=== PATIENT | female | born 1940 ===

== ENCOUNTER 2021-11-15 15:32 | Outpatient (REF) | payer MEDICARE, MEDICAID, SELFPAY ==
--- NOTE | ~2021-11-15 | XR_ITS ---
EXAMINATION: XR LUMBAR SPINE XR KNEE, BILATERAL CLINICAL INFORMATION: Repeated fall, pain. COMPARISON: None. TECHNIQUE: Lumbar spine 3 views. 4 views each knee. FINDINGS: LUMBAR SPINE: There is normal lumbar lordosis. The vertebral heights and alignment are normal. There is loss of L3-L4 and L4-L5 disc heights with mild ventral spondylosis. The rest of the disc heights are maintained normal. No visible acute fracture, lytic or sclerotic process seen. LEFT KNEE: There is minimal reduction in tricompartment joint space without joint effusion or bony erosive changes. There is mild lateral and superior patellar spurring. The soft tissues are normal. RIGHT KNEE: There is moderate loss of lateral and patellofemoral compartment joint space without joint effusion or bony erosive changes. There are no loose bodies. Mild anterior inferior and superior patellar enthesophytes are seen. XR/XR knee RT 4V IMPRESSION: Mild degenerative disc changes with spondylosis L3-L4 and L4-L5 disc levels. No acute fracture seen. Bilateral degenerative arthritic changes of knees. The findings are most severe in the lateral compartment right knee. There is periarticular spurring as described above. No abnormal joint effusion seen in either knee.
--- NOTE | ~2021-11-15 | XR_ITS ---
EXAMINATION: XR LUMBAR SPINE XR KNEE, BILATERAL CLINICAL INFORMATION: Repeated fall, pain. COMPARISON: None. TECHNIQUE: Lumbar spine 3 views. 4 views each knee. FINDINGS: LUMBAR SPINE: There is normal lumbar lordosis. The vertebral heights and alignment are normal. There is loss of L3-L4 and L4-L5 disc heights with mild ventral spondylosis. The rest of the disc heights are maintained normal. No visible acute fracture, lytic or sclerotic process seen. LEFT KNEE: There is minimal reduction in tricompartment joint space without joint effusion or bony erosive changes. There is mild lateral and superior patellar spurring. The soft tissues are normal. RIGHT KNEE: There is moderate loss of lateral and patellofemoral compartment joint space without joint effusion or bony erosive changes. There are no loose bodies. Mild anterior inferior and superior patellar enthesophytes are seen. XR/XR lumbar spine 2-3V IMPRESSION: Mild degenerative disc changes with spondylosis L3-L4 and L4-L5 disc levels. No acute fracture seen. Bilateral degenerative arthritic changes of knees. The findings are most severe in the lateral compartment right knee. There is periarticular spurring as described above. No abnormal joint effusion seen in either knee.
--- NOTE | ~2021-11-15 | XR_ITS ---
EXAMINATION: XR LUMBAR SPINE XR KNEE, BILATERAL CLINICAL INFORMATION: Repeated fall, pain. COMPARISON: None. TECHNIQUE: Lumbar spine 3 views. 4 views each knee. FINDINGS: LUMBAR SPINE: There is normal lumbar lordosis. The vertebral heights and alignment are normal. There is loss of L3-L4 and L4-L5 disc heights with mild ventral spondylosis. The rest of the disc heights are maintained normal. No visible acute fracture, lytic or sclerotic process seen. LEFT KNEE: There is minimal reduction in tricompartment joint space without joint effusion or bony erosive changes. There is mild lateral and superior patellar spurring. The soft tissues are normal. RIGHT KNEE: There is moderate loss of lateral and patellofemoral compartment joint space without joint effusion or bony erosive changes. There are no loose bodies. Mild anterior inferior and superior patellar enthesophytes are seen. XR/XR knee LT 4V IMPRESSION: Mild degenerative disc changes with spondylosis L3-L4 and L4-L5 disc levels. No acute fracture seen. Bilateral degenerative arthritic changes of knees. The findings are most severe in the lateral compartment right knee. There is periarticular spurring as described above. No abnormal joint effusion seen in either knee.
== END 2021-11-15 15:33 | disposition home or self-care (01) ==
LOC: HO.XRAY 15:32
PROVIDERS: PCP Emergency Medicine; Visit Provider Internal Medicine
DX: M25.561 Pain in right knee (principal); M25.562 Pain in left knee; R29.6 Repeated falls; M54.50 Low back pain, unspecified
CPT/HCPCS: 72100; 73564

== ENCOUNTER 2021-12-15 09:21 | Outpatient (REF) | payer MEDICARE, SELFPAY ==
[2021-12-15 10:32] LABS: Hematocrit 34.2 % (37.0-47.0); Hemoglobin 10.7 g/dl (12.0-16.0); Mean Corpuscular HGB Conc 31.3 g/dl (31.0-35.0); Mean Corpuscular Volume 92.7 fL (80.0-98.0); Mean Platelet Volume 10.5 fL (9.4-12.3); Platelet Count 223 X10*3/uL (160-400); Red Blood Count 3.69 X10*6/uL (4.20-5.50); White Blood Count 6.1 X10*3/uL (4.8-10.8)
[2021-12-15 11:05] LABS: Alanine Aminotransferase 12 U/L (0-31); Albumin Level 3.8 g/dL (3.5-5.0); Alkaline Phosphatase 99 U/L (39-117); Anion Gap 12 (12-20); Aspartate Amino Transferase 17 U/L (5-31); Bilirubin Total 0.6 mg/dL (0.0-1.0); Blood Urea Nitrogen 20 mg/dL (9-16); Calcium 9.4 mg/dL (8.4-10.2); Carbon Dioxide 30 mmol/L (22-29); Chloride 107 mmol/L (96-108); Cholesterol 162 mg/dL; Estimated Glomerular Filt Rate > 60; Glucose Random 86 mg/dL (60-115); HDL Cholesterol 62 mg/dL; LDL Cholesterol Calculated 88 mg/dl; Potassium 3.8 mmol/L (3.3-5.1); Sodium 145 mmol/L (135-145); Total Protein 6.7 g/dL (6.5-8.0); Triglycerides 63 mg/dL
[2021-12-15 11:12] LABS: Estimated Average Glucose 97 mg/dL
[2021-12-15 11:20] LABS: HBsAGNum1 0.23 S/CO (0.00-0.99); HIV AB/AG Nonreactive (Nonreactive); HIV Num 1 0.07 S/CO (0.00-0.99); Hepatitis B Core Antibody Nonreactive (Nonreactive); Hepatitis B Surface Antigen Negative (Negative); ~HepC Num1 0.11 S/CO (0.00-0.79); ~Hepatitis B Surface Antibody NONREACTIVE (Nonreactive); ~Hepatitis C Antibody Nonreactive (Nonreactive)
[2021-12-15 11:28] LABS: TSH reflex Free T4 1.77 uIU/mL (0.32-4.0)
[2021-12-15 12:38] LABS: CT PCR NOT DETECTED (Not Detect.); NG PCR NOT DETECTED (Not Detect.)
[2021-12-16 07:37] LABS: Syphilis Screen Reactive (Nonreactive)
[2021-12-23 11:24] LABS: RPR Quantitative Non-Reactive (Nonreactive); T.Pallidum Particle Agg Test Non-Reactive (Nonreactive)
== END 2021-12-15 09:22 | disposition home or self-care (01) ==
LOC: HO.LAB 09:21
PROVIDERS: Visit Provider Registered Nurse
DX: I10 Essential (primary) hypertension (principal); Z76.89 Persons encountering health services in other specified circumstances
CPT/HCPCS: 80053; 80061; 83036; 84443; 85027; 86592; 86704; 86706; 86780; 86803; 87340; 87389; 87491; 87591

== ENCOUNTER 2022-01-16 10:56 | Outpatient (REF) | payer MEDICARE, SELFPAY ==
--- NOTE | ~2022-01-16 | XR_ITS ---
EXAMINATION: XR CHEST 2 VIEWS CLINICAL INFORMATION: 3 day history of worsening cough; question pneumonia. COMPARISON: None. TECHNIQUE: Frontal and lateral views of the chest were obtained. FINDINGS: The heart, great vessels, pulmonary vasculature and mediastinum are unremarkable. The heart size is least top normal. The lungs show no focal infiltrate, effusion or pneumothorax. There is no acute osseous abnormality. XR/XR chest 2V IMPRESSION: No active cardiopulmonary disease.
== END 2022-01-16 10:57 | disposition home or self-care (01) ==
LOC: HO.XRAY 10:56
PROVIDERS: PCP Registered Nurse; Visit Provider Emergency Medicine
DX: J20.8 Acute bronchitis due to other specified organisms (principal)
CPT/HCPCS: 71046

== ENCOUNTER 2022-02-04 08:01 | Inpatient (IN) | payer MEDICARE, MEDICAID, SELFPAY ==
[2022-02-04] VITALS (13 sets, daily range): BP systolic 123–167; BP diastolic 62–118; PULSE 67–150; RESP 13–20; TEMP 36.3–37.6; O2SAT 68–100; BMI 29.4; BMI 29.5
--- NOTE | ~2022-02-04 | XR_ITS ---
EXAMINATION: XR CHEST CLINICAL INFORMATION: Unresponsive COMPARISON: January 16, 2022 TECHNIQUE: AP portable view of the chest was obtained. FINDINGS: Endotracheal tube tip is seen to lie approximately 2 cm above the belinda. Enteric catheter is seen with tip in the location of the gastroesophageal junction. Cardiopericardial silhouette is mildly enlarged. No evidence of pulmonary edema. No pneumothorax or pleural effusion. XR/XR chest 1V IMPRESSION: Endotracheal tube tip approximately 2 cm above the belinda. Nasogastric tube with tip in the region of the gastroesophageal junction and sidehole within the distal esophagus. This critical result was discussed with Dr. Santana at 9:27 AM on February 04, 2022 and it was ascertained that the content and urgency of the report was understood at the time of direct communication.
--- NOTE | ~2022-02-04 | MR_ITS ---
MRI OF THE BRAIN WITHOUT IV CONTRAST INDICATION: Seizure versus CVA. COMPARISON: Head and neck CT February 04, 2022. TECHNIQUE: Multiplanar multisequence MR imaging of the brain was obtained without IV contrast. FINDINGS: This is a very limited motion degraded MRI of the brain. There are no acute infarcts. There is global cerebral volume loss, there is chronic microangiopathy, and there are chronic infarcts within the cerebral hemispheres bilaterally. There is a chronic lacunar infarct within the left nikolai. There is no hydrocephalus, extra-axial surface collection, or herniation. The major flow voids at the skull base are preserved. There is no intracranial hemorrhage on the gradient recalled echo acquisition. The midline structures are normal. The cerebellar tonsils are normally positioned. Advanced hypertrophic degenerative changes involving the left atlantoaxial articulation. Osseous marrow signal intensity is homogenous. The visualized soft tissues are unremarkable. Mild mucosal thickening within the maxillary sinuses and ethmoid air cells bilaterally. Moderate bilateral mastoid effusions. MR/MR head/brain wo con IMPRESSION: This is a very limited motion degraded MRI of the brain. There are no acute infarcts. There is global cerebral volume loss, there is chronic microangiopathy, and there are chronic infarcts within the cerebral hemispheres bilaterally. There is a chronic lacunar infarct within the left nikolai. Repeat study with sedation could be obtained as clinically indicated.
--- NOTE | ~2022-02-04 | CT_ITS ---
EXAMINATION: CT HEAD WITHOUT CONTRAST (STROKE PROTOCOL) CLINICAL INFORMATION: Stroke protocol. Unresponsive COMPARISON: None TECHNIQUE: Contiguous axial imaging was performed from the skull base to vertex without intravenous administration of contrast. This CT examination was performed using dose optimization techniques as appropriate, variously including the following: *Automated exposure control *Adjustment of mA and/or kV according to patient size (this includes techniques or standardized protocols for targeted exams where dose is matched to indication/reason for exam; i.e. extremities or head) *Use of iterative reconstruction technique DLP: 667 mGy-cm FINDINGS: There is motion artifact present. No intracranial hemorrhage identified. No abnormal extra-axial fluid collection. No significant mass effect or midline structure shift. There is a large amount of periventricular white matter low density present. There is diminished density seen within the right frontal white matter consistent with age indeterminate infarct. There does not appear to be acute edema associated with this. No evidence of hemorrhagic conversion. Right vertebral artery calcification is present. Left carotid artery calcification is seen. There is question of hyperdense sign involving the left middle cerebral artery but without loss of dinero-white matter interface in its distribution. CT/CT head for stroke IMPRESSION: No acute intracranial pathology. Large amount of periventricular white matter low density consistent with small vessel disease. 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 Question left middle cerebral artery hyperdensity sign which can be seen with acute thrombosis. This critical result was discussed with Dr. Santana at 8:36 AM hours on February 04, 2022. It was ascertained that the content and urgency of the report was understood at the time of direct communication.
--- NOTE | ~2022-02-04 | CT_ITS ---
CT ANGIOGRAM NECK WITH CONTRAST CT ANGIOGRAM BRAIN WITH CONTRAST CLINICAL INFORMATION: Possible stroke. Unresponsive. COMPARISON: Head CT 02/04/2022. TECHNIQUE: Test bolus sequences followed by intravenous administration 70 mL of Omnipaque 350. Helical imaging was performed in the axial plane from the thoracic inlet to the skull vertex. Delayed postcontrast imaging of the head was also performed. The data was processed at the ultrasound technologist sonographer workstation for generation of MIP sequences. Angled MIPs and volume rendered reformatted images were also generated at an offline 3D workstation under concurrent supervision. Stenoses are assessed in accordance with NASCET criteria unless otherwise indicated. This CT examination was performed using dose optimization techniques as appropriate, variously including the following: *Automated exposure control *Adjustment of mA and/or kV according to patient size (this includes techniques or standardized protocols for targeted exams where dose is matched to indication/reason for exam; i.e. extremities or head) *Use of iterative reconstruction technique FINDINGS: BRAIN: There is an indeterminate age infarct within the left nikolai that can be more definitively assessed with MRI if not contraindicated. There is global cerebral volume loss, chronic microangiopathy, a chronic-appearing infarct within the right frontal lobe, and likely chronic lacunar infarcts within the deep herzog nuclei bilaterally that would also be better assessed with MRI. [There is no intracranial hemorrhage, hydrocephalus, extra-axial surface collection, midline shift, or other herniation pattern. Herzog to white matter differentiation is diffusely maintained without evidence of an evolved acute territorial infarct. The basilar cisterns are preserved. No significant soft tissue abnormality. No acute osseous abnormality. The paranasal sinuses and the mastoid air cells are well aerated.] CERVICAL SOFT TISSUES AND LUNG APICES: Partially imaged endotracheal and orogastric tubes. There is a multinodular thyroid. The largest nodule within the right thyroid lobe measures up to 1.7 cm in size which should be further assessed with thyroid ultrasound. Imaged upper lungs are clear. There is multilevel cervical spondylosis. There are markedly advanced hypertrophic degenerative changes involving the left lateral atlantoaxial articulation. NECK CTA: Left common carotid artery arises from the brachiocephalic artery, an anatomic variant. The right vertebral artery is dominant. The left vertebral artery is hypoplastic and hypertrophic degenerative changes associated with the left lateral atlantoaxial articulation result in partial occlusion of the distal V2 segment of the left vertebral artery. The V3 segment of the left vertebral artery is also partially occluded and the intradural left vertebral artery reconstitutes. Both common carotid arteries are normal in course and caliber.] There is atherosclerotic calcification involving the carotid bifurcations bilaterally resulting in less than 50% stenoses of the proximal internal carotid arteries on both sides. BRAIN CTA: Atherosclerotic disease results in a moderate to severe stenosis of the intradural right vertebral artery just proximal to the vertebrobasilar confluence. No focal flow-limiting stenosis nor discrete proximal large artery occlusion. No aneurysm. Timing of the contrast bolus allows assessment of the major dural venous sinuses, which all opacify normally] CT/CT angio head neck stroke IMPRESSION: - Limited motion degraded CTA. There is an indeterminate age infarct within the left nikolai that can be more definitively assessed with MRI if not contraindicated. There is global cerebral volume loss, chronic microangiopathy, a chronic-appearing infarct within the right frontal lobe, and likely chronic lacunar infarcts within the deep herzog nuclei bilaterally that would also be better assessed with MRI. - No acute arterial occlusions intracranially. - The left vertebral artery is hypoplastic and hypertrophic degenerative changes associated with the left lateral atlantoaxial articulation result in partial occlusion of the distal V2 segment of the left vertebral artery. The V3 segment of the left vertebral artery is also partially occluded and the intradural left vertebral artery reconstitutes. 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 - There is atherosclerotic calcification involving the carotid bifurcations bilaterally resulting in less than 50% stenoses of the proximal internal carotid arteries on both sides. - There is a multinodular thyroid. The largest nodule within the right thyroid lobe measures up to 1.7 cm in size which should be further assessed with thyroid ultrasound. - There is multilevel cervical spondylosis. There are markedly advanced hypertrophic degenerative changes involving the left lateral atlantoaxial articulation. Adjacent hypertrophic soft tissue pannus indents the left aspect of the thecal sac at C1-C2. Findings discussed with Dr. Santana at 10:08 AM on 02/04/2022.
--- NOTE | ~2022-02-04 | US_ITS ---
EXAMINATION: US THYROID CLINICAL INFORMATION: Thyroid nodule. COMPARISON: CT angiography of head and neck stroke 02/04/2022. TECHNIQUE: Linear transducer grayscale and color Doppler examination with attention to the region of the thyroid. FINDINGS: SIZE: Measurements of the thyroid lobes and nodules are given in sagittal, anteroposterior and transverse dimensions respectively. Right Thyroid Lobe: 4.6 x 1.9 x 1.4 cm, volume 6.6 mL. Parenchyma: The gland echotexture is homogeneous. Thyroid vascularity is normal. Left Thyroid Lobe: 4.2 x 1.5 x 1.8 cm, volume 6.0 mL. Parenchyma: The gland echotexture is homogeneous. Thyroid vascularity is normal. Isthmus: 0.4 cm in maximum AP dimension. Estimated total number of nodules greater than or equal to 1 cm: 0. 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 Location: Right superior. Size: 0.7 x 0.6 x 0.7 cm, volume 0.15 mL. Nodule characteristics: Composition: Solid (2). Echogenicity: Hyperechoic (1). Shape: Not taller than wide (0). Margins: Smooth (0). Echogenic Foci: None (0). ACR TI-RADS total points: 3 ACR TI-RADS category: 3 2. Location: Right superior/mid. Size: 0.5 x 0.3 x 0.4 cm, volume 0.03 mL. Nodule characteristics: Composition: Spongiform (0). Echogenicity: Anechoic (0). Shape: Not taller than wide (0). Margins: Smooth (0). Echogenic Foci: None (0). ACR TI-RADS total points: 0 ACR TI-RADS category: 1 3. Location: Left mid/lateral. Size: 0.6 x 0.4 x 0.4 cm, volume 0.05 mL. Nodule characteristics: Composition: Spongiform (0). Echogenicity: Anechoic (0). Shape: Not taller than wide (0). Margins: Smooth (0). Echogenic Foci: None (0). ACR TI-RADS total points: 0 ACR TI-RADS category: 1 4. Location: Left mid/medial. Size: 0.4 x 0.3 x 0.3 cm, volume 0.02 mL. Nodule characteristics: Composition: Spongiform (0). Echogenicity: Anechoic (0). Shape: Not taller than wide (0). Margins: Smooth (0). Echogenic Foci: None (0). ACR TI-RADS total points: 0 ACR TI-RADS category: 1 NODES: Included images of scattered cervical lymph nodes not significantly enlarged. US/US thyroid IMPRESSION: Bilateral subcentimeter thyroid nodules as described above. Largest 7 mm, ACR TI-RADS category 3 nodule upper pole right lobe. As per the new ACR TI-RADS recommendation referenced below no follow-up is required. ACR TI-RADS RECOMMENDATION REFERENCE: Ultrasound-guided fine-needle aspiration, followup ultrasound, no further follow up. * TR1 (0 point) and TR 2 (2 points): No FNA or follow up * TR3 (3 points): FNA if more than or equal to 2.5 cm in maximum dimension, followup ultrasound in 1, 3 and 5 years if 1.5 to 2.4 cm in maximum dimension. * TR4 (4-6 points): FNA if more than or equal to 1.5 cm in maximum dimension, followup ultrasound in 1, 2, 3 and 5 years if 1 to 1.4 cm in maximum dimension. * TR5 (more than or equal to 7 points): FNA if more than or equal to 1 cm in maximum dimension, followup ultrasound every year for 5 years if 0.5 to 0.9 cm in maximum dimension. * TR3, TR4 or TR5 nodules that are below the size threshold for follow up receive no follow up.
[2022-02-04] MEDS: Succinylcholine Chloride 200 MG/10 ML VIAL 100 MG IVPUSH (08:07)
[2022-02-04] MEDS: Etomidate 20 MG/10 ML VIAL IVPUSH (08:07)
[2022-02-04 08:10] LABS: Prothrombin Time Whole Bld POC 12.2 sec (11.1-13.5)
[2022-02-04 08:11] LABS: Glucose, Whole Blood 187 mg/dL (60-115)
--- NOTE | 2022-02-04 08:19 | ECG_ITS ---
Test Reason : UNRESPONSIVE Blood Pressure : / mmHG Vent. Rate : 135 BPM Atrial Rate : 000 BPM P-R Int : 000 ms QRS Dur : 126 ms QT Int : 404 ms P-R-T Axes : 000 -76 076 degrees QTc Int : 606 ms Wide QRS tachycardia with occasional Premature ventricular complexes Right bundle branch block Left anterior fascicular block Bifascicular block Abnormal ECG No previous ECGs available Referred By: Sia Santana Electronically Signed By:CHERRY BURNS
[2022-02-04] MEDS: propofoL 1,000 MG/100 ML VIAL 13.14 MG IVCONT (08:25)
--- NOTE | 2022-02-04 08:26 | ED.AMS ---
HPI - Altered Mental Status General Chief Complaint: Altered Mental Status Stated Complaint: SYNCOPE IN BR,UNRSPON SINCE PER FAM, STROKE ALERT Time Seen by Provider: 02/04/22 08:11 Source: patient, family (Daughter), EMS and freelance interpreter/translator Mode of arrival: EMS Limitations: no limitations History of Present Illness HPI narrative: 81-year-old female came in for evaluation after becoming unresponsive patient came in as possible stroke. Pre-hospital history was not available due to language barrier Patient normally live with her daughter mostly independent went to the bathroom this morning felt generalized weakness, patient was asking for water when the daughter come back to the bathroom found the patient leaning against the wall while sitting on the toilet seat with drooling saliva. Patient at this point was speaking to her daughter not moving and unable to hold the water cup. Patient had similar presentation at [place] 8 month ago and patient was diagnosed with new onset seizures taking 500 mg Keppra once daily. On 911 arrival patient became unresponsive, was hypoxic in the 60s, due to language barrier pre-hospital history was not obtained patient was transported to the hospital on non-rebreather. On arrival patient was unresponsive with right gaze preference, patient was intubated for airway protection and hypoxia documented by EMS. All the above symptoms started at 715 in the morning. Related Data Home Medications Medication Instructions Recorded Confirmed atorvastatin 40 mg tablet 1 tab PO BEDTIME 02/04/22 02/04/22 clopidogrel 75 mg tablet 1 tab PO DAILY 02/04/22 02/04/22 enalapril maleate 20 mg tablet 2 tab PO DAILY 02/04/22 02/04/22 furosemide 40 mg tablet 1 tab PO DAILY 02/04/22 02/04/22 isosorbide mononitrate 30 mg 1 tab PO QAM 02/04/22 02/04/22 tablet,extended release 24 hr levetiracetam 500 mg tablet 1 tab PO DAILY 02/04/22 02/04/22 metoprolol succinate 100 mg 1 tab PO DAILY 02/04/22 02/04/22 tablet,extended release 24 hr Allergies Allergy/AdvReac Type Severity Reaction Status Date / Time No Known Allergies Allergy Verified 02/04/22 08:19 Review of Systems Review of Systems: Yes Unobtainable due to mental condition PMFSH Social History Social History Advance Directives: Yes Advance Directives Information Provided: Yes Advance Directives on File: No Physical Exam ED Vital Signs: Vital Signs - 24 hr 02/04/22 08:03 02/04/22 08:40 02/04/22 08:34 Temperature Pulse Rate 150 H 140 H 133 H Respiratory Rate Blood Pressure 143/95 H 123/80 Pulse Oximetry 98 Oxygen Delivery Method Mechanical Ventilation Oxygen Flow Rate Fraction of Inspired Oxygen 40 02/04/22 08:59 02/04/22 09:39 02/04/22 10:00 Temperature 97.3 F Pulse Rate 96 98 104 H Respiratory Rate 20 20 20 Blood Pressure 132/83 159/88 H 167/118 H Pulse Oximetry 98 97 100 Oxygen Delivery Method Mechanical Ventilation Mechanical Ventilation Non-Rebreather Mask Oxygen Flow Rate Fraction of Inspired Oxygen 02/04/22 11:53 Temperature 99 F Pulse Rate 116 H Respiratory Rate 16 Blood Pressure 124/95 H Pulse Oximetry 100 Oxygen Delivery Method Nasal Cannula Oxygen Flow Rate 3 Fraction of Inspired Oxygen BMI result Body Mass Index 29.4 Vital signs have been reviewed as appeared to be correct. Blood pressure normal. Heart rate normal. Respiration rate normal. Temperature normal. Oxygen saturation normal. General: Unresponsive, disoriented, right gaze preference. HEENT: No signs of trauma, unremarkable exam. Neck: No JVD, no sign of trauma. Chest and lungs: Unremarkable, CTA. Heart: S1, S2 Abdomen neck: No trauma, nontender, no distension. Extremities: Full range of motion x4 extremities, no deformity. Neuro exam: Very limited due to intubation, unremarkable right gaze preference, otherwise patient was intubated for airway protection and was sedated and unable to assess for motor or sensory deficit. NIH Stroke Scale Internal: Initial- Upon Arrival (Unable to perform accurate NIH score due to patient mental status.) Course Course Course Narrative: Patient was brought in for acute mental status change and unresponsiveness, reportedly was hypoxic at the scene, with concern and question of protecting her airway patient initially was intubated with RSI technique, patient also had a history of seizure in the past using Keppra 500 mg once daily which is making this patient evaluation more difficult. Patient was weaned of sedation to assess for her mental status and neuro exam patient was extubated in the emergency department did well after extubation pulmonary medeiros, patient is more awake now patient still incoherent but according to the family patient is gradually and slowly coming back to her baseline, patient is holding her left upper extremities in the adduction position not trying to move it patient was observed moving her left upper extremities intermittently trying to hold to the bed rails, patient has been evaluated by Dr. Mayer at bedside at this point due to equivocal exam for stroke versus postictal with given improvement of patient neurological status patient is not a good candidate for tPA therapy. Dr. Mayer recommended aspirin and increase his Keppra from 500 once a day to 750 b.i.d.. MDM - Altered Mental Status Lab Data Attestation: I reviewed the patient's lab results. Result diagrams: 02/04/22 08:30 02/04/22 08:30 Labs: Lab Results 02/04/22 02/04/22 02/04/22 Range/Units 08:07 08:07 08:30 WBC 8.6 (4.8-10.8) X10*3/uL RBC 4.21 (4.20-5.50) X10*6/uL Hgb 12.4 (12.0-16.0) g/dl Hct 40.4 (37.0-47.0) % MCV 96.0 (80.0-98.0) fL MCH 29.5 (27.0-33.0) pg MCHC 30.7 L (31.0-35.0) g/dl RDW 12.9 (11.0-16.0) % Plt Count 296 D (160-400) X10*3/uL MPV 10.5 (9.4-12.3) fL Immature Gran % (Auto) 0.2 (0.0-0.4) % Neut % (Auto) 70.1 (45-73) % Lymph % (Auto) 24.1 (20-40) % [place] % (Auto) 4.2 (2-11) % Eos % (Auto) 1.2 (0-4) % Baso % (Auto) 0.2 (0-2) % Lymph # (Auto) 2.1 (1.2-4.9) X10*3/uL [place] # (Auto) 0.4 (0.1-1.2) X10*3/uL Eos # (Auto) 0.1 (0.0-0.4) X10*3/uL Baso # (Auto) 0.0 (0.0-0.2) X10*3/uL Abs Immat Gran (auto) 0.02 (0.00-0.03) X10*3/uL Absolute Neuts (auto) 6.0 (2.0-8.3) x10*3/uL Absolute Nucleated RBC 0.000 (0.0-0.012) X10*3/uL Nucleated RBC % (auto) 0.0 (0.0-0.2) /100WBC PT (10.0-13.1) SEC Whole Blood PT 12.2 (11.1-13.5) sec INR (0.9-1.1) Whole Blood INR 1.0 (0.9-1.1) APTT (26.0-36.4) SEC Sodium (135-145) mmol/L Potassium (3.3-5.1) mmol/L Chloride (96-108) mmol/L Carbon Dioxide (22-29) mmol/L Anion Gap (12-20) BUN (9-16) mg/dL Creatinine (0.5-1.4) mg/dL Estim Creat Clear Calc Estimated GFR POC Glucose 187 H (60-115) mg/dL Random Glucose (60-115) mg/dL Calcium (8.4-10.2) mg/dL Total Bilirubin (0.0-1.0) mg/dL Direct Bilirubin (0.0-0.5) mg/dL AST (5-31) U/L ALT (0-31) U/L Alkaline Phosphatase (39-117) U/L Troponin I High Sens (<3.5-17.0) ng/L B-Natriuretic Peptide (<100) pg/mL Total Protein (6.5-8.0) g/dL Albumin (3.5-5.0) g/dL Lipase (8-78) U/L Urine Color Urine Appearance Urine pH (5.0-8.0) Ur Specific [place] (1.005-1.025) Urine Protein (Neg-Trace) mg/dL Urine Glucose (UA) (Negative) mg/dL Urine Ketones (Negative) mg/dL Urine Blood (Negative) Urine Nitrite (Negative) Ur Leukocyte Esterase (Negative) COVID-19 (XI) (Negative) COVID-19 Clin Com 02/04/22 02/04/22 02/04/22 Range/Units 08:30 08:30 08:30 WBC (4.8-10.8) X10*3/uL RBC (4.20-5.50) X10*6/uL Hgb (12.0-16.0) g/dl Hct (37.0-47.0) % MCV (80.0-98.0) fL MCH (27.0-33.0) pg MCHC (31.0-35.0) g/dl RDW (11.0-16.0) % Plt Count (160-400) X10*3/uL MPV (9.4-12.3) fL Immature Gran % (Auto) (0.0-0.4) % Neut % (Auto) (45-73) % Lymph % (Auto) (20-40) % [place] % (Auto) (2-11) % Eos % (Auto) (0-4) % Baso % (Auto) (0-2) % Lymph # (Auto) (1.2-4.9) X10*3/uL [place] # (Auto) (0.1-1.2) X10*3/uL Eos # (Auto) (0.0-0.4) X10*3/uL Baso # (Auto) (0.0-0.2) X10*3/uL Abs Immat Gran (auto) (0.00-0.03) X10*3/uL Absolute Neuts (auto) (2.0-8.3) x10*3/uL Absolute Nucleated RBC (0.0-0.012) X10*3/uL Nucleated RBC % (auto) (0.0-0.2) /100WBC PT (10.0-13.1) SEC Whole Blood PT (11.1-13.5) sec INR (0.9-1.1) Whole Blood INR (0.9-1.1) APTT (26.0-36.4) SEC Sodium 145 (135-145) mmol/L Potassium 4.2 (3.3-5.1) mmol/L Chloride 107 (96-108) mmol/L Carbon Dioxide 22 (22-29) mmol/L Anion Gap 20 (12-20) BUN 22 H (9-16) mg/dL Creatinine 1.09 (0.5-1.4) mg/dL Estim Creat Clear Calc 38.5 Estimated GFR 48 POC Glucose (60-115) mg/dL Random Glucose 232 H (60-115) mg/dL Calcium 9.7 (8.4-10.2) mg/dL Total Bilirubin 0.6 (0.0-1.0) mg/dL Direct Bilirubin 0.2 (0.0-0.5) mg/dL AST 26 D (5-31) U/L ALT 21 (0-31) U/L Alkaline Phosphatase 119 H D (39-117) U/L Troponin I High Sens 17.5 H (<3.5-17.0) ng/L B-Natriuretic Peptide (<100) pg/mL Total Protein 7.4 (6.5-8.0) g/dL Albumin 4.1 (3.5-5.0) g/dL Lipase 32 (8-78) U/L Urine Color Urine Appearance Urine pH (5.0-8.0) Ur Specific [place] (1.005-1.025) Urine Protein (Neg-Trace) mg/dL Urine Glucose (UA) (Negative) mg/dL Urine Ketones (Negative) mg/dL Urine Blood (Negative) Urine Nitrite (Negative) Ur Leukocyte Esterase (Negative) COVID-19 (XI) Negative (Negative) COVID-19 Clin Com See Note 02/04/22 02/04/22 02/04/22 Range/Units 08:30 08:30 09:38 WBC (4.8-10.8) X10*3/uL RBC (4.20-5.50) X10*6/uL Hgb (12.0-16.0) g/dl Hct (37.0-47.0) % MCV (80.0-98.0) fL MCH (27.0-33.0) pg MCHC (31.0-35.0) g/dl RDW (11.0-16.0) % Plt Count (160-400) X10*3/uL MPV (9.4-12.3) fL Immature Gran % (Auto) (0.0-0.4) % Neut % (Auto) (45-73) % Lymph % (Auto) (20-40) % [place] % (Auto) (2-11) % Eos % (Auto) (0-4) % Baso % (Auto) (0-2) % Lymph # (Auto) (1.2-4.9) X10*3/uL [place] # (Auto) (0.1-1.2) X10*3/uL Eos # (Auto) (0.0-0.4) X10*3/uL Baso # (Auto) (0.0-0.2) X10*3/uL Abs Immat Gran (auto) (0.00-0.03) X10*3/uL Absolute Neuts (auto) (2.0-8.3) x10*3/uL Absolute Nucleated RBC (0.0-0.012) X10*3/uL Nucleated RBC % (auto) (0.0-0.2) /100WBC PT 11.3 (10.0-13.1) SEC Whole Blood PT (11.1-13.5) sec INR 1.0 (0.9-1.1) Whole Blood INR (0.9-1.1) APTT 25.7 L (26.0-36.4) SEC Sodium (135-145) mmol/L Potassium (3.3-5.1) mmol/L Chloride (96-108) mmol/L Carbon Dioxide (22-29) mmol/L Anion Gap (12-20) BUN (9-16) mg/dL Creatinine (0.5-1.4) mg/dL Estim Creat Clear Calc Estimated GFR POC Glucose (60-115) mg/dL Random Glucose (60-115) mg/dL Calcium (8.4-10.2) mg/dL Total Bilirubin (0.0-1.0) mg/dL Direct Bilirubin (0.0-0.5) mg/dL AST (5-31) U/L ALT (0-31) U/L Alkaline Phosphatase (39-117) U/L Troponin I High Sens (<3.5-17.0) ng/L B-Natriuretic Peptide 879 H (<100) pg/mL Total Protein (6.5-8.0) g/dL Albumin (3.5-5.0) g/dL Lipase (8-78) U/L Urine Color Yellow Urine Appearance Clear Urine pH 7.5 (5.0-8.0) Ur Specific [place] >= 1.030 H (1.005-1.025) Urine Protein Negative (Neg-Trace) mg/dL Urine Glucose (UA) 100 H (Negative) mg/dL Urine Ketones Negative (Negative) mg/dL Urine Blood Negative (Negative) Urine Nitrite Negative (Negative) Ur Leukocyte Esterase Negative (Negative) COVID-19 (XI) (Negative) COVID-19 Clin Com Imaging Data Chest x-ray: Attestation: I personally reviewed and interpreted this imaging study as follows: Radiologist's impression: [address] [address] XRay Report Signed Patient: Angelica Carrizales MR#: [id number] : 1940 Acct:[id number] Age/Sex: 81 / F ADM Date: 02/04/22 Loc: .ED Attending Dr: Endotracheal tube tip is seen to lie approximately 2 cm above the belinda. Enteric catheter is seen with tip in the location of the gastroesophageal junction. Cardiopericardial silhouette is mildly enlarged. No evidence of pulmonary edema. No pneumothorax or pleural effusion. XR/XR chest 1V IMPRESSION: Endotracheal tube tip approximately 2 cm above the belinda. ? Nasogastric tube with tip in the region of the gastroesophageal junction and sidehole within the distal esophagus. CT head: Attestation: I personally reviewed and interpreted this imaging study as follows: My impression: No acute intracranial pathology. ? Large amount of periventricular white matter low density consistent with small vessel disease. ? 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 ? Question left middle cerebral artery hyperdensity sign which can be seen with acute thrombosis. ? CTA head and neck: Attestation: I personally reviewed and interpreted this imaging study as follows: My impression: ?Limited motion degraded CTA. There is an indeterminate age infarct within the left nikolai that can be more definitively assessed with MRI if not contraindicated. There is global cerebral volume loss, chronic microangiopathy, a chronic-appearing infarct within the right frontal lobe, and likely chronic lacunar infarcts within the deep dinero nuclei bilaterally that would also be better assessed with MRI. ? - No acute arterial occlusions intracranially. ? - The left vertebral artery is hypoplastic and hypertrophic degenerative changes associated with the left lateral atlantoaxial articulation result in partial occlusion of the distal V2 segment of the left vertebral artery. The V3 segment of the left vertebral artery is also partially occluded and the intradural left vertebral artery reconstitutes. ? 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 ? - There is atherosclerotic calcification involving the carotid bifurcations bilaterally resulting in less than 50% stenoses of the proximal internal carotid arteries on both sides. ? - There is a multinodular thyroid. The largest nodule within the right thyroid lobe measures up to 1.7 cm in size which should be further assessed with thyroid ultrasound. ? - There is multilevel cervical spondylosis. There are markedly advanced hypertrophic degenerative changes involving the left lateral atlantoaxial articulation. Adjacent hypertrophic soft tissue pannus indents the left aspect of the thecal sac at C1-C2. Discharge Plan Discharge Clinical Impression: Altered mental status Patient Disposition: Admitted As Inpatient
[2022-02-04 08:35] LABS: MANUAL DIFF FLAG NO
--- NOTE | 2022-02-04 08:35 | PC.NURSE ---
st on monitor, propofol infusing, adequate sedation, occasional movement, family at bedside
[2022-02-04 08:40] LABS: Basophils Percent Auto 0.2 % (0-2); Eosinophils Absolute Auto 0.1 X10*3/uL (0.0-0.4); Eosinophils Percent Auto 1.2 % (0-4); Hematocrit 40.4 % (37.0-47.0); Hemoglobin 12.4 g/dl (12.0-16.0); Imm Gran Abs Auto 0.02 X10*3/uL (0.00-0.03); Imm Gran Pct Auto 0.2 % (0.0-0.4); Lymphocytes Absolute Auto 2.1 X10*3/uL (1.2-4.9); Lymphocytes Percent Auto 24.1 % (20-40); Mean Corpuscular HGB Conc 30.7 g/dl (31.0-35.0); Mean Corpuscular Hemoglobin 29.5 pg (27.0-33.0); Mean Platelet Volume 10.5 fL (9.4-12.3); Monocytes Absolute Auto 0.4 X10*3/uL (0.1-1.2); Monocytes Percent Auto 4.2 % (2-11); Neutrophils Percent Auto 70.1 % (45-73); Platelet Count 296 X10*3/uL (160-400); Red Blood Count 4.21 X10*6/uL (4.20-5.50); Red Cell Distribution Width 12.9 % (11.0-16.0); White Blood Count 8.6 X10*3/uL (4.8-10.8)
[2022-02-04 08:47] LABS: Prothrombin Time 11.3 SEC (10.0-13.1)
[2022-02-04 08:50] LABS: Partial Thromboplastin Time 25.7 SEC (26.0-36.4)
[2022-02-04 08:52] LABS: COVID-19 Test Negative (Negative); IDNOW Serial# 16C4AD1C
[2022-02-04 08:56] LABS: Alanine Aminotransferase 21 U/L (0-31); Albumin Level 4.1 g/dL (3.5-5.0); Alkaline Phosphatase 119 U/L (39-117); Anion Gap 20 (12-20); Aspartate Amino Transferase 26 U/L (5-31); Bilirubin Direct 0.2 mg/dL (0.0-0.5); Bilirubin Total 0.6 mg/dL (0.0-1.0); Blood Urea Nitrogen 22 mg/dL (9-16); Calcium 9.7 mg/dL (8.4-10.2); Carbon Dioxide 22 mmol/L (22-29); Chloride 107 mmol/L (96-108); Creatinine Clr Calc Pharmacy 38.5; Estimated Glomerular Filt Rate 48; Glucose Random 232 mg/dL (60-115); Lipase 32 U/L (8-78); Potassium 4.2 mmol/L (3.3-5.1); Sodium 145 mmol/L (135-145); Total Protein 7.4 g/dL (6.5-8.0)
[2022-02-04 09:03] LABS: B Type Natriuretic Peptide 879 pg/mL (<100)
[2022-02-04 09:04] LABS: Troponin-I High Sensitivity 17.5 ng/L (<3.5-17.0)
[2022-02-04] MEDS: iohexoL 350 MG/ML 100 ML INFUS..BTL IV (09:44)
--- NOTE | 2022-02-04 09:58 | PC.NURSE ---
patient extubated by Dr hennessy. drowsy at this time. moving extremities. on non rebreather. family at bedside.
[2022-02-04 10:07] LABS: Appearance Urine Clear; Color Urine Yellow; Glucose Urine UA 100 mg/dL (Negative); Leukocyte Esterase Urine Negative (Negative); Nitrite Urine Negative (Negative); PH 7.5 (5.0-8.0); Specific Gravity - Urine >= 1.030 (1.005-1.025); Urine Blood Negative (Negative); Urine Ketones Negative (Negative); Urine Protein Negative (Neg-Trace)
--- NOTE | 2022-02-04 10:36 | PHA.MEDREC ---
Pharmacy Consult ? Medication Reconciliation Pharmacy has completed the medication reconciliation. Used an nutrition manager, spoke with family and reviewed the rx bottles brought in by family.
--- NOTE | 2022-02-04 11:32 | PM.NEUROCN ---
History of Present Illness Data of Consult Service Date: 02/04/22 Primary Care Provider: Unknown Physician HPI Reason for consult: Encephalopathy 81 years old woman originally from [place] who came to hospital with sudden onset of difficulty speaking. In emergency room she was initially evaluated for stroke. I talked to the family with the help of an factory maintenance technician. Apparently she has been admitted 1 time in a hospital in [place] and was diagnosed with seizure disorder. According to family at that time she had left-sided weakness and then at 1 point she started shaking. She had another such episode while she was in the hospital. She has been taking levetiracetam but only 500 mg once a day. When she arrived in hospital her blood pressure was high and she had right gaze deviation. At 1 point she was intubated but then after discussion with the ER physician about exact diagnosis further investigations were recommended. She was extubated and had a CTA done. Now she was doing somewhat better but still had confusion and left-sided weakness. Review of Systems Review of Systems: No recent trauma or cold or flu-like illness PMFSH Social History Social History Advance Directives: Yes Advance Directives Information Provided: Yes Advance Directives on File: No Meds Allergies Allergy/AdvReac Type Severity Reaction Status Date / Time No Known Allergies Allergy Verified 02/04/22 08:19 Active Medications: Current Medications Propofol (Diprivan) 1,000 mg in 100 mls @ 0 mls/hr IVCONT .Q0M AJAY; Protocol Last Titration: 02/04/22 09:31 Dose: 45 mcg/kg/min, 19.71 mls/hr Pharmacy Consult (Consult Rx Perform Med Rec) 1 each MISCELLANE ONCE PRN PRN Reason: Consult order Home Medications Medication Instructions Recorded Confirmed Last Taken Type atorvastatin 40 mg tablet 1 tab PO BEDTIME 02/04/22 02/04/22 Unknown History clopidogrel 75 mg tablet 1 tab PO DAILY 02/04/22 02/04/22 Unknown History enalapril maleate 20 mg tablet 2 tab PO DAILY 02/04/22 02/04/22 Unknown History furosemide 40 mg tablet 1 tab PO DAILY 02/04/22 02/04/22 Unknown History isosorbide mononitrate 30 mg 1 tab PO QAM 02/04/22 02/04/22 Unknown History tablet,extended release 24 hr levetiracetam 500 mg tablet 1 tab PO DAILY 02/04/22 02/04/22 Unknown History metoprolol succinate 100 mg 1 tab PO DAILY 02/04/22 02/04/22 Unknown History tablet,extended release 24 hr Physical Exam Vital Signs: Vital Signs: Last Vital Signs Temp 97.3 F 02/04/22 08:59 Pulse 104 H 02/04/22 10:00 Resp 20 02/04/22 10:00 BP 167/118 H 02/04/22 10:00 Pulse Ox 100 02/04/22 10:00 O2 Del Method 02/04/22 10:00 FiO2 40 02/04/22 08:34 BMI result Body Mass Index 29.4 Neuro: Other: Alert and somewhat agitated trying to come out of bed. With help of an factory maintenance technician she was able to answer simple questions and recognize family member. She was able to follow simple commands. There was [id number] left arm and probably also mild left leg weakness. She was able to use her left hand to bring it to the other side of the bed. There was no obvious right-sided weakness. She was able to count fingers but visual fung were difficult to determine. Reflexes were trace to absent with equivocal plantars. Results Labs CBC & Chem 7: 02/04/22 08:30 02/04/22 08:30 Labs: Short CBC 02/04/22 Range/Units 08:30 WBC 8.6 (4.8-10.8) X10*3/uL Hgb 12.4 (12.0-16.0) g/dl Hct 40.4 (37.0-47.0) % Plt Count 296 D (160-400) X10*3/uL BMP 02/04/22 08:30 Sodium 145 Potassium 4.2 Chloride 107 Carbon Dioxide 22 BUN 22 H Creatinine 1.09 Calcium 9.7 Liver Function 02/04/22 Range/Units 08:30 Total Bilirubin 0.6 (0.0-1.0) mg/dL Direct Bilirubin 0.2 (0.0-0.5) mg/dL AST 26 D (5-31) U/L ALT 21 (0-31) U/L Alkaline Phosphatase 119 H D (39-117) U/L Albumin 4.1 (3.5-5.0) g/dL Urine 02/04/22 Range/Units 09:38 Urine Color Yellow Urine Appearance Clear Urine pH 7.5 (5.0-8.0) Ur Specific [place] >= 1.030 H (1.005-1.025) Urine Protein Negative (Neg-Trace) mg/dL Urine Glucose (UA) 100 H (Negative) mg/dL Noncontrast head CT revealed extensive chronic microvascular ischemic changes. Some of these lesions were somewhat cortical. CTA reveal atherosclerotic disease. 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 Initially she was intubated but then extubated and now was agitated and confused with mild left hemiparesis. According to family, she has similar admission in [place] when she was diagnosed with seizure disorder. She was only taking 500 mg of levetiracetam. Though stroke was a possibility, because of multiple atypical factors I did not recommend treatment like intravenous tPA. I would recommend increasing dose of levetiracetam to 750 mg twice a day continuing anti-platelet agent statin and blood pressure control. Procedures Date of Service Date of Service: 02/04/22
[2022-02-04] MEDS: levETIRAcetam 500 MG TABLET PO (11:54)
[2022-02-04] MEDS: Aspirin 81 MG TAB.CHEW PO (11:54)
[2022-02-04 12:20] LABS: Troponin-I High Sensitivity 38.1 ng/L (<3.5-17.0)
[2022-02-04] MEDS: Isosorbide Mononitrate 30 MG TAB.ER.24H PO (13:34)
--- NOTE | 2022-02-04 13:47 | P.HPHOSP_ITS ---
History of Present Illness Date of Service: 02/04/22 Chief Complaint: L arm weakness This history was taken in [place] from the patient. 81 yo F who recently moved here from [place] and has a history of HTN, HLD, and seizure for which she was started on levetiracetam 500 mg daily about 8 months ago. At that point, she presented with shaking and L-sided weakness. She currently lives with her daughter and ambulates with a cane. This morning, she went to the bathroom and felt unsteady. She called out to her daughter and asked for a cup of water. Her daughter found the patient leaning against the wall and she was unable to hold the water cup in her left hand. She was also noted to be drooling saliva. She did not lose consciousness but was confused. Her daughter called EMS. Upon arrival to the ED, the patient became hypoxic and unresponsive with right gaze deviation. She was intubated for airway protection. She was quickly weaned off sedation and successfully extubated. She is alert and somewhat agitated. Her left arm is still weak. No actual tonic-clonic movements have been observed. CT of the head showed small vessel disease and a chronic right frontal infarct. CTA of the head and neck showed an age-indeterminate left pontine infarct, generalized volume loss, chronic microangiopathy, and a chronic R frontal and lacunar infarcts. There is also diffuse atheroscerlosis and a 1.7 cm thyroid nodule. At this point the patient is complaining of a headache. No chest pain or dyspn ea. She is thirsty and wants to eat and drink. Review of Systems Review of Systems: Yes all other systems are reviewed and are negative [facility] Medical History Dyslipidemia Essential hypertension Seizure disorder Social History Alcohol intake: never Patient Tobacco Use Status: Never used Tobacco Advance Directives: Yes Advance Directives Information Provided: Yes Advance Directives on File: No Meds Allergies Allergy/AdvReac Type Severity Reaction Status Date / Time No Known Allergies Allergy Verified 02/04/22 08:19 Active Medications: Current Medications Acetaminophen (Acetaminophen 325 Mg Tablet) 650 mg PO Q6H PRN PRN Reason: fever or mild pain Atorvastatin Calcium (Atorvastatin Calcium 40 Mg Tablet) 40 mg PO BEDTIME [facility] Clopidogrel Bisulfate (Clopidogrel Bisulfate 75 Mg Tablet) 75 mg PO DAILY [facility] Enalapril Maleate (Enalapril Maleate 10 Mg Tablet) 40 mg PO DAILY AJAY; Protocol Enoxaparin Sodium (Enoxaparin Sodium 40 Mg/0.4 Ml Syringe) 40 mg SUBCUT Q24H AJAY Furosemide (Furosemide 40 Mg Tablet) 40 mg PO DAILY AJAY; Protocol Propofol (Diprivan) 1,000 mg in 100 mls @ 0 mls/hr IVCONT .Q0M AJAY; Protocol Last Titration: 02/04/22 09:35 Dose: Infused Isosorbide Mononitrate (Isosorbide Mononitrate 30 Mg Tab.Er.24h) 30 mg PO DAILY [facility]; Protocol Last Admin: 02/04/22 13:34 Dose: 30 mg Levetiracetam (Levetiracetam 250 Mg Tablet) 750 mg PO BID [facility] Metoprolol Succinate (Metoprolol Succinate Er 100 Mg Tab.Er.24h) 100 mg PO DAILY [facility]; Protocol Morphine Sulfate (Morphine Sulfate 2 Mg/Ml Cartridge) 2 mg IVPUSH Q4H PRN; Protocol PRN Reason: severe pain Ondansetron HCl (Ondansetron Hcl 4 Mg/2 Ml Vial) 4 mg IVPUSH Q4H PRN PRN Reason: nausea/vomiting Oxycodone HCl (Oxycodone Hcl Immed Release 5 Mg Tablet) 5 mg PO Q6H PRN PRN Reason: moderate pain Pharmacy Consult (Consult Rx Perform Med Rec) 1 each MISCELLANE ONCE PRN PRN Reason: Consult order Sodium Chloride (0.9 % Sodium Chloride Flush 3 Ml Syringe) 3 ml IVFLUSH QSHIFT [facility] Home Medications Medication Instructions Recorded Confirmed Last Taken Type atorvastatin 40 mg tablet 1 tab PO BEDTIME 02/04/22 02/04/22 Unknown History clopidogrel 75 mg tablet 1 tab PO DAILY 02/04/22 02/04/22 Unknown History enalapril maleate 20 mg tablet 2 tab PO DAILY 02/04/22 02/04/22 Unknown History furosemide 40 mg tablet 1 tab PO DAILY 02/04/22 02/04/22 Unknown History isosorbide mononitrate 30 mg 1 tab PO QAM 02/04/22 02/04/22 Unknown History tablet,extended release 24 hr levetiracetam 500 mg tablet 1 tab PO DAILY 02/04/22 02/04/22 Unknown History metoprolol succinate 100 mg 1 tab PO DAILY 02/04/22 02/04/22 Unknown History tablet,extended release 24 hr Physical Exam Vital Signs and Narrative: Vital Signs: Last Vital Signs Temp 99 F 02/04/22 11:53 Pulse 107 H 02/04/22 13:34 Resp 18 02/04/22 13:34 BP 150/76 H 02/04/22 13:34 Pulse Ox 100 02/04/22 11:53 O2 Del Method 02/04/22 11:53 O2 Flow Rate 3 02/04/22 11:53 FiO2 40 02/04/22 08:34 BMI result Body Mass Index 29.4 Gen: somewhat agitated HEENT: sclera anicteric, moist mucus membranes Neck: supple Lungs: clear to auscultation bilaterally Heart: regular rate and rhythm, no murmurs Abd: soft, non-tender, non-distended Ext: no edema Skin: warm/well-perfused Neuro: alert, oriented to self and place, LUE weakness, no facial droop Psych: impaired insight Results Labs CBC and Chem 7: 02/04/22 08:30 02/04/22 08:30 Labs: Laboratory Results - last 24 hr 02/04/22 02/04/22 02/04/22 08:07 08:07 08:30 MCV 96.0 MCH 29.5 MCHC 30.7 L RDW 12.9 Plt Count 296 D MPV 10.5 Immature Gran % (Auto) 0.2 Neut % (Auto) 70.1 Lymph % (Auto) 24.1 [place] % (Auto) 4.2 Eos % (Auto) 1.2 Baso % (Auto) 0.2 Lymph # (Auto) 2.1 [place] # (Auto) 0.4 Eos # (Auto) 0.1 Baso # (Auto) 0.0 Abs Immat Gran (auto) 0.02 Absolute Neuts (auto) 6.0 Absolute Nucleated RBC 0.000 Nucleated RBC % (auto) 0.0 PT Whole Blood PT 12.2 INR Whole Blood INR 1.0 APTT Anion Gap Estim Creat Clear Calc Estimated GFR POC Glucose 187 H Random Glucose Calcium Total Bilirubin Direct Bilirubin AST ALT Alkaline Phosphatase B-Natriuretic Peptide Total Protein Albumin Lipase Urine Color Urine Appearance Urine pH Ur Specific Means Urine Protein Urine Glucose (UA) Urine Ketones Urine Blood Urine Nitrite Ur Leukocyte Esterase COVID-19 (XI) COVID-19 Clin Com 02/04/22 02/04/22 02/04/22 08:30 08:30 08:30 MCV MCH MCHC RDW Plt Count MPV Immature Gran % (Auto) Neut % (Auto) Lymph % (Auto) [place] % (Auto) Eos % (Auto) Baso % (Auto) Lymph # (Auto) [place] # (Auto) Eos # (Auto) Baso # (Auto) Abs Immat Gran (auto) Absolute Neuts (auto) Absolute Nucleated RBC Nucleated RBC % (auto) PT 11.3 Whole Blood PT INR 1.0 Whole Blood INR APTT 25.7 L Anion Gap 20 Estim Creat Clear Calc 38.5 Estimated GFR 48 POC Glucose Random Glucose 232 H Calcium 9.7 Total Bilirubin 0.6 Direct Bilirubin 0.2 AST 26 D ALT 21 Alkaline Phosphatase 119 H D B-Natriuretic Peptide Total Protein 7.4 Albumin 4.1 Lipase 32 Urine Color Urine Appearance Urine pH Ur Specific Means Urine Protein Urine Glucose (UA) Urine Ketones Urine Blood Urine Nitrite Ur Leukocyte Esterase COVID-19 (XI) Negative COVID-19 Clin Com See Note 02/04/22 02/04/22 08:30 09:38 MCV MCH MCHC RDW Plt Count MPV Immature Gran % (Auto) Neut % (Auto) Lymph % (Auto) [place] % (Auto) Eos % (Auto) Baso % (Auto) Lymph # (Auto) [place] # (Auto) Eos # (Auto) Baso # (Auto) Abs Immat Gran (auto) Absolute Neuts (auto) Absolute Nucleated RBC Nucleated RBC % (auto) PT Whole Blood PT INR Whole Blood INR APTT Anion Gap Estim Creat Clear Calc Estimated GFR POC Glucose Random Glucose Calcium Total Bilirubin Direct Bilirubin AST ALT Alkaline Phosphatase B-Natriuretic Peptide 879 H Total Protein Albumin Lipase Urine Color Yellow Urine Appearance Clear Urine pH 7.5 Ur Specific Means >= 1.030 H Urine Protein Negative Urine Glucose (UA) 100 H Urine Ketones Negative Urine Blood Negative Urine Nitrite Negative Ur Leukocyte Esterase Negative COVID-19 (XI) COVID-19 Clin Com Imaging Radiologist's Impressions: Impressions Head CT 02/04/22 08:20 IMPRESSION: No acute intracranial pathology. Large amount of periventricular white matter low density consistent with small vessel disease. 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 Question left middle cerebral artery hyperdensity sign which can be seen with acute thrombosis. This critical result was discussed with Dr. Santana at 8:36 AM hours on February 04, 2022. It was ascertained that the content and urgency of the report was understood at the time of direct communication. Chest X-Ray 02/04/22 09:00 IMPRESSION: Endotracheal tube tip approximately 2 cm above the belinda. Nasogastric tube with tip in the region of the gastroesophageal junction and sidehole within the distal esophagus. This critical result was discussed with Dr. Santana at 9:27 AM on February 04, 2022 and it was ascertained that the content and urgency of the report was understood at the time of direct communication. Head/Neck CTA 02/04/22 09:10 IMPRESSION: - Limited motion degraded CTA. There is an indeterminate age infarct within the left nikolai that can be more definitively assessed with MRI if not contraindicated. There is global cerebral volume loss, chronic microangiopathy, a chronic-appearing infarct within the right frontal lobe, and likely chronic lacunar infarcts within the deep dinero nuclei bilaterally that would also be better assessed with MRI. - No acute arterial occlusions intracranially. - The left vertebral artery is hypoplastic and hypertrophic degenerative changes associated with the left lateral atlantoaxial articulation result in partial occlusion of the distal V2 segment of the left vertebral artery. The V3 segment of the left vertebral artery is also partially occluded and the intradural left vertebral artery reconstitutes. 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 - There is atherosclerotic calcification involving the carotid bifurcations bilaterally resulting in less than 50% stenoses of the proximal internal carotid arteries on both sides. - There is a multinodular thyroid. The largest nodule within the right thyroid lobe measures up to 1.7 cm in size which should be further assessed with thyroid ultrasound. - There is multilevel cervical spondylosis. There are markedly advanced hypertrophic degenerative changes involving the left lateral atlantoaxial articulation. Adjacent hypertrophic soft tissue pannus indents the left aspect of the thecal sac at C1-C2. Findings discussed with Dr. Santana at 10:08 AM on 02/04/2022. Assessment and Plan (1) Altered mental status: Status: Acute Plan 81yo F with HTN, HLD, history of seizure for which she was started on levetiracteam 8 month ago though at a very low dose, and radiographic evidence of chronic cerebrovascular accidents. She presented obtunded and hypoxic after being found altered with left-sided weakness at home. She was briefly intubated for airway protection but extubated in the ED. 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 Per Neurology, increase dose fo 750 mg bid. possibility of CVA discussed with Neurology, no tPA recommended due to atypical factors. continue clopidogrel, ASA, statin, and VILMA inhibitor for secondary prevention. MRI of brain. EEG - PT, OT, and SALES ANALYTICS MANAGER consultations # acute hypoxic respiratory failure due to abovce - extubated, wean O2 as tolerated # Tn-I elevation - no ischemic EKG changes. recheck Tn-I. suspect demand from seizure. # HTN - resume enalapril + metoprolol # HLD - resume atorvastatin # VTE prophylaxis: LMWH # code status: full I anticipate that the patient will stay at least 2 midnights in hospital due to the above reasons [seizure vs stroke workup, hypoxia requiring brief intubation] It is neither reasonable nor safe to care for them in a less acute setting. Quality Stroke Does the patient have a stroke diagnosis?: No VTE Prior VTE?: No VTE Risk Level:: Medical - moderate - high VTE Device Contraindication: N/A - Device Ordered VTE Drug Contraindication: N/A - Med Ordered
[2022-02-04] MEDS: Enoxaparin Sodium 40 MG/0.4 ML SYRINGE SUBCUT (14:17)
--- NOTE | 2022-02-04 15:16 | PC.NURSE ---
assumed care of pt, pt drowsy/disoriented, vss, pulled out left AC IV, right AC IV wrapped and flushed, phlebotomy at bedside.
[2022-02-04] MEDS: 0.9 % Sodium Chloride Flush 3 ML SYRINGE IVFLUSH ×2 (15:18→21:48)
[2022-02-04] MEDS: Morphine Sulfate 2 MG/ML CARTRIDGE IVPUSH ×2 (15:32→21:48)
[2022-02-04] MEDS: ondansetron HCL 4 MG/2 ML VIAL IVPUSH (15:32)
[2022-02-04] MEDS: Acetaminophen 325 MG TABLET 650 MG PO (15:33)
--- NOTE | 2022-02-04 15:41 | PC.NURSE ---
pt medicated for 10/10 headache/right arm pain. repositioned in bed.
[2022-02-04 16:09] LABS: Troponin-I High Sensitivity 74.7 ng/L (<3.5-17.0)
--- NOTE | 2022-02-04 17:31 | PC.NURSE ---
pt sleeping, vss, daughter at bedside. no new orders at this time.
--- NOTE | 2022-02-04 19:04 | PC.NURSE ---
RN-RN report called into [facility].
[2022-02-04] MEDS: levETIRAcetam 250 MG TABLET 750 MG PO (21:48)
[2022-02-04] MEDS: Atorvastatin Calcium 40 MG TABLET PO (21:48)
[2022-02-05 04:00] VITALS: BP 111/59; PULSE 71; RESP 18; TEMP 36.2; O2SAT 99
[2022-02-05 07:14] LABS: Hematocrit 33.6 % (37.0-47.0); Hemoglobin 10.7 g/dl (12.0-16.0); Mean Corpuscular HGB Conc 31.8 g/dl (31.0-35.0); Mean Corpuscular Hemoglobin 29.6 pg (27.0-33.0); Mean Corpuscular Volume 93.1 fL (80.0-98.0); Mean Platelet Volume 10.5 fL (9.4-12.3); Platelet Count 231 X10*3/uL (160-400); Red Blood Count 3.61 X10*6/uL (4.20-5.50); Red Cell Distribution Width 12.9 % (11.0-16.0); White Blood Count 4.8 X10*3/uL (4.8-10.8)
[2022-02-05 07:30] LABS: Estimated Average Glucose 94 mg/dL; Hemoglobin A1c % 4.9 %
[2022-02-05 07:41] LABS: Anion Gap 15 (12-20); Blood Urea Nitrogen 21 mg/dL (9-16); Calcium 9.1 mg/dL (8.4-10.2); Carbon Dioxide 25 mmol/L (22-29); Chloride 104 mmol/L (96-108); Creatinine Clr Calc Pharmacy 44.7; Estimated Glomerular Filt Rate 57; Glucose Random 84 mg/dL (60-115); Potassium 4.5 mmol/L (3.3-5.1); Sodium 139 mmol/L (135-145)
[2022-02-05 07:45] LABS: Troponin-I High Sensitivity 64.1 ng/L (<3.5-17.0)
[2022-02-05 08:00] VITALS: BP 134/58; PULSE 67; RESP 20; TEMP 36.6; O2SAT 95
--- NOTE | 2022-02-05 08:56 | MHC.CM.PN ---
Interview conducted w/family. Patient lives w/daughter and primary contact is grand daughter (Cyn). No prior services, owns a walker, does not drive. Cyn takes her where she needs to go usually; at this time patient is unable to get into Cyn's jeep (too high off of the ground for the patient). RE ADLs/ambulating around the house, etc; patient requires the use of her walker and assist of 1 person (family member). Patient will need a PT eval. If home w/services, patient will require transportation to home. Per grand daughter, the family's goal is SNF VS home w/services; they would like some time to discuss amongst themselves and also see what a PT eval recommends at [facility]. D/C plan pending. CM to follow.
[2022-02-05] MEDS: Isosorbide Mononitrate 30 MG TAB.ER.24H PO (09:46)
[2022-02-05] MEDS: levETIRAcetam 250 MG TABLET 750 MG PO ×2 (09:46→21:17)
[2022-02-05] MEDS: Clopidogrel Bisulfate 75 MG TABLET PO (09:46)
[2022-02-05] MEDS: Enalapril Maleate 10 MG TABLET 40 MG PO (09:46)
[2022-02-05] MEDS: Metoprolol Succinate ER 100 MG TAB.ER.24H PO (09:47)
[2022-02-05] MEDS: Furosemide 40 MG TABLET PO (09:47)
[2022-02-05] MEDS: Morphine Sulfate 2 MG/ML CARTRIDGE IVPUSH (09:47)
[2022-02-05] MEDS: 0.9 % Sodium Chloride Flush 3 ML SYRINGE IVFLUSH ×3 (09:47→21:17)
--- NOTE | 2022-02-05 09:52 | P.PNIM_ITS ---
Subjective Subjective Date of Service: 02/05/22 Interval History: This history was taken in [place] from the patient. LUE weak though improved no seziures no chest pain Review of Systems Review of Systems: Yes all other systems are reviewed and are negative Physical Exam Vital Signs: Vital Signs: Last Vital Signs Temp 97.9 F 02/05/22 08:00 Pulse 67 02/05/22 08:00 Resp 20 02/05/22 08:00 BP 134/58 L 02/05/22 08:00 Pulse Ox 95 02/05/22 08:00 O2 Del Method 02/05/22 08:00 O2 Flow Rate 2 02/05/22 04:00 FiO2 40 02/04/22 08:34 BMI result Body Mass Index 29.5 Gen: NAD HEENT: sclera anicteric, moist mucus membranes Neck: supple Lungs: clear to auscultation bilaterally Heart: regular rate and rhythm, no murmurs Abd: soft, non-tender, non-distended Ext: no edema Skin: warm/well-perfused Neuro: alert and oriented, no facial droop, fluent speech, 4/5 strength in LUE Psych: appropriate affect Objective Data Active Medications Acetaminophen (Acetaminophen 325 Mg Tablet) 650 mg PO Q6H PRN PRN Reason: fever or mild pain Last Admin: 02/04/22 15:33 Dose: 650 mg Documented By: CUONG Atorvastatin Calcium (Atorvastatin Calcium 40 Mg Tablet) 40 mg PO BEDTIME [facility] Last Admin: 02/04/22 21:48 Dose: 40 mg Documented By: RALPH Clopidogrel Bisulfate (Clopidogrel Bisulfate 75 Mg Tablet) 75 mg PO DAILY [facility] Last Admin: 02/05/22 09:46 Dose: 75 mg Documented By: ANTONIO Enalapril Maleate (Enalapril Maleate 10 Mg Tablet) 40 mg PO DAILY [facility]; Protocol Last Admin: 02/05/22 09:46 Dose: 40 mg Documented By: ANTONIO Enoxaparin Sodium (Enoxaparin Sodium 40 Mg/0.4 Ml Syringe) 40 mg SUBCUT Q24H [facility] Last Admin: 02/04/22 14:17 Dose: 40 mg Documented By: COOPEWoodrow Furosemide (Furosemide 40 Mg Tablet) 40 mg PO DAILY [facility]; Protocol Last Admin: 02/05/22 09:47 Dose: 40 mg Documented By: ANTONIO Isosorbide Mononitrate (Isosorbide Mononitrate 30 Mg Tab.Er.24h) 30 mg PO DAILY [facility]; Protocol Last Admin: 02/05/22 09:46 Dose: 30 mg Documented By: ANTONIO Levetiracetam (Levetiracetam 250 Mg Tablet) 750 mg PO BID [facility] Last Admin: 02/05/22 09:46 Dose: 750 mg Documented By: ANTONIO Metoprolol Succinate (Metoprolol Succinate Er 100 Mg Tab.Er.24h) 100 mg PO DAILY [facility]; Protocol Last Admin: 02/05/22 09:47 Dose: 100 mg Documented By: ANTONIO Morphine Sulfate (Morphine Sulfate 2 Mg/Ml Cartridge) 2 mg IVPUSH Q4H PRN; Protocol PRN Reason: severe pain Last Admin: 02/05/22 09:47 Dose: 2 mg Documented By: ANTONIO Ondansetron HCl (Ondansetron Hcl 4 Mg/2 Ml Vial) 4 mg IVPUSH Q4H PRN PRN Reason: nausea/vomiting Last Admin: 02/04/22 15:32 Dose: 4 mg Documented By: MADDENEj Oxycodone HCl (Oxycodone Hcl Immed Release 5 Mg Tablet) 5 mg PO Q6H PRN PRN Reason: moderate pain Pharmacy Consult (Consult Rx Perform Med Rec) 1 each MISCELLANE ONCE PRN PRN Reason: Consult order Sodium Chloride (0.9 % Sodium Chloride Flush 3 Ml Syringe) 3 ml IVFLUSH [facility] Last Admin: 02/05/22 09:47 Dose: 3 ml Documented By: ANTONIO Labs CBC & Chem 7: 02/05/22 06:42 02/05/22 06:42 Labs: Laboratory Results - last 24 hr 02/04/22 02/05/22 02/05/22 09:38 06:42 06:42 MCV 93.1 MCH 29.6 MCHC 31.8 RDW 12.9 Plt Count 231 MPV 10.5 Absolute Nucleated RBC 0.000 Nucleated RBC % (auto) 0.0 Anion Gap 15 Estim Creat Clear Calc 44.7 Estimated GFR 57 Random Glucose 84 Estimat Average Glucose Hemoglobin A1c % Calcium 9.1 D Urine Color Yellow Urine Appearance Clear Urine pH 7.5 Ur Specific [place] >= 1.030 H Urine Protein Negative Urine Glucose (UA) 100 H Urine Ketones Negative Urine Blood Negative Urine Nitrite Negative Ur Leukocyte Esterase Negative 02/05/22 06:42 MCV MCH MCHC RDW Plt Count MPV Absolute Nucleated RBC Nucleated RBC % (auto) Anion Gap Estim Creat Clear Calc Estimated GFR Random Glucose Estimat Average Glucose 94 Hemoglobin A1c % 4.9 Calcium Urine Color Urine Appearance Urine pH Ur Specific [place] Urine Protein Urine Glucose (UA) Urine Ketones Urine Blood Urine Nitrite Ur Leukocyte Esterase Assessment and Plan (1) Altered mental status: Status: Acute [facility] hospital d#2 81yo F with HTN, HLD, history of seizure for which she was started on levetiracteam 8 month ago [though at a very low dose of only 500 mg daily], and radiographic evidence of chronic cerebrovascular accidents.? She recently moved here from [place]. She presented obtunded and hypoxic after being found altered with left-sided weakness at home.? She was briefly intubated for airway protection but extubated in the ED. 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 possibility of CVA discussed with Neurology, no tPA recommended due to atypical factors.? continue clopidogrel, ASA, statin, and VILMA inhibitor for secondary prevention. MRI + EEG tomorrow. - PT, OT, and CONSTRUCTION CONTRACTOR consultations # troponin elevation - suspect demand from hypoxia/seizure, no EKG changes, no angina; Cardiology consult pending # acute hypoxic respiratory failure, resolved - extubated, weaned off O2 # Tn-I elevation - no ischemic EKG changes.? recheck Tn-I.? suspect demand from seizure. TTE in AM # HTN - resume enalapril + metoprolol # HLD - resume atorvastatin # VTE prophylaxis: LMWH In my clinical judgment, the patient requires continued hospitalization for the following reasons: neurologic workup for seizure vs stroke Quality Stroke Does the patient have a stroke diagnosis?: No VTE Prior VTE?: No VTE Risk Level:: Medical - moderate - high VTE Device Contraindication: N/A - Device Ordered VTE Drug Contraindication: N/A - Med Ordered
--- NOTE | 2022-02-05 10:52 | P.CONCA_ITS ---
History of Present Illness History of Present Illness Date of Service: 02/05/22 Chief complaint: Seizure vs stroke Narrative: This is a cardiology consultation regarding elevated troponins. Patient has a history of hypertension, high lipids and seizures. It seems that daughter home the patient leading against the wall unable to hold a water cup in left hand. Also noted to have drooling of saliva. No loss of consciousness but she was confused. Patient was apparently found to be hypoxic and unresponsive with right-sided case. Intubated for airway protection. Then weaned off sedation and then extubated. From the cardiac standpoint, found to have elevated troponins and hence we have been asked to see her. Patient denies any history of coronary disease myocardial infarction but she states that she was told to have carotid disease. Not clearly details. Otherwise denies any clear anginal- type symptoms or in fact any other cardiac symptoms. Review of Systems Review of Systems: Yes all other systems are reviewed and are negative Constitutional: Constitutional: Reports as per HPI Eyes: Eyes: Reports as per HPI ENT: Reports as per HPI Cardiovascular: Cardiovascular: Reports as per HPI, Denies acrocyanosis, Denies cool extremities, Denies chest pain, Denies leg edema, Denies lightheadedness, Denies palpitations and Denies dyspnea Respiratory: Respiratory: Reports as per HPI, Reports no additional respiratory complaints and Denies dyspnea Gastrointestinal: Gastrointestinal: Reports as per HPI and Reports no additional gastrointestinal complaints Genitourinary: Genitourinary: Reports as per HPI Musculoskeletal: Musculoskeletal: Reports no additional musculoskeletal complaints and Reports as per HPI Integumentary/Breasts: Skin/Breast: Reports system reviewed and no additional complaints, except as docu Neurologic: Reports system reviewed and no additional complaints, except as documented and Reports as per HPI Psychiatric: Psychiatric: Reports no additional psychiatric complaints and Reports as per HPI Endocrine: Endocrine: Reports no additional endocrine complaints, Reports as per HPI and Denies palpitations Hematologic/Lymphatic: Hematologic/Lymphatic: Reports no additional hematologic/lymphatic complaints and Reports as per HPI Allergic/Immunologic: Allergic/Immunologic: Reports no additional allergic/immunologic complaints and Reports as per HPI [facility] Past Medical History Medical History Dyslipidemia Essential hypertension Seizure disorder Family History Family History (Updated 02/05/22 @ 11:00 by Jack Garcia MD) Mother Myocardial infarction Social History Social History Household Members: Children Do you presently have visiting nurse or other home services: No Alcohol intake: never Patient Tobacco Use Status: Never used Tobacco Advance Directives Date on File: 02/04/22 service: No Current occupational status: retired and disabled Meds Allergies Allergy/AdvReac Type Severity Reaction Status Date / Time No Known Allergies Allergy Verified 02/04/22 08:19 Active Medications: Current Medications Acetaminophen (Acetaminophen 325 Mg Tablet) 650 mg PO Q6H PRN PRN Reason: fever or mild pain Last Admin: 02/04/22 15:33 Dose: 650 mg Atorvastatin Calcium (Atorvastatin Calcium 40 Mg Tablet) 40 mg PO BEDTIME [facility] Last Admin: 02/04/22 21:48 Dose: 40 mg Clopidogrel Bisulfate (Clopidogrel Bisulfate 75 Mg Tablet) 75 mg PO DAILY [facility] Last Admin: 02/05/22 09:46 Dose: 75 mg Enalapril Maleate (Enalapril Maleate 10 Mg Tablet) 40 mg PO DAILY [facility]; Protocol Last Admin: 02/05/22 09:46 Dose: 40 mg Enoxaparin Sodium (Enoxaparin Sodium 40 Mg/0.4 Ml Syringe) 40 mg SUBCUT Q24H [facility] Last Admin: 02/04/22 14:17 Dose: 40 mg Furosemide (Furosemide 40 Mg Tablet) 40 mg PO DAILY [facility]; Protocol Last Admin: 02/05/22 09:47 Dose: 40 mg Isosorbide Mononitrate (Isosorbide Mononitrate 30 Mg Tab.Er.24h) 30 mg PO DAILY [facility]; Protocol Last Admin: 02/05/22 09:46 Dose: 30 mg Levetiracetam (Levetiracetam 250 Mg Tablet) 750 mg PO BID [facility] Last Admin: 02/05/22 09:46 Dose: 750 mg Metoprolol Succinate (Metoprolol Succinate Er 100 Mg Tab.Er.24h) 100 mg PO DAILY [facility]; Protocol Last Admin: 02/05/22 09:47 Dose: 100 mg Morphine Sulfate (Morphine Sulfate 2 Mg/Ml Cartridge) 2 mg IVPUSH Q4H PRN; Protocol PRN Reason: severe pain Last Admin: 02/05/22 09:47 Dose: 2 mg Ondansetron HCl (Ondansetron Hcl 4 Mg/2 Ml Vial) 4 mg IVPUSH Q4H PRN PRN Reason: nausea/vomiting Last Admin: 02/04/22 15:32 Dose: 4 mg Oxycodone HCl (Oxycodone Hcl Immed Release 5 Mg Tablet) 5 mg PO Q6H PRN PRN Reason: moderate pain Pharmacy Consult (Consult Rx Perform Med Rec) 1 each MISCELLANE ONCE PRN PRN Reason: Consult order Sodium Chloride (0.9 % Sodium Chloride Flush 3 Ml Syringe) [facility] Last Admin: 02/05/22 09:47 Dose: 3 ml Home Medications Medication Instructions Recorded Confirmed Last Taken Type atorvastatin 40 mg tablet 1 tab PO BEDTIME 02/04/22 02/04/22 Unknown History clopidogrel 75 mg tablet 1 tab PO DAILY 02/04/22 02/04/22 Unknown History enalapril maleate 20 mg tablet 2 tab PO DAILY 02/04/22 02/04/22 Unknown History furosemide 40 mg tablet 1 tab PO DAILY 02/04/22 02/04/22 Unknown History isosorbide mononitrate 30 mg 1 tab PO QAM 02/04/22 02/04/22 Unknown History tablet,extended release 24 hr levetiracetam 500 mg tablet 1 tab PO DAILY 02/04/22 02/04/22 Unknown History metoprolol succinate 100 mg 1 tab PO DAILY 02/04/22 02/04/22 Unknown History tablet,extended release 24 hr Physical Exam Vital Signs: Vital Signs: Last Vital Signs Temp 97.9 F 02/05/22 08:00 Pulse 67 02/05/22 08:00 Resp 20 02/05/22 08:00 BP 134/58 L 02/05/22 08:00 Pulse Ox 95 02/05/22 08:00 O2 Del Method 02/05/22 08:00 O2 Flow Rate 2 02/05/22 04:00 FiO2 40 02/04/22 08:34 BMI result Body Mass Index 29.5 Const: General: comfortable and no acute distress Orientation/consciousness: patient oriented x3 HEENT: Other: Unremarkable Head: Yes normal to inspection Neck: Neck: Yes normal visual inspection Chest: Chest palpation & inspection: normal inspection of the chest Resp: Auscultation: clear to auscultation bilaterally Cardio: Palpation: normal PMI Heart sounds: S1 normal heart sound present, S2 normal heart sound present, no gallops, no murmurs and no rubs GI: Palpation (GI): Soft to palpation Back/Spine/Pelvis: Other: unremarkable Skin: General skin exam: no rashes or lesions noted Neuro: General: patient oriented x3 Extrem: General: Yes normal to inspection Psych: Mental Status: mental status grossly normal Objective Labs and Meds Result diagrams: 02/05/22 06:42 02/05/22 06:42 Lab results: Laboratory Results - last 24 hr 02/04/22 02/04/22 02/05/22 11:50 15:16 06:42 WBC 4.8 RBC 3.61 L Hgb 10.7 L Hct 33.6 L MCV 93.1 MCH 29.6 MCHC 31.8 RDW 12.9 Plt Count 231 MPV 10.5 Absolute Nucleated RBC 0.000 Nucleated RBC % (auto) 0.0 Sodium Potassium Chloride Carbon Dioxide Anion Gap BUN Creatinine Estim Creat Clear Calc Estimated GFR Random Glucose Estimat Average Glucose Hemoglobin A1c % Calcium Troponin I High Sens 38.1 H D 74.7 H* D 02/05/22 02/05/22 02/05/22 06:42 06:42 06:42 WBC RBC Hgb Hct MCV MCH MCHC RDW Plt Count MPV Absolute Nucleated RBC Nucleated RBC % (auto) Sodium 139 Potassium 4.5 Chloride 104 Carbon Dioxide 25 Anion Gap 15 BUN 21 H Creatinine 0.94 Estim Creat Clear Calc 44.7 Estimated GFR 57 Random Glucose 84 Estimat Average Glucose 94 Hemoglobin A1c % 4.9 Calcium 9.1 D Troponin I High Sens 64.1 H* ECG Interpretation: EKG with likely sinus tachycardia with a right bundle-branch block pattern and left anterior fascicular block. PVCs. Assessment and Plan (1) Elevated troponin: Status: Acute (2) Elevated brain natriuretic peptide (BNP) level: Status: Acute (3) Atherosclerotic cardiovascular disease: Status: Acute Plan Elevated troponins noted. Most likely demand related elevation. Do not believe she actually had a primary NSTEMI. With regard to elevated cardiac BNP, somewhat nonspecific finding as she does not have any heart failure symptoms at this time. Need to get an echocardiogram for cardiac function assessment based on the above abnormalities. She has no clear history of coronary disease but CT of the neck is showing vasc ular disease otherwise. Hence there is the increased probability of coronary disease as well. On statins. No definite need for any heparin drip. Will follow-up after the echocardiogram. Procedures Date of Service Date of Service: 02/05/22
[2022-02-05 12:00] VITALS: BP 133/65; PULSE 65; RESP 20; TEMP 36.6; O2SAT 93
[2022-02-05] MEDS: Enoxaparin Sodium 40 MG/0.4 ML SYRINGE SUBCUT (15:31)
[2022-02-05 16:00] VITALS: BP 189/99; PULSE 85; RESP 18; TEMP 38.1; O2SAT 93
[2022-02-05] MEDS: Acetaminophen 325 MG TABLET 650 MG PO (18:35)
[2022-02-05 19:42] VITALS: BP 130/66; PULSE 75; RESP 17; TEMP 37.6; O2SAT 92
[2022-02-05] MEDS: Atorvastatin Calcium 40 MG TABLET PO (21:16)
[2022-02-05] MEDS: traZODone HCL 50 MG TABLET PO (21:16)
[2022-02-05 23:29] VITALS: BP 141/72; PULSE 57; RESP 20; TEMP 37; O2SAT 99
--- NOTE | 2022-02-06 | EEG_ITS ---
This is a 16-channel EEG with an EKG lead. The patient is reported awake and confused during the tracing. Background EEG rhythm is low to medium amplitude, slow alpha to theta with no obvious asymmetry or paroxysmal tendency. Lead and muscle artifacts are noted. Photic stimulation is not performed. Hyperventilation is not performed. Cardiac lead does not reveal any significant abnormality. No sharp wave spikes or paroxysmal tendency noted. IMPRESSION: Mild slowing with no evidence of seizure disorder. MD PURA Orozco/AMRITA / [id number]
[2022-02-06 03:15] VITALS: BP 164/78; PULSE 55; RESP 20; TEMP 36.6; O2SAT 98
--- NOTE | 2022-02-06 07:00 | CA_ITS ---
Transthoracic Echocardiogram Patient (Last, First, Middle): Angelica Carrizales, Gender: Female Date of : 1940 Age: 81 Procedure Date: 02/06/2022 Procedure Type: Transthoracic [place] [facility] [place]: 157.48 cm Weight: 73.03 kg BSA: 1.74 m2 Heart Rate: 60 bpm BP: 164 / 78 mmHg Logistics Administrator: SB Referring MD: Annabella Reyes MD Eye Care Professional: Nicolas Gonzalez MD Symptoms: elev Tn-I, suspected demand ischemia Study Quality: Adequate ECG Rhythm: Sinus Conclusions: - 1. Mildly reduced LV systolic function with mild LVH with LVEF of 45-50% with regional wall motion abnormality probably and circumflex territory with grade 3 diastolic dysfunction 2. Mildly dilated left atrium 3. Normal cardiac valvular Doppler 4. [id number] elevation of right ventricular systolic pressure 5. No pericardial effusion Findings Left Ventricle Normal left ventricular cavity size. There is mildly increased left ventricular wall thickness. The left ventricular systolic function is mildly decreased. The visually estimated ejection fraction is between 45-50%. There is evidence of regional wall motion abnormalities. Spectral Doppler is indicative of a restrictive filling pattern. Elevated filling pressures. E/E prime ratio is >15, consistent with elevated filling pressures. Evidence suggests grade III (severe) diastolic dysfunction. Wall Motion Rest Echo Findings The basal anterolateral and basal inferolateral segments are hypokinetic. All other scored wall segments showed normal motion. Right Ventricle Normal right ventricular cavity size and systolic function. Atria The left atrium is mildly dilated. There is lipomatous hypertrophy of the interatrial septum. There is no evidence of interatrial shunt. The right atrium is normal in size. Aortic Valve There is mild calcification of the aortic valve. There is mild thickening of the aortic valve. There is no aortic valve stenosis. There is no aortic valve regurgitation. Mitral Valve There is mild anterior and posterior mitral leaflet thickening. There is mild mitral annular calcification. There is trace mitral valve regurgitation. There is no mitral valve stenosis. Pulmonic Valve The pulmonic valve was not well visualized. Tricuspid Valve Likely normal tricuspid valve structure and function. There is mild tricuspid valve regurgitation. Mild to moderate pulmonary hypertension is present. Great Vessels All visible segments of the aorta are normal in size. The pulmonary artery was not well visualized. Venous The inferior vena cava is normal in size and collapses greater than 50% with inspiration. Pericardium/Pleural There is no evidence of pericardial effusion. Prior Study Comparison No prior study available for comparison. Measurements 2D Linear Measurements IVSd: 1.26 0.6-0.9/0.6-1.0 cm LVIDd: 5.16 3.9-5.3/4.2-5.9 cm LVIDd Index: 2.97 2.4-3.2/2.2-3.1 cm/m2 LVIDs: 4.41 2.0-3.6 cm LVPWd: 1.13 0.7-1.1 cm LA Diam: 4.00 2.7-3.8/3.0-4.0 cm LAIDs Index: 2.30 1.5-2.3 cm/m2 LV Mass: 344.98 67-162/88-224 g LV Mass Index: 198.26 43-95/49-115 g/m2 LVOT Diam: 2.10 3.0+(-)1.3 cm 2D Systolic Function EF 4C: 56.50 >55% EF 2C: 41.80 >55% EF BiP: 48.90 >55% Mitral Valve MV Pk E: 1.04 MV PK A: 0.41 MV Decel Time: 194.00 E/A: 2.60 E'Lateral: 3.26 E'Medial: 2.87 E/E' Med: 36.20 E/E' Lat: 31.90 PHT: 57.00 MVA PHT: 3.86 Decel Hopkins: 5.38 Aortic Valve AoV Pk Samuel: 1.64 AoV Mn Samuel: 1.19 AoV VTI: 0.35 AoV Pk Grad: 11.00 Aov Mn Grad: 6.00 DIVINE Cont.VTI: 2.35 LVOT LVOT Pk Samuel: 0.88 LVOT Mn Samuel: 0.75 LVOT VTI: 0.24 LVOT Pk Grad: 3.00 LVOT Mn Grad: 2.00 LVOT Diam: 2.10 LVOT Area: 3.46 Diastolic Function MV Pk E: 1.04 MV Pk A: 0.41 E/A: 2.60 E'Medial: 2.87 E/E' Med: 36.20 E' Laterial: 3.26 E/E' Lat: 31.90 Right Ventricle TAPSE (mm): 21.20 TVS' Samuel: 10.70 Tricuspid Valve TR Pk Samuel: 3.26 TR Pk Grad: 43.00 RA Press: 3.00 RVSP: 46.00 Great Vessels Aorta Sinus of Valsalva: 3.30 2.0-3.5 cm Ao Asc: 3.60 2.1-3.4 cm Pulmonary Valve PV Pk Samuel: 1.00 Peak PV Grad: 4.00 Updated in Other Vendor System with Status of Final Nicolas Gonzalez MD electronically signed on 02/06/2022 11:09:10 AM with status of Final
[2022-02-06 07:28] VITALS: BP 143/75; PULSE 65; RESP 17; TEMP 36.6; O2SAT 98
[2022-02-06 08:49] VITALS: BP 143/75; PULSE 65; O2SAT 98
[2022-02-06] MEDS: levETIRAcetam 250 MG TABLET 750 MG PO ×2 (09:11→20:17)
[2022-02-06] MEDS: Metoprolol Succinate ER 100 MG TAB.ER.24H PO (09:11)
[2022-02-06] MEDS: Isosorbide Mononitrate 30 MG TAB.ER.24H PO (09:12)
[2022-02-06] MEDS: Enalapril Maleate 10 MG TABLET 40 MG PO (09:12)
[2022-02-06] MEDS: 0.9 % Sodium Chloride Flush 3 ML SYRINGE IVFLUSH ×3 (09:12→20:17)
[2022-02-06] MEDS: Clopidogrel Bisulfate 75 MG TABLET PO (09:12)
[2022-02-06] MEDS: Furosemide 40 MG TABLET PO (09:12)
--- NOTE | 2022-02-06 10:30 | PM.PNCARD ---
Subjective Subjective Date of Service: 02/06/22 Principal diagnosis: Elevated cardiac biomarkers Interval history: Patient appears slightly confused. No cardiovascular symptoms. No arrhythmias. Denies chest pain or shortness of breath. Echocardiogram results are pending Review of Systems Review of Systems Yes Unobtainable due to mental status Physical Exam Vital Signs: Last Vital Signs Temp 97.9 F 02/06/22 07:28 Pulse 65 02/06/22 08:49 Resp 17 02/06/22 07:28 BP 143/75 H 02/06/22 08:49 Pulse Ox 98 02/06/22 08:49 O2 Del Method 02/06/22 07:28 O2 Flow Rate 2 02/06/22 07:28 FiO2 40 02/04/22 08:34 BMI result Body Mass Index 29.5 Const General: cooperative, comfortable, no acute distress, alert and awake Neck Neck: Yes trachea midline, Yes supple and Yes no JVD Resp Effort & Inspection: normal respiratory effort Auscultation: clear to auscultation bilaterally Cardio Jugular venous distension: no JVD Palpation: normal PMI Rate: regular rate Rhythm: regular rhythm Heart sounds: S1 normal heart sound present and S2 normal heart sound present GI Auscultation: normal bowel sounds Neuro General: no focal motor deficits Objective Labs and Meds Result diagrams: 02/05/22 06:42 02/05/22 06:42 Imaging Radiologist's impression: Impressions Thyroid Ultrasound 02/05/22 11:20 IMPRESSION: Bilateral subcentimeter thyroid nodules as described above. Largest 7 mm, ACR TI-RADS category 3 nodule upper pole right lobe. As per the new ACR TI-RADS recommendation referenced below no follow-up is required. ACR TI-RADS RECOMMENDATION REFERENCE: Ultrasound-guided fine-needle aspiration, followup ultrasound, no further follow up. * TR1 (0 point) and TR 2 (2 points): No FNA or follow up * TR3 (3 points): FNA if more than or equal to 2.5 cm in maximum dimension, followup ultrasound in 1, 3 and 5 years if 1.5 to 2.4 cm in maximum dimension. * TR4 (4-6 points): FNA if more than or equal to 1.5 cm in maximum dimension, followup ultrasound in 1, 2, 3 and 5 years if 1 to 1.4 cm in maximum dimension. * TR5 (more than or equal to 7 points): FNA if more than or equal to 1 cm in maximum dimension, followup ultrasound every year for 5 years if 0.5 to 0.9 cm in maximum dimension. * TR3, TR4 or TR5 nodules that are below the size threshold for follow up receive no follow up. Progress Note: A&P Assessment and plan (1) Elevated troponin: Status: Acute Assessment and Plan: Elevated cardiac biomarkers elderly woman with diffuse atherosclerotic disease in the cerebrovascular vessels. High likelihood of underlying coronary artery disease. However currently her main issue is altered mental status and some confusion along with possible seizure disorder. There are no arrhythmias noted. Awaiting echocardiographic results. For now continue supportive care and current therapy including dual antiplatelet therapy. Antihypertensive therapy as well as high-intensity statin therapy. Further treatment based on the finding of echocardiogram. 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 May require eventual outpatient ischemic workup. Will sign of the case at this point time. Time Spent With Patient Time: Total time spent is greater than 50% in coordination of care (as documented) at patient's floor/unit and/or counseling patient: Progress Note: Quality Stroke Does the patient have a stroke diagnosis?: No Procedures Date of Service Date of Service: 02/06/22
--- NOTE | 2022-02-06 11:46 | MHC.SLORD ---
Addendum entered and electronically signed by Juanita Alfaro MA, CCC-DIRECTOR TELECOMMUNICATIONS 02/06/22 13:38: D.S. Original Note: Speech Language Pathology Order Status: DIRECTOR TELECOMMUNICATIONS attempted to see pt for bedside swallow eval this morning. Pt was out of room.
[2022-02-06 12:00] VITALS: BP 150/86; PULSE 69; RESP 18; TEMP 36.7; O2SAT 100
[2022-02-06] MEDS: Enoxaparin Sodium 40 MG/0.4 ML SYRINGE SUBCUT (14:32)
--- NOTE | 2022-02-06 14:36 | P.PNIM_ITS ---
Subjective Subjective Date of Service: 02/07/22 Interval History: history obtained via historic interpreter, patient is a poor historian mild confusion, complaining of headache, denies worsening left-sided weakness, no visual symptoms, tolerating current diet, not on home oxygen, was ambulating with walker and cane at home, admits to have chronic left-sided weakness but as per daughter who is at bedside the weakness has worsened. Review of Systems Review of Systems: Yes all other systems are reviewed and are negative Physical Exam Vital Signs: Vital Signs: Last Vital Signs Temp 97.9 F 02/06/22 07:28 Pulse 65 02/06/22 08:49 Resp 17 02/06/22 07:28 BP 143/75 H 02/06/22 08:49 Pulse Ox 98 02/06/22 08:49 O2 Del Method 02/06/22 07:28 O2 Flow Rate 2 02/06/22 07:28 FiO2 40 02/04/22 08:34 BMI result Body Mass Index 29.5 Const: Other: Gen: NAD HEENT: sclera anicteric, moist mucus membranes Neck: supple Lungs: clear to auscultation bilaterally Heart: regular rate and rhythm, no murmurs Abd: soft, non-tender, non-distended Ext: no edema Skin: warm/well-perfused Neuro: alert and oriented, no facial droop, fluent speech, 4/5 strength in LUE, decreased strength left lower extremity Psych: appropriate affect Objective Data Active Medications Acetaminophen (Acetaminophen 325 Mg Tablet) 650 mg PO Q6H PRN PRN Reason: fever or mild pain Last Admin: 02/05/22 18:35 Dose: 650 mg Documented By: ANTONIO Atorvastatin Calcium (Atorvastatin Calcium 40 Mg Tablet) 40 mg PO BEDTIME [facility] Last Admin: 02/05/22 21:16 Dose: 40 mg Documented By: ASHLEY Clopidogrel Bisulfate (Clopidogrel Bisulfate 75 Mg Tablet) 75 mg PO DAILY [facility] Last Admin: 02/06/22 09:12 Dose: 75 mg Documented By: HANANE Enalapril Maleate (Enalapril Maleate 10 Mg Tablet) 40 mg PO DAILY [facility]; Protocol Last Admin: 02/06/22 09:12 Dose: 40 mg Documented By: HANANE Enoxaparin Sodium (Enoxaparin Sodium 40 Mg/0.4 Ml Syringe) 40 mg SUBCUT Q24H [facility] Last Admin: 02/06/22 14:32 Dose: 40 mg Documented By: HANAEN Furosemide (Furosemide 40 Mg Tablet) 40 mg PO DAILY [facility]; Protocol Last Admin: 02/06/22 09:12 Dose: 40 mg Documented By: HANANE Isosorbide Mononitrate (Isosorbide Mononitrate 30 Mg Tab.Er.24h) 30 mg PO DAILY [facility]; Protocol Last Admin: 02/06/22 09:12 Dose: 30 mg Documented By: HANANE Levetiracetam (Levetiracetam 250 Mg Tablet) 750 mg PO BID [facility] Last Admin: 02/06/22 09:11 Dose: 750 mg Documented By: HANANE Metoprolol Succinate (Metoprolol Succinate Er 100 Mg Tab.Er.24h) 100 mg PO DAILY [facility]; Protocol Last Admin: 02/06/22 09:11 Dose: 100 mg Documented By: HANANE Morphine Sulfate (Morphine Sulfate 2 Mg/Ml Cartridge) 2 mg IVPUSH Q4H PRN; Protocol PRN Reason: severe pain Last Admin: 02/05/22 09:47 Dose: 2 mg Documented By: ANTONIO Ondansetron HCl (Ondansetron Hcl 4 Mg/2 Ml Vial) 4 mg IVPUSH Q4H PRN PRN Reason: nausea/vomiting Last Admin: 02/04/22 15:32 Dose: 4 mg Documented By: MADDENEj Oxycodone HCl (Oxycodone Hcl Immed Release 5 Mg Tablet) 5 mg PO Q6H PRN PRN Reason: moderate pain Pharmacy Consult (Consult Rx Perform Med Rec) 1 each MISCELLANE ONCE PRN PRN Reason: Consult order Sodium Chloride (0.9 % Sodium Chloride Flush 3 Ml Syringe) 3 ml IVFLUSH QSHIFT [facility] Last Admin: 02/06/22 09:12 Dose: 3 ml Documented By: HANANE Labs CBC & Chem 7: 02/05/22 06:42 02/05/22 06:42 Assessment and Plan (1) Altered mental status: Status: Acute [facility] d#2 81yo F with HTN, HLD, history of seizure for which she was started on levetiracteam 8 month ago [though at a very low dose of only 500 mg daily], and radiographic evidence of chronic cerebrovascular accidents.? She recently moved here from [place]. She presented obtunded and hypoxic after being found altered with left-sided weakness at home.? She was briefly intubated for airway protection but extubated in the ED. 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 MRI brain with limited motion degraded MRI showed no acute infarction, but showed chronic microangiopathy, chronic infarction within the cerebral hemisphere bilaterally and chronic lacunar infarct in left nikolai continue clopidogrel, ASA, statin, and VILMA inhibitor for secondary prevention. EEG is scheduled for today seen by physical therapy they recommend short-term rehab # acute hypoxic respiratory failure, resolved - extubated, weaned off O2 # Tn-I elevation - no ischemic EKG changes, echo showed mildly decreased left ventricular function EF 45-50% with evidence of regional wall motion abnormality grade 3 severe diastolic dysfunction seen by Cardiology they recommend to continue dual anti-platelet therapy, statins, beta-blockers, Imdur and ischemic workup # HTN - stable BP continue enalapril + metoprolol # HLD - continue atorvastatin # VTE prophylaxis: LMWH In my clinical judgment, the patient requires continued hospitalization for the following reasons: neurologic workup for seizure and possible ischemic workup by Cardio Quality Stroke Does the patient have a stroke diagnosis?: No VTE Prior VTE?: No VTE Risk Level:: Medical - moderate - high VTE Device Contraindication: N/A - Device Ordered VTE Drug Contraindication: N/A - Med Ordered
[2022-02-06 15:34] VITALS: BP 149/77; PULSE 53; RESP 16; TEMP 37.2; O2SAT 98
--- NOTE | 2022-02-06 15:47 | MHC.CM.PN ---
per rounds dc plan is now for str referrals made
--- NOTE | 2022-02-06 17:19 | MHC.SL.SWA ---
Speech Pathologist Impression: Oropharyngeal dysphagia Risk of Aspiration Due to: Neurological Condition Dysphasia Diet Status: Downgrade Liquid Consistency and Strategies for Safe Swallow: Liquid Intake Recommendation: Thin Liquid Intake Strategies: Small Sips Solid Food Consistency: Dietary Recommendations: Chopped/Advanced (NDD3) Additional Modifications to Solid Foods: For ease of mastication recommend DOWNGRADE to CHOPPED/ADVANCED (NDD3) diet and maintain THIN liquids, pills WHOLE or CRUSHED in PUREE. Pt became easily distracted or spoke with food in her mouth. Recommend total supervision, provide assistance as needed, as pt may need cues throughout meals. Aspiration precautions apply. Diet order updated by SE[employer]. Sent [employer] Message w/ update to MD, RN, RD. Recommend 1 f/u to ensure tolerance. Oral Medication Intake: Whole with Puree Please contact the pharmacy regarding appropriate crushable or liquid drug formulations that are available whenever modified delivery is recommended. Compensatory Strategies and Precautions to be Taken for Safe Swallow: Sitting Upright (90 deg) Small Bites and Sips Alternate Liquids/Solids Rate of Ingestion Change Oral Check Supervision While Eating and Drinking for Safe Swallow: Total Supervision (1:1) Swallowing Recommended Treatments: Compens. Strategy Educat. Recommendation for Speech: Inpatient Speech Therapy Comment: 1 f/u Turbine Attendant Clinican/Clinical Fellow: No Supervisory Statement: I have reviewed and agree with the student/clinical fellow's documentation: N/A Speech Language Pathologist: Juanita Alfaro M.A., [facility]
[2022-02-06 19:02] VITALS: BP 151/68; PULSE 55; RESP 16; TEMP 36.1; O2SAT 99
[2022-02-06] MEDS: Atorvastatin Calcium 40 MG TABLET PO (20:17)
[2022-02-07 03:08] VITALS: BP 130/85; PULSE 66; RESP 20; TEMP 36.6; O2SAT 100
[2022-02-07 07:40] VITALS: BP 189/82; PULSE 69; RESP 18; TEMP 36.6; O2SAT 98
[2022-02-07 09:13] VITALS: BP 189/82; PULSE 69; O2SAT 98
[2022-02-07] MEDS: Isosorbide Mononitrate 30 MG TAB.ER.24H PO (09:14)
[2022-02-07] MEDS: Furosemide 40 MG TABLET PO (09:14)
[2022-02-07] MEDS: 0.9 % Sodium Chloride Flush 3 ML SYRINGE IVFLUSH ×3 (09:14→21:39)
[2022-02-07] MEDS: levETIRAcetam 250 MG TABLET 750 MG PO ×2 (09:14→21:36)
[2022-02-07] MEDS: Enalapril Maleate 10 MG TABLET 40 MG PO (09:14)
[2022-02-07] MEDS: Metoprolol Succinate ER 100 MG TAB.ER.24H PO (09:14)
[2022-02-07] MEDS: Clopidogrel Bisulfate 75 MG TABLET PO (09:14)
--- NOTE | 2022-02-07 09:37 | MHC.SL.SWA ---
Speech Pathologist Impression: Risk of Aspiration Due to: Neurological Condition Dysphasia Diet Status: Continue CHOPPED ADVANCED with THIN liquids, Pills whole or crushed in puree. This is patients baseline diet. Due to unilateral weakness, patient needs assistance and periodic supervision during meal to assure that she is accessing food on tray without difficulties. Patient can feed self, but may need occasional assistance. Aspiration precautions apply Liquid Consistency and Strategies for Safe Swallow: Liquid Intake Recommendation: Thin Liquid Intake Strategies: Small Sips Solid Food Consistency: Dietary Recommendations: Chopped/Advanced (NDD3) Additional Modifications to Solid Foods: For ease of mastication recommend DOWNGRADE to CHOPPED/ADVANCED (NDD3) diet and maintain THIN liquids, pills WHOLE or CRUSHED in PUREE. Pt became easily distracted or spoke with food in her mouth. Recommend total supervision, provide assistance as needed, as pt may need cues throughout meals. Aspiration precautions apply. Diet order updated by CABIN SERVICE AGENT. Sent [place] Message w/ update to , RN, RD. Recommend 1 f/u to ensure tolerance. Oral Medication Intake: Whole with Puree Please contact the pharmacy regarding appropriate crushable or liquid drug formulations that are available whenever modified delivery is recommended. Compensatory Strategies and Precautions to be Taken for Safe Swallow: Sitting Upright (90 deg) Small Bites and Sips Alternate Liquids/Solids Rate of Ingestion Change Oral Check Supervision While Eating and Drinking for Safe Swallow: Total Supervision (1:1) Foods to Avoid: Swallowing Recommended Treatments: Compens. Strategy Educat. Recommendation for Speech: Inpatient Speech Therapy Comment: Patient seen at breakfast to assess tolerance of diet, re-assess swallow. Patient was seated in armchair beside bed, w/ PL [employer] DEVELOPER setting up tray so that patient could access and feed self. Patient was cheerful and easily communicating in [place] this morning. Patient was able to take forkfuls of chopped up hard boiled eggs without difficulty, masticating slowly but well, with timely swallow noted. Pt had straw in coffee, was taking appropriate sips with timely oral and pharyngeal phase noted, no clinical signs of aspiration. Pt noted that she was not able to reach for some items on the tray due to her unilateral weakness, assisted patient with adding brown sugar to cream of rice. Nursing came in on rounds, advised nurse that the recommendation was for pills whole or crushed in puree. Patient is tolerating diet of CHOPPED ADVANCED with THIN liquids, Pills whole or crushed in puree. Due to unilateral weakness, patient needs assistance and periodic supervision during meal to assure that she is accessing food on tray without difficulties. Patient can feed self, but may need occasional assistance. Aspiration precautions apply. Will D/C speech at this time, as this is patients baseline, please re-consult if additional issues arise. Frequency/Duration: Date Range for Service Req: Timeline to reassess: Digital Imaging Specialist Clinican/Clinical Fellow: No Supervisory Statement: I have reviewed and agree with the student/clinical fellow's documentation: N/A Speech Language Pathologist: Genesis Denny M.A., CCC-CABIN SERVICE AGENT
[2022-02-07 11:18] VITALS: BP 115/63; PULSE 65; RESP 18; TEMP 36.9; O2SAT 99
[2022-02-07] MEDS: Enoxaparin Sodium 40 MG/0.4 ML SYRINGE SUBCUT (13:13)
--- NOTE | 2022-02-07 14:46 | P.PNIM_ITS ---
Subjective Subjective Date of Service: 02/07/22 Interval History: Offers no acute complaints participating with physical therapy, no worsening of left-sided weakness since yesterday, no acute events overnight denies headache lightheadedness dizziness, no chest pain, no palpitations, tolerating current diet. Review of Systems Review of Systems: Yes all other systems are reviewed and are negative Physical Exam Vital Signs: Vital Signs: Last Vital Signs Temp 98.5 F 02/07/22 11:18 Pulse 65 02/07/22 11:18 Resp 18 02/07/22 11:18 BP 115/63 02/07/22 11:18 Pulse Ox 99 02/07/22 11:18 O2 Del Method 02/07/22 11:18 O2 Flow Rate 2 02/07/22 11:18 FiO2 40 02/04/22 08:34 BMI result Body Mass Index 29.5 Const: Other: Gen: Awake and alert no acute distress HEENT: sclera anicteric, moist mucus membranes Neck: supple Lungs: clear to auscultation bilaterally Heart: regular rate and rhythm, no murmurs Abd: soft, non-tender, non-distended Ext: no edema Skin: warm/well-perfused Neuro: alert and oriented, no facial droop, fluent speech, 4/5 strength in LUE Psych: appropriate affect ? Objective Data Active Medications Acetaminophen (Acetaminophen 325 Mg Tablet) 650 mg PO Q6H PRN PRN Reason: fever or mild pain Last Admin: 02/05/22 18:35 Dose: 650 mg Documented By: ANTONIO Atorvastatin Calcium (Atorvastatin Calcium 40 Mg Tablet) 40 mg PO BEDTIME [facility] Last Admin: 02/06/22 20:17 Dose: 40 mg Documented By: CORRIE Clopidogrel Bisulfate (Clopidogrel Bisulfate 75 Mg Tablet) 75 mg PO DAILY [facility] Last Admin: 02/07/22 09:14 Dose: 75 mg Documented By: MARIBELL Enalapril Maleate (Enalapril Maleate 10 Mg Tablet) 40 mg PO DAILY [facility]; Protocol Last Admin: 02/07/22 09:14 Dose: 40 mg Documented By: MARIBELL Enoxaparin Sodium (Enoxaparin Sodium 40 Mg/0.4 Ml Syringe) 40 mg SUBCUT Q24H [facility] Last Admin: 02/07/22 13:13 Dose: 40 mg Documented By: JUAN Furosemide (Furosemide 40 Mg Tablet) 40 mg PO DAILY [facility]; Protocol Last Admin: 02/07/22 09:14 Dose: 40 mg Documented By: MARIBELL Isosorbide Mononitrate (Isosorbide Mononitrate 30 Mg Tab.Er.24h) 30 mg PO DAILY [facility]; Protocol Last Admin: 02/07/22 09:14 Dose: 30 mg Documented By: MARIBELL Levetiracetam (Levetiracetam 250 Mg Tablet) 750 mg PO BID [facility] Last Admin: 02/07/22 09:14 Dose: 750 mg Documented By: MARIBELL Metoprolol Succinate (Metoprolol Succinate Er 100 Mg Tab.Er.24h) 100 mg PO DAILY [facility]; Protocol Last Admin: 02/07/22 09:14 Dose: 100 mg Documented By: MARIBELL Morphine Sulfate (Morphine Sulfate 2 Mg/Ml Cartridge) 2 mg IVPUSH Q4H PRN; Protocol PRN Reason: severe pain Last Admin: 02/05/22 09:47 Dose: 2 mg Documented By: ANTONIO Ondansetron HCl (Ondansetron Hcl 4 Mg/2 Ml Vial) 4 mg IVPUSH Q4H PRN PRN Reason: nausea/vomiting Last Admin: 02/04/22 15:32 Dose: 4 mg Documented By: MADDENEj Oxycodone HCl (Oxycodone Hcl Immed Release 5 Mg Tablet) 5 mg PO Q6H PRN PRN Reason: moderate pain Pharmacy Consult (Consult Rx Perform Med Rec) 1 each MISCELLANE ONCE PRN PRN Reason: Consult order Sodium Chloride (0.9 % Sodium Chloride Flush 3 Ml Syringe) 3 ml IVFLUSH QSHIFT [facility] Last Admin: 02/07/22 13:14 Dose: 3 ml Documented By: JUAN Labs CBC & Chem 7: 02/05/22 06:42 02/05/22 06:42 Assessment and Plan (1) Altered mental status: Status: Acute [facility] hospital d#2 81yo F with HTN, HLD, history of seizure for which she was started on levetiracteam 8 month ago [though at a very low dose of only 500 mg daily], and radiographic evidence of chronic cerebrovascular accidents.? She recently moved here from [place]. She presented obtunded and hypoxic after being found altered with left-sided weakness at home.? She was briefly intubated for airway protection but extubated in the ED. 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 MRI brain with limited motion degraded MRI showed no acute infarction, but showed chronic microangiopathy, chronic infarction within the cerebral hemisphere bilaterally and chronic lacunar infarct in left nikolai continue clopidogrel, ASA, statin, and VILMA inhibitor for secondary prevention. EEG showed no seizure like activity seen by physical therapy they recommend short-term rehab, patient and family agreeable sr. social media & mobile manager arranging for rehab bed # acute hypoxic respiratory failure, resolved - extubated, will gradually wean oxygen # Tn-I elevation - no ischemic EKG changes, echo showed mildly decreased left ventricular function EF 45-50% with evidence of regional wall motion abnormality grade 3 severe diastolic dysfunction seen by Cardiology they recommend to continue dual anti-platelet therapy, statins, beta-blockers, Imdur and outpatient ischemic workup # HTN - stable BP continue enalapril + metoprolol # HLD - continue atorvastatin # VTE prophylaxis: LMWH In my clinical judgment, the patient requires continued hospitalization for seizure, acute hypoxic respiratory failure and left-sided weakness need safe discharge to rehab Quality Stroke Does the patient have a stroke diagnosis?: No VTE Prior VTE?: No VTE Risk Level:: Medical - moderate - high VTE Device Contraindication: N/A - Device Ordered VTE Drug Contraindication: N/A - Med Ordered
[2022-02-07 15:40] VITALS: BP 107/55; PULSE 63; RESP 16; TEMP 36.4; O2SAT 96
[2022-02-07 19:27] VITALS: BP 130/57; PULSE 66; RESP 20; TEMP 36.9; O2SAT 93
[2022-02-07] MEDS: Atorvastatin Calcium 40 MG TABLET PO (21:37)
[2022-02-08 04:00] VITALS: BP 154/68; PULSE 60; RESP 18; TEMP 36.5; O2SAT 95
[2022-02-08 06:59] LABS: Cholesterol 181 mg/dL; HDL Cholesterol 64 mg/dL; LDL Cholesterol Calculated 110 mg/dl; Triglycerides 39 mg/dL
[2022-02-08 07:14] VITALS: BP 147/72; PULSE 65; RESP 16; TEMP 36.5; O2SAT 94
[2022-02-08] MEDS: Metoprolol Succinate ER 100 MG TAB.ER.24H PO (09:23)
[2022-02-08] MEDS: levETIRAcetam 250 MG TABLET 750 MG PO (09:23)
[2022-02-08] MEDS: Enalapril Maleate 10 MG TABLET 40 MG PO (09:23)
[2022-02-08] MEDS: 0.9 % Sodium Chloride Flush 3 ML SYRINGE IVFLUSH (09:24)
[2022-02-08] MEDS: Isosorbide Mononitrate 30 MG TAB.ER.24H PO (09:24)
[2022-02-08] MEDS: Clopidogrel Bisulfate 75 MG TABLET PO (09:24)
[2022-02-08] MEDS: Furosemide 40 MG TABLET PO (09:24)
[2022-02-08 10:33] VITALS: BP 147/72; PULSE 65; O2SAT 94
[2022-02-08 10:55] LABS: COVID-19 Test Negative (Negative)
[2022-02-08 11:03] VITALS: BP 123/66; PULSE 61; RESP 17; TEMP 36.8; O2SAT 96
--- NOTE | 2022-02-08 11:03 | PM.DS ---
DS: Providers Provider Date of Service: 02/08/22 Date of admission: 02/04/22 13:42 Primary care physician: Unknown Physician Consults: 02/04/22 16:30 Consult to Cardiology Routine Consulting Provider: Jack Garcia Reason for consultation: elevated Tn-I suspect demand from hypoxia DS: Diagnosis Discharge Diagnosis (1) Altered mental status: Status: Acute DS: Summary Hospital Course Hospital Course: History of presenting illness Date of Service: 02/04/22 Chief Complaint: L arm weakness This history was taken in [place] from the patient. 81 yo F who recently moved here from [place] and has a history of HTN, HLD, and seizure for which she was started on levetiracetam 500 mg daily about 8 months ago. ? At that point, she presented with shaking and L-sided weakness.? She currently lives with her daughter and ambulates with a cane.? This morning, she went to the bathroom and felt unsteady.? She called out to her daughter and asked for a cup of water.? Her daughter found the patient leaning against the wall and she was unable to hold the water cup in her left hand.? She was also noted to be drooling saliva.? She did not lose consciousness but was confused.? Her daughter called EMS.? Upon arrival to the ED, the patient became hypoxic and unresponsive with right gaze deviation.? She was intubated for airway protection.? She was quickly weaned off sedation and successfully extubated.? She is alert and somewhat agitated.? Her left arm is still weak.? No actual tonic-clonic movements have been observed. CT of the head showed small vessel disease and a chronic right frontal infarct.? CTA of the head and neck showed an age-indeterminate left pontine infarct, generalized volume loss, chronic microangiopathy, and a chronic R frontal and lacunar infarcts.? There is also diffuse atheroscerlosis and a 1.7 cm thyroid nodule. At this point the patient is complaining of a headache.? No chest pain or dyspnea.? She is thirsty and wants to eat and drink. Hospital course # history of seizure unspecified. 81yo F with HTN, HLD, history of seizure for which she was started on levetiracteam 500 mg daily, 8 months ago, and radiographic evidence of chronic cerebrovascular accidents, patient recently moved here from [place].? She presented obtunded and hypoxic after being found altered with left-sided weakness at home.? She was briefly intubated for airway protection but extubated in the ED, subsequently patient admitted to medical floor and was evaluated by Neurology, as per Dr. 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 MRI brain showed no acute infarction, but showed chronic microangiopathy, chronic infarction within the cerebral hemisphere bilaterally and chronic lacunar infarct in left nikolai, patient had no further similar episodes, she has been continued on clopidogrel, ASA, statin, and VILMA inhibitor for secondary prevention.? EEG showed no seizure like activity, seen by physical therapy they recommend short-term rehab, patient at baseline ambulates with walker and cane and has chronic left-sided weakness. # acute hypoxic respiratory failure, resolved extubated, currently 96% on room air # elevated troponin - no ischemic EKG changes, echo showed mildly decreased left ventricular function EF 45-50% with evidence of regional wall motion abnormality grade 3 severe diastolic dysfunction ?? seen by Cardiology they recommend to continue dual anti-platelet therapy, statins, beta-blockers, Imdur and outpatient ischemic? workup, recommend to have outpatient follow-up with Dr. Gonzalez # HTN? stable BP continue enalapril + metoprolol # HLD-? continue atorvastatin Time Spent with Patient Time attestation: Total time spent providing and/or coordinating discharge services: Discharge coordination time: Greater than 30 minutes Quality: Safe Use of Opioids Does Pt have an Active Cancer Diagnosis on the Problem List?: No Quality: Stroke Does the patient have a stroke diagnosis?: No Physical Exam Vital Signs: Vital Signs: Last Vital Signs Temp 97.7 F 02/08/22 07:14 Pulse 65 02/08/22 10:33 Resp 16 02/08/22 07:14 BP 147/72 H 02/08/22 10:33 Pulse Ox 94 02/08/22 10:33 O2 Del Method 02/08/22 07:14 O2 Flow Rate 2 02/07/22 11:18 FiO2 40 02/04/22 08:34 BMI result Body Mass Index 29.5 Const: Other: Gen:? Awake and alert no acute distress HEENT: sclera anicteric, moist mucus membranes Neck: supple Lungs: clear to auscultation bilaterally Heart: regular rate and rhythm, no murmurs Abd: soft, non-tender, non-distended Ext: no edema Skin: warm/well-perfused Neuro: alert and oriented, no facial droop, fluent speech, 4/5 strength in LUE Psych: appropriate affect ? DS: Data Data Completed and Pending Labs on day of discharge: Laboratory Results - last 24 hr 02/08/22 02/08/22 06:09 10:30 Triglycerides 39 Cholesterol 181 LDL Cholesterol, Calc 110 HDL Cholesterol 64 COVID-19 (IX) Negative COVID-19 Clin Com See Note Discharge Plan Discharge Patient Disposition: [facility] Discharge Diagnosis: Seizure Acute hypoxic respiratory failure Elevated troponin Hypertension Referrals: Physician,Joe J [Primary Care Provider] - 1 Week Discharge Medications: New levetiracetam 250 mg Tablet 750 mg PO BID Qty: 60 0RF Continued furosemide 40 mg tablet 1 tab PO DAILY atorvastatin 40 mg tablet 1 tab PO BEDTIME enalapril maleate 20 mg tablet 2 tab PO DAILY isosorbide mononitrate 30 mg tablet extended release 24 hr 1 tab PO QAM metoprolol succinate 100 mg tablet extended release 24 hr 1 tab PO DAILY clopidogrel 75 mg tablet 1 tab PO DAILY Discontinued levetiracetam 500 mg tablet 1 tab PO DAILY Discharge Orders: Discharge Order (Routine); Ordered 02/08/22 Ordered By: Renee Hernandez Diet: Low fat, low cholesterol Activity on Discharge: As tolerated Stand Alone Forms: Patient Portal Discharge page Care Plan Goals: breakthrough seizure, take current seizure medication, resume all home medication, history of multiple chronic CVA continue all home medication, chronic left-sided weakness Health Concerns: To rehab for continued physical therapy Plan of Treatment: Outpatient follow-up with PCP, and follow-up with cardiology Dr. Pablo for outpatient ischemic workup. Assessment: As per discharge summary
--- NOTE | 2022-02-08 11:14 | MHC.CM.PN ---
Patient has been medically cleared for dc to SNF/STR today. Patient will dc to [facility] today at 2PM, via [facility].RHINA spoke with only Contact/Granddaughter/Cyn @ [phone] with the assist of a Telephonic Maintainability Engineer and she is in agreement with the dc plan (IMM also addressed).
== END 2022-02-08 14:36 | disposition skilled nursing facility (03) | DRG 100 ==
LOC: HO.ED 11:12 → HO.EDOVER 14:02 → HO.IMC 18:27
PROVIDERS: Admitting Provider Family Medicine; Emergency Provider Emergency Medicine; PCP Registered Nurse; Visit Provider Hospitalist
DX: G40.802 Other epilepsy, not intractable, without status epilepticus (principal); J96.01 Acute respiratory failure with hypoxia; G83.84 Todd's paralysis (postepileptic); T42.6X6A Underdosing of other antiepileptic and sedative-hypnotic drugs, initial encounter; Z91.138 Patient's unintentional underdosing of medication regimen for other reason; Z86.73 Personal history of transient ischemic attack (TIA), and cerebral infarction without residual deficits; E78.5 Hyperlipidemia, unspecified; I10 Essential (primary) hypertension; Z20.822 Contact with and (suspected) exposure to COVID-19; Z79.02 Long term (current) use of antithrombotics/antiplatelets; Z79.899 Other long term (current) drug therapy
CPT/HCPCS: 36415; 70450; 70496; 70498; 70551; 71045; 76536; 80048; 80061; 80076; 81003; 82947; 83036; 83690; 83880; 84484; 85025; 85027; 85610; 85730; 87635; 92610; 93005; 93306; 95816; 97116; 97162; 97166; 97530; 99285; C1758; J0330; J1650; J2270; J2405; Q9957; Q9967

== ENCOUNTER 2022-04-17 06:02 | Outpatient (REF) | payer MEDICARE, MEDICAID, SELFPAY | END 2022-04-17 06:03 | disposition home or self-care (01) | LOC: HO.HOSX 06:02 | PROVIDERS: Visit Provider Physician Assistant | DX: Z13.89 Encounter for screening for other disorder (principal) ==

== ENCOUNTER 2022-04-21 11:17 | Emergency (ER) | payer MEDICARE, MEDICAID, SELFPAY ==
--- NOTE | ~2022-04-21 | XR_ITS ---
EXAMINATION: RIGHT WRIST, RIGHT ELBOW AND RIGHT SHOULDER CLINICAL INFORMATION: Fall, pain. COMPARISON: No previous exam available TECHNIQUE: 4 views right wrist 4 views right shoulder and 3 views right elbow. FINDINGS: Right wrist: There is no visible acute fracture, dislocation or subluxation seen. There is no bony erosive changes. There is loss of first carpometacarpal joint space. There is a small osseous density adjacent to patient body question fracture of indeterminate age. Widening of scapholunate junction is noted from ligament tear. Right elbow: There is no visible acute fracture, dislocation or subluxation. There is a prominent anterior fat pad sign. No visible fracture seen. Right shoulder: The glenohumeral joint space is maintained normal. There is periarticular spurring with soft tissue swelling right AC joint. There is likely loose body or fracture fragment along the superior ECG joint. XR/XR wrist RT 2V IMPRESSION: 1. No visible acute fracture or dislocation right wrist. There is a small osseous density adjacent to the scaphoid bone question fracture of indeterminate age. Widening of scapholunate junction from ligament tear. 2. There is no visible acute fracture or dislocation right elbow. There is a prominent anterior fat pad sign however no visible acute fracture seen. If patient has a history of trauma and significant pain a CT can be considered. 3. There is no visible fracture or dislocation right shoulder. There is periarticular spurring right A.C. joint.
--- NOTE | ~2022-04-21 | CT_ITS ---
EXAMINATION: CT HEAD W/O IV CONTRAST CT CERVICAL SPINE W/O IV CONTRAST CLINICAL INFORMATION: History of fall, head strike. COMPARISON: None TECHNIQUE: Head - Contiguous axial imaging of the head was performed from the skull base to the vertex without the administration of intravenous contrast, and axial images are reconstructed at 2 mm and 5 mm slice thickness. Cervical spine - A volumetric, helical CT acquisition of the cervical spine was obtained without contrast; in addition to the standard set of axial images, multiplanar reformatted images were provided in the coronal and sagittal imaging planes. This CT examination was performed using dose optimization techniques as appropriate, variously including the following: *Automated exposure control *Adjustment of mA and/or kV according to patient size (this includes techniques or standardized protocols for targeted exams where dose is matched to indication/reason for exam; i.e. extremities or head) *Use of iterative reconstruction technique DLP: 934 mGy-cm (total) FINDINGS: HEAD: No intracranial hemorrhage, extra-axial fluid collection, focal mass effect or midline shift. 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 Small lacunar infarcts of gangliocapsular regions. Lacunar infarction of the left thalamus is of uncertain chronicity; there are no comparison head CT exams. There appear to be old lacunar infarcts of the nikolai. Moderate parenchymal volume loss with commensurate prominence of ventricles and sulci; no hydrocephalus. Cavum septum pellucidum et vergae. Atherosclerotic calcification of cavernous carotid arteries. Patchy hypoattenuation of supratentorial matter compatible with sequela of moderate microangiopathy. No calvarial fracture. The mastoid air cells are well aerated. Temporomandibular joints are unremarkable. No acute intraorbital findings. Moderate mucosal thickening of left sphenoid sinus and minimal mucosal thickening of anterior right sphenoid sinus. Mucous retention cyst at the floor of the right maxillary sinus. No air-fluid levels within paranasal sinuses. CERVICAL SPINE: Mild levocurvature of the degenerated cervical spine. The craniocervical junction is intact. Degenerative osseous spurring at the atlantodental articulation. 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 Multilevel facet osteoarthritis and multilevel mild discovertebral degenerative changes. Minimal degenerative anterolisthesis at C2-C3 and C3-C4. There is 0.3 cm of degenerative anterolisthesis of C4 on C5. No acute fractures in the anterior or posterior elements. No prevertebral soft tissue swelling. No soft tissue hematoma. Thyroid gland is grossly unremarkable. No acute findings in the visualized lung apices. Atherosclerotic calcification of aortic arch and branch vessels. CT/CT cervical spine wo IV con IMPRESSION: * No evidence of calvarial fracture or acute intracranial hemorrhage. 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 Also, there appear to be a few old lacunar infarcts, including within the nikolai. * No acute fractures within the degenerated cervical spine. Findings include multilevel facet osteoarthritis and degenerative subluxations at C2-C3, C3-C4 and C4-C5, and there is severe osteoarthritis at the articulation between left lateral masses of C1 and C2.
--- NOTE | ~2022-04-21 | XR_ITS ---
EXAMINATION: XR CHEST CLINICAL INFORMATION: Weakness. COMPARISON: None TECHNIQUE: Frontal portable view of the chest was obtained. 8:31 PM FINDINGS: No significant abnormality is noted involving the heart, lungs, mediastinum, bony thorax or soft tissues. XR/XR chest 1V IMPRESSION: Unremarkable examination.
--- NOTE | ~2022-04-21 | XR_ITS ---
EXAMINATION: RIGHT WRIST, RIGHT ELBOW AND RIGHT SHOULDER CLINICAL INFORMATION: Fall, pain. COMPARISON: No previous exam available TECHNIQUE: 4 views right wrist 4 views right shoulder and 3 views right elbow. FINDINGS: Right wrist: There is no visible acute fracture, dislocation or subluxation seen. There is no bony erosive changes. There is loss of first carpometacarpal joint space. There is a small osseous density adjacent to patient body question fracture of indeterminate age. Widening of scapholunate junction is noted from ligament tear. Right elbow: There is no visible acute fracture, dislocation or subluxation. There is a prominent anterior fat pad sign. No visible fracture seen. Right shoulder: The glenohumeral joint space is maintained normal. There is periarticular spurring with soft tissue swelling right AC joint. There is likely loose body or fracture fragment along the superior ECG joint. XR/XR shoulder RT min 2V IMPRESSION: 1. No visible acute fracture or dislocation right wrist. There is a small osseous density adjacent to the scaphoid bone question fracture of indeterminate age. Widening of scapholunate junction from ligament tear. 2. There is no visible acute fracture or dislocation right elbow. There is a prominent anterior fat pad sign however no visible acute fracture seen. If patient has a history of trauma and significant pain a CT can be considered. 3. There is no visible fracture or dislocation right shoulder. There is periarticular spurring right A.C. joint.
--- NOTE | ~2022-04-21 | XR_ITS ---
EXAMINATION: RIGHT WRIST, RIGHT ELBOW AND RIGHT SHOULDER CLINICAL INFORMATION: Fall, pain. COMPARISON: No previous exam available TECHNIQUE: 4 views right wrist 4 views right shoulder and 3 views right elbow. FINDINGS: Right wrist: There is no visible acute fracture, dislocation or subluxation seen. There is no bony erosive changes. There is loss of first carpometacarpal joint space. There is a small osseous density adjacent to patient body question fracture of indeterminate age. Widening of scapholunate junction is noted from ligament tear. Right elbow: There is no visible acute fracture, dislocation or subluxation. There is a prominent anterior fat pad sign. No visible fracture seen. Right shoulder: The glenohumeral joint space is maintained normal. There is periarticular spurring with soft tissue swelling right AC joint. There is likely loose body or fracture fragment along the superior ECG joint. XR/XR elbow RT min 3V IMPRESSION: 1. No visible acute fracture or dislocation right wrist. There is a small osseous density adjacent to the scaphoid bone question fracture of indeterminate age. Widening of scapholunate junction from ligament tear. 2. There is no visible acute fracture or dislocation right elbow. There is a prominent anterior fat pad sign however no visible acute fracture seen. If patient has a history of trauma and significant pain a CT can be considered. 3. There is no visible fracture or dislocation right shoulder. There is periarticular spurring right A.C. joint.
--- NOTE | ~2022-04-21 | CT_ITS ---
EXAMINATION: CT WITHOUT CONTRAST ELBOW, RIGHT CLINICAL INFORMATION: Fall with possible joint effusion on x-ray. COMPARISON: Radiographs 04/21/2022 TECHNIQUE: A noncontrast CT of the right elbow is performed with sagittal and coronal reformats. This CT examination was performed using dose optimization techniques as appropriate, variously including the following: *Automated exposure control *Adjustment of mA and/or kV according to patient size (this includes techniques or standardized protocols for targeted exams where dose is matched to indication/reason for exam; i.e. extremities or head) *Use of iterative reconstruction technique DLP: 118 FINDINGS: Images are suboptimal due to poor technique related to positioning of the elbow along the side of the body presumably due to patient immobility. No acute fracture or malalignment is evident. No obvious joint effusion. CT/CT elbow RT wo IV con IMPRESSION: Suboptimal study due to patient immobility and positioning. No acute osseous abnormality is evident. No significant joint effusion.
--- NOTE | 2022-04-21 11:51 | ED_ITS ---
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 Patient states that she fell yesterday because her walking got too far in front of her. Patient states that she landed on her right side and is now having right shoulder pain. Patient denies any loss of consciousness. Patient states that she live with her daughter. Patient denies any dizziness, lightheadedness, abdominal pain, nausea, vomiting, fever, chills, blurry vision, double vision, loss of vision, chest pain, difficulty breathing, shortness of breath, back pain, night sweats, pain with urination, increased urinary frequency, increased urinary urgency, blood in her urine or stool, syncope or a near syncopal episode, bowel incontinence, bladder incontinence, bowel retention, bladder retention, or any other complaints at this time. <ABBE Spence - Last Filed: 04/21/22:24> Onset (ago): day(s) (1) <ABBE Spence - Last Filed: 04/21/22:24> Location: right and upper extremity <ABBE Spence Last Filed: 04/21/22:24> Radiation: non-radiation <ABBE Spence Last Filed: 04/21/22:24> Severity: mild <ABBE Spence Last Filed: 04/21/22:24> Severity scale (1-10): 3 <ABBE Spence - Last Filed: 04/21/22 22:24> Quality: dull <ABBE Spence - Last Filed: 04/21/22 22:24> Pain Consistency: constant <ABBE Spence - Last Filed: 04/21/22 22:24> Relieving factors: none <ABBE Spence - Last Filed: 04/21/22 22:24> Exacerbating factors: none <ABBE Spence - Last Filed: 04/21/22 22:24> Associated symptoms: denies other symptoms <ABBE Spence - Last Filed: 04/21/22 22:24> Treatments prior to arrival: none <ABBE Spence - Last Filed: 04/21/22 22:24> Related Data Allergies/adverse reactions: Allergies Allergy/AdvReac Type Severity Reaction Status Date / Time Unable to Assess Allergy Verified 04/21/22 12:01 <ABBE Spence - Last Filed: 04/21/22 22:24> Review of Systems Constitutional: Constitutional: Reports no additional constitutional complaints, Denies chills, Denies fever(s) and Denies night sweats <ABBE Spence - Last Filed: 04/21/22 22:24> Eyes: Eyes: Reports no additional eye complaints, Denies blurry vision, Denies change in vision, Denies diplopia, Denies eye discharge, Denies loss of vision and Denies eye pain <ABBE Spence - Last Filed: 04/21/22 22:24> ENT: Denies dizziness <ABBE Spence - Last Filed: 04/21/22 22:24> Cardiovascular: Cardiovascular: Reports no additional cardiovascular compla ints, Denies chest pain, Denies lightheadedness, Denies Loss of Consciousness and Denies dyspnea <ABBE Spence - Last Filed: 04/21/22 22:24> Respiratory: Respiratory: Reports no additional respiratory complaints and Denies dyspnea <ABBE Spence - Last Filed: 04/21/22 22:24> Gastrointestinal: Gastrointestinal: Reports no additional gastrointestinal complaints, Denies abdominal pain, Denies melena, Denies hematochezia, Denies change in bowel habits and Denies change in stool character <ABBE Spence - Last Filed: 04/21/22 22:24> Genitourinary: Genitourinary: Denies hematuria, Denies urinary frequency, Denies dysuria, Denies urinary incontinence, Denies urinary hesitancy and Denies urinary urgency <ABBE Spence - Last Filed: 04/21/22 22:24> Musculoskeletal: Musculoskeletal: Reports no additional musculoskeletal complaints, Denies numbness and Denies tingling <ABBE Spence - Last Filed: 04/21/22 22:24> Comments: right shoulder pain <ABBE Spence - Last Filed: 04/21/22 22:24> Neurologic: Denies dizziness, Denies loss of vision, Denies numbness and Denies tingling <ABBE Spence - Last Filed: 04/21/22 22:24> Psychiatric: Psychiatric: Reports no additional psychiatric complaints <ABBE Spence - Last Filed: 04/21/22 22:24> Endocrine: Endocrine: Reports no additional endocrine complaints <ABBE Spence - Last Filed: 04/21/22 22:24> Hematologic/Lymphatic: Hematologic/Lymphatic: Reports no additional hematologic/lymphatic complaints <ABBE Spence - Last Filed: 04/21/22 22:24> Allergic/Immunologic: Allergic/Immunologic: Reports no additional allergic/immunologic complaints <ABBE Spence - Last Filed: 04/21/22 22:24> PMFSH Past Medical History Attestation statement: The following information was validated with the patient. <ABBE Spence - Last Filed: 04/21/22 22:24> Source: old records reviewed <ABBE Spence - Last Filed: 04/21/22 22:24> Social History Social History: Social History Alcohol intake: never Smoked in Last 30 Days: No Advance Directives: No Advance Directives Information Provided: Yes <ABBE Spence - Last Filed: 04/21/22 22:24> Physical Exam ED Vital Signs: Vital Signs - 24 hr 04/21/22 16:00 04/21/22 19:26 04/21/22 21:38 Temperature 99.1 F 98.2 F 98.0 F Pulse Rate 77 72 72 Respiratory Rate 16 16 16 Blood Pressure 158/98 H 150/68 H 164/80 H Pulse Oximetry 93 94 98 Oxygen Delivery Method Room Air Room Air Room Air 04/22/22 00:00 04/22/22 01:52 04/22/22 04:00 Temperature 98.0 F 98.4 F 98.6 F Pulse Rate 95 96 91 Respiratory Rate 16 16 16 Blood Pressure 167/99 H 175/91 H 100/79 Pulse Oximetry 94 93 93 Oxygen Delivery Method Room Air Room Air Room Air 04/22/22 06:00 04/22/22 07:08 Temperature 97.4 F 98.8 F Pulse Rate 84 84 Respiratory Rate 16 12 Blood Pressure 167/84 H 175/94 H Pulse Oximetry 93 93 Oxygen Delivery Method Room Air Room Air BMI result Body Mass Index 25.9 <BABE Spence - Last Filed: 04/21/22 22:24> Vital Signs - 24 hr 04/21/22 16:00 04/21/22 19:26 04/21/22 21:38 Temperature 99.1 F 98.2 F 98.0 F Pulse Rate 77 72 72 Respiratory Rate 16 16 16 Blood Pressure 158/98 H 150/68 H 164/80 H Pulse Oximetry 93 94 98 Oxygen Delivery Method Room Air Room Air Room Air 04/22/22 00:00 04/22/22 01:52 04/22/22 04:00 Temperature 98.0 F 98.4 F 98.6 F Pulse Rate 95 96 91 Respiratory Rate 16 16 16 Blood Pressure 167/99 H 175/91 H 100/79 Pulse Oximetry 94 93 93 Oxygen Delivery Method Room Air Room Air Room Air 04/22/22 06:00 04/22/22 07:08 Temperature 97.4 F 98.8 F Pulse Rate 84 84 Respiratory Rate 16 12 Blood Pressure 167/84 H 175/94 H Pulse Oximetry 93 93 Oxygen Delivery Method Room Air Room Air BMI result Body Mass Index 25.9 <ABBE Morley - Last Filed: 04/22/22 13:50> Const General: cooperative, no acute distress, alert and awake <ABBE Spence Last Filed: 04/21/22 22:24> Nutritional Appearance: well nourished <Lina Van PA - Last Filed: 04/21/22 22:24> Orientation/consciousness: patient oriented x3 <Lina CovingtonABBE collado - Last Filed: 04/21/22 22:24> Limitations: no limitations <Lina [place] - Last Filed: 04/21/22 22:24> HENMT Head: Yes normal to inspection and Yes atraumatic <Lina [place] - Last Filed: 04/21/22 22:24> Ears: hearing grossly normal bilaterally and external ears normal <Lina [place] - Last Filed: 04/21/22 22:24> General nose exam: Normal external nose present, no nasal discharge noted and no epistaxis <Linamartín [place] - Last Filed: 04/21/22 22:24> Face and sinus: Yes normal facial exam, No abrasion and No laceration <Linamartín [place] - Last Filed: 04/21/22 22:24> Mouth: Normal oral and palatal mucosa present, no drooling and no muffled voice <Linamartín [place] - Last Filed: 04/21/22 22:24> Eyes General: appearance normal, both eyes and all related structures <Linamartín [place] - Last Filed: 04/21/22 22:24> Periorbital: periorbital findings normal <Lina [place] - Last Filed: 04/21/22 22:24> Eyelids: Yes eyelids normal <Linamartín [place] - Last Filed: 04/21/22 22:24> Conjunctivae: conjunctivae normal <Lina [place] - Last Filed: 04/21/22 22:24> Pupils: Equal, round and reactive pupils present <Lina [place] - Last Filed: 04/21/22 22:24> EOM: EOMs intact bilaterally <ABBE Spence - Last Filed: 04/21/22 22:24> Neck Neck: Yes normal visual inspection, Yes full ROM and Yes no lymphadenopathy <Gabrielsola kirkyadi Van PA - Last Filed: 04/21/22 22:24> Chest Chest palpation & inspection: normal inspection of the chest <ABBE Spence - Last Filed: 04/21/22 22:24> Resp Effort & Inspection: normal respiratory effort and able to speak in complete sentences <Lina Van PA - Last Filed: 04/21/22 22:24> Auscultation: clear to auscultation bilaterally <Lina VanABBE - Last Filed: 04/21/22 22:24> Cardio Rate: regular rate <Lina VanABBE - Last Filed: 04/21/22 22:24> Rhythm: regular rhythm <Lina VanABBE - Last Filed: 04/21/22 22:24> GI Inspection: Yes normal to inspection <Lina Van PA - Last Filed: 04/21/22 22:24> Neuro General: patient oriented x3 and moves all extremities <Lina VanABBE - Last Filed: 04/21/22 22:24> Cranial nerves: Yes Equal, round and reactive pupils present <Lina Van PA - Last Filed: 04/21/22 22:24> Cognition (Neuro): normal cognition <Lina Van PA - Last Filed: 04/21/22 22:24> Motor exam (neuro): 5/5 motor strength present throughout <Lina Van PA - Last Filed: 04/21/22 22:24> Sensory Exam: Normal double simultaneous stimulation for sensation <Lina Van PA - Last Filed: 04/21/22 22:24> Coordination: [id number] test normal <Lina Van PA - Last Filed: 04/21/22 22:24> Extrem General: Yes normal to inspection, Yes full ROM and Yes capillary refill normal <Lina Van PA - Last Filed: 04/21/22 22:24> Psych Appearance: grossly normal <Lina VanABBE - Last Filed: 04/21/22 22:24> Mental Status: mental status grossly normal <Lina CovingtonABBE collado - Last Filed: 04/21/22 22:24> Affect: normal affect <Lina VanABBE - Last Filed: 04/21/22 22:24> Attitude: cooperative <Lina CovingtonABBE collado - Last Filed: 04/21/22 22:24> Thought process: Normal thought process present <Lina CovingtonABBE collado - Last Filed: 04/21/22 22:24> Thought content: Normal thought content present <ABBE Spence - Last Filed: 04/21/22 22:24> Insight: Good insight present (Psych) <ABBE Spence - Last Filed: 04/21/22:24> Course Reevaluation(s) Reevaluation #1: Patient attempted to ambulate and was too weak to do so. Patient's daughter states that she cannot take care of the patient at home and would like the patient to be placed in short term rehab. Lab work and EKG ordered. <ABBE Spence - Last Filed: 04/21/22:24> Time: 18:46 <ABBE Spence Last Filed: 04/21/22:24> Reevaluation #2: physician observation continued overnight. She has been seen by Physical therapy and short-term rehab has been recommended. She has a bed at [facility]. She is to be discharged today at 16:00. <ABBE Morley - Last Filed: 04/22/22 13:50> Medical Decision Making MDM Narrative Medical decision making narrative: Patient is an 81 year old assigned female at with a history of a left rotator cuff injury presenting to the emergency department today with right shoulder pain after a fall. Patient's physical exam was unremarkable. Patient's head and cervical spine CT showed no acute process. Patient's right elbow x-ray showed an anterior fat pad and recommended a CT of the elbow. Patient's right wirst x-ray showed a possible ligament tear of the scapholunate junction of indeterminate age. Patient's right shoulder x-ray was unremarkable. Patient's right elbow CT was limited due to how the examination was done but no occult fracture was seen. Patient was set to be discharged when she attempted to ambulate and was not steady enough on her feet. Patient's daughter stated that she would rather the patient be placed in a short term rehab than come home. Patient's labs were then ordered. Patient's lab work showed an initial elevated troponin of 31.8 with repeat being less and elevated LFTs. Patient to be evaluated by physical therapy and to be placed by [facility]. <ABBE Spence - Last Filed: 04/21/22 22:24> Medical Records Medical records reviewed: Yes I reviewed the patient's medical records. <ABBE Spence - Last Filed: 04/21/22 22:24> Lab Data Lab results reviewed: Yes I reviewed the patient's lab results. <ABBE Spence - Last Filed: 04/21/22 22:24> Result diagrams: : 04/21/22 19:49 04/21/22 19:48 <ABBE Spence - Last Filed: 04/21/22 22:24> Labs: Lab Results 04/21/22 04/21/22 04/21/22 Range/Units 19:48 19:49 19:49 WBC 7.5 (4.8-10.8) X10*3/uL RBC 3.77 L (4.20-5.50) X10*6/uL Hgb 10.9 L (12.0-16.0) g/dl Hct 34.9 L (37.0-47.0) % MCV 92.6 (80.0-98.0) fL MCH 28.9 (27.0-33.0) pg MCHC 31.2 (31.0-35.0) g/dl RDW 13.4 (11.0-16.0) % Plt Count 409 H (160-400) X10*3/uL MPV 9.9 (9.4-12.3) fL Immature Gran % (Auto) 0.3 (0.0-0.4) % Neut % (Auto) 68.6 (45-73) % Lymph % (Auto) 18.1 L (20-40) % Sharp % (Auto) 10.1 (2-11) % Eos % (Auto) 2.8 (0-4) % Baso % (Auto) 0.1 (0-2) % Lymph # (Auto) 1.4 (1.2-4.9) X10*3/uL Sharp # (Auto) 0.8 (0.1-1.2) X10*3/uL Eos # (Auto) 0.2 (0.0-0.4) X10*3/uL Baso # (Auto) 0.0 (0.0-0.2) X10*3/uL Abs Immat Gran (auto) 0.02 (0.00-0.03) X10*3/uL Absolute Neuts (auto) 5.2 (2.0-8.3) x10*3/uL Absolute Nucleated RBC 0.000 (0.0-0.012) X10*3/uL Nucleated RBC % (auto) 0.0 (0.0-0.2) /100WBC Sodium 141 (135-145) mmol/L Potassium 3.9 (3.3-5.1) mmol/L Chloride 102 (96-108) mmol/L Carbon Dioxide 23 (22-29) mmol/L Anion Gap 20 (12-20) BUN 17 H (9-16) mg/dL Creatinine 0.86 (0.5-1.4) mg/dL Estim Creat Clear Calc 45.9 Estimated GFR > 60 Random Glucose 110 (60-115) mg/dL Calcium 10.0 (8.4-10.2) mg/dL Total Bilirubin 0.9 (0.0-1.0) mg/dL AST 53 H (5-31) U/L ALT 66 H (0-31) U/L Alkaline Phosphatase 598 H (39-117) U/L Total Creatine Kinase 57 (26-140) U/L CK-MM (CK-3) CK-MB (CK-2) CK-BB (CK-1) CK Isoenzymes Interp Troponin I High Sens 31.8 H (<3.5-17.0) ng/L Total Protein 8.1 H (6.5-8.0) g/dL Albumin 4.0 (3.5-5.0) g/dL Influenza Type A (PCR) (Negative) Influenza Type B (PCR) (Negative) RSV RNA Qual (PCR) (Negative) SARS-CoV-2 RNA (RT-PCR) (Negative) 04/21/22 04/21/22 04/21/22 Range/Units 19:49 19:49 21:47 WBC (4.8-10.8) X10*3/uL RBC (4.20-5.50) X10*6/uL Hgb (12.0-16.0) g/dl Hct (37.0-47.0) % MCV (80.0-98.0) fL MCH (27.0-33.0) pg MCHC (31.0-35.0) g/dl RDW (11.0-16.0) % Plt Count (160-400) X10*3/uL MPV (9.4-12.3) fL Immature Gran % (Auto) (0.0-0.4) % Neut % (Auto) (45-73) % Lymph % (Auto) (20-40) % Sharp % (Auto) (2-11) % Eos % (Auto) (0-4) % Baso % (Auto) (0-2) % Lymph # (Auto) (1.2-4.9) X10*3/uL Sharp # (Auto) (0.1-1.2) X10*3/uL Eos # (Auto) (0.0-0.4) X10*3/uL Baso # (Auto) (0.0-0.2) X10*3/uL Abs Immat Gran (auto) (0.00-0.03) X10*3/uL Absolute Neuts (auto) (2.0-8.3) x10*3/uL Absolute Nucleated RBC (0.0-0.012) X10*3/uL Nucleated RBC % (auto) (0.0-0.2) /100WBC Sodium (135-145) mmol/L Potassium (3.3-5.1) mmol/L Chloride (96-108) mmol/L Carbon Dioxide (22-29) mmol/L Anion Gap (12-20) BUN (9-16) mg/dL Creatinine (0.5-1.4) mg/dL Estim Creat Clear Calc Estimated GFR Random Glucose (60-115) mg/dL Calcium (8.4-10.2) mg/dL Total Bilirubin (0.0-1.0) mg/dL AST (5-31) U/L ALT (0-31) U/L Alkaline Phosphatase (39-117) U/L Total Creatine Kinase Cancelled (26-140) U/L CK-MM (CK-3) Cancelled CK-MB (CK-2) Cancelled CK-BB (CK-1) Cancelled CK Isoenzymes Interp Cancelled Troponin I High Sens 30.1 H (<3.5-17.0) ng/L Total Protein (6.5-8.0) g/dL Albumin (3.5-5.0) g/dL Influenza Type A (PCR) NEGATIVE (Negative) Influenza Type B (PCR) NEGATIVE (Negative) RSV RNA Qual (PCR) NEGATIVE (Negative) SARS-CoV-2 RNA (RT-PCR) NEGATIVE (Negative) <ABBE Spence - Last Filed: 04/21/22 22:24> Lab Results 04/21/22 04/21/22 04/21/22 Range/Units 19:48 19:49 19:49 WBC 7.5 (4.8-10.8) X10*3/uL RBC 3.77 L (4.20-5.50) X10*6/uL Hgb 10.9 L (12.0-16.0) g/dl Hct 34.9 L (37.0-47.0) % MCV 92.6 (80.0-98.0) fL MCH 28.9 (27.0-33.0) pg MCHC 31.2 (31.0-35.0) g/dl RDW 13.4 (11.0-16.0) % Plt Count 409 H (160-400) X10*3/uL MPV 9.9 (9.4-12.3) fL Immature Gran % (Auto) 0.3 (0.0-0.4) % Neut % (Auto) 68.6 (45-73) % Lymph % (Auto) 18.1 L (20-40) % Sharp % (Auto) 10.1 (2-11) % Eos % (Auto) 2.8 (0-4) % Baso % (Auto) 0.1 (0-2) % Lymph # (Auto) 1.4 (1.2-4.9) X10*3/uL Sharp # (Auto) 0.8 (0.1-1.2) X10*3/uL Eos # (Auto) 0.2 (0.0-0.4) X10*3/uL Baso # (Auto) 0.0 (0.0-0.2) X10*3/uL Abs Immat Gran (auto) 0.02 (0.00-0.03) X10*3/uL Absolute Neuts (auto) 5.2 (2.0-8.3) x10*3/uL Absolute Nucleated RBC 0.000 (0.0-0.012) X10*3/uL Nucleated RBC % (auto) 0.0 (0.0-0.2) /100WBC Sodium 141 (135-145) mmol/L Potassium 3.9 (3.3-5.1) mmol/L Chloride 102 (96-108) mmol/L Carbon Dioxide 23 (22-29) mmol/L Anion Gap 20 (12-20) BUN 17 H (9-16) mg/dL Creatinine 0.86 (0.5-1.4) mg/dL Estim Creat Clear Calc 45.9 Estimated GFR > 60 Random Glucose 110 (60-115) mg/dL Calcium 10.0 (8.4-10.2) mg/dL Total Bilirubin 0.9 (0.0-1.0) mg/dL AST 53 H (5-31) U/L ALT 66 H (0-31) U/L Alkaline Phosphatase 598 H (39-117) U/L Total Creatine Kinase 57 (26-140) U/L CK-MM (CK-3) CK-MB (CK-2) CK-BB (CK-1) CK Isoenzymes Interp Troponin I High Sens 31.8 H (<3.5-17.0) ng/L Total Protein 8.1 H (6.5-8.0) g/dL Albumin 4.0 (3.5-5.0) g/dL Influenza Type A (PCR) (Negative) Influenza Type B (PCR) (Negative) RSV RNA Qual (PCR) (Negative) SARS-CoV-2 RNA (RT-PCR) (Negative) 04/21/22 04/21/22 04/21/22 Range/Units 19:49 19:49 21:47 WBC (4.8-10.8) X10*3/uL RBC (4.20-5.50) X10*6/uL Hgb (12.0-16.0) g/dl Hct (37.0-47.0) % MCV (80.0-98.0) fL MCH (27.0-33.0) pg MCHC (31.0-35.0) g/dl RDW (11.0-16.0) % Plt Count (160-400) X10*3/uL MPV (9.4-12.3) fL Immature Gran % (Auto) (0.0-0.4) % Neut % (Auto) (45-73) % Lymph % (Auto) (20-40) % Sharp % (Auto) (2-11) % Eos % (Auto) (0-4) % Baso % (Auto) (0-2) % Lymph # (Auto) (1.2-4.9) X10*3/uL Sharp # (Auto) (0.1-1.2) X10*3/uL Eos # (Auto) (0.0-0.4) X10*3/uL Baso # (Auto) (0.0-0.2) X10*3/uL Abs Immat Gran (auto) (0.00-0.03) X10*3/uL Absolute Neuts (auto) (2.0-8.3) x10*3/uL Absolute Nucleated RBC (0.0-0.012) X10*3/uL Nucleated RBC % (auto) (0.0-0.2) /100WBC Sodium (135-145) mmol/L Potassium (3.3-5.1) mmol/L Chloride (96-108) mmol/L Carbon Dioxide (22-29) mmol/L Anion Gap (12-20) BUN (9-16) mg/dL Creatinine (0.5-1.4) mg/dL Estim Creat Clear Calc Estimated GFR Random Glucose (60-115) mg/dL Calcium (8.4-10.2) mg/dL Total Bilirubin (0.0-1.0) mg/dL AST (5-31) U/L ALT (0-31) U/L Alkaline Phosphatase (39-117) U/L Total Creatine Kinase Cancelled (26-140) U/L CK-MM (CK-3) Cancelled CK-MB (CK-2) Cancelled CK-BB (CK-1) Cancelled CK Isoenzymes Interp Cancelled Troponin I High Sens 30.1 H (<3.5-17.0) ng/L Total Protein (6.5-8.0) g/dL Albumin (3.5-5.0) g/dL Influenza Type A (PCR) NEGATIVE (Negative) Influenza Type B (PCR) NEGATIVE (Negative) RSV RNA Qual (PCR) NEGATIVE (Negative) SARS-CoV-2 RNA (RT-PCR) NEGATIVE (Negative) <ABBE Morley - Last Filed: 04/22/22 13:50> Imaging Data CT Head and C-Spine: Attestation: I personally reviewed and interpreted this imaging study as follows: <ABBE Spence - Last Filed: 04/21/22 22:24> My impression: No acute process. <ABBE Spence - Last Filed: 04/21/22 22:24> Radiologist's impression: EXAMINATION: CT HEAD W/O IV CONTRAST CT CERVICAL SPINE W/O IV CONTRAST CLINICAL INFORMATION: History of fall, head strike. COMPARISON: None TECHNIQUE: Head - Contiguous axial imaging of the head was performed from the skull base to the vertex without the administration of intravenous contrast, and axial images are reconstructed at 2 mm and 5 mm slice thickness. Cervical spine - A volumetric, helical CT acquisition of the cervical spine was obtained without contrast; in addition to the standard set of axial images, multiplanar reformatted images were provided in the coronal and sagittal imaging planes. This CT examination was performed using dose optimization techniques as appropriate, variously including the following: *Automated exposure control *Adjustment of mA and/or kV according to patient size (this includes techniques or standardized protocols for targeted exams where dose is matched to indication/reason for exam; i.e. extremities or head) *Use of iterative reconstruction technique DLP: 934 mGy-cm (total) FINDINGS: HEAD: No intracranial hemorrhage, extra-axial fluid collection, focal mass effect or midline shift. 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 Small lacunar infarcts of gangliocapsular regions. Lacunar infarction of the left thalamus is of uncertain chronicity; there are no comparison head CT exams. There appear to be old lacunar infarcts of the nikolai. Moderate parenchymal volume loss with commensurate prominence of ventricles and sulci; no hydrocephalus. Cavum septum pellucidum et vergae. Atherosclerotic calcification of cavernous carotid arteries. Patchy hypoattenuation of supratentorial matter compatible with sequela of moderate microangiopathy. No calvarial fracture. The mastoid air cells are well aerated. Temporomandibular joints are unremarkable. No acute intraorbital findings. Moderate mucosal thickening of left sphenoid sinus and minimal mucosal thickening of anterior right sphenoid sinus. Mucous retention cyst at the floor of the right maxillary sinus. No air-fluid levels within paranasal sinuses. CERVICAL SPINE: Mild levocurvature of the degenerated cervical spine. The craniocervical junction is intact. Degenerative osseous spurring at the atlantodental articulation. 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 Multilevel facet osteoarthritis and multilevel mild discovertebral degenerative changes. Minimal degenerative anterolisthesis at C2-C3 and C3-C4. There is 0.3 cm of degenerative anterolisthesis of C4 on C5. No acute fractures in the anterior or posterior elements. No prevertebral soft tissue swelling.? No soft tissue hematoma. Thyroid gland is grossly unremarkable. No acute findings in the visualized lung apices. Atherosclerotic calcification of aortic arch and branch vessels. CT/CT head/brain wo IV con IMPRESSION: *? No evidence of calvarial fracture or acute intracranial hemorrhage. *? 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 Also, there appear to be a few old lacunar infarcts, including within the nikolai. *? No acute fractures within the degenerated cervical spine. Findings include multilevel facet osteoarthritis and degenerative subluxations at C2-C3, C3-C4 and C4-C5, and there is severe osteoarthritis at the articulation between left lateral masses of C1 and C2. Dictated By: Harley Washington MD Signed By: Electronically signed by Harley Washington MD 04/21/22 [id number] <ABBE Spence - Last Filed: 04/21/22 22:24> Right wrist, right elbow, right shoulder x-rays: Attestation: I personally reviewed and interpreted this imaging study as follows: <ABBE Spence - Last Filed: 04/21/22 22:24> My impression: No obvious fracture. <ABBE Spence - Last Filed: 04/21/22 22:24> Radiologist's impression: EXAMINATION: RIGHT WRIST, RIGHT ELBOW AND RIGHT SHOULDER CLINICAL INFORMATION: Fall, pain.? COMPARISON: No previous exam available TECHNIQUE: 4 views right wrist 4 views right shoulder and 3 views right elbow.? FINDINGS: Right wrist: There is no visible acute fracture, dislocation or subluxation seen. There is no bony erosive changes. There is loss of first carpometacarpal joint space. There is a small osseous density adjacent to patient body question fracture of indeterminate age. Widening of scapholunate junction is noted from ligament tear. Right elbow: There is no visible acute fracture, dislocation or subluxation. There is a prominent anterior fat pad sign. No visible fracture seen. Right shoulder: The glenohumeral joint space is maintained normal. There is periarticular spurring with soft tissue swelling right AC joint. There is likely loose body or fracture fragment along the superior ECG joint. XR/XR elbow RT min 3V IMPRESSION: 1.? No visible acute fracture or dislocation right wrist. There is a small osseous density adjacent to the scaphoid bone question fracture of indeterminate age. Widening of scapholunate junction from ligament tear. 2.? There is no visible acute fracture or dislocation right elbow. There is a prominent anterior fat pad sign however no visible acute fracture seen. If patient has a history of trauma and significant pain a CT can be considered. 3.? There is no visible fracture or dislocation right shoulder. There is periarticular spurring right A.C. joint. ? Dictated By: Supa Dumont MD Signed By: Electronically signed by Supa Dumont MD 04/21/22 3021 <ABBE Spence - Last Filed: 04/21/22 22:24> Right elbow CT: Attestation: I personally reviewed and interpreted this imaging study as follows: <ABBE Spence - Last Filed: 04/21/22 22:24> My impression: No acute fracture. <ABBE Spence - Last Filed: 04/21/22 22:24> Radiologist's impression: EXAMINATION: CT WITHOUT CONTRAST ELBOW, RIGHT CLINICAL INFORMATION: Fall with possible joint effusion on x-ray.? COMPARISON: Radiographs 04/21/2022? TECHNIQUE: A noncontrast CT of the right elbow is performed with sagittal and coronal reformats. This CT examination was performed using dose optimization techniques as appropriate, variously including the following: *Automated exposure control *Adjustment of mA and/or kV according to patient size (this includes techniques or standardized protocols for targeted exams where dose is matched to indication/reason for exam; i.e. extremities or head) *Use of iterative reconstruction technique DLP: 118? FINDINGS: Images are suboptimal due to poor technique related to positioning of the elbow along the side of the body presumably due to patient immobility. No acute fracture or malalignment is evident. No obvious joint effusion. CT/CT elbow RT wo IV con IMPRESSION: Suboptimal study due to patient immobility and positioning. No acute osseous abnormality is evident. No significant joint effusion. Dictated By: Junaid Ritter MD Signed By: Electronically signed by Junaid Ritter MD 04/21/22 1600 <ABBE Spence - Last Filed: 04/21/22 22:24> ECG Data Attestation: I personally reviewed and interpreted this ECG as follows: <ABBE Spence - Last Filed: 04/21/22 22:24> Prior ECG tracings: available for review <ABBE Spence - Last Filed: 04/21/22 22:24> Interpretation: Vent. Rate: 084 BPM ? ? Atrial Rate: 084 BPM P-R Int: 162 ms? QRS Dur: 144 ms QT Int: 438 ms ? ? ? P-R-T Axes: 023 -69 065 degrees QTc Int: 517 ms ? Sinus rhythm with occasional Premature ventricular complexes Right bundle branch block Left anterior fascicular block Bifascicular block Minimal voltage criteria for LVH, may be normal variant ( R in aVL ) Abnormal ECG No previous ECGs available DD/ 21 <ABBE Spence - Last Filed: 04/21/22 22:24> Critical Care Time Critical Care Time Critical Care Time: Yes <ABBE Spence - Last Filed: 04/21/22 22:24> Total Critical Care Time: 30 <ABBE Spence - Last Filed: 04/21/22 22:24> Attestation: I spent 30 minutes of Critical Care Time with this patient. This does not include time spent on separately reported billable procedures. <ABBE Spence - Last Filed: 04/21/22 22:24> Discharge Plan Discharge Clinical Impression: Fall, Injury of right rotator cuff <ABBE Spence - Last Filed: 04/21/22 22:24> Patient Disposition: Still a Patient <ABBE Spence - Last Filed: 04/21/22 22:24> Instructions: Rotator Cuff Injury (ED) <ABBE Spence - Last Filed: 04/21/22 22:24> Additional Instructions: Follow up with your primary care provider and an orthopedic provider. Return to the emergency department immediately if your symptoms worsen or if you develop any dizziness, shortness of breath, difficulty breathing, chest pain, blurry vision, loss of vision, nausea, vomiting, abdominal pain, fever, chills, back pain, or any other complaints. Josh un seguimiento con santoyo proveedor de atenci?n primaria y un proveedor ortop?dico. Regrese a la sae de emergencias de inmediato si camila s?ntomas empeoran o si presenta mareos, dificultad para respirar, dolor de pecho, visi?n borrosa, p?rdida de la visi?n, n?useas, v?mitos, dolor abdominal, fiebre, escalofr?os, dolor de espalda o cualquier otras quejas. <ABBE Spence - Last Filed: 04/21/22 22:24> Referrals: [facility] [place] [place] Family Medicine [Provider Group] (Call to establish and follow up with a primary care provider. If you already have a primary care provider, please follow up with them. Llame para establecer y hacer un seguimiento con un proveedor de atenci?n primaria. Si ya tiene un proveedor de atenci?n primaria, josh un seguimiento con ?l.) [facility] [place] [place] [facility] [Provider Group] (Call to establish and follow up with a primary care provider. If you already have a primary care provider, please follow up with them. Llame para establecer y hacer un seguimiento con un proveedor de atenci?n primaria. Si ya tiene un proveedor de atenci?n primaria, josh un seguimiento con ?l.) [facility] [place] [place] [facility] [Provider Group] (Call to establish and follow up with a primary care provider. If you already have a primary care provider, please follow up with them. Llame para establecer y hacer un seguimiento con un proveedor de atenci?n pr imaria. Si ya tiene un proveedor de atenci?n primaria, josh un seguimiento con ?l.) [place] [facility] [place] [facility] [Provider Group] (Call to establish and follow up with an orthopedic provider for further ev aluation of the right arm Llame para establecer y hacer un seguimiento con un proveedor ortop?dico para kat evaluaci?n adicional del ramona gutierrez. ) [facility] [Outside] <ABBE Spence - Last Filed: 04/21/22 22:24> Print Language: Citizen Of [place] <ABBE Spence - Last Filed: 04/21/22 22:24>
[2022-04-21 12:02] VITALS: BP 152/90; BP 156/90; PULSE 80; PULSE 90; RESP 16; TEMP 37.3; O2SAT 100; O2SAT 95; BMI 25.9
--- NOTE | 2022-04-21 12:19 | PC.NURSE ---
patient assessed with use of full time staff interpreter , primary language Mongolian . a/o x 3 . patient reports fall last night and this morning on to right shoulder and hit her head . natrmariano . heart rate regular at 89 beats per minute . lungs clear throughout . no trauma or bruising noted to right shoulder . limited range of motion to right side . skin pink warm and dry . abdomen soft not tender . positive bowel sounds in all four quadrants . patient to CT . patient aware of plan of care .
[2022-04-21 16:00] VITALS: BP 158/98; PULSE 77; RESP 16; TEMP 37.3; O2SAT 93
--- NOTE | 2022-04-21 16:02 | PC.NURSE ---
assumed care of pt at 1500 ,vs taken patient watching television ,warm blanket given ,call colón within reach .
--- NOTE | 2022-04-21 18:28 | PC.NURSE ---
Attempted to discharge patient with assistance of automatic packer operator . Patience was was unable to stand with assistance of staff and her walker . Her niece told staff that she is unable her at home that she will require some rehab at this time . provider made aware .
--- NOTE | 2022-04-21 18:43 | ECG_ITS ---
Test Reason : fall Blood Pressure : / mmHG Vent. Rate : 084 BPM Atrial Rate : 084 BPM P-R Int : 162 ms QRS Dur : 144 ms QT Int : 438 ms P-R-T Axes : 023 -69 065 degrees QTc Int : 517 ms Sinus rhythm with occasional Premature ventricular complexes Right bundle branch block Left anterior fascicular block Bifascicular block Minimal voltage criteria for LVH, may be normal variant ( R in aVL ) Abnormal ECG No previous ECGs available Referred By: Lina Van Electronically Signed By:FANNIE ACUÑA MD
[2022-04-21 19:26] VITALS: BP 150/68; PULSE 72; RESP 16; TEMP 36.8; O2SAT 94
[2022-04-21 19:53] LABS: MANUAL DIFF FLAG NO
[2022-04-21 19:55] LABS: Basophils Percent Auto 0.1 % (0-2); Eosinophils Absolute Auto 0.2 X10*3/uL (0.0-0.4); Eosinophils Percent Auto 2.8 % (0-4); Hematocrit 34.9 % (37.0-47.0); Hemoglobin 10.9 g/dl (12.0-16.0); Imm Gran Abs Auto 0.02 X10*3/uL (0.00-0.03); Imm Gran Pct Auto 0.3 % (0.0-0.4); Lymphocytes Absolute Auto 1.4 X10*3/uL (1.2-4.9); Lymphocytes Percent Auto 18.1 % (20-40); Mean Corpuscular HGB Conc 31.2 g/dl (31.0-35.0); Mean Corpuscular Hemoglobin 28.9 pg (27.0-33.0); Mean Corpuscular Volume 92.6 fL (80.0-98.0); Mean Platelet Volume 9.9 fL (9.4-12.3); Monocytes Absolute Auto 0.8 X10*3/uL (0.1-1.2); Monocytes Percent Auto 10.1 % (2-11); Neutrophils Absolute Auto 5.2 x10*3/uL (2.0-8.3); Neutrophils Percent Auto 68.6 % (45-73); Platelet Count 409 X10*3/uL (160-400); Red Blood Count 3.77 X10*6/uL (4.20-5.50); Red Cell Distribution Width 13.4 % (11.0-16.0); White Blood Count 7.5 X10*3/uL (4.8-10.8)
--- NOTE | 2022-04-21 19:57 | PC.NURSE ---
2000 rounding done pt blood work and ekg was done ,patient was given a ham sandwich and kingsley sindi for snack .
[2022-04-21 20:17] LABS: Alanine Aminotransferase 66 U/L (0-31); Alkaline Phosphatase 598 U/L (39-117); Anion Gap 20 (12-20); Aspartate Amino Transferase 53 U/L (5-31); Bilirubin Total 0.9 mg/dL (0.0-1.0); Blood Urea Nitrogen 17 mg/dL (9-16); Carbon Dioxide 23 mmol/L (22-29); Chloride 102 mmol/L (96-108); Creatinine Clr Calc Pharmacy 45.9; Estimated Glomerular Filt Rate > 60; Glucose Random 110 mg/dL (60-115); Potassium 3.9 mmol/L (3.3-5.1); Sodium 141 mmol/L (135-145); Total Protein 8.1 g/dL (6.5-8.0)
[2022-04-21 20:18] LABS: Troponin-I High Sensitivity 31.8 ng/L (<3.5-17.0)
[2022-04-21 20:36] LABS: Influenza A PCR NEGATIVE (Negative); Influenza B PCR NEGATIVE (Negative); Resp Syncy Virus RNA Qual PCR NEGATIVE (Negative); SARS COV2 PCR INHOUSE NEGATIVE (Negative)
--- NOTE | 2022-04-21 21:30 | MHC.CM.ED ---
Met with patient at request of Lina MCADAMS. Pt alert, but poor historian, even with the use of a medical laboratory assistant, as pt is English Speaking. Most of interview completed with daughter and grand daughter. HCP/daughter Kiley Thakur ([phone]). PCP is at [facility]. HCP not on file. HCP/daughter Kiley Blaze. Kiley tells CM she does not have a copy. Pt is too confused to complete one at this time, even with toxicology supervisor. Pt told CM she lives in [place] with daughter, and they live in [place]. Pt uses a rollator walker. Granddaughter tells CM they private pay for 2 [employer]'s, but they both have Covid. Pt is Covid negative. Pt received 2 Moderna vaccinations, but no booster. (07/15/20 & 08/12/20). Pt was at [facility] and daughter requests [facility] as #1. Otherwise daughter requests local facilities. Pt has no choices. Referrals placed. PT pending in the morning. CM to follow for d/c needs.
[2022-04-21 21:38] VITALS: BP 164/80; PULSE 72; RESP 16; TEMP 36.7; O2SAT 98
--- NOTE | 2022-04-21 21:38 | PC.NURSE ---
2200 rounding done pt vs taken ,pt was assisted to bathroom ,transfer was a 2 asst very difficult ,pt void small amount ,back to bed ,pitcher water given and warm blanket .
[2022-04-21 22:20] LABS: Troponin-I High Sensitivity 30.1 ng/L (<3.5-17.0)
[2022-04-22] VITALS: BP 167/99; PULSE 95; RESP 16; TEMP 36.7; O2SAT 94
--- NOTE | 2022-04-22 00:35 | PC.NURSE ---
0000 rounding done ,vs taken pt was reposition and purewick in place ,warm blanket given .
[2022-04-22 01:52] VITALS: BP 175/91; PULSE 96; RESP 16; TEMP 36.9; O2SAT 93
--- NOTE | 2022-04-22 01:54 | PC.NURSE ---
0200 ROUNDING DONE PT AWAKE VS TAKEN PT IS DRY ,WARM BLANKET GIVEN ,CALL THOMAS WITHIN REACH .
[2022-04-22 04:00] VITALS: BP 100/79; PULSE 91; RESP 16; TEMP 37; O2SAT 93
--- NOTE | 2022-04-22 04:12 | PC.NURSE ---
0400 rounding done pt vs taken pt was reposition and dry warm blanket given pt sleeping on and off ,call colón within reach .
[2022-04-22 06:00] VITALS: BP 167/84; PULSE 84; RESP 16; TEMP 36.3; O2SAT 93
--- NOTE | 2022-04-22 06:39 | PC.NURSE ---
0600 rounding done .vs taken ,pt was wet ,care given ,pt was moved unto a hospital were she was more comfortable ,warm blanket and fresh pitcher water given ,new purewick in place ,call colón within reach .
[2022-04-22 07:08] VITALS: BP 175/94; PULSE 84; RESP 12; TEMP 37.1; O2SAT 93
--- NOTE | 2022-04-22 11:29 | MHC.CM.ED ---
Addendum entered by Pam Foley 04/22/22 13:24: [facility]. Spoke with patient's daughter, Kiley via telephone at [phone] with historical interpreter. Ikley agreeable. Waiting to hear from [facility] about transport time. Original Note: Patient remains in ER. Physical therapy rec short term rehab. [facility]. Waiting to hear if they are able to offer a bed. Patient found to have multiple medical record numbers. HCP found under older medical record. Uploaded to [facility]. Continue to monitor for d/c needs.
--- NOTE | 2022-04-22 13:41 | MHC.CM.ED ---
[facility] can accept patient. Arist[facility] booked for 4pm. Med [facility] with chart. Patient, daughter Annamaria Cao RN and Gely MCADAMS aware. Continue to monitor for d/c needs.
--- NOTE | 2022-04-22 19:07 | PC.NURSE ---
This US/Pct got report from the shift prior stating they brought this patient to [facility] left there paper work and patients belongings a walker with 2 bags plus a tote bag. This Us called esteban at 1905 spoke with James I asked if they can please send there crew back to get patients belongings he stated he will see what he can do and call back. [employer] Unloader aware
--- NOTE | 2022-04-23 00:20 | PC.NURSE ---
James from [employer] called stated that they were at [place] and had no available trucks at this time.Will attempt to call in AM. inventory specialist manager made aware
--- NOTE | 2022-04-23 01:33 | PC.NURSE ---
Romario from [facility] came at 0133 to pick patents belongings up to take to [facility].
== END 2022-04-22 18:13 | disposition still patient (30) ==
PROVIDERS: Physician Assistant Medical; Emergency Provider Emergency Medicine
DX: S46.001A Unspecified injury of muscle(s) and tendon(s) of the rotator cuff of right shoulder, initial encounter (principal); S43.421A Sprain of right rotator cuff capsule, initial encounter; M54.2 Cervicalgia; R51.9 Headache, unspecified; M25.531 Pain in right wrist; R26.81 Unsteadiness on feet; R07.89 Other chest pain; W01.0XXA Fall on same level from slipping, tripping and stumbling without subsequent striking against object, initial encounter; Y93.9 Activity, unspecified; Y92.9 Unspecified place or not applicable; Y99.9 Unspecified external cause status; Z20.822 Contact with and (suspected) exposure to COVID-19; Z79.899 Other long term (current) drug therapy
CPT/HCPCS: 0241U; 36415; 70450; 71045; 72125; 73030; 73080; 73100; 73200; 80053; 82550; 82552; 84484; 85025; 93005; 97161; 99285

== ENCOUNTER 2022-04-27 09:02 | Outpatient (REF) | payer MEDICARE, MEDICAID, SELFPAY | END 2022-04-27 09:03 | disposition home or self-care (01) | LOC: HO.HOSX 09:02 | PROVIDERS: Visit Provider Physician Assistant | DX: Z13.89 Encounter for screening for other disorder (principal) ==

== ENCOUNTER 2022-05-25 08:27 | Outpatient (REF) | payer MEDICARE, MEDICAID, SELFPAY | END 2022-05-25 08:28 | disposition home or self-care (01) | LOC: HO.HOSX 08:27 | PROVIDERS: Visit Provider Physician Assistant | DX: Z13.89 Encounter for screening for other disorder (principal) ==

== ENCOUNTER 2022-06-23 13:59 | Outpatient (REF) | payer MEDICARE, MEDICAID, SELFPAY ==
--- NOTE | ~2022-06-23 | XR_ITS ---
EXAMINATION: XR KNEE, RIGHT XR KNEE, LEFT XR KNEE AP STANDING CLINICAL INFORMATION: Pain. COMPARISON: Radiographs dated 11/15/2021. TECHNIQUE: Lateral and axial views of the right knee are submitted. Lateral and axial views of the left knee are submitted. AP bilateral standing view of the knees was obtained. FINDINGS: RIGHT KNEE: Bony mineralization is normal. There is marked asymmetric narrowing of the lateral joint space compartment, with peripheral osteophyte formation. The medial and patellofemoral joint space compartments are well-maintained. There is a moderate valgus configuration. There is mild peripheral osteophyte formation of the articular surface of the patella. No fracture or dislocation is seen. There is no foreign body. There are atherosclerotic calcifications. XR/XR knee LT 2V IMPRESSION: 1. 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 2. There is a moderate valgus configuration of the right knee. 3. No fracture, dislocation or joint effusion is seen of the right knee. LEFT KNEE: Bones and soft tissues are normal. No fracture or joint effusion. Alignment is anatomic. Joint spaces are well maintained. There are atherosclerotic calcifications. IMPRESSION: Normal left knee.
--- NOTE | ~2022-06-23 | XR_ITS ---
EXAMINATION: XR KNEE, RIGHT XR KNEE, LEFT XR KNEE AP STANDING CLINICAL INFORMATION: Pain. COMPARISON: Radiographs dated 11/15/2021. TECHNIQUE: Lateral and axial views of the right knee are submitted. Lateral and axial views of the left knee are submitted. AP bilateral standing view of the knees was obtained. FINDINGS: RIGHT KNEE: Bony mineralization is normal. There is marked asymmetric narrowing of the lateral joint space compartment, with peripheral osteophyte formation. The medial and patellofemoral joint space compartments are well-maintained. There is a moderate valgus configuration. There is mild peripheral osteophyte formation of the articular surface of the patella. No fracture or dislocation is seen. There is no foreign body. There are atherosclerotic calcifications. XR/XR knee standing BI IMPRESSION: 1. 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 2. There is a moderate valgus configuration of the right knee. 3. No fracture, dislocation or joint effusion is seen of the right knee. LEFT KNEE: Bones and soft tissues are normal. No fracture or joint effusion. Alignment is anatomic. Joint spaces are well maintained. There are atherosclerotic calcifications. IMPRESSION: Normal left knee.
--- NOTE | ~2022-06-23 | XR_ITS ---
EXAMINATION: XR KNEE, RIGHT XR KNEE, LEFT XR KNEE AP STANDING CLINICAL INFORMATION: Pain. COMPARISON: Radiographs dated 11/15/2021. TECHNIQUE: Lateral and axial views of the right knee are submitted. Lateral and axial views of the left knee are submitted. AP bilateral standing view of the knees was obtained. FINDINGS: RIGHT KNEE: Bony mineralization is normal. There is marked asymmetric narrowing of the lateral joint space compartment, with peripheral osteophyte formation. The medial and patellofemoral joint space compartments are well-maintained. There is a moderate valgus configuration. There is mild peripheral osteophyte formation of the articular surface of the patella. No fracture or dislocation is seen. There is no foreign body. There are atherosclerotic calcifications. XR/XR knee RT 2V IMPRESSION: 1. 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 2. There is a moderate valgus configuration of the right knee. 3. No fracture, dislocation or joint effusion is seen of the right knee. LEFT KNEE: Bones and soft tissues are normal. No fracture or joint effusion. Alignment is anatomic. Joint spaces are well maintained. There are atherosclerotic calcifications. IMPRESSION: Normal left knee.
== END 2022-06-23 14:00 | disposition home or self-care (01) ==
LOC: HO.HOSX 13:59
PROVIDERS: Visit Provider Physician Assistant
DX: M17.11 Unilateral primary osteoarthritis, right knee (principal)
CPT/HCPCS: 20610; 73560; 73565; 99202; J1040

== ENCOUNTER → 2022-06-28 09:35 | Outpatient (BNVA) | payer MEDICARE, MEDICAID, SELFPAY | PROVIDERS: Visit Provider Physician Assistant | DX: M19.011 Primary osteoarthritis, right shoulder (principal) | CPT/HCPCS: 99212 ==

== ENCOUNTER → 2022-06-29 10:15 | Outpatient (BNVA) | payer MEDICARE, MEDICAID, SELFPAY | PROVIDERS: Visit Provider Surgery Vascular Surgery | DX: I65.23 Occlusion and stenosis of bilateral carotid arteries (principal); I83.11 Varicose veins of right lower extremity with inflammation | CPT/HCPCS: 99202 ==

== ENCOUNTER 2022-07-24 14:36 | Outpatient (REF) | payer MEDICARE, MEDICAID, SELFPAY ==
--- NOTE | ~2022-07-24 | US_ITS ---
EXAMINATION: US EXTRACRANIAL CAROTID DUPLEX, BILATERAL CLINICAL INFORMATION: Carotid bruit. COMPARISON: None TECHNIQUE: Real-time ultrasound and Doppler techniques (integrating B-mode 2-D vascular images, Doppler spectral analysis and color-flow Doppler imaging) were utilized to interrogate the extracranial carotid arteries, the vertebral arteries and proximal subclavian arteries bilaterally. The degree of stenosis is determined by criteria similar to NASCET. FINDINGS: Right Side: 1. There is mild atherosclerotic plaque seen in the bifurcation/proximal ICA region. 2. The common carotid artery PSV proximally is 49 cm/s and distally 52 cm/s. 3. The proximal internal carotid artery velocities are 41 cm/s systolic and 9 cm/s diastolic. 4. The proximal external carotid artery PSV is 56 cm/s. 5. The vertebral artery shows antegrade flow. 6. The subclavian artery waveforms are normal. Left Side: 1. There is mild atherosclerotic plaque seen in the bifurcation/proximal ICA region. 2. The common carotid artery PSV proximally is 46 cm/s and distally 45 cm/s. 3. The proximal internal carotid artery velocities are 42 cm/s systolic and 8 cm/s diastolic. 4. The proximal external carotid artery PSV is 80 cm/s. 5. The vertebral artery shows antegrade flow. 6. The subclavian artery waveforms are normal. US/US carotid duplex BI IMPRESSION: 1. RIGHT: Minimal, non-hemodynamically significant stenosis of the proximal right internal carotid artery corresponding to a 0-49% stenosis by velocity criteria. 2. LEFT: Minimal, non-hemodynamically significant stenosis of the proximal left internal carotid artery corresponding to a 0-49% stenosis by velocity criteria.
== END 2022-07-24 14:37 | disposition home or self-care (01) ==
LOC: HO.US 14:36
PROVIDERS: Visit Provider Surgery Vascular Surgery
DX: I65.23 Occlusion and stenosis of bilateral carotid arteries (principal); I83.893 Varicose veins of bilateral lower extremities with other complications
CPT/HCPCS: 93880

== ENCOUNTER 2022-08-03 09:57 | Outpatient (REF) | payer MEDICARE, MEDICAID, SELFPAY ==
--- NOTE | ~2022-08-03 | US_ITS ---
EXAMINATION: US VENOUS BILATERAL LOWER EXTREMITIES (REFLUX EXAM) CLINICAL INDICATION: Leg pain and varicose veins. COMPARISON: None. TECHNIQUE: Color flow triplex imaging and compression Doppler was performed to evaluate both the deep and the superficial systems bilaterally. To evaluate the superficial system, the examination was performed in the upright position. Color-flow Doppler ultrasound and compression ultrasound were utilized. In addition, maneuvers were utilized to demonstrate reflux. FINDINGS: 1. DEEP VENOUS ULTRASOUND OF THE RIGHT LOWER EXTREMITY: Respiratory variation, normal compression and augmented flow are noted in the right common femoral vein as well as the right popliteal vein and there is no evidence of deep venous thrombosis at these locations. There is no evidence of reflux in the deep system in either the common femoral vein or the popliteal vein. There is no evidence of a King's cyst. 2. SUPERFICIAL ULTRASOUND WITH DOPPLER OF RIGHT LOWER EXTREMITY: The right great saphenous vein at the saphenofemoral junction measures 4 mm, at the proximal thigh 5 mm, at the mid thigh 3 mm, above the knee 2 mm, at the knee 2 mm, [id number] 2 mm, midcalf 2 mm and at the ankle measures 3 mm. Reflux is present at the saphenofemoral junction for 1.3 seconds. DUPLICATED RIGHT GREAT SAPHENOUS VEIN: There is a lateral accessory saphenous that measures 2 mm that does not reflux. The right small saphenous vein measures 3 mm and shows no reflux. ACCESSORY VEIN OF GIACOMINI: None. INCOMPETENT PERFORATORS: None. VARICES PRESENT: None. 3. DEEP VENOUS ULTRASOUND OF THE LEFT LOWER EXTREMITY: Respiratory variation, normal compression and augmented flow are noted in the left common femoral vein as well as the left popliteal vein and there is no evidence of deep venous thrombosis at these locations. There is no evidence of reflux in the deep system in either the common femoral vein or the popliteal vein. There is no evidence of a King's cyst. 4. SUPERFICIAL ULTRASOUND WITH DOPPLER OF LEFT LOWER EXTREMITY: Left great saphenous vein at the saphenofemoral junction measures 8 mm, at the proximal thigh 6 mm, at the mid thigh 3 mm, above the knee 3 mm, at the knee 3 mm, [id number] 2 mm, midcalf 2 mm and at the ankle measures 2 mm. There is no reflux demonstrated in the left great saphenous vein. The distal great saphenous vein in the calf demonstrates some mild wall thickening. DUPLICATED LEFT GREAT SAPHENOUS VEIN: There is a lateral accessory saphenous measuring 3 mm that does not reflux. The left small saphenous vein measures 5 mm and shows no reflux. ACCESSORY VEIN OF GIACOMINI: None. INCOMPETENT PERFORATORS: None. VARICES PRESENT: There is a 3 mm thigh varicosity that does not reflux. US/US venous duplex LE BI IMPRESSION: 1. No evidence of reflux or thrombus in the common femoral veins or popliteal veins bilaterally. 2. The saphenous systems are competent bilaterally with the exception of segmental reflux at the saphenofemoral junction on the right for 1.3 seconds.
== END 2022-08-03 09:58 | disposition home or self-care (01) ==
LOC: HO.US 09:57
PROVIDERS: Visit Provider Surgery Vascular Surgery
DX: I83.893 Varicose veins of bilateral lower extremities with other complications (principal)
CPT/HCPCS: 93970

== ENCOUNTER → 2022-08-10 13:39 | Outpatient (BNVA) | payer MEDICARE, MEDICAID, SELFPAY | PROVIDERS: Visit Provider Surgery Vascular Surgery | DX: I83.11 Varicose veins of right lower extremity with inflammation (principal); I65.23 Occlusion and stenosis of bilateral carotid arteries | CPT/HCPCS: 99212 ==

== ENCOUNTER 2022-10-20 18:04 | Inpatient (IN) | payer OTHER, SELFPAY ==
--- NOTE | ~2022-10-20 | CT_ITS ---
EXAMINATION: CT CHEST WITHOUT CONTRAST CLINICAL INFORMATION: Shortness of breath COMPARISON: Chest x-ray from the same day TECHNIQUE: Multidetector volumetric CT imaging of the chest was done. Axial MIP volume rendering provided. Sagittal and coronal reformatted images were obtained. This CT examination was performed using dose optimization techniques as appropriate, variously including the following: *Automated exposure control *Adjustment of mA and/or kV according to patient size (this includes techniques or standardized protocols for targeted exams where dose is matched to indication/reason for exam; i.e. extremities or head) *Use of iterative reconstruction technique DLP: 246 mGy-cm FINDINGS: LUNGS: There is a mosaic attenuation appearance of the lungs with groundglass opacification of much of the parenchyma. Curvilinear opacity in the right middle lobe is more suggestive of atelectasis. MEDIASTINUM: Visualized thyroid gland is grossly unremarkable. Suboptimal assessment of the mediastinum without intravenous contrast, though several borderline enlarged lymph nodes are suspected. There is cardiomegaly without significant pericardial effusion. There is atherosclerotic calcification along the aorta. CORONARY ARTERY CALCIFICATION: Present PLEURA: Small bilateral pleural effusions. No pneumothorax. AXILLA: No axillary lymphadenopathy is present. UPPER ABDOMEN: Unremarkable. OSSEOUS STRUCTURES: Unremarkable. CT/CT chest wo IV con IMPRESSION: 1. Mosaic attenuation appearance of the lungs with groundglass opacification of much of the parenchyma. This appearance can be seen with pulmonary edema or infectious/inflammatory etiologies. 2. Small bilateral pleural effusions. 3. Cardiomegaly. 4. Suspected borderline enlarged mediastinal lymph nodes, which may be reactive. 5. Coronary artery calcifications. Correlation with cardiac risk factors is recommended.
--- NOTE | ~2022-10-20 | CT_ITS ---
EXAMINATION: CT CHEST WITHOUT CONTRAST CLINICAL INFORMATION: Aspiration. Hypoxia. COMPARISON: Previous chest CT and chest x-ray from earlier this month TECHNIQUE: Multidetector volumetric CT imaging of the chest was done. Axial MIP volume rendering provided. Sagittal and coronal reformatted images were obtained. This CT examination was performed using dose optimization techniques as appropriate, variously including the following: *Automated exposure control *Adjustment of mA and/or kV according to patient size (this includes techniques or standardized protocols for targeted exams where dose is matched to indication/reason for exam; i.e. extremities or head) *Use of iterative reconstruction technique DLP: 183 mGy-cm FINDINGS: LUNGS: There is increased groundglass attenuation greatest in the bilateral upper lobes. This appears improved from 10/20/2022 exam. Subsegmental atelectasis at the lung bases. MEDIASTINUM: The heart is enlarged. There are prominent mediastinal lymph nodes. Evaluation for hilar adenopathy is limited without contrast. No pericardial effusion. Normal caliber thoracic aorta.. CORONARY ARTERY CALCIFICATION: Severe PLEURA: Bilateral pleural effusions, right greater than left, both decreased from recent exam AXILLA: No lymphadenopathy. UPPER ABDOMEN: Unremarkable. OSSEOUS STRUCTURES: Degenerative changes of the spine. CT/CT chest wo IV con IMPRESSION: Enlarged heart. Interval improvement in diffuse groundglass attenuation. Differential would include pulmonary edema and pneumonitis. Small bilateral pleural effusions, right greater than left. These appear improved from previous exam as well. Fleischner guidelines were followed.
--- NOTE | ~2022-10-20 | US_ITS ---
EXAMINATION: US VENOUS ULTRASOUND WITH DOPPLER LOWER EXTREMITY, BILATERAL CLINICAL INFORMATION: Swelling COMPARISON: None available. TECHNIQUE: Ultrasound of the deep veins is performed from the hip to the calf with compression sonography and color and pulse Doppler assessment. Spectral analysis with color-flow imaging is performed. FINDINGS: RIGHT: There is normal venous compression and respiratory variation and augmented flow. The visualized common femoral vein, superficial femoral vein, profunda femoral vein, popliteal vein, and the trifurcation region shows no evidence of deep venous thrombosis. There is no significant popliteal fossa cyst. LEFT: There is normal venous compression and respiratory variation and augmented flow. The visualized common femoral vein, superficial femoral vein, profunda femoral vein, popliteal vein, and the trifurcation region shows no evidence of deep venous thrombosis. There is no significant popliteal fossa cyst. If the patient's symptoms persist, followup ultrasound in 5 days 7 days might be of value to exclude proximal propagation from a non-visualized calf vein. US/US venous duplex LE BI IMPRESSION: No DVT demonstrated in the bilateral lower extremity.
--- NOTE | ~2022-10-20 | XR_ITS ---
EXAMINATION: XR CHEST CLINICAL INFORMATION: Aspiration COMPARISON: None available. TECHNIQUE: Frontal view of the chest was obtained. FINDINGS: The lungs are well-expanded prominent bilateral interstitial markings slightly more progressed than chest x-ray 10/20/2022. No airspace pneumonic infiltrate. No pleural effusion. Heart size and pulmonary vascularity is normal. No gross bony abnormality seen. There is mild degenerative arthritic changes of bilateral AC joints. XR/XR chest 1V IMPRESSION: Increased bilateral interstitial markings likely nonspecific parenchymal inflammatory changes. No acute pneumonic infiltrate seen.
--- NOTE | ~2022-10-20 | XR_ITS ---
EXAMINATION: XR CHEST CLINICAL INFORMATION: Increasing respiratory rate COMPARISON: None available. TECHNIQUE: 2 views of the chest were obtained. FINDINGS: Cardiac silhouette is prominent. There are some opacities here in left midlung. Some mild right basilar opacities. These areas may represent areas of infiltrate. There is mild cephalization of the vasculature. No overt failure is felt to be present. XR/XR chest 2V IMPRESSION: Bilateral opacities may be developing areas of atelectasis or infiltrate. Vascular congestion would need to be considered. No overt failure
--- NOTE | ~2022-10-20 | CT_ITS ---
EXAMINATION: CT HEAD WITHOUT CONTRAST CLINICAL INFORMATION: Fall COMPARISON: 04/21/2022 TECHNIQUE: Contiguous axial imaging was performed from the skull base to vertex without intravenous administration of contrast. This CT examination was performed using dose optimization techniques as appropriate, variously including the following: *Automated exposure control *Adjustment of mA and/or kV according to patient size (this includes techniques or standardized protocols for targeted exams where dose is matched to indication/reason for exam; i.e. extremities or head) *Use of iterative reconstruction technique DLP: 555 mGy-cm FINDINGS: There is no midline shift. There is no mass effect. There is no hemorrhage. The basal cisterns appear patent. The posterior fossa is grossly within normal limits. No extra-axial collection. There is atrophy and white matter ischemic change No fracture on the bone windows. CT/CT head/brain wo IV con IMPRESSION: Negative acute noncontrast CT of the brain. Atrophy and white matter ischemic changes are noted
[2022-10-20 18:21] VITALS: BP 165/104; PULSE 67; RESP 18; TEMP 36.6; O2SAT 96; BMI 28.3
--- NOTE | 2022-10-20 18:25 | ED.GENADULT ---
HPI - General Adult General Chief complaint: General Medical Stated complaint: laceration to head Time Seen by Provider: 10/20/22 20:31 Source: patient and family Mode of arrival: ambulatory Limitations: no limitations History of Present Illness HPI narrative: This is an 81-year-old female history of dyslipidemia, hypertension, CHF presenting to the emergency department with family , patient got up from a chair without her walker, fell back, hit her head on a closet door, sustained a laceration, no loss of consciousness, patient is on Plavix. Patient has also been complaining of lower extremity swelling and shortness of breath for the past week worsening. Patient reports that her lower extremities have been very swollen left worse than right. Patient does not wear oxygen at home. No associated trauma. Patient denies chest pain, cough, fevers, chills, headache, vision changes, dizziness, weakness, seizure-like activity, nausea, vomiting, abdominal pain. GCS 15. NIH stroke scale 0. Related Data Home Medications Medication Instructions Recorded Confirmed atorvastatin 40 mg tablet 1 tab PO BEDTIME 02/04/22 10/20/22 clopidogrel 75 mg tablet 1 tab PO DAILY 02/04/22 10/20/22 enalapril maleate 20 mg tablet 2 tab PO BID 02/04/22 10/20/22 furosemide 40 mg tablet 1 tab PO DAILY 02/04/22 10/20/22 isosorbide mononitrate 30 mg 1 tab PO QAM 02/04/22 10/20/22 tablet,extended release 24 hr metoprolol succinate 100 mg 1 tab PO DAILY 02/04/22 10/20/22 tablet,extended release 24 hr levetiracetam 250 mg tablet 250 mg PO BID 10/20/22 10/20/22 (Ketosin) Previous Rx's Medication Instructions Recorded levetiracetam 250 mg tablet 750 mg PO BID #60 tabs 02/08/22 Allergies Allergy/AdvReac Type Severity Reaction Status Date / Time No Known Allergies Allergy Verified 10/20/22 18:31 Review of Systems Review of Systems: Constitutional : No Weight loss, No Fever, No Chills, No Fatigue, No Malaise ENT/Mouth : No sore throat, No Rhinorrhea Eyes: No Eye Pain, No Swelling, No Redness Cardiovascular : No Chest Pain, + SOB, No Dyspnea on Exertion, + Orthopnea, + Edema, No Palpitations Respiratory : No Cough, No Sputum, No Wheezing Gastrointestinal : No Nausea, No Vomiting, No Diarrhea, No Constipation, No abdominal Pain, No Hematochezia, No Melena Genitourinary : No Dysuria, No Urinary Frequency, No Hematuria, Musculoskeletal : No joint pain, No Myalgias, No Joint Swelling Skin : No Skin Lesions, No rash, + laceration Neuro : No Weakness, No Numbness, No Dizziness, No Headache Psych : No Anxiety/Panic, No Depression All other systems reviewed and are negative Yes all other systems are reviewed and are negative [facility], [facility] Past Medical History Attestation statement: The following information was validated with the patient. Source: old records reviewed and nursing notes reviewed Medical History Dyslipidemia Essential hypertension Seizure disorder Family History Family History Mother Myocardial infarction Social History Social History Household Members: Children Do you presently have visiting nurse or other home services: No Alcohol intake: never Patient Tobacco Use Status: Never used Tobacco Smoked in Last 30 Days: No Use of substances other than those prescribed or required for medical reasons: No Advance Directives: Yes Advance Directives on File: Yes Advance Directives Date on File: 02/04/22 service: No Current occupational status: retired and disabled 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 Oriented X3.? No acute distress.? Head: Normocephalic, atraumatic, no step-offs or deformities + L sided occipital lac 4 cm Eyes: Pupils equal, round and reactive to light.? ENT: Pharynx normal.? Neck: Normal inspection.? Neck supple.? CVS: Normal heart rate and rhythm.? Pulses normal.? Respiratory: No respiratory distress.? Breath sounds w/ dimished breathsounds b/l..? Abdomen: Soft and nontender.? Skin: Skin warm and dry.? Normal skin color.? Normal skin turgor.? Extremities: 3+ non pitting edema to LLE and 2 + non pitting to RLE .? No calf ttp. 5/5 strength to bilateral upper and lower extremities Neuro: Oriented X 3.? No motor deficit.? No sensory deficit. CN 2-12 intact Course Course Course Narrative: RME triage 81 year-old female with past medical history of carotid stenosis, osteoarthritis of right knee, atherosclerotic cardiovascular disease, Congestive heart failure, LVEF 45-50% is here today after sustaining a fall. Patient was trying to stand up with walker and lost her balance and fell backwards. Patient hit her head on a closet door. No LOC patient is on Plavix patient denies headache, nausea or vomiting. Denies dizziness or pain. Will order CT scan, CBC, PT and INR, BMP. Lung sounds clear to auscultation although patient has increased respiratory rate. Reevaluation(s) Reevaluation #1: DVT study negative to bilateral lower extremities. CT of chest with mosaic attenuation appearance of the lungs with ground-glass opacification of much of the parenchyma likely secondary to pulmonary edema do not suspect infection. Small bilateral pleural effusions and cardiomegaly. CBC with a normo Sittig anemia appears to be around patient's baseline. Chemistry with no acute findings requiring intervention. Patient's troponin elevated 29.6 however appears to be around her baseline will repeat another troponin at this time. BNP markedly elevated 3353 consistent with acute CHF exacerbation, patient was saturating 83% on room air, requiring oxygen at this time will require hospital admission. Patient's D-dimer 359 however age adjusted D-dimer VTE unlikely. Time: 23:34 Medications Administered Generic Name Dose Route Start Last Admin Trade Name Freq PRN Reason Stop Dose Admin Enoxaparin Sodium 40 mg 10/20/22 23:00 10/20/22 23:21 Enoxaparin Sodium 40 Mg/0.4 Ml Syringe SUBCUT 40 mg Q24H AJAY Administration Discontinued Medications Generic Name Dose Route Start Last Admin Trade Name Freq PRN Reason Stop Dose Admin Furosemide 40 mg 10/20/22 21:12 10/20/22 21:32 Furosemide 40 Mg/4 Ml Vial IVPUSH 10/20/22 21:13 40 mg STAT STA Administration Protocol Medical Decision Making Medical Decision Making [facility] Narrative: This is an 81-year-old female presenting with laceration status post mechanical fall and shortness of breath and lower extremity swelling for the past week. Physical exam with laceration to the left occiput put, breath sounds diminished bilaterally. Regular rate and rhythm. 3+ non pitting edema to LLE and 2 + non pitting to RLE .? No calf ttp. 5/5 strength to bilateral upper and lower extremities Concerns for possible CHF. Laceration simple will repair with johnny. Unlikely intracranial hemorrhage, stroke, posterior stroke. Will rule out DVT to lower extremity however this is likely secondary to CHF. Unlikely pneumonia, PE. Unlikely ACS. Will rule out electrolyte abnormalities. Plan basic labs, imaging, johnny Differential Diagnosis Differential Diagnoses: The differential diagnosis associated with the presentation includes Concerns for possible CHF. Laceration simple will repair with johnny. Unlikely intracranial hemorrhage, stroke, posterior stroke. Will rule out DVT to lower extremity however this is likely secondary to CHF. Unlikely pneumonia, PE. Unlikely ACS. Will rule out electrolyte abnormalities. Admission/Observation Consideration of admission/observation: Escalation of care including admission/observation considered juan Lab Data [facility] Lab Attestation statement: I reviewed the patient's lab results. 10/20/22 20:37 10/20/22 20:37 Labs: Lab Results 10/20/22 10/20/22 10/20/22 Range/Units 20:37 20:37 20:37 WBC 4.9 (4.8-10.8) X10*3/uL RBC 3.88 L (4.20-5.50) X10*6/uL Hgb 11.4 L (12.0-16.0) g/dl Hct 36.9 L (37.0-47.0) % MCV 95.1 (80.0-98.0) fL MCH 29.4 (27.0-33.0) pg MCHC 30.9 L (31.0-35.0) g/dl RDW 13.6 (11.0-16.0) % Plt Count 283 D (160-400) X10*3/uL MPV 9.9 (9.4-12.3) fL Immature Gran % (Auto) 0.2 (0.0-0.4) % Neut % (Auto) 66.6 (45-73) % Lymph % (Auto) 22.7 (20-40) % [place] % (Auto) 7.8 (2-11) % Eos % (Auto) 2.5 (0-4) % Baso % (Auto) 0.2 (0-2) % Lymph # (Auto) 1.1 L (1.2-4.9) X10*3/uL [place] # (Auto) 0.4 (0.1-1.2) X10*3/uL Eos # (Auto) 0.1 (0.0-0.4) X10*3/uL Baso # (Auto) 0.0 (0.0-0.2) X10*3/uL Abs Immat Gran (auto) 0.01 (0.00-0.03) X10*3/uL Absolute Neuts (auto) 3.3 (2.0-8.3) x10*3/uL Absolute Nucleated RBC 0.000 (0.0-0.012) X10*3/uL Nucleated RBC % (auto) 0.0 (0.0-0.2) /100WBC PT 13.2 H (10.0-13.1) SEC INR 1.1 (0.9-1.1) D-Dimer High Sensitivty 359 NG/ML Sodium 145 (135-145) mmol/L Potassium 3.5 (3.3-5.1) mmol/L Chloride 108 (96-108) mmol/L Carbon Dioxide 28 (22-29) mmol/L Anion Gap 13 (12-20) BUN 20 H (9-16) mg/dL Creatinine 0.86 (0.5-1.4) mg/dL Estim Creat Clear Calc 46.0 Estimated GFR > 60 Random Glucose 110 (60-115) mg/dL Calcium 9.6 (8.4-10.2) mg/dL Troponin I High Sens (<3.5-17.0) ng/L B-Natriuretic Peptide (<100) pg/mL 10/20/22 10/20/22 Range/Units 20:37 21:29 WBC (4.8-10.8) X10*3/uL RBC (4.20-5.50) X10*6/uL Hgb (12.0-16.0) g/dl Hct (37.0-47.0) % MCV (80.0-98.0) fL MCH (27.0-33.0) pg MCHC (31.0-35.0) g/dl RDW (11.0-16.0) % Plt Count (160-400) X10*3/uL MPV (9.4-12.3) fL Immature Gran % (Auto) (0.0-0.4) % Neut % (Auto) (45-73) % Lymph % (Auto) (20-40) % [place] % (Auto) (2-11) % Eos % (Auto) (0-4) % Baso % (Auto) (0-2) % Lymph # (Auto) (1.2-4.9) X10*3/uL [place] # (Auto) (0.1-1.2) X10*3/uL Eos # (Auto) (0.0-0.4) X10*3/uL Baso # (Auto) (0.0-0.2) X10*3/uL Abs Immat Gran (auto) (0.00-0.03) X10*3/uL Absolute Neuts (auto) (2.0-8.3) x10*3/uL Absolute Nucleated RBC (0.0-0.012) X10*3/uL Nucleated RBC % (auto) (0.0-0.2) /100WBC PT (10.0-13.1) SEC INR (0.9-1.1) D-Dimer High Sensitivty NG/ML Sodium (135-145) mmol/L Potassium (3.3-5.1) mmol/L Chloride (96-108) mmol/L Carbon Dioxide (22-29) mmol/L Anion Gap (12-20) BUN (9-16) mg/dL Creatinine (0.5-1.4) mg/dL Estim Creat Clear Calc Estimated GFR Random Glucose (60-115) mg/dL Calcium (8.4-10.2) mg/dL Troponin I High Sens 29.6 H (<3.5-17.0) ng/L B-Natriuretic Peptide 3353 H (<100) pg/mL Independent Interpretation I performed an independent interpretation of an: EKG and CT Scan (CT/CT chest wo IV con IMPRESSION: 1. Mosaic attenuation appearance of the lungs with groundglass opacification of much of the parenchyma. This appearance can be seen with pulmonary edema or infectious/inflammatory etiologies. 2. Small bilateral pleural effusions. 3. Cardiomegaly. 4. Suspected simón) Interpretation: EKG with sinus rhythm with PVCs, ventricular rate of 68, ND normal, QRS normal, QT/QTC normal, no ST elevations or inversions concerning ischemia, right bundle-branch block present left anterior fascicular block. Radiology Impression Discussion of test interpretation with radiology: I have reviewed the radiologist's reading. External Record Review External record reviewed: Inpatient record, Office record, Outpatient record, Prior outpatient labs, Prior outpatient radiology, Primary care record and Outside ED record Core Measures AMI core measures followed: Yes Measure exclusions: not indicated Critical Care Time Critical Care Time Critical Care Time: No Discharge Plan Discharge Clinical Impression: CHF (congestive heart failure), Laceration of head, Closed head injury Prescriptions: No Action furosemide 40 mg tablet 1 tab PO DAILY atorvastatin 40 mg tablet 1 tab PO BEDTIME enalapril maleate 20 mg tablet 2 tab PO BID isosorbide mononitrate 30 mg tablet extended release 24 hr 1 tab PO QAM metoprolol succinate 100 mg tablet extended release 24 hr 1 tab PO DAILY clopidogrel 75 mg tablet 1 tab PO DAILY levetiracetam 250 mg Tablet 750 mg PO BID Qty: 60 0RF levetiracetam [Keppra] 250 mg Tablet 250 mg PO BID
[2022-10-20 20:28] VITALS: BP 180/81; PULSE 64; RESP 24; TEMP 36.7; O2SAT 93
[2022-10-20 20:41] VITALS: O2SAT 83
--- NOTE | 2022-10-20 20:41 | PC.NURSE ---
pt sat 83% on room air. pt placed on 2L nc with Brigida brush material preparer at bedside. head being stapled.
[2022-10-20 20:43] LABS: MANUAL DIFF FLAG NO
[2022-10-20 20:44] LABS: Basophils Percent Auto 0.2 % (0-2); Eosinophils Absolute Auto 0.1 X10*3/uL (0.0-0.4); Eosinophils Percent Auto 2.5 % (0-4); Hematocrit 36.9 % (37.0-47.0); Hemoglobin 11.4 g/dl (12.0-16.0); Imm Gran Abs Auto 0.01 X10*3/uL (0.00-0.03); Imm Gran Pct Auto 0.2 % (0.0-0.4); Lymphocytes Absolute Auto 1.1 X10*3/uL (1.2-4.9); Lymphocytes Percent Auto 22.7 % (20-40); Mean Corpuscular HGB Conc 30.9 g/dl (31.0-35.0); Mean Corpuscular Hemoglobin 29.4 pg (27.0-33.0); Mean Corpuscular Volume 95.1 fL (80.0-98.0); Mean Platelet Volume 9.9 fL (9.4-12.3); Monocytes Absolute Auto 0.4 X10*3/uL (0.1-1.2); Monocytes Percent Auto 7.8 % (2-11); Neutrophils Absolute Auto 3.3 x10*3/uL (2.0-8.3); Neutrophils Percent Auto 66.6 % (45-73); Platelet Count 283 X10*3/uL (160-400); Red Blood Count 3.88 X10*6/uL (4.20-5.50); Red Cell Distribution Width 13.6 % (11.0-16.0); White Blood Count 4.9 X10*3/uL (4.8-10.8)
[2022-10-20 20:45] VITALS: O2SAT 97
[2022-10-20 20:54] LABS: INTERNATIONAL NORM RATIO 1.1 (0.9-1.1); Prothrombin Time 13.2 SEC (10.0-13.1)
[2022-10-20 20:56] LABS: Anion Gap 13 (12-20); Blood Urea Nitrogen 20 mg/dL (9-16); Calcium 9.6 mg/dL (8.4-10.2); Carbon Dioxide 28 mmol/L (22-29); Chloride 108 mmol/L (96-108); Estimated Glomerular Filt Rate > 60; Glucose Random 110 mg/dL (60-115); Potassium 3.5 mmol/L (3.3-5.1); Sodium 145 mmol/L (135-145)
[2022-10-20 21:04] LABS: B Type Natriuretic Peptide 3353 pg/mL (<100)
--- NOTE | 2022-10-20 21:13 | ECG_ITS ---
Test Reason : SOB Blood Pressure : / mmHG Vent. Rate : 068 BPM Atrial Rate : 068 BPM P-R Int : 186 ms QRS Dur : 146 ms QT Int : 514 ms P-R-T Axes : 065 -63 094 degrees QTc Int : 546 ms Sinus rhythm with occasional Premature ventricular complexes Right bundle branch block Left anterior fascicular block Bifascicular block Abnormal ECG When compared with ECG of 04-FEB-2022 08:24, Vent. rate has decreased BY 67 BPM Referred By: Eduardo Flores Electronically Signed By:TOMASZ ALFARO
[2022-10-20 21:28] LABS: D Dimer High Sensitivity 359 NG/ML
--- NOTE | 2022-10-20 21:31 | PC.NURSE ---
20g IV placed in the left AC.
[2022-10-20] MEDS: Furosemide 40 MG/4 ML VIAL IVPUSH (21:32)
[2022-10-20 21:59] LABS: Troponin-I High Sensitivity 29.6 ng/L (<3.5-17.0)
--- NOTE | 2022-10-20 22:01 | PC.NURSE ---
Spoke with pt anf amily member. Family member was concerned about pt getting home when she is cleared for discharge. Family member has to leave but is unable to get back until the morning. Ambulance was discussed and family member agreed to taking the ambulance, but there is a chance she may get a bill. Family member consented to this. Pt is currently resting in bed at this time, waiting for blood work and scan reports to come back. Contact: Kiley Thakur [phone]
--- NOTE | 2022-10-20 23:01 | P.HPHOSP_ITS ---
History of Present Illness Date of Service: 10/20/22 Chief Complaint: Dyspnea This is a 81-year-old female with pertinent history of combined systolic and diastolic heart failure, seizure disorder, essential hypertension, mixed hyperlipidemia presents to the emergency department for evaluation of dyspnea. Patient has been having dyspnea 1 week prior to presentation. It has been progressive and worse with ambulation. Also has associated orthopnea and bilateral lower extremity swelling. Patient fell as she was trying to get from the chair and hit her head. No dizziness or lightheadedness prior to the fall. No loss of consciousness. Patient does not use oxygen at home. She denies fever, chills, cough, chest discomfort, palpitations, changes in urinary or bowel habits. In the emergency department, patient was found to be hypoxemic and placed on 2 L supplemental oxygen Review of Systems Constitutional: Constitutional: Reports fatigue Cardiovascular: Cardiovascular: Reports dyspnea on exertion and Reports orthopnea Respiratory: Respiratory: Reports dyspnea on exertion Gastrointestinal: Gastrointestinal: Reports no additional gastrointestinal complaints Genitourinary: Genitourinary: Reports no additional female genitourinary complaints Endocrine: Endocrine: Reports fatigue [facility] Medical History Dyslipidemia Essential hypertension Seizure disorder Family History Mother Myocardial infarction Social History Household Members: Children Do you presently have visiting nurse or other home services: No Alcohol intake: never Patient Tobacco Use Status: Never used Tobacco Smoked in Last 30 Days: No Use of substances other than those prescribed or required for medical reasons: No Advance Directives: Yes Advance Directives on File: Yes Advance Directives Date on File: 02/04/22 service: No Current occupational status: retired and disabled 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 Meds Allergies Allergy/AdvReac Type Severity Reaction Status Date / Time No Known Allergies Allergy Verified 10/20/22 18:31 Active Medications: Current Medications Pharmacy Consult (Consult Rx Perform Med Rec) 1 each MISCELLANE ONCE PRN PRN Reason: Consult order Home Medications Medication Instructions Recorded Confirmed Last Taken Type atorvastatin 40 mg tablet 1 tab PO BEDTIME 02/04/22 10/20/22 Unknown History clopidogrel 75 mg tablet 1 tab PO DAILY 02/04/22 10/20/22 Unknown History enalapril maleate 20 mg tablet 2 tab PO BID 02/04/22 10/20/22 Unknown History furosemide 40 mg tablet 1 tab PO DAILY 02/04/22 10/20/22 Unknown History isosorbide mononitrate 30 mg 1 tab PO QAM 02/04/22 10/20/22 Unknown History tablet,extended release 24 hr metoprolol succinate 100 mg 1 tab PO DAILY 02/04/22 10/20/22 Unknown History tablet,extended release 24 hr levetiracetam 250 mg tablet 250 mg PO BID 10/20/22 10/20/22 Unknown History (Amalia) Physical Exam Vital Signs and Narrative: Vital Signs: Last Vital Signs Temp 98.1 F 10/20/22 20:28 Pulse 64 10/20/22 20:28 Resp 24 H 10/20/22 20:28 BP 180/81 H 10/20/22 20:28 Pulse Ox 97 10/20/22 20:45 O2 Del Method Nasal Cannula 10/20/22 20:45 O2 Flow Rate 2 10/20/22 20:45 BMI result Body Mass Index 28.3 Elderly male lying in bed in mild distress on supplemental oxygen Neck supple, no JVD Regular rate and rhythm, S1-S2 heard Bilateral crackles Abdomen soft nontender, no guarding, no rigidity Patient is awake, alert and oriented to self, place, time and person ; no focal motor deficit Psych: Normal mood Bilateral pedal edema Results Labs 10/20/22 20:37 10/20/22 20:37 Labs: Laboratory Results - last 24 hr 10/20/22 10/20/22 10/20/22 20:37 20:37 20:37 MCV 95.1 MCH 29.4 MCHC 30.9 L RDW 13.6 Plt Count 283 D MPV 9.9 Immature Gran % (Auto) 0.2 Neut % (Auto) 66.6 Lymph % (Auto) 22.7 [place] % (Auto) 7.8 Eos % (Auto) 2.5 Baso % (Auto) 0.2 Lymph # (Auto) 1.1 L [place] # (Auto) 0.4 Eos # (Auto) 0.1 Baso # (Auto) 0.0 Abs Immat Gran (auto) 0.01 Absolute Neuts (auto) 3.3 Absolute Nucleated RBC 0.000 Nucleated RBC % (auto) 0.0 PT 13.2 H INR 1.1 D-Dimer High Sensitivty 359 Anion Gap 13 Estim Creat Clear Calc 46.0 Estimated GFR > 60 Random Glucose 110 Calcium 9.6 Troponin I High Sens B-Natriuretic Peptide 10/20/22 10/20/22 20:37 21:29 MCV MCH MCHC RDW Plt Count MPV Immature Gran % (Auto) Neut % (Auto) Lymph % (Auto) [place] % (Auto) Eos % (Auto) Baso % (Auto) Lymph # (Auto) [place] # (Auto) Eos # (Auto) Baso # (Auto) Abs Immat Gran (auto) Absolute Neuts (auto) Absolute Nucleated RBC Nucleated RBC % (auto) PT INR D-Dimer High Sensitivty Anion Gap Estim Creat Clear Calc Estimated GFR Random Glucose Calcium Troponin I High Sens 29.6 H B-Natriuretic Peptide 3353 H Imaging Radiologist's Impressions: Impressions Head CT 10/20/22 19:12 IMPRESSION: Negative acute noncontrast CT of the brain. Atrophy and white matter ischemic changes are noted Chest X-Ray 10/20/22 20:05 IMPRESSION: Bilateral opacities may be developing areas of atelectasis or infiltrate. Vascular congestion would need to be considered. No overt failure Assessment and Plan (1) CHF (congestive heart failure): Status: Acute Plan This is a 81-year-old female with pertinent history of combined systolic and diastolic heart failure, seizure disorder, essential hypertension, mixed hyperlipidemia presents to the emergency department for evaluation of dyspnea. #. Acute hypoxemic respiratory failure secondary to: #. Acute on chronic combined systolic and diastolic congestive heart failure . Will admit patient and initiate IV Lasix. Low-salt diet and strict I's and O's. Will obtain echo and consult Cardiology. Transition to p.o. Lasix once euvolemia achieved #. Seizure disorder on Keppra #. essential hypertension: Continue enalapril and metoprolol #. mixed hyperlipidemia: On statin med rec pending DVT prophylaxis: Lovenox Full code Cardiac diet Admit as inpatient and will require two night minimum hospital stay for supplemental oxygen and IV diuresis Time Spent With Patient Time: Total time managing care of this patient today ____ minutes. Quality Stroke Does the patient have a stroke diagnosis?: No VTE Prior VTE?: No VTE Risk Level:: Medical - moderate - high VTE Device Contraindication: Treatment Not Indicated VTE Drug Contraindication: N/A - Med Ordered
[2022-10-20] MEDS: Enoxaparin Sodium 40 MG/0.4 ML SYRINGE SUBCUT (23:21)
[2022-10-20 23:51] VITALS: BP 161/81; PULSE 71; RESP 19; TEMP 36.4; O2SAT 93
[2022-10-21] VITALS: BP 145/98; PULSE 70; RESP 16; TEMP 36; O2SAT 91
[2022-10-21] MEDS: 0.9 % Sodium Chloride Flush 3 ML SYRINGE IVFLUSH ×3 (00:20→17:38)
--- NOTE | 2022-10-21 00:36 | MHC.EDTECH ---
Patient wet as purewick tube was not connected for suction. Clean patient and changed bed pad. Nurse assist with boost. Replaced purewick and secured in place with a towel.
[2022-10-21 00:50] LABS: Troponin-I High Sensitivity 25.3 ng/L (<3.5-17.0)
[2022-10-21 01:22] VITALS: BMI 29.9
[2022-10-21 06:00] VITALS: BMI 29.9
[2022-10-21 07:02] LABS: MANUAL DIFF FLAG NO
[2022-10-21 07:08] LABS: Basophils Percent Auto 0.5 % (0-2); Eosinophils Absolute Auto 0.2 X10*3/uL (0.0-0.4); Eosinophils Percent Auto 2.5 % (0-4); Hemoglobin 11.4 g/dl (12.0-16.0); Imm Gran Abs Auto 0.02 X10*3/uL (0.00-0.03); Imm Gran Pct Auto 0.3 % (0.0-0.4); Lymphocytes Absolute Auto 1.2 X10*3/uL (1.2-4.9); Lymphocytes Percent Auto 19.4 % (20-40); Mean Corpuscular HGB Conc 30.8 g/dl (31.0-35.0); Mean Corpuscular Hemoglobin 29.7 pg (27.0-33.0); Mean Corpuscular Volume 96.4 fL (80.0-98.0); Mean Platelet Volume 10.6 fL (9.4-12.3); Monocytes Absolute Auto 0.6 X10*3/uL (0.1-1.2); Monocytes Percent Auto 8.9 % (2-11); Neutrophils Absolute Auto 4.4 x10*3/uL (2.0-8.3); Neutrophils Percent Auto 68.4 % (45-73); Platelet Count 267 X10*3/uL (160-400); Red Blood Count 3.84 X10*6/uL (4.20-5.50); Red Cell Distribution Width 13.5 % (11.0-16.0); White Blood Count 6.4 X10*3/uL (4.8-10.8)
[2022-10-21 07:21] VITALS: BP 121/62; PULSE 78; RESP 18; TEMP 36.4; O2SAT 97
[2022-10-21 07:24] LABS: Anion Gap 10 (12-20); Blood Urea Nitrogen 16 mg/dL (9-16); Calcium 9.4 mg/dL (8.4-10.2); Carbon Dioxide 30 mmol/L (22-29); Chloride 107 mmol/L (96-108); Creatinine Clr Calc Pharmacy 45.6; Estimated Glomerular Filt Rate > 60; Glucose Random 115 mg/dL (60-115); Potassium 3.1 mmol/L (3.3-5.1); Sodium 144 mmol/L (135-145)
[2022-10-21 08:12] LABS: Magnesium 1.9 mg/dL (1.6-2.6)
[2022-10-21] MEDS: Metoprolol Succinate ER 100 MG TAB.ER.24H PO (10:19)
[2022-10-21] MEDS: levETIRAcetam 250 MG TABLET PO (10:21)
[2022-10-21] MEDS: levETIRAcetam 250 MG TABLET 750 MG PO (10:21)
[2022-10-21] MEDS: Clopidogrel Bisulfate 75 MG TABLET PO (10:22)
[2022-10-21] MEDS: Isosorbide Mononitrate 30 MG TAB.ER.24H PO (10:22)
[2022-10-21] MEDS: Potassium Chloride ER 20 MEQ TAB.ER.PRT 40 MEQ PO (10:22)
--- NOTE | 2022-10-21 10:34 | P.PNIM_ITS ---
Subjective Subjective Date of Service: 10/21/22 Interval History: c/o dyspnea, edema no chest pain This history was taken in [place] from the patient. Review of Systems Review of Systems: Yes all other systems are reviewed and are negative Physical Exam Vital Signs: Vital Signs: Last Vital Signs Temp 97.5 F 10/21/22 07:21 Pulse 78 10/21/22 07:21 Resp 18 10/21/22 07:21 BP 121/62 10/21/22 07:21 Pulse Ox 97 10/21/22 07:21 O2 Del Method Nasal Cannula 10/21/22 07:21 O2 Flow Rate 2.0 10/21/22 07:21 BMI result Body Mass Index 29.9 Gen: in no acute distress HEENT: sclera anicteric, moist mucus membranes Neck: supple Lungs: diminished bilaterally Heart: regular rate and rhythm, no murmurs Abd: soft, non-tender, non-distended Ext: 2+ pitting bilateral lower extremity edema Skin: warm/well-perfused Neuro: alert and oriented x3, no focal findings Psych: appropriate affect Objective Data Active Medications Acetaminophen (Acetaminophen 325 Mg Tablet) 650 mg PO Q6H PRN PRN Reason: Pain, Mild (Pain Scale 1-3) Atorvastatin Calcium (Atorvastatin Calcium 40 Mg Tablet) 40 mg PO BEDTIME [facility] Clopidogrel Bisulfate (Clopidogrel Bisulfate 75 Mg Tablet) 75 mg PO DAILY [facility] Last Admin: 10/21/22 10:22 Dose: 75 mg Documented By: NANDINI Enalapril Maleate (Enalapril Maleate 10 Mg Tablet) 20 mg PO BID [facility]; Protocol Enoxaparin Sodium (Enoxaparin Sodium 40 Mg/0.4 Ml Syringe) 40 mg SUBCUT Q24H [facility] Last Admin: 10/20/22 23:21 Dose: 40 mg Documented By: HEIDY Furosemide (Furosemide 40 Mg/4 Ml Vial) 40 mg IVPUSH BID@0900,1800 [facility]; Protocol Isosorbide Mononitrate (Isosorbide Mononitrate 30 Mg Tab.Er.24h) 30 mg PO DAILY [facility]; Protocol Last Admin: 10/21/22 10:22 Dose: 30 mg Documented By: NANDINI Levetiracetam (Levetiracetam 250 Mg Tablet) 250 mg PO BID [facility] Last Admin: 10/21/22 10:21 Dose: 250 mg Documented By: NANDINI Levetiracetam (Levetiracetam 250 Mg Tablet) 750 mg PO BID [facility] Last Admin: 10/21/22 10:21 Dose: 750 mg Documented By: NANDINI Melatonin (Melatonin 3 Mg Tablet) 6 mg PO BEDTIME PRN PRN Reason: Insomnia Metoprolol Succinate (Metoprolol Succinate Er 100 Mg Tab.Er.24h) 100 mg PO DAILY [facility]; Protocol Last Admin: 10/21/22 10:19 Dose: 100 mg Documented By: NANDINI Ondansetron HCl (Ondansetron Hcl 4 Mg/2 Ml Vial) 4 mg IVPUSH Q8H PRN PRN Reason: Nausea and Vomiting Pharmacy Consult (Consult Rx Perform Med Rec) 1 each MISCELLANE ONCE PRN PRN Reason: Consult order Sodium Chloride (0.9 % Sodium Chloride Flush 3 Ml Syringe) 3 ml IVFLUSH QSHIFT [facility] Last Admin: 10/21/22 10:22 Dose: 3 ml Documented By: NANDINI Trazodone HCl (Trazodone Hcl 25 Mg Halftab) 25 mg PO BEDTIME PRN PRN Reason: Insomnia Labs 10/21/22 06:50 10/21/22 06:50 Labs: Laboratory Results - last 24 hr 10/20/22 10/20/22 10/20/22 20:37 20:37 20:37 MCV 95.1 MCH 29.4 MCHC 30.9 L RDW 13.6 Plt Count 283 D MPV 9.9 Immature Gran % (Auto) 0.2 Neut % (Auto) 66.6 Lymph % (Auto) 22.7 [place] % (Auto) 7.8 Eos % (Auto) 2.5 Baso % (Auto) 0.2 Lymph # (Auto) 1.1 L [place] # (Auto) 0.4 Eos # (Auto) 0.1 Baso # (Auto) 0.0 Abs Immat Gran (auto) 0.01 Absolute Neuts (auto) 3.3 Absolute Nucleated RBC 0.000 Nucleated RBC % (auto) 0.0 PT 13.2 H INR 1.1 D-Dimer High Sensitivty 359 Anion Gap 13 Estim Creat Clear Calc 46.0 Estimated GFR > 60 Random Glucose 110 Calcium 9.6 Magnesium Troponin I High Sens B-Natriuretic Peptide 10/20/22 10/20/22 10/21/22 20:37 21:29 00:21 MCV MCH MCHC RDW Plt Count MPV Immature Gran % (Auto) Neut % (Auto) Lymph % (Auto) [place] % (Auto) Eos % (Auto) Baso % (Auto) Lymph # (Auto) [place] # (Auto) Eos # (Auto) Baso # (Auto) Abs Immat Gran (auto) Absolute Neuts (auto) Absolute Nucleated RBC Nucleated RBC % (auto) PT INR D-Dimer High Sensitivty Anion Gap Estim Creat Clear Calc Estimated GFR Random Glucose Calcium Magnesium Troponin I High Sens 29.6 H 25.3 H B-Natriuretic Peptide 3353 H 10/21/22 10/21/22 06:50 06:50 MCV 96.4 MCH 29.7 MCHC 30.8 L RDW 13.5 Plt Count 267 MPV 10.6 Immature Gran % (Auto) 0.3 Neut % (Auto) 68.4 Lymph % (Auto) 19.4 L [place] % (Auto) 8.9 Eos % (Auto) 2.5 Baso % (Auto) 0.5 Lymph # (Auto) 1.2 [place] # (Auto) 0.6 Eos # (Auto) 0.2 Baso # (Auto) 0.0 Abs Immat Gran (auto) 0.02 Absolute Neuts (auto) 4.4 Absolute Nucleated RBC 0.000 Nucleated RBC % (auto) 0.0 PT INR D-Dimer High Sensitivty Anion Gap 10 L Estim Creat Clear Calc 45.6 Estimated GFR > 60 Random Glucose 115 Calcium 9.4 Magnesium 1.9 Troponin I High Sens B-Natriuretic Peptide TTE 02/06/22 1. Mildly reduced LV systolic function with mild LVH with LVEF of 45-50% with regional wall motion abnormality probably and ? ? circumflex territory with grade 3 diastolic dysfunction? 2. Mildly dilated left atrium? 3. Normal cardiac valvular Doppler ? 4. [id number] elevation of right ventricular systolic? ? ? pressure ? 5. No pericardial effusion ? Assessment and Plan (1) CHF (congestive heart failure): Status: Acute Plan d#2 81yo F with HTN, HLD, sz disorder, systolic/diastolic HF presenting with dyspn ea, admitted for hypoxia due to CHF exac # acute/chronic HFrEF # HTN - diurese with IV furosemide 40 mg bid, monitor lytes/BNP/I+O/weight, update TTE, consult Cardiology - conitnue enalapril + metoprolol + Imdur # acute hypoxic resp failure - wean O2 as tolerated # CAD - continue clopidogrel, metoprolol, enalapril # HLD - statin # sz disorder - continue levetiracetam # VTE ppx: LMWH # dispo: TBD In my clinical judgment, the patient requires continued inpatient hospitalization for the following reasons: IV diuresis, hypoxia Time Spent With Patient Time: Total time managing care of this patient today ___35_ minutes. Quality Stroke Does the patient have a stroke diagnosis?: No VTE Prior VTE?: No VTE Risk Level:: Medical - moderate - high VTE Device Contraindication: Treatment Not Indicated VTE Drug Contraindication: N/A - Med Ordered
--- NOTE | 2022-10-21 11:09 | P.CONCA_ITS ---
History of Present Illness History of Present Illness Date of Service: 10/21/22 Chief complaint: Dyspnea Narrative: This is a cardiology consultation regarding congestive heart failure. Co mmunicated with patient using Togolese pyrometallurgical engineer. Patient actually came to the hospital for shortness of breath for the last few days. It has been progressive and worse with ambulation. Also has been having leg swelling. It seems that she was standing get up from chair and then hit her head as well. No loss of consciousness. Subsequently, she has been admitted for further care. Last year, she was seen in inpatient consult for elevated troponins. At that time, suspected to have coronary disease but she has not been followed up since. Review of Systems Review of Systems: Yes all other systems are reviewed and are negative Constitutional: Constitutional: Reports as per HPI and Reports no additional constitutional complaints Eyes: Eyes: Reports as per HPI and Denies no additional eye complaints ENT: Denies system reviewed and no additional complaints, except as documented and Reports as per HPI Cardiovascular: Cardiovascular: Reports as per HPI, Reports no additional cardiovascular complaints, Denies acrocyanosis, Denies cool extremities, Denies chest pain, Reports leg edema, Denies lightheadedness, Denies palpitations and Reports dyspnea Respiratory: Respiratory: Reports as per HPI, Denies no additional respiratory complaints and Reports dyspnea Gastrointestinal: Gastrointestinal: Reports as per HPI and Denies no additional gastrointestinal complaints Genitourinary: Genitourinary: Reports as per HPI Musculoskeletal: Musculoskeletal: Reports no additional musculoskeletal com plaints and Reports as per HPI Integumentary/Breasts: Skin/Breast: Reports system reviewed and no additional complaints, except as docu Neurologic: Reports system reviewed and no additional complaints, except as documented and Reports as per HPI Psychiatric: Psychiatric: Reports no additional psychiatric complaints and Reports as per HPI Endocrine: Endocrine: Reports no additional endocrine complaints, Reports as per HPI and Denies palpitations Hematologic/Lymphatic: Hematologic/Lymphatic: Reports no additional hematologic/lymphatic complaints and Reports as per HPI Allergic/Immunologic: Allergic/Immunologic: Reports no additional allergic/immunologic complaints and Reports as per HPI [facility] Past Medical History Medical History Dyslipidemia Essential hypertension Seizure disorder Family History Family History Mother Myocardial infarction Social History Social History Household Members: Children Housing: Apartment Do you presently have visiting nurse or other home services: No Alcohol intake: never Patient Tobacco Use Status: Never used Tobacco Smoked in Last 30 Days: No Use of substances other than those prescribed or required for medical reasons: No Have you been hit, kicked, punched, or otherwise hurt by someone within the past year? 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 Meds Allergies Allergy/AdvReac Type Severity Reaction Status Date / Time No Known Allergies Allergy Verified 10/20/22 18:31 Active Medications: Current Medications Acetaminophen (Acetaminophen 325 Mg Tablet) 650 mg PO Q6H PRN PRN Reason: Pain, Mild (Pain Scale 1-3) Atorvastatin Calcium (Atorvastatin Calcium 40 Mg Tablet) 40 mg PO BEDTIME [facility] Clopidogrel Bisulfate (Clopidogrel Bisulfate 75 Mg Tablet) 75 mg PO DAILY [facility] Last Admin: 10/21/22 10:22 Dose: 75 mg Enalapril Maleate (Enalapril Maleate 10 Mg Tablet) 20 mg PO BID [facility]; Protocol Enoxaparin Sodium (Enoxaparin Sodium 40 Mg/0.4 Ml Syringe) 40 mg SUBCUT Q24H [facility] Last Admin: 10/20/22 23:21 Dose: 40 mg Furosemide (Furosemide 40 Mg/4 Ml Vial) 40 mg IVPUSH BID@0900,1800 [facility]; Protocol Isosorbide Mononitrate (Isosorbide Mononitrate 30 Mg Tab.Er.24h) 30 mg PO DAILY [facility]; Protocol Last Admin: 10/21/22 10:22 Dose: 30 mg Levetiracetam (Levetiracetam 250 Mg Tablet) 1,000 mg PO BID [facility] Melatonin (Melatonin 3 Mg Tablet) 6 mg PO BEDTIME PRN PRN Reason: Insomnia Metoprolol Succinate (Metoprolol Succinate Er 100 Mg Tab.Er.24h) 100 mg PO DAILY [facility]; Protocol Last Admin: 10/21/22 10:19 Dose: 100 mg Ondansetron HCl (Ondansetron Hcl 4 Mg/2 Ml Vial) 4 mg IVPUSH Q8H PRN PRN Reason: Nausea and Vomiting Pharmacy Consult (Consult Rx Perform Med Rec) 1 each MISCELLANE ONCE PRN PRN Reason: Consult order Sodium Chloride (0.9 % Sodium Chloride Flush 3 Ml Syringe) 3 ml IVFLUSH QSHIFT [facility] Last Admin: 10/21/22 10:22 Dose: 3 ml Trazodone HCl (Trazodone Hcl 25 Mg Halftab) 25 mg PO BEDTIME PRN PRN Reason: Insomnia Home Medications Medication Instructions Recorded Confirmed Last Taken Type atorvastatin 40 mg tablet 1 tab PO BEDTIME 02/04/22 10/20/22 Unknown History clopidogrel 75 mg tablet 1 tab PO DAILY 02/04/22 10/20/22 Unknown History enalapril maleate 20 mg tablet 1 tab PO BID 02/04/22 10/21/22 Unknown History furosemide 40 mg tablet 1 tab PO DAILY 02/04/22 10/20/22 Unknown History isosorbide mononitrate 30 mg 1 tab PO QAM 02/04/22 10/20/22 Unknown History tablet,extended release 24 hr metoprolol succinate 100 mg 1 tab PO DAILY 02/04/22 10/20/22 Unknown History tablet,extended release 24 hr levetiracetam 250 mg tablet 250 mg PO BID 10/20/22 10/20/22 Unknown History ([facility]) trazodone 50 mg tablet 25 mg PO BEDTIME PRN Insomnia 10/21/22 10/21/22 Unknown History Physical Exam Vital Signs: Vital Signs: Last Vital Signs Temp 97.5 F 10/21/22 07:21 Pulse 78 10/21/22 07:21 Resp 18 10/21/22 07:21 BP 121/62 10/21/22 07:21 Pulse Ox 97 10/21/22 07:21 O2 Del Method Nasal Cannula 10/21/22 07:21 O2 Flow Rate 2.0 10/21/22 07:21 BMI result Body Mass Index 29.9 Const: General: comfortable and no acute distress Orientation/consciousness: patient oriented x3 HEENT: Other: Unremarkable Head: Yes normal to inspection Neck: Neck: Yes normal visual inspection Chest: Chest palpation & inspection: normal inspection of the chest Resp: Other: Few inspiratory crackles Cardio: Palpation: normal PMI Heart sounds: S1 normal heart sound present, S2 normal heart sound present, no gallops, no murmurs and no rubs GI: Palpation (GI): Soft to palpation Back/Spine/Pelvis: Other: unremarkable Skin: General skin exam: no rashes or lesions noted Neuro: General: patient oriented x3 Extrem: Other: 1-2+ edema General: Yes normal to inspection Psych: Mental Status: mental status grossly normal Objective Labs and Meds 10/21/22 06:50 10/21/22 06:50 Lab results: Laboratory Results - last 24 hr 10/20/22 10/20/22 10/20/22 20:37 20:37 20:37 WBC 4.9 RBC 3.88 L Hgb 11.4 L Hct 36.9 L MCV 95.1 MCH 29.4 MCHC 30.9 L RDW 13.6 Plt Count 283 D MPV 9.9 Immature Gran % (Auto) 0.2 Neut % (Auto) 66.6 Lymph % (Auto) 22.7 [place] % (Auto) 7.8 Eos % (Auto) 2.5 Baso % (Auto) 0.2 Lymph # (Auto) 1.1 L [place] # (Auto) 0.4 Eos # (Auto) 0.1 Baso # (Auto) 0.0 Abs Immat Gran (auto) 0.01 Absolute Neuts (auto) 3.3 Absolute Nucleated RBC 0.000 Nucleated RBC % (auto) 0.0 PT 13.2 H INR 1.1 D-Dimer High Sensitivty 359 Sodium 145 Potassium 3.5 Chloride 108 Carbon Dioxide 28 Anion Gap 13 BUN 20 H Creatinine 0.86 Estim Creat Clear Calc 46.0 Estimated GFR > 60 Random Glucose 110 Calcium 9.6 Magnesium Troponin I High Sens B-Natriuretic Peptide 10/20/22 10/20/22 10/21/22 20:37 21:29 00:21 WBC RBC Hgb Hct MCV MCH MCHC RDW Plt Count MPV Immature Gran % (Auto) Neut % (Auto) Lymph % (Auto) [place] % (Auto) Eos % (Auto) Baso % (Auto) Lymph # (Auto) [place] # (Auto) Eos # (Auto) Baso # (Auto) Abs Immat Gran (auto) Absolute Neuts (auto) Absolute Nucleated RBC Nucleated RBC % (auto) PT INR D-Dimer High Sensitivty Sodium Potassium Chloride Carbon Dioxide Anion Gap BUN Creatinine Estim Creat Clear Calc Estimated GFR Random Glucose Calcium Magnesium Troponin I High Sens 29.6 H 25.3 H B-Natriuretic Peptide 3353 H 10/21/22 10/21/22 06:50 06:50 WBC 6.4 RBC 3.84 L Hgb 11.4 L Hct 37.0 MCV 96.4 MCH 29.7 MCHC 30.8 L RDW 13.5 Plt Count 267 MPV 10.6 Immature Gran % (Auto) 0.3 Neut % (Auto) 68.4 Lymph % (Auto) 19.4 L [place] % (Auto) 8.9 Eos % (Auto) 2.5 Baso % (Auto) 0.5 Lymph # (Auto) 1.2 [place] # (Auto) 0.6 Eos # (Auto) 0.2 Baso # (Auto) 0.0 Abs Immat Gran (auto) 0.02 Absolute Neuts (auto) 4.4 Absolute Nucleated RBC 0.000 Nucleated RBC % (auto) 0.0 PT INR D-Dimer High Sensitivty Sodium 144 Potassium 3.1 L Chloride 107 Carbon Dioxide 30 H Anion Gap 10 L BUN 16 Creatinine 0.89 Estim Creat Clear Calc 45.6 Estimated GFR > 60 Random Glucose 115 Calcium 9.4 Magnesium 1.9 Troponin I High Sens B-Natriuretic Peptide Imaging Radiologist's impression: Impressions Head CT 10/20/22 19:12 IMPRESSION: Negative acute noncontrast CT of the brain. Atrophy and white matter ischemic changes are noted Chest X-Ray 10/20/22 20:05 IMPRESSION: Bilateral opacities may be developing areas of atelectasis or infiltrate. Vascular congestion would need to be considered. No overt failure Venous Duplex 10/20/22 21:50 IMPRESSION: No DVT demonstrated in the bilateral lower extremity. Chest CT 10/20/22 22:55 IMPRESSION: 1. Mosaic attenuation appearance of the lungs with groundglass opacification of much of the parenchyma. This appearance can be seen with pulmonary edema or infectious/inflammatory etiologies. 2. Small bilateral pleural effusions. 3. Cardiomegaly. 4. Suspected borderline enlarged mediastinal lymph nodes, which may be reactive. 5. Coronary artery calcifications. Correlation with cardiac risk factors is recommended. Assessment and Plan (1) Acute on chronic diastolic CHF (congestive heart failure), NYHA class 4: Status: Acute (2) Atherosclerotic cardiovascular disease: Status: Acute Plan Echocardiogram from last year with LVEF of 45-50%. Grade 3 diastolic dysfunction. Basal anterolateral/inferolateral hypokinesis. [id number] pulmonary hypertension. Chest CT now reported to have pulmonary edema/infectious-inflammatory etiology causing ground-glass opacification with small bilateral pleural effusions. Coronary artery calcifications. Currently, high sensitive troponin is borderline high at 29 and 25. Cardiac BNP is 3353. Last year, it was 879. Overall, suspected underlying coronary disease with decompensated diastolic heart failure. IV diuretics to achieve euvolemia. Ischemic workup to be decided. Either stress test or cardiac catheterization. Will follow up with you. Discussed with . Time Spent With Patient Time: Total time managing care of this patient today ____ minutes. Procedures Date of Service Date of Service: 10/21/22
--- NOTE | 2022-10-21 14:58 | MHC.CM.PN ---
Lives in apt w/daughter, address on file is inaccurate, per daughter Kiley, Pt's address is: [address] [place] [address] [address] [place]. [id number]. Pt has 19 hrs of [employer] services during the day and 14 hrs at night. She has a walker without wheels. Daughter directed to contact [employer] for additional in-home DME needed for Pt's use upon her return home (Kiley indicates a new shower chair and WC are needed). At time of D/C, [employer] and daughter will transport Pt home. CM to follow.
[2022-10-21 15:40] VITALS: BP 154/91; PULSE 67; RESP 17; TEMP 36.1; O2SAT 96
[2022-10-21] MEDS: Furosemide 40 MG/4 ML VIAL IVPUSH (17:38)
[2022-10-21] MEDS: levETIRAcetam 250 MG TABLET 1000 MG PO (22:40)
[2022-10-21] MEDS: Enoxaparin Sodium 40 MG/0.4 ML SYRINGE SUBCUT (22:40)
[2022-10-21] MEDS: Enalapril Maleate 10 MG TABLET 20 MG PO (22:40)
[2022-10-21] MEDS: Atorvastatin Calcium 40 MG TABLET PO (22:40)
[2022-10-21 23:21] VITALS: BP 148/92; PULSE 61; RESP 17; TEMP 36.1; O2SAT 94
[2022-10-22] MEDS: 0.9 % Sodium Chloride Flush 3 ML SYRINGE IVFLUSH ×2 (00:04→10:13)
[2022-10-22 06:24] LABS: Anion Gap 12 (12-20); Blood Urea Nitrogen 17 mg/dL (9-16); Calcium 9.2 mg/dL (8.4-10.2); Carbon Dioxide 30 mmol/L (22-29); Chloride 107 mmol/L (96-108); Creatinine Clr Calc Pharmacy 44.7; Estimated Glomerular Filt Rate 59; Glucose Random 103 mg/dL (60-115); Magnesium 1.9 mg/dL (1.6-2.6); Potassium 3.3 mmol/L (3.3-5.1); Sodium 146 mmol/L (135-145)
[2022-10-22 06:27] LABS: B Type Natriuretic Peptide 2358 pg/mL (<100)
[2022-10-22 07:49] VITALS: BP 168/94; PULSE 67; RESP 19; TEMP 36.5; O2SAT 97
--- NOTE | 2022-10-22 09:53 | P.PNIM_ITS ---
Subjective Subjective Date of Service: 10/22/22 Interval History: This history was taken in Faroese from the patient. Dyspnea improving Edema improving No chest pain Review of Systems Review of Systems: Yes all other systems are reviewed and are negative Physical Exam Vital Signs: Vital Signs: Last Vital Signs Temp 97.7 F 10/22/22 07:49 Pulse 67 10/22/22 07:49 Resp 19 10/22/22 07:49 BP 168/94 H 10/22/22 07:49 Pulse Ox 97 10/22/22 07:49 O2 Del Method Nasal Cannula 10/22/22 07:49 O2 Flow Rate 2 10/22/22 07:49 BMI result Body Mass Index 30.0 Gen: in no acute distress HEENT: sclera anicteric, moist mucus membranes, L scalp lac stapled C/D/I Neck: supple Lungs: diminished bilaterally Heart: regular rate and rhythm, no murmurs Abd: soft, non-tender, non-distended Ext: 2+ pitting bilateral lower extremity edema Skin: warm/well-perfused Neuro: alert and oriented x3, no focal findings Psych: appropriate affect Objective Data Active Medications Acetaminophen (Acetaminophen 325 Mg Tablet) 650 mg PO Q6H PRN PRN Reason: Pain, Mild (Pain Scale 1-3) Atorvastatin Calcium (Atorvastatin Calcium 40 Mg Tablet) 40 mg PO BEDTIME [facility] Last Admin: 10/21/22 22:40 Dose: 40 mg Documented By: JOHNNAEMA Clopidogrel Bisulfate (Clopidogrel Bisulfate 75 Mg Tablet) 75 mg PO DAILY [facility] Last Admin: 10/21/22 10:22 Dose: 75 mg Documented By: NANDINI Enalapril Maleate (Enalapril Maleate 10 Mg Tablet) 20 mg PO BID [facility]; Protocol Last Admin: 10/21/22 22:40 Dose: 20 mg Documented By: COTEMA Enoxaparin Sodium (Enoxaparin Sodium 40 Mg/0.4 Ml Syringe) 40 mg SUBCUT Q24H [facility] Last Admin: 10/21/22 22:40 Dose: 40 mg Documented By: COTEMA Furosemide (Furosemide 40 Mg/4 Ml Vial) 40 mg IVPUSH BID@0900,1800 [facility]; Protocol Last Admin: 10/21/22 17:38 Dose: 40 mg Documented By: NANDINI Isosorbide Mononitrate (Isosorbide Mononitrate 30 Mg Tab.Er.24h) 30 mg PO DAILY [facility]; Protocol Last Admin: 10/21/22 10:22 Dose: 30 mg Documented By: NANDINI Levetiracetam (Levetiracetam 250 Mg Tablet) 1,000 mg PO BID [facility] Last Admin: 10/21/22 22:40 Dose: 1,000 mg Documented By: COTEMA Melatonin (Melatonin 3 Mg Tablet) 6 mg PO BEDTIME PRN PRN Reason: Insomnia Metoprolol Succinate (Metoprolol Succinate Er 100 Mg Tab.Er.24h) 100 mg PO DAILY [facility]; Protocol Last Admin: 10/21/22 10:19 Dose: 100 mg Documented By: NANDINI Ondansetron HCl (Ondansetron Hcl 4 Mg/2 Ml Vial) 4 mg IVPUSH Q8H PRN PRN Reason: Nausea and Vomiting Pharmacy Consult (Consult Rx Perform Med Rec) 1 each MISCELLANE ONCE PRN PRN Reason: Consult order Sodium Chloride (0.9 % Sodium Chloride Flush 3 Ml Syringe) 3 ml IVFLUSH QSHIFT [facility] Last Admin: 10/22/22 00:04 Dose: 3 ml Documented By: OG Trazodone HCl (Trazodone Hcl 25 Mg Halftab) 25 mg PO BEDTIME PRN PRN Reason: Insomnia Labs 10/21/22 06:50 10/22/22 05:39 Labs: Laboratory Results - last 24 hr 10/22/22 10/22/22 05:39 05:39 Anion Gap 12 Estim Creat Clear Calc 44.7 Estimated GFR 59 Random Glucose 103 Calcium 9.2 Magnesium 1.9 B-Natriuretic Peptide 2358 H Assessment and Plan (1) CHF (congestive heart failure): Status: Acute Plan d#3 81yo F with HTN, HLD, sz disorder, systolic/diastolic HF presenting with dyspnea, admitted for hypoxia due to CHF exac # acute/chronic HFrEF # HTN - continue to diurese with IV furosemide 40 mg bid, monitor lytes/BNP/I+O/weight, TTE pending, Cardiology following- may need ischemic workup - continue enalapril + metoprolol + Imdur # acute hypoxic resp failure - wean O2 as tolerated # L scalp lac - stapled in ED 10/20, remove johnny 10/27 # CAD - continue clopidogrel, metoprolol, enalapril # HLD - statin # sz disorder - continue levetiracetam # VTE ppx: LMWH # dispo: TBD, PT consult pending In my clinical judgment, the patient requires continued inpatient hospitalization for the following reasons: IV diuresis, hypoxia Time Spent With Patient Time: Total time managing care of this patient today ___40_ minutes. Quality Stroke Does the patient have a stroke diagnosis?: No VTE Prior VTE?: No VTE Risk Level:: Medical - moderate - high VTE Device Contraindication: Treatment Not Indicated VTE Drug Contraindication: N/A - Med Ordered
[2022-10-22] MEDS: Isosorbide Mononitrate 30 MG TAB.ER.24H PO (10:11)
[2022-10-22] MEDS: Enalapril Maleate 10 MG TABLET 20 MG PO ×2 (10:12→21:43)
[2022-10-22] MEDS: Metoprolol Succinate ER 100 MG TAB.ER.24H PO (10:13)
[2022-10-22] MEDS: Furosemide 40 MG/4 ML VIAL IVPUSH ×2 (10:13→18:13)
[2022-10-22] MEDS: Acetaminophen 325 MG TABLET 650 MG PO (10:13)
[2022-10-22] MEDS: Clopidogrel Bisulfate 75 MG TABLET PO (10:13)
[2022-10-22] MEDS: levETIRAcetam 250 MG TABLET 1000 MG PO ×2 (10:14→21:43)
--- NOTE | 2022-10-22 11:15 | P.PNCA_ITS ---
Subjective Subjective Date of Service: 10/22/22 Interval history: Discussed with patient using national accounts sales. She states her breathing is improved. Otherwise, feeling okay. Review of Systems Review of Systems Yes all other systems are reviewed and are negative Constitutional: Reports as per HPI and Reports no additional constitutional complaints Eyes: Reports as per HPI and Denies no additional eye complaints Denies system reviewed and no additional complaints, except as documented and Reports as per HPI Cardiovascular: Reports as per HPI, Reports no additional cardiovascular complaints, Denies acrocyanosis, Denies cool extremities, Denies chest pain, Denies leg edema, Denies lightheadedness, Denies palpitations and Reports dyspnea Respiratory: Reports as per HPI, Denies no additional respiratory complaints and Reports dyspnea Gastrointestinal: Reports as per HPI and Denies no additional gastrointestinal complaints Genitourinary: Reports as per HPI Musculoskeletal: Reports no additional musculoskeletal complaints and Reports as per HPI Skin/Breast: Reports system reviewed and no additional complaints, except as docu Reports system reviewed and no additional complaints, except as documented and Reports as per HPI Psychiatric: Reports no additional psychiatric complaints and Reports as per HPI Endocrine: Reports no additional endocrine complaints, Reports as per HPI and Denies palpitations Hematologic/Lymphatic: Reports no additional hematologic/lymphatic complaints and Reports as per HPI Allergic/Immunologic: Reports no additional allergic/immunologic complaints and Reports as per HPI Physical Exam Vital Signs: Last Vital Signs Temp 97.7 F 10/22/22 07:49 Pulse 67 10/22/22 07:49 Resp 19 10/22/22 07:49 BP 168/94 H 10/22/22 07:49 Pulse Ox 97 10/22/22 07:49 O2 Del Method Nasal Cannula 10/22/22 07:49 O2 Flow Rate 2 10/22/22 07:49 BMI result Body Mass Index 30.0 Const General: comfortable and no acute distress Orientation/consciousness: patient oriented x3 HEENT Other: Unremarkable Head: Yes normal to inspection Neck Neck: Yes normal visual inspection Chest Chest palpation & inspection: normal inspection of the chest Resp Auscultation: rhonchi and diminished lung sounds Cardio Palpation: normal PMI Heart sounds: S1 normal heart sound present, S2 normal heart sound present, no gallops, no murmurs and no rubs GI Palpation (GI): Soft to palpation Back/Spine/Pelvis Other: unremarkable Skin General skin exam: no rashes or lesions noted Neuro General: patient oriented x3 Extrem General: Yes normal to inspection Psych Mental Status: mental status grossly normal Objective Labs and Meds 10/21/22 06:50 10/22/22 05:39 Lab results: Laboratory Results - last 24 hr 10/22/22 10/22/22 05:39 05:39 Sodium 146 H Potassium 3.3 Chloride 107 Carbon Dioxide 30 H Anion Gap 12 BUN 17 H Creatinine 0.91 Estim Creat Clear Calc 44.7 Estimated GFR 59 Random Glucose 103 Calcium 9.2 Magnesium 1.9 B-Natriuretic Peptide 2358 H Progress Note: A&P Assessment and plan (1) Acute on chronic diastolic CHF (congestive heart failure), NYHA class 4: Status: Acute (2) Atherosclerotic cardiovascular disease: Status: Acute Plan Echocardiogram from last year with LVEF of 45-50%. Grade 3 diastolic dysfunction. Basal anterolateral/inferolateral hypokinesis. [id number] pulmonary hypertension. Chest CT now reported to have pulmonary edema/infectious-inflammatory etiology causing ground-glass opacification with small bilateral pleural effusions. Coronary artery calcifications. Currently, high sensitive troponin is borderline high at 29 and 25. Cardiac BNP is 3353. Last year, it was 879. Overall, acute on chronic diastolic congestive heart failure. Continue with IV diuretics. Repeat echocardiogram. Once more stable, will need ischemic workup in the form of either stress test or cardiac catheterization. Will follow up with you. Time Spent With Patient Time: Total time managing care of this patient today ____ minutes. Progress Note: Quality Stroke Does the patient have a stroke diagnosis?: No Procedures Date of Service Date of Service: 10/22/22
[2022-10-22 15:38] VITALS: BP 135/73; PULSE 66; RESP 17; TEMP 36.3; O2SAT 97
[2022-10-22] MEDS: Potassium Chloride/H20 10 MEQ/100 ML PIGGYBACK 100 MEQ IV ×2 (16:42→18:13)
[2022-10-22] MEDS: Potassium Chloride ER 20 MEQ TAB.ER.PRT 40 MEQ PO (16:43)
--- NOTE | 2022-10-22 17:23 | PC.NURSE ---
Approximately 1600 patient had 7 beat run vtach asymptomatic at this time sleeping in bed. Dr Reyes notified of episode, oral potassium and IV 10mEq ordered x2 doses given per order. Will continue to monitor and report changes
[2022-10-22] MEDS: Atorvastatin Calcium 40 MG TABLET PO (21:43)
[2022-10-22] MEDS: Enoxaparin Sodium 40 MG/0.4 ML SYRINGE SUBCUT (21:43)
[2022-10-22 23:45] VITALS: BP 123/86; PULSE 65; RESP 17; TEMP 35.9; O2SAT 93
[2022-10-23 06:00] VITALS: BMI 29.9
--- NOTE | 2022-10-23 07:00 | CA_ITS ---
Transthoracic Echocardiogram Patient (Last, First, Middle): Angelica Carrizales, Gender: Female Date of : 1940 Age: 81 Procedure Date: 10/23/2022 Procedure Type: Transthoracic Echocardiogram [place] [facility] [place] Height: 154.94 cm Weight: 71.67 kg BSA: 1.71 m2 Heart Rate: 68 bpm BP: 123 / 86 mmHg Enforcement Safety Officer: SB Referring MD: Neno Abernathy MD Symptoms: CHF Study Quality: Adequate ECG Rhythm: Sinus Conclusions: - Mildly increased left ventricular cavity size. There is mildly increased left ventricular wall thickness. The left ventricular systolic function is severely decreased. The visually estimated ejection fraction is between 20-25%. - Normal right ventricular cavity size and systolic function. - The left atrium is severely dilated. The right atrium is moderately dilated. - Significantly elevated right atrial pressure. Severe pulmonary hypertension is present. Findings Left Ventricle Mildly increased left ventricular cavity size. There is mildly increased left ventricular wall thickness. The left ventricular systolic function is severely decreased. The visually estimated ejection fraction is between 20 25%. There is paradoxical septal motion consistent with a left bundle branch block. Diastolic function is indeterminate on the basis of available data. Right Ventricle Normal right ventricular cavity size and systolic function. Atria The left atrium is severely dilated. The right atrium is moderately dilated. Aortic Valve Normal aortic valve structure and function. There is no aortic valve stenosis. There is no aortic valve regurgitation. Mitral Valve The anterior mitral leaflet has restricted mobility and the posterior mitral leaflet has restricted mobility. There is mild mitral valve regurgitation. There is no mitral valve stenosis. Pulmonic Valve Normal pulmonic valve structure and function. There is trace pulmonic valve regurgitation. Tricuspid Valve Normal tricuspid valve structure. There is moderate tricuspid valve regurgitation. Significantly elevated right atrial pressure. Severe pulmonary hypertension is present. Great Vessels There is mild dilatation of the ascending aorta measuring 3.60 cm. The visualized portions of the pulmonary artery and branches are normal. Venous The inferior vena cava is dilated and collapses less than 50% with inspiration. Pericardium/Pleural There is no evidence of pericardial effusion. Prior Study Comparison Changes noted compared to prior study dated: 02/06/2022. LVEF 20-25%. Measurements 2D Linear Measurements RVIDd: 3.94 IVSd: 1.20 0.6-0.9/0.6-1.0 cm LVIDd: 5.34 3.9-5.3/4.2-5.9 cm LVIDs: 4.44 2.0-3.6 cm LVPWd: 0.90 0.7-1.1 cm LA Diam: 4.10 2.7-3.8/3.0-4.0 cm LVOT Diam: 2.00 3.0+(-)1.3 cm RA Area,d: 22.60 8.3-19.5 cm2 2D Systolic Function EF Teich: 35.00 >55% EF 4C: 30.00 >55% EF 2C: 42.00 >55% EF BiP: 36.00 >55% Mitral Valve MV Pk Grad: 5.00 MV Pk E: 1.15 MV Decel Time: 168.00 E'Lateral: 3.55 E/E' Lat: 32.40 MVA PHT: 4.49 Aortic Valve AoV Pk Samuel: 1.86 AoV Mn Samuel: 1.19 AoV VTI: 0.35 AoV Pk Grad: 14.00 Aov Mn Grad: 7.00 DIVINE Cont.VTI: 1.69 LVOT LVOT Pk Samuel: 0.94 LVOT Mn Samuel: 0.68 LVOT VTI: 0.19 LVOT Pk Grad: 4.00 LVOT Mn Grad: 2.00 LVOT Diam: 2.00 Diastolic Function MV Pk E: 1.15 E' Laterial: 3.55 E/E' Lat: 32.40 IVC Diam Insp: 2.03 IVC Diam Exp: 2.49 Right Ventricle TAPSE (mm): 18.40 TVS' Samuel: 10.00 Tricuspid Valve TR Pk Samuel: 3.67 TR Pk Grad: 54.00 RA Press: 15.00 RVSP: 69.00 IVC Diam Exp: 2.49 IVC Diam Insp: 2.03 Great Vessels Aorta Sinus of Valsalva: 3.10 2.0-3.5 cm Ao Asc: 3.60 2.1-3.4 cm Pulmonary Veins Pulm Vein S/D 0.40 Updated in Other Vendor System with Status of Final Steve Barcenas MD electronically signed on 10/23/2022 8:24:05 PM with status of Final
[2022-10-23 07:16] LABS: B Type Natriuretic Peptide 1834 pg/mL (<100)
[2022-10-23 07:29] LABS: Anion Gap 12 (12-20); Blood Urea Nitrogen 19 mg/dL (9-16); Calcium 9.2 mg/dL (8.4-10.2); Carbon Dioxide 29 mmol/L (22-29); Chloride 105 mmol/L (96-108); Creatinine Clr Calc Pharmacy 44.7; Estimated Glomerular Filt Rate 59; Glucose Random 82 mg/dL (60-115); Potassium 3.8 mmol/L (3.3-5.1); Sodium 142 mmol/L (135-145)
[2022-10-23 07:47] VITALS: BP 149/78; PULSE 71; RESP 18; TEMP 36.4; O2SAT 99
[2022-10-23] MEDS: 0.9 % Sodium Chloride Flush 3 ML SYRINGE IVFLUSH ×2 (10:16→17:34)
[2022-10-23] MEDS: Furosemide 40 MG/4 ML VIAL IVPUSH ×2 (10:16→17:36)
[2022-10-23] MEDS: levETIRAcetam 250 MG TABLET 1000 MG PO ×2 (10:17→21:14)
[2022-10-23] MEDS: Metoprolol Succinate ER 100 MG TAB.ER.24H PO (10:17)
[2022-10-23] MEDS: Clopidogrel Bisulfate 75 MG TABLET PO (10:17)
[2022-10-23] MEDS: Isosorbide Mononitrate 30 MG TAB.ER.24H PO (10:17)
[2022-10-23] MEDS: Enalapril Maleate 10 MG TABLET 20 MG PO (10:18)
--- NOTE | 2022-10-23 10:33 | P.PNIM_ITS ---
Subjective Subjective Date of Service: 10/23/22 Interval History: dyspnea improving edema improving no chest pain 7 beats NSVT yesterday afternoon without symptoms This history was taken in Albanian from the patient. Review of Systems Review of Systems: Yes all other systems are reviewed and are negative Physical Exam Vital Signs: Vital Signs: Last Vital Signs Temp 97.5 F 10/23/22 07:47 Pulse 71 10/23/22 07:47 Resp 18 10/23/22 07:47 BP 149/78 H 10/23/22 07:47 Pulse Ox 99 10/23/22 07:47 O2 Del Method Nasal Cannula 10/23/22 07:47 O2 Flow Rate 2 10/22/22 23:45 BMI result Body Mass Index 29.9 Gen: in no acute distress HEENT: sclera anicteric, moist mucus membranes, L scalp lac stapled C/D/I Neck: supple Lungs: diminished bilaterally Heart: regular rate and rhythm, no murmurs Abd: soft, non-tender, non-distended Ext: 1+ pitting bilateral lower extremity edema Skin: warm/well-perfused Neuro: alert and oriented x3, no focal findings Psych: appropriate affect Objective Data Active Medications Acetaminophen (Acetaminophen 325 Mg Tablet) 650 mg PO Q6H PRN PRN Reason: Pain, Mild (Pain Scale 1-3) Last Admin: 10/22/22 10:13 Dose: 650 mg Documented By: LLOYD Atorvastatin Calcium (Atorvastatin Calcium 40 Mg Tablet) 40 mg PO BEDTIME [facility] Last Admin: 10/22/22 21:43 Dose: 40 mg Documented By: ZULEIKA Clopidogrel Bisulfate (Clopidogrel Bisulfate 75 Mg Tablet) 75 mg PO DAILY [facility] Last Admin: 10/23/22 10:17 Dose: 75 mg Documented By: NANCY Enalapril Maleate (Enalapril Maleate 10 Mg Tablet) 20 mg PO BID [facility]; Protocol Last Admin: 10/23/22 10:18 Dose: 20 mg Documented By: NANCY Enoxaparin Sodium (Enoxaparin Sodium 40 Mg/0.4 Ml Syringe) 40 mg SUBCUT Q24H [facility] Last Admin: 10/22/22 21:43 Dose: 40 mg Documented By: ZULEIKA Furosemide (Furosemide 40 Mg/4 Ml Vial) 40 mg IVPUSH BID@0900,1800 [facility]; Protocol Last Admin: 10/23/22 10:16 Dose: 40 mg Documented By: NANCY Isosorbide Mononitrate (Isosorbide Mononitrate 30 Mg Tab.Er.24h) 30 mg PO DAILY [facility]; Protocol Last Admin: 10/23/22 10:17 Dose: 30 mg Documented By: NANCY Levetiracetam (Levetiracetam 250 Mg Tablet) 1,000 mg PO BID [facility] Last Admin: 10/23/22 10:17 Dose: 1,000 mg Documented By: NANCY Melatonin (Melatonin 3 Mg Tablet) 6 mg PO BEDTIME PRN PRN Reason: Insomnia Metoprolol Succinate (Metoprolol Succinate Er 100 Mg Tab.Er.24h) 100 mg PO D AILY [facility]; Protocol Last Admin: 10/23/22 10:17 Dose: 100 mg Documented By: NANCY Ondansetron HCl (Ondansetron Hcl 4 Mg/2 Ml Vial) 4 mg IVPUSH Q8H PRN PRN Reason: Nausea and Vomiting Pharmacy Consult (Consult Rx Perform Med Rec) 1 each MISCELLANE ONCE PRN PRN Reason: Consult order Sodium Chloride (0.9 % Sodium Chloride Flush 3 Ml Syringe) 3 ml IVFLUSH QSHIFT [facility] Last Admin: 10/23/22 10:16 Dose: 3 ml Documented By: NANCY Trazodone HCl (Trazodone Hcl 25 Mg Halftab) 25 mg PO BEDTIME PRN PRN Reason: Insomnia Labs 10/21/22 06:50 10/23/22 06:17 Labs: Laboratory Results - last 24 hr 10/23/22 10/23/22 06:17 06:17 Anion Gap 12 Estim Creat Clear Calc 44.7 Estimated GFR 59 Random Glucose 82 Calcium 9.2 Magnesium 2.0 B-Natriuretic Peptide 1834 H Assessment and Plan (1) CHF (congestive heart failure): Status: Acute Plan d#4 81yo F with HTN, HLD, sz disorder, systolic/diastolic HF presenting with dyspnea, admitted for hypoxia due to CHF exac # acute/chronic HFrEF # HTN - continue to diurese with IV furosemide 40 mg bid, monitor lytes/BNP/I+ O/weight, TTE pending, Cardiology following- may need ischemic workup - continue enalapril + metoprolol + Imdur # acute hypoxic resp failure - wean O2 as tolerated # L scalp lac - stapled in ED 10/20, remove johnny 10/27 # CAD - continue clopidogrel, metoprolol, enalapril, Imdur, statin # sz disorder - continue levetiracetam # VTE ppx: LMWH # dispo: TBD, PT consult pending In my clinical judgment, the patient requires continued inpatient hospitalization for the following reasons: IV diuresis, hypoxia, cardiac workup Time Spent With Patient Time: Total time managing care of this patient today __35__ minutes. Quality Stroke Does the patient have a stroke diagnosis?: No VTE Prior VTE?: No VTE Risk Level:: Medical - moderate - high VTE Device Contraindication: Treatment Not Indicated VTE Drug Contraindication: N/A - Med Ordered
[2022-10-23 12:09] VITALS: BP 149/78; PULSE 71; O2SAT 99
--- NOTE | 2022-10-23 14:55 | PM.PNCARD ---
Subjective Subjective Date of Service: 10/23/22 Interval history: Seen examined at bedside. Denying any significant symptoms currently. Appears volume overloaded. Echocardiography has shown severe LV dysfunction. Physical Exam Vital Signs: Last Vital Signs Temp 97.5 F 10/23/22 07:47 Pulse 71 10/23/22 12:09 Resp 18 10/23/22 07:47 BP 149/78 H 10/23/22 12:09 Pulse Ox 99 10/23/22 12:09 O2 Del Method Nasal Cannula 10/23/22 07:47 O2 Flow Rate 2 10/22/22 23:45 BMI result Body Mass Index 29.9 GENERAL APPEARANCE: in no acute distress, pleasant. NECK: no carotid bruit, + jugular venous distention. SKIN: no suspicious lesions, warm and dry. HEART: no murmurs, regular rate and rhythm. LUNGS: clear to auscultation bilaterally. ABDOMEN: soft, nontender. EXTREMITIES: no edema. PERIPHERAL PULSES: equal. NEUROLOGIC: No gross deficits, AAO X 3 Objective Labs and Meds 10/21/22 06:50 10/23/22 06:17 Lab results: Laboratory Results - last 24 hr 10/23/22 10/23/22 06:17 06:17 Sodium 142 Potassium 3.8 Chloride 105 Carbon Dioxide 29 Anion Gap 12 BUN 19 H Creatinine 0.91 Estim Creat Clear Calc 44.7 Estimated GFR 59 Random Glucose 82 Calcium 9.2 Magnesium 2.0 B-Natriuretic Peptide 1834 H Imaging Radiologist's impression: Impressions Chest X-Ray 10/23/22 14:00 IMPRESSION: Increased bilateral interstitial markings likely nonspecific parenchymal inflammatory changes. No acute pneumonic infiltrate seen. Progress Note: A&P Assessment and plan (1) CHF (congestive heart failure): Status: Acute (2) Cardiomyopathy: Status: Acute Plan 81-year-old female who is presenting with congestive heart failure. She is on IV diuretics. Continue Lasix as before. Echocardiography showing severely reduced ejection fraction. Stop enalapril and change to losartan 50 mg twice a day. In 48 hours we will change her from losartan to Entresto. Continue Toprol-XL. If potassium level stayed stable then I would consider adding some spironolactone. She will need ischemic evaluation. I have discussed this with the patient and her daughter and they are more in favor of doing this as outpatient. We will decide this further as she improves. Thank you for allowing me to participate in the care of your patient. Please feel free to contact me if you have any questions. Time Spent With Patient Time: Total time managing care of this patient today ____ minutes. Progress Note: Quality Stroke Does the patient have a stroke diagnosis?: No Procedures Date of Service Date of Service: 10/23/22
--- NOTE | 2022-10-23 15:38 | MHC.CM.PN ---
CM SPOKE WITH PERNELL, PT DAUGHTER/HCP. FAMILY DOES NOT WISH PT TO GO TO A SNF BUT IS OPEN TO SERVICES IN THE HOME. [facility] IS FIRST CHOICE, REFERRAL SENT. CM WILL FOLLOW FOR DC NEEDS.
[2022-10-23 15:42] VITALS: BP 164/98; PULSE 72; RESP 18; TEMP 37.1; O2SAT 98
--- NOTE | 2022-10-23 15:42 | MHC.SL.SWA ---
Speech Pathologist Impression: Oral phase dysphagia Dysphasia Diet Status: UPGRADE from NPO to NDD3/thin Liquid Consistency and Strategies for Safe Swallow: Liquid Intake Recommendation: Thin Liquid Intake Strategies: Small Sips Solid Food Consistency: Dietary Recommendations: Chopped/Advanced (NDD3) Additional Modifications to Solid Foods: For ease of mastication recommend CHOPPED/ADVANCED (NDD3) diet and THIN liquids, pills WHOLE in PUREE. Sent Lindsay Message w/ update to MD, RN, RD. Recommend 1 f/u to ensure tolerance. Oral Medication Intake: Whole with Puree Please contact the pharmacy regarding appropriate crushable or liquid drug formulations that are available whenever modified delivery is recommended. Compensatory Strategies and Precautions to be Taken for Safe Swallow: Sitting Upright (90 deg) No Straw Small Bites and Sips Rate of Ingestion Change Supervision While Eating and Drinking for Safe Swallow: Total Supervision (1:1) Swallowing Recommended Treatments: Compens. Strategy Educat. Recommendation for Speech: Inpatient Speech Therapy Comment: 1 f/u V[employer] Welder [employer] Fabricator Clinican/Clinical Fellow: No Supervisory Statement: I have reviewed and agree with the student/clinical fellow's documentation: N/A Speech Language Pathologist: Juanita Alfaro M.A., CCC-SUPERVISOR [employer]
[2022-10-23] MEDS: Acetaminophen 325 MG TABLET 650 MG PO (18:50)
[2022-10-23 20:00] VITALS: BP 138/81; PULSE 88; RESP 18; TEMP 37; O2SAT 97
[2022-10-23] MEDS: Atorvastatin Calcium 40 MG TABLET PO (21:14)
[2022-10-23] MEDS: Losartan Potassium 50 MG TABLET PO (21:14)
[2022-10-23] MEDS: Enoxaparin Sodium 40 MG/0.4 ML SYRINGE SUBCUT (22:06)
[2022-10-24] VITALS: BP 140/67; PULSE 67; RESP 18; TEMP 36.7; O2SAT 98
[2022-10-24] MEDS: Acetaminophen 325 MG TABLET 650 MG PO ×2 (03:41→20:17)
[2022-10-24 06:00] VITALS: BMI 29.5
[2022-10-24 06:54] LABS: B Type Natriuretic Peptide 2561 pg/mL (<100)
[2022-10-24 06:58] LABS: Anion Gap 12 (12-20); Blood Urea Nitrogen 16 mg/dL (9-16); Calcium 9.4 mg/dL (8.4-10.2); Carbon Dioxide 30 mmol/L (22-29); Chloride 103 mmol/L (96-108); Creatinine Clr Calc Pharmacy 49.2; Estimated Glomerular Filt Rate > 60; Glucose Random 116 mg/dL (60-115); Magnesium 1.9 mg/dL (1.6-2.6); Potassium 3.6 mmol/L (3.3-5.1); Sodium 141 mmol/L (135-145)
[2022-10-24 07:15] VITALS: BP 153/87; PULSE 67; RESP 18; TEMP 37.3; O2SAT 95
--- NOTE | 2022-10-24 09:02 | P.PNIM_ITS ---
Subjective Subjective Date of Service: 10/24/22 Interval History: This history was taken in Portuguese from the patient. Dyspnea and edema much improved No chest pain Weaned off O2 Review of Systems Review of Systems: Yes all other systems are reviewed and are negative Physical Exam Vital Signs: Vital Signs: Last Vital Signs Temp 99.2 F 10/24/22 07:15 Pulse 67 10/24/22 07:15 Resp 18 10/24/22 07:15 BP 153/87 H 10/24/22 07:15 Pulse Ox 95 10/24/22 07:15 O2 Del Method Room Air 10/24/22 07:15 O2 Flow Rate 2 10/24/22 00:00 BMI result Body Mass Index 29.5 Gen: in no acute distress HEENT: sclera anicteric, moist mucus membranes, L scalp lac stapled C/D/I Neck: supple Lungs: clear B Heart: regular rate and rhythm, no murmurs Abd: soft, non-tender, non-distended Ext: trace pitting bilateral lower extremity edema Skin: warm/well-perfused Neuro: alert and oriented x3, no focal findings Psych: appropriate affect Objective Data Active Medications Acetaminophen (Acetaminophen 325 Mg Tablet) 650 mg PO Q6H PRN PRN Reason: Pain, Mild (Pain Scale 1-3) Last Admin: 10/24/22 03:41 Dose: 650 mg Documented By: AARON Atorvastatin Calcium (Atorvastatin Calcium 40 Mg Tablet) 40 mg PO BEDTIME [facility] Last Admin: 10/23/22 21:14 Dose: 40 mg Documented By: GILMA Clopidogrel Bisulfate (Clopidogrel Bisulfate 75 Mg Tablet) 75 mg PO DAILY [facility] Last Admin: 10/23/22 10:17 Dose: 75 mg Documented By: NANCY Enoxaparin Sodium (Enoxaparin Sodium 40 Mg/0.4 Ml Syringe) 40 mg SUBCUT Q24H [facility] Last Admin: 10/23/22 22:06 Dose: 40 mg Documented By: GILMA Furosemide (Furosemide 40 Mg/4 Ml Vial) 40 mg IVPUSH BID@0900,1800 [facility]; Protocol Last Admin: 10/23/22 17:36 Dose: 40 mg Documented By: GILMA Isosorbide Mononitrate (Isosorbide Mononitrate 30 Mg Tab.Er.24h) 30 mg PO DAILY [facility]; Protocol Last Admin: 10/23/22 10:17 Dose: 30 mg Documented By: BROWoodrow Levetiracetam (Levetiracetam 250 Mg Tablet) 1,000 mg PO BID [facility] Last Admin: 10/23/22 21:14 Dose: 1,000 mg Documented By: GILMA Losartan Potassium (Losartan Potassium 50 Mg Tablet) 50 mg PO BID [facility]; Protocol Last Admin: 10/23/22 21:14 Dose: 50 mg Documented By: GILMA Melatonin (Melatonin 3 Mg Tablet) 6 mg PO BEDTIME PRN PRN Reason: Insomnia Metoprolol Succinate (Metoprolol Succinate Er 100 Mg Tab.Er.24h) 100 mg PO DAILY [facility]; Protocol Last Admin: 10/23/22 10:17 Dose: 100 mg Documented By: NANCY Ondansetron HCl (Ondansetron Hcl 4 Mg/2 Ml Vial) 4 mg IVPUSH Q8H PRN PRN Reason: Nausea and Vomiting Pharmacy Consult (Consult Rx Perform Med Rec) 1 each MISCELLANE ONCE PRN PRN Reason: Consult order Sodium Chloride (0.9 % Sodium Chloride Flush 3 Ml Syringe) 3 ml IVFLUSH QSHIFT [facility] Last Admin: 10/24/22 06:40 Dose: Not Given Documented By: RALPH Non-Admin Reason: Previously Administered Spironolactone (Spironolactone 25 Mg Tablet) 25 mg PO DAILY [facility]; Protocol Trazodone HCl (Trazodone Hcl 25 Mg Halftab) 25 mg PO BEDTIME PRN PRN Reason: Insomnia Labs 10/21/22 06:50 10/24/22 05:50 Labs: Laboratory Results - last 24 hr 10/24/22 10/24/22 05:50 05:50 Anion Gap 12 Estim Creat Clear Calc 49.2 Estimated GFR > 60 Random Glucose 116 H Calcium 9.4 Magnesium 1.9 B-Natriuretic Peptide 2561 H Assessment and Plan (1) CHF (congestive heart failure): Status: Acute Plan d#5 81yo F with HTN, HLD, sz disorder, systolic/diastolic HF presenting with dyspnea, admitted for hypoxia due to CHF exac # acute/chronic HFrEF # HTN - continue to diurese with IV furosemide 40 mg bid 1 more day then switch to oral tomorrow, monitor lytes/BNP/I+O/weight, Cardiology following- outpt ischemic workup - continue metoprolol + Imdur, changed enalapril to losartan 10/23/22 with plan of transitioning to Entresto 10/25/22 # NSVT - on metoprolol, Mg/K normal # acute hypoxic resp failure - resolved # L scalp lac - stapled in ED 10/20, remove johnny 10/27 # CAD - continue clopidogrel, metoprolol, losartan, Imdur, statin # sz disorder - continue levetiracetam # VTE ppx: LMWH # dispo: [facility] recommended but pt/family declines, preferring [facility]; pt has [facility] DESIGN[facility] services In my clinical judgment, the patient requires continued inpatient hospitalization for the following reasons: IV diuresis Time Spent With Patient Time: Total time managing care of this patient today ____ minutes. Quality Stroke Does the patient have a stroke diagnosis?: No VTE Prior VTE?: No VTE Risk Level:: Medical - moderate - high VTE Device Contraindication: Treatment Not Indicated VTE Drug Contraindication: N/A - Med Ordered
[2022-10-24] MEDS: Losartan Potassium 50 MG TABLET PO ×2 (09:06→20:18)
[2022-10-24] MEDS: Clopidogrel Bisulfate 75 MG TABLET PO (09:06)
[2022-10-24] MEDS: levETIRAcetam 250 MG TABLET 1000 MG PO ×2 (09:07→20:17)
[2022-10-24] MEDS: Isosorbide Mononitrate 30 MG TAB.ER.24H PO (09:07)
[2022-10-24] MEDS: Metoprolol Succinate ER 100 MG TAB.ER.24H PO (09:08)
[2022-10-24] MEDS: Spironolactone 25 MG TABLET PO (09:09)
[2022-10-24] MEDS: Furosemide 40 MG/4 ML VIAL IVPUSH ×2 (12:16→19:25)
--- NOTE | 2022-10-24 13:10 | P.PNCA_ITS ---
Subjective Subjective Date of Service: 10/24/22 Interval history: Seen examined at bedside. She is saying that she choked on a cookie yesterday. She is not feeling well today. She is saying she is short of breath. Also saying that her appetite is not great. Physical Exam Vital Signs: Last Vital Signs Temp 99.2 F 10/24/22 07:15 Pulse 67 10/24/22 07:15 Resp 18 10/24/22 07:15 BP 153/87 H 10/24/22 07:15 Pulse Ox 95 10/24/22 07:15 O2 Del Method Room Air 10/24/22 07:15 O2 Flow Rate 2 10/24/22 00:00 BMI result Body Mass Index 29.5 GENERAL APPEARANCE: in no acute distress, fatigued. NECK: no carotid bruit, + jugular venous distention. SKIN: no suspicious lesions, warm and dry. HEART: no murmurs, regular rate and rhythm. LUNGS: clear to auscultation bilaterally. ABDOMEN: soft, nontender. EXTREMITIES: no edema. PERIPHERAL PULSES: equal. NEUROLOGIC: No gross deficits, AAO X 3 Objective Labs and Meds 10/21/22 06:50 10/24/22 05:50 Lab results: Laboratory Results - last 24 hr 10/24/22 10/24/22 05:50 05:50 Sodium 141 Potassium 3.6 Chloride 103 Carbon Dioxide 30 H Anion Gap 12 BUN 16 Creatinine 0.82 Estim Creat Clear Calc 49.2 Estimated GFR > 60 Random Glucose 116 H Calcium 9.4 Magnesium 1.9 B-Natriuretic Peptide 2561 H Imaging Radiologist's impression: Impressions Chest X-Ray 10/23/22 14:00 IMPRESSION: Increased bilateral interstitial markings likely nonspecific parenchymal inflammatory changes. No acute pneumonic infiltrate seen. Progress Note: A&P Assessment and plan (1) Cardiomyopathy: Status: Acute (2) CHF (congestive heart failure): Status: Acute Plan 81-year-old female who is presenting with congestive heart failure. She is still volume overloaded. Continue IV diuretics. She is on losartan 50 mg twice a day. This can be changed to Entresto tomorrow. Continue Toprol-XL and sp ironolactone. Blood pressure is elevated despite all his medications I think can try low-dose amlodipine as a next medication. She is saying she choked on a cookie yesterday and has not been feeling well since then. I am concerned that she may have aspirated at that time. I will discuss this with the medicine team and probably consider a chest x-ray. She definitely looks off today and is very fatigued and tired. The daughter was in favor of doing further workup as outpatient. Our eventual plan will be to diurese and optimize medications and discharged home and do further workup as outpatient. Thank you for allowing me to participate in the care of your patient. Please feel free to contact me if you have any questions. Time Spent With Patient Time: Total time managing care of this patient today ____ minutes. Progress Note: Quality Stroke Does the patient have a stroke diagnosis?: No Procedures Date of Service Date of Service: 10/24/22
[2022-10-24] MEDS: amLODIPine Besylate 2.5 MG TABLET PO (13:53)
[2022-10-24] MEDS: 0.9 % Sodium Chloride Flush 3 ML SYRINGE IVFLUSH (15:42)
[2022-10-24 15:56] VITALS: BP 137/70; PULSE 69; RESP 18; TEMP 37; O2SAT 90
--- NOTE | 2022-10-24 16:16 | MHC.CM.PN ---
PER [facility] AT [facility], PT IS ACTIVE WITH [facility] FOR NURSING AND CCA SERVICES FOR P.T. SANDRA MADE AWARE.
[2022-10-24 19:48] VITALS: BP 160/91; PULSE 87; RESP 18; TEMP 37; O2SAT 90
[2022-10-24] MEDS: traZODone HCL 25 MG HALFTAB PO (20:17)
[2022-10-24] MEDS: Atorvastatin Calcium 40 MG TABLET PO (20:17)
[2022-10-24] MEDS: Melatonin 3 MG TABLET 6 MG PO (20:18)
[2022-10-24] MEDS: Enoxaparin Sodium 40 MG/0.4 ML SYRINGE SUBCUT (22:28)
[2022-10-24 23:30] VITALS: BP 150/97; PULSE 68; RESP 17; TEMP 36.3; O2SAT 96
[2022-10-25] MEDS: 0.9 % Sodium Chloride Flush 3 ML SYRINGE IVFLUSH ×2 (06:23→09:09)
[2022-10-25 07:08] LABS: Anion Gap 14 (12-20); Blood Urea Nitrogen 14 mg/dL (9-16); Calcium 9.5 mg/dL (8.4-10.2); Carbon Dioxide 30 mmol/L (22-29); Chloride 104 mmol/L (96-108); Creatinine Clr Calc Pharmacy 51.7; Estimated Glomerular Filt Rate > 60; Glucose Random 101 mg/dL (60-115); Potassium 3.7 mmol/L (3.3-5.1); Sodium 144 mmol/L (135-145)
[2022-10-25 07:09] LABS: B Type Natriuretic Peptide 1971 pg/mL (<100)
[2022-10-25 07:27] VITALS: BP 133/78; PULSE 62; RESP 12; TEMP 36; O2SAT 97
[2022-10-25 08:23] LABS: Procalcitonin 0.02 ng/mL
[2022-10-25 09:02] VITALS: PULSE 59
[2022-10-25] MEDS: Isosorbide Mononitrate 30 MG TAB.ER.24H PO (09:07)
[2022-10-25] MEDS: Furosemide 40 MG/4 ML VIAL IVPUSH (09:08)
[2022-10-25] MEDS: Empagliflozin 10 MG TABLET PO (09:08)
[2022-10-25] MEDS: Spironolactone 25 MG TABLET PO (09:08)
[2022-10-25] MEDS: levETIRAcetam 250 MG TABLET 1000 MG PO ×2 (09:08→20:25)
[2022-10-25] MEDS: Sacubitril/Valsartan 49/51 1 TAB TABLET PO ×2 (09:08→20:26)
[2022-10-25] MEDS: Clopidogrel Bisulfate 75 MG TABLET PO (09:08)
[2022-10-25] MEDS: amLODIPine Besylate 2.5 MG TABLET PO (09:08)
--- NOTE | 2022-10-25 11:21 | P.PNIM_ITS ---
Subjective Subjective Date of Service: 10/25/22 Interval History: This history was taken in [place] from the patient. back on oxygen though insists she feels better, less dyspneic and edema has resolved no chest pain Review of Systems Review of Systems: Yes all other systems are reviewed and are negative Physical Exam Vital Signs: Vital Signs: Last Vital Signs Temp 96.8 F 10/25/22 07:27 Pulse 59 10/25/22 09:02 Resp 12 10/25/22 07:27 BP 133/78 10/25/22 07:27 Pulse Ox 97 10/25/22 07:27 O2 Del Method Nasal Cannula 10/25/22 07:27 O2 Flow Rate 2 10/25/22 07:27 BMI result Body Mass Index 29.5 Gen: in no acute distress HEENT: sclera anicteric, moist mucus membranes, L scalp lac stapled C/D/I Neck: supple Lungs: diminished bilateral bases Heart: regular rate and rhythm, no murmurs Abd: soft, non-tender, non-distended Ext: no edema Skin: warm/well-perfused Neuro: alert and oriented x3, no focal findings Psych: appropriate affect Objective Data Active Medications Acetaminophen (Acetaminophen 325 Mg Tablet) 650 mg PO Q6H PRN PRN Reason: Pain, Mild (Pain Scale 1-3) Last Admin: 10/24/22 20:17 Dose: 650 mg Documented By: GILMA Amlodipine Besylate (Amlodipine Besylate 2.5 Mg Tablet) 2.5 mg PO DAILY [facility]; Protocol Last Admin: 10/25/22 09:08 Dose: 2.5 mg Documented By: NANDINI Atorvastatin Calcium (Atorvastatin Calcium 40 Mg Tablet) 40 mg PO BEDTIME [facility] Last Admin: 10/24/22 20:17 Dose: 40 mg Documented By: GILMA Clopidogrel Bisulfate (Clopidogrel Bisulfate 75 Mg Tablet) 75 mg PO DAILY [facility] Last Admin: 10/25/22 09:08 Dose: 75 mg Documented By: NANDINI Empagliflozin (Empagliflozin 10 Mg Tablet) 10 mg PO DAILY [facility] Last Admin: 10/25/22 09:08 Dose: 10 mg Documented By: NANDINI Enoxaparin Sodium (Enoxaparin Sodium 40 Mg/0.4 Ml Syringe) 40 mg SUBCUT Q24H [facility] Last Admin: 10/24/22 22:28 Dose: 40 mg Documented By: GILMA Furosemide (Furosemide 40 Mg/4 Ml Vial) 40 mg IVPUSH BID@0900,1800 [facility]; Protocol Last Admin: 10/25/22 09:08 Dose: 40 mg Documented By: NANDINI Isosorbide Mononitrate (Isosorbide Mononitrate 30 Mg Tab.Er.24h) 30 mg PO DAILY [facility]; Protocol Last Admin: 10/25/22 09:07 Dose: 30 mg Documented By: NANDINI Levetiracetam (Levetiracetam 250 Mg Tablet) 1,000 mg PO BID [facility] Last Admin: 10/25/22 09:08 Dose: 1,000 mg Documented By: NANDINI Melatonin (Melatonin 3 Mg Tablet) 6 mg PO BEDTIME PRN PRN Reason: Insomnia Last Admin: 10/24/22 20:18 Dose: 6 mg Documented By: GILMA Metoprolol Succinate (Metoprolol Succinate Er 100 Mg Tab.Er.24h) 100 mg PO DAILY [facility]; Protocol Last Admin: 10/25/22 09:10 Dose: Not Given Documented By: NANDINI Non-Admin Reason: per protocol Ondansetron HCl (Ondansetron Hcl 4 Mg/2 Ml Vial) 4 mg IVPUSH Q8H PRN PRN Reason: Nausea and Vomiting Pharmacy Consult (Consult Rx Perform Med Rec) 1 each MISCELLANE ONCE PRN PRN Reason: Consult order Sacubitril/Valsartan (Sacubitril/Valsartan 49/51 1 Tab Tablet) 1 tab PO BID [facility]; Protocol Last Admin: 10/25/22 09:08 Dose: 1 tab Documented By: NANDINI Sodium Chloride (0.9 % Sodium Chloride Flush 3 Ml Syringe) [facility] Last Admin: 10/25/22 09:09 Dose: 3 ml Documented By: NANDINI Spironolactone (Spironolactone 25 Mg Tablet) 25 mg PO DAILY [facility]; Protocol Last Admin: 10/25/22 09:08 Dose: 25 mg Documented By: NANDINI Trazodone HCl (Trazodone Hcl 25 Mg Halftab) 25 mg PO BEDTIME PRN PRN Reason: Insomnia Last Admin: 10/24/22 20:17 Dose: 25 mg Documented By: GILMA Labs 10/21/22 06:50 10/25/22 06:11 Labs: Laboratory Results - last 24 hr 10/25/22 10/25/22 06:11 06:11 Anion Gap 14 Estim Creat Clear Calc 51.7 Estimated GFR > 60 Random Glucose 101 Calcium 9.5 Magnesium 2.0 B-Natriuretic Peptide 1971 H Procalcitonin 0.02 Assessment and Plan (1) CHF (congestive heart failure): Status: Acute Plan d#6 81yo F with HTN, HLD, sz disorder, systolic/diastolic HF presenting with dyspnea, admitted for hypoxia due to CHF exac # acute/chronic HFrEF [LVEF previously 45% on 02/06/22] # HTN - change to PO furosemide [negative 3050 mL this admission], Cardiology following and will arrange outpt ischemic workup - TTE 10/23/22: - Mildly increased left ventricular cavity size.? There is mildly increased left ventricular wall thickness.? The left ventricular systolic function is severely decreased.? The visually estimated ejection fraction is between 20-25%. ? - Normal right ventricular cavity size and systolic function.? ? - The left atrium is severely dilated.? The right atrium is? ? ? moderately dilated.? - Significantly elevated right atrial pressure.? Severe pulmonary hypertension is present. - continue metoprolol + Imdur, changed enalapril to losartan 10/23/22, added spironolactone 10/24/22, change losartan to Entresto 10/25/22, also start empagliflozin 10 mg/d 10/25/22 # NSVT - 9 beats this AM around 4:30 - on metoprolol, Mg/K normal # acute hypoxic resp failure # aspiration 10/23/22 - check CT chest, will start amp-sulbactam 10/25- # L scalp lac - stapled in ED 10/20, remove johnny 10/27 # CAD - continue clopidogrel, metoprolol, losartan, Imdur, statin # sz disorder - continue levetiracetam # VTE ppx: LMWH # dispo: STR recommended but pt/family declines, preferring [facility]; pt has [employer] services In my clinical judgment, the patient requires continued inpatient hospitalization for the following reasons: hypoxia, IV ABX Time Spent With Patient Time: Total time managing care of this patient today 35____ minutes. Quality Stroke Does the patient have a stroke diagnosis?: No VTE Prior VTE?: No VTE Risk Level:: Medical - moderate - high VTE Device Contraindication: Treatment Not Indicated VTE Drug Contraindication: N/A - Med Ordered
--- NOTE | 2022-10-25 12:08 | MHC.SLORD ---
Speech Language Pathology Order Status: POLITICAL ORGANIZER attempted to see pt for toleration of diet during lunch. When POLITICAL ORGANIZER arrived pt reported she already ate and declined further PO. Pt's daughter reports pt typically eats foods that are softer and cut up with supervision during meals. POLITICAL ORGANIZER to continue to follow 1X during hospitalization.
--- NOTE | 2022-10-25 12:31 | P.PNCA_ITS ---
Subjective Subjective Date of Service: 10/25/22 Interval history: Seen and examined at bedside. Saying that she feels tired and has been coughing. She had choking episode a day ago when she was eating a cookie. Physical Exam Vital Signs: Last Vital Signs Temp 96.8 F 10/25/22 07:27 Pulse 59 10/25/22 09:02 Resp 12 10/25/22 07:27 BP 133/78 10/25/22 07:27 Pulse Ox 97 10/25/22 07:27 O2 Del Method Nasal Cannula 10/25/22 07:27 O2 Flow Rate 2 10/25/22 07:27 BMI result Body Mass Index 29.5 GENERAL APPEARANCE: in no acute distress, fatigued. NECK: no carotid bruit, no significant jugular venous distention. SKIN: no suspicious lesions, warm and dry. HEART: no murmurs, regular rate and rhythm. LUNGS: clear to auscultation bilaterally. ABDOMEN: soft, nontender. EXTREMITIES: no edema. PERIPHERAL PULSES: equal. NEUROLOGIC: No gross deficits, AAO X 3 Objective Labs and Meds 10/21/22 06:50 10/25/22 06:11 Lab results: Laboratory Results - last 24 hr 10/25/22 10/25/22 06:11 06:11 Sodium 144 Potassium 3.7 Chloride 104 Carbon Dioxide 30 H Anion Gap 14 BUN 14 Creatinine 0.78 Estim Creat Clear Calc 51.7 Estimated GFR > 60 Random Glucose 101 Calcium 9.5 Magnesium 2.0 B-Natriuretic Peptide 1971 H Procalcitonin 0.02 Progress Note: A&P Assessment and plan (1) Cardiomyopathy: Status: Acute (2) Acute on chronic diastolic CHF (congestive heart failure), NYHA class 4: Status: Acute Plan Pleasant 81-year-old female presenting with congestive heart failure and severe cardiomyopathy. Clinically appears to be euvolemic at this stage. Can be changed to oral di uretics. Would favor putting her on b.i.d. Lasix. Continue the Toprol-XL, Entresto and spironolactone. Monitor electrolytes closely. She had a choking episode a day ago and since then has been coughing and appears quite withdrawn and fatigue. I am concerned that she may have aspirated and is developing infection. Will discuss with medicine team. Thank you for allowing me to participate in the care of your patient. Please feel free to contact me if you have any questions. Time Spent With Patient Time: Total time managing care of this patient today ____ minutes. Progress Note: Quality Stroke Does the patient have a stroke diagnosis?: No Procedures Date of Service Date of Service: 10/25/22
[2022-10-25] MEDS: Ampicillin Sodium/Sulbactam Na 3 GM in 0.9 % Sodium Chloride 100 ML IV ×2 (15:09→20:19)
--- NOTE | 2022-10-25 15:52 | MHC.CM.PN ---
EMR REVIEWED, PER HOSPITALIST, PT HAD EPISODE OF HYPOXIC OVER NIGHT, OCCASION VTACH AND PLAN FOR MED CHANGES, ANTIC D/C IN 1-2 DAYS, CM WILL CONT TO FOLLOW D/C NEEDS.
[2022-10-25 16:00] VITALS: BP 110/56; PULSE 64; RESP 18; TEMP 37.1; O2SAT 95
[2022-10-25] MEDS: Furosemide 40 MG TABLET PO (18:14)
[2022-10-25 19:31] VITALS: BP 126/71; PULSE 73; RESP 18; TEMP 37; O2SAT 98
[2022-10-25] MEDS: Atorvastatin Calcium 40 MG TABLET PO (20:26)
[2022-10-25 23:45] VITALS: BP 112/72; PULSE 69; RESP 16; TEMP 36.4; O2SAT 96
[2022-10-26] VITALS: PULSE 78; RESP 16
[2022-10-26] MEDS: Enoxaparin Sodium 40 MG/0.4 ML SYRINGE SUBCUT ×2 (00:22→22:02)
[2022-10-26] MEDS: 0.9 % Sodium Chloride Flush 3 ML SYRINGE IVFLUSH ×3 (00:24→14:50)
[2022-10-26] MEDS: Ampicillin Sodium/Sulbactam Na 3 GM in 0.9 % Sodium Chloride 100 ML IV ×4 (02:08→22:01)
[2022-10-26 07:17] LABS: B Type Natriuretic Peptide 609 pg/mL (<100)
[2022-10-26 07:20] LABS: Anion Gap 15 (12-20); Blood Urea Nitrogen 14 mg/dL (9-16); Calcium 9.7 mg/dL (8.4-10.2); Carbon Dioxide 27 mmol/L (22-29); Chloride 104 mmol/L (96-108); Creatinine Clr Calc Pharmacy 45.8; Estimated Glomerular Filt Rate > 60; Glucose Random 141 mg/dL (60-115); Magnesium 2.1 mg/dL (1.6-2.6); Sodium 142 mmol/L (135-145)
[2022-10-26 07:23] VITALS: BP 135/76; PULSE 79; RESP 20; TEMP 36.3; O2SAT 97
[2022-10-26] MEDS: Isosorbide Mononitrate 30 MG TAB.ER.24H PO (09:00)
[2022-10-26] MEDS: Sacubitril/Valsartan 49/51 1 TAB TABLET PO ×2 (09:00→22:02)
[2022-10-26] MEDS: levETIRAcetam 250 MG TABLET 1000 MG PO ×2 (09:00→22:03)
[2022-10-26] MEDS: Spironolactone 25 MG TABLET PO (09:01)
[2022-10-26] MEDS: Clopidogrel Bisulfate 75 MG TABLET PO (09:01)
[2022-10-26] MEDS: amLODIPine Besylate 2.5 MG TABLET PO (09:01)
[2022-10-26] MEDS: Furosemide 40 MG TABLET PO ×2 (09:01→17:15)
[2022-10-26] MEDS: Empagliflozin 10 MG TABLET PO (09:01)
[2022-10-26] MEDS: Metoprolol Succinate ER 100 MG TAB.ER.24H PO (09:01)
[2022-10-26] MEDS: Acetaminophen 325 MG TABLET 650 MG PO (09:15)
--- NOTE | 2022-10-26 12:56 | MHC.SLORD ---
Speech Language Pathology Order Status: Attempted to see patient during lunch to assess toleration of current diet (Chopped/Advanced, Thin). Patient was sleeping, when awakened, refused meal. Patient reported that she had breakfast without difficulties. NETWORKS SOFTWARE CONSULTANT will continue to follow.
--- NOTE | 2022-10-26 15:46 | P.PNIM_ITS ---
Subjective Subjective Date of Service: 10/26/22 Interval History: seen and examined this morning follow up for chf history obtained with the assistance of a body coverer patient reports episode of chest pain overnight, denies this am no sob Review of Systems Review of Systems: Yes all other systems are reviewed and are negative Constitutional Constitutional: Denies chills and Denies fever(s) Cardiovascular Cardiovascular: Denies chest pain, Denies palpitations and Denies dyspnea Respiratory Respiratory: Denies cough and Denies dyspnea Gastrointestinal Gastrointestinal: Denies abdominal pain, Denies nausea and Denies vomiting Endocrine Endocrine: Denies palpitations Physical Exam Vital Signs: Vital Signs: Last Vital Signs Temp 97.4 F 10/26/22 07:23 Pulse 79 10/26/22 07:23 Resp 20 10/26/22 07:23 BP 135/76 10/26/22 07:23 Pulse Ox 97 10/26/22 07:23 O2 Del Method Nasal Cannula 10/26/22 07:23 O2 Flow Rate 2 10/26/22 07:23 BMI result Body Mass Index 29.5 Const: General: cooperative, comfortable, no acute distress, alert and awake Nutritional Appearance: average body habitus Resp: Effort & Inspection: normal respiratory effort and able to speak in complete sentences Auscultation: clear to auscultation bilaterally Cardio: Rate: regular rate Heart sounds: S1 normal heart sound present and S2 normal heart sound present GI: Inspection: No distended Palpation (GI): Soft to palpation and nontender Neuro: General: CN's II-XI intact bilaterally Extrem: General: Yes no pedal edema Objective Data Active Medications Acetaminophen (Acetaminophen 325 Mg Tablet) 650 mg PO Q6H PRN PRN Reason: Pain, Mild (Pain Scale 1-3) Last Admin: 10/26/22 09:15 Dose: 650 mg Documented By: CRISTO Amlodipine Besylate (Amlodipine Besylate 2.5 Mg Tablet) 2.5 mg PO DAILY [facility]; Protocol Last Admin: 10/26/22 09:01 Dose: 2.5 mg Documented By: CRISTO Atorvastatin Calcium (Atorvastatin Calcium 40 Mg Tablet) 40 mg PO BEDTIME [facility] Last Admin: 10/25/22 20:26 Dose: 40 mg Documented By: NANCY Clopidogrel Bisulfate (Clopidogrel Bisulfate 75 Mg Tablet) 75 mg PO DAILY [facility] Last Admin: 10/26/22 09:01 Dose: 75 mg Documented By: CRISTO Empagliflozin (Empagliflozin 10 Mg Tablet) 10 mg PO DAILY [facility] Last Admin: 10/26/22 09:01 Dose: 10 mg Documented By: CRISTO Enoxaparin Sodium (Enoxaparin Sodium 40 Mg/0.4 Ml Syringe) 40 mg SUBCUT Q24H [facility] Last Admin: 10/26/22 00:22 Dose: 40 mg Documented By: JAQUELNI Furosemide (Furosemide 40 Mg Tablet) 40 mg PO BID@0900,1800 [facility]; Protocol Last Admin: 10/26/22 09:01 Dose: 40 mg Documented By: CRISTO Ampicillin Sodium/Sulbactam (Sodium 3 gm/ Sodium Chloride) 100 mls @ 200 mls/hr IV Q6H [facility] Last Admin: 10/26/22 14:49 Dose: 200 mls/hr Documented By: CRISTO Isosorbide Mononitrate (Isosorbide Mononitrate 30 Mg Tab.Er.24h) 30 mg PO DAILY [facility]; Protocol Last Admin: 10/26/22 09:00 Dose: 30 mg Documented By: CRISTO Levetiracetam (Levetiracetam 250 Mg Tablet) 1,000 mg PO BID [facility] Last Admin: 10/26/22 09:00 Dose: 1,000 mg Documented By: CRISTO Melatonin (Melatonin 3 Mg Tablet) 6 mg PO BEDTIME PRN PRN Reason: Insomnia Last Admin: 10/24/22 20:18 Dose: 6 mg Documented By: GILMA Metoprolol Succinate (Metoprolol Succinate Er 100 Mg Tab.Er.24h) 100 mg PO DAILY [facility]; Protocol Last Admin: 10/26/22 09:01 Dose: 100 mg Documented By: CRISTO Ondansetron HCl (Ondansetron Hcl 4 Mg/2 Ml Vial) 4 mg IVPUSH Q8H PRN PRN Reason: Nausea and Vomiting Pharmacy Consult (Consult Rx Perform Med Rec) 1 each MISCELLANE ONCE PRN PRN Reason: Consult order Sacubitril/Valsartan (Sacubitril/Valsartan 49/51 1 Tab Tablet) 1 tab PO BID [facility]; Protocol Last Admin: 10/26/22 09:00 Dose: 1 tab Documented By: CRISTO Sodium Chloride (0.9 % Sodium Chloride Flush 3 Ml Syringe) 3 ml IVFLUSH QSHIFT [facility] Last Admin: 10/26/22 14:50 Dose: 3 ml Documented By: CRISTO Spironolactone (Spironolactone 25 Mg Tablet) 25 mg PO DAILY [facility]; Protocol Last Admin: 10/26/22 09:01 Dose: 25 mg Documented By: CRISTO Trazodone HCl (Trazodone Hcl 25 Mg Halftab) 25 mg PO BEDTIME PRN PRN Reason: Insomnia Last Admin: 10/24/22 20:17 Dose: 25 mg Documented By: GILMA Labs 10/21/22 06:50 10/26/22 06:28 Labs: Laboratory Results - last 24 hr 10/26/22 10/26/22 06:28 06:28 Anion Gap 15 Estim Creat Clear Calc 45.8 Estimated GFR > 60 Random Glucose 141 H Calcium 9.7 Magnesium 2.1 B-Natriuretic Peptide 609 H Assessment and Plan (1) Acute on chronic diastolic CHF (congestive heart failure), NYHA class 4: Status: Acute Plan 81yo F with HTN, HLD, sz disorder, systolic/diastolic HF presenting with dyspnea, admitted for hypoxia due to CHF exac # acute/chronic HFrEF [LVEF previously 45% on 02/06/22] # HTN - change to PO furosemide [negative 3050 mL this admission], Cardiology following and will arrange outpt ischemic workup - TTE 10/23/22: - Mildly increased left ventricular cavity size.? There is mildly increased left ventricular wall thickness.? The left ventricular systolic function is severely decreased.? The visually estimated ejection fraction is between 20-25%. ? - Normal right ventricular cavity size and systolic function.? ? - The left atrium is severely dilated.? The right atrium is? ? ? moderately dilated.? - Significantly elevated right atrial pressure.? Severe pulmonary hypertension is present. - continue metoprolol + Imdur, changed enalapril to losartan 10/23/22, added spironolactone 10/24/22, change losartan to Entresto 10/25/22, also start empagliflozin 10 mg/d 10/25/22 # NSVT - 9 beats 10/25 - on metoprolol, Mg/K normal # acute hypoxic resp failure # aspiration 10/23/22 -start amp-sulbactam 10/25 wean oxygen as tolerated seen by speech, currently tolerating NDD3 diet # L scalp lac - stapled in ED 10/20, remove johnny 10/27 # CAD - continue clopidogrel, metoprolol, losartan, Imdur, statin # sz disorder - continue levetiracetam # VTE ppx: LMWH # dispo: STR recommended but pt/family declines, preferring [facility]; pt has [facility] services attending - dr. jensen In my clinical judgment, the patient requires continued inpatient hospitalization for the following reasons: hypoxia, IV ABX Time Spent With Patient Time: Total time managing care of this patient today ____ minutes. Quality Stroke Does the patient have a stroke diagnosis?: No VTE Prior VTE?: No VTE Risk Level:: Medical - moderate - high VTE Device Contraindication: Treatment Not Indicated VTE Drug Contraindication: N/A - Med Ordered
[2022-10-26 16:00] VITALS: BP 143/65; PULSE 79; RESP 18; TEMP 37.1; O2SAT 95
[2022-10-26 19:16] VITALS: BP 127/70; PULSE 73; RESP 18; TEMP 37.1; O2SAT 92
[2022-10-26] MEDS: Atorvastatin Calcium 40 MG TABLET PO (22:03)
[2022-10-26 23:42] VITALS: BP 120/54; PULSE 81; RESP 20; TEMP 36.1; O2SAT 96
[2022-10-27] MEDS: Ampicillin Sodium/Sulbactam Na 3 GM in 0.9 % Sodium Chloride 100 ML IV ×2 (02:24→08:41)
[2022-10-27 07:48] VITALS: BP 146/77; PULSE 68; RESP 20; TEMP 37.2; O2SAT 94
[2022-10-27] MEDS: Sacubitril/Valsartan 49/51 1 TAB TABLET PO (08:35)
[2022-10-27] MEDS: amLODIPine Besylate 2.5 MG TABLET PO (08:35)
[2022-10-27] MEDS: Metoprolol Succinate ER 100 MG TAB.ER.24H PO (08:35)
[2022-10-27] MEDS: Clopidogrel Bisulfate 75 MG TABLET PO (08:35)
[2022-10-27] MEDS: levETIRAcetam 250 MG TABLET 1000 MG PO (08:35)
[2022-10-27] MEDS: Isosorbide Mononitrate 30 MG TAB.ER.24H PO (08:35)
[2022-10-27] MEDS: Spironolactone 25 MG TABLET PO (08:35)
[2022-10-27] MEDS: Furosemide 40 MG TABLET PO (08:35)
[2022-10-27] MEDS: 0.9 % Sodium Chloride Flush 3 ML SYRINGE IVFLUSH (08:41)
[2022-10-27] MEDS: Empagliflozin 10 MG TABLET PO (08:55)
[2022-10-27 10:21] VITALS: BP 146/77; PULSE 68; O2SAT 94
--- NOTE | 2022-10-27 10:24 | MHC.SLORD ---
Speech Language Pathology Order Status: REPULPING SUPERVISOR attempted to visit pt this morning- Pt unavailable, working with other therapies. Per RN, pt has been tolerating her meals, had no complaints chewing. Pt tolerated pills whole in applesauce. Pt appears to be on safest, least restrictive diet textures, with no reported difficulties on chopped diet. Continue aspiration precautions.
--- NOTE | 2022-10-27 12:15 | PM.DS ---
DS: Providers Provider Date of Service: 10/27/22 Date of admission: 10/20/22 22:59 Date of discharge: 10/27/22 Primary care physician: SHARLENE Talbot Consults: 10/20/22 22:59 Consult to Cardiology Routine Consulting Provider: [facility] Reason for consultation: CHF Has provider been notified: Yes Attending physician on discharge: Renee Hernandez Discharging clinician: Stephanie Randle DS: Diagnosis Discharge Diagnosis (1) Acute on chronic diastolic CHF (congestive heart failure), NYHA class 4: Status: Acute DS: Summary Hospital Course Hospital Course: From H&P on day of admission This is a 81-year-old female with pertinent history of combined systolic and diastolic heart failure, seizure disorder, essential hypertension, mixed hyperlipidemia presents to the emergency department for evaluation of dyspnea.? Patient has been having dyspnea 1 week prior to presentation.? It has been progressive and worse with ambulation.? Also has associated orthopnea and bilateral lower extremity swelling.? Patient fell as she was trying to get from the chair and hit her head.? No dizziness or lightheadedness prior to the fall.? No loss of consciousness.? Patient does not use oxygen at home.? She denies fever, chills, cough, chest discomfort, palpitations, changes in urinary or bowel habits. In the emergency department, patient was found to be hypoxemic and placed on 2 L supplemental oxygen acute/chronic HFrEF [LVEF previously 45% on 02/06/22] - change to PO furosemide [negative 3050 mL this admission], Cardiology following and will arrange outpt ischemic workup - TTE 10/23/22: - Mildly increased left ventricular cavity size.? There is mildly increased left ventricular wall thickness.? The left ventricular systolic function is severely decreased.? The visually estimated ejection fraction is between 20-25%. ?Normal right ventricular cavity size and systolic function.?The left atrium is severely dilated.? The right atrium is?moderately dilated.?Significantly elevated right atrial pressure.? Severe pulmonary hypertension is present. - continue metoprolol + Imdur, changed enalapril to losartan 10/23/22, added spironolactone 10/24/22, change losartan to Entresto 10/25/22, also start empagliflozin 10 mg/d 10/25/22. norvasc added for better blood pressure control. Call to schedule follow up appointment with cardiology for outpatient ischemic work up # acute hypoxic resp failure # aspiration 10/23/[address] showing ground-glass attenuation, differential includes pulmonary edema pneumonitis. She was started on amp-sulbactam and will be transitioned to complete course of oral antibiotics. she was seen by speech and has been tolerating NDD3 diet. recommend to continue aspiration precautions. Recommend outpatient repeat imaging to ensure resolution. L scalp lac - stapled in ED 10/20, johnny removed 10/27 seen by PT - recommended home with PT. discussed with patient's daughter, patient did not do well at rehab on her last stay. She has a lot of [employer] hours and daughter prefers for her to return home with resumption of previous services. Time Spent with Patient Time attestation: Total time managing care of this patient today ____ minutes. Discharge coordination time: Greater than 30 minutes Quality: Safe Use of Opioids Does Pt have an Active Cancer Diagnosis on the Problem List?: No Quality: Stroke Does the patient have a stroke diagnosis?: No Physical Exam Vital Signs: Vital Signs: Last Vital Signs Temp 98.9 F 10/27/22 07:48 Pulse 68 10/27/22 10:21 Resp 20 10/27/22 07:48 BP 146/77 H 10/27/22 10:21 Pulse Ox 94 10/27/22 10:21 O2 Del Method Room Air 10/27/22 07:48 O2 Flow Rate 2 10/26/22 07:23 BMI result Body Mass Index 29.5 Const: General: cooperative, comfortable, no acute distress, alert and awake Nutritional Appearance: average body habitus Resp: Effort & Inspection: normal respiratory effort and able to speak in complete sentences Auscultation: clear to auscultation bilaterally Cardio: Rate: regular rate Heart sounds: S1 normal heart sound present and S2 normal heart sound present GI: Inspection: No distended Palpation (GI): Soft to palpation and nontender Neuro: General: CN's II-XI intact bilaterally Extrem: General: Yes no pedal edema DS: Data Data Completed and Pending Completed studies during hospitalization [Text1]: Procedures Insertion of Endotracheal Airway into Trachea, Via Natural or Artificial Opening (02/04/22) Respiratory Ventilation, Less than 24 Consecutive Hours (02/04/22) Imaging CT scan - chest: Radiologist's impression: ITS Impressions Head CT 10/20/22 19:12 IMPRESSION: Negative acute noncontrast CT of the brain. Atrophy and white matter ischemic changes are noted Chest X-Ray 10/20/22 20:05 IMPRESSION: Bilateral opacities may be developing areas of atelectasis or infiltrate. Vascular congestion would need to be considered. No overt failure Venous Duplex 10/20/22 21:50 IMPRESSION: No DVT demonstrated in the bilateral lower extremity. Chest CT 10/20/22 22:55 IMPRESSION: 1. Mosaic attenuation appearance of the lungs with groundglass opacification of much of the parenchyma. This appearance can be seen with pulmonary edema or infectious/inflammatory etiologies. 2. Small bilateral pleural effusions. 3. Cardiomegaly. 4. Suspected borderline enlarged mediastinal lymph nodes, which may be reactive. 5. Coronary artery calcifications. Correlation with cardiac risk factors is recommended. Chest X-Ray 10/23/22 14:00 IMPRESSION: Increased bilateral interstitial markings likely nonspecific parenchymal inflammatory changes. No acute pneumonic infiltrate seen. Chest CT 10/25/22 13:35 IMPRESSION: Enlarged heart. Interval improvement in diffuse groundglass attenuation. Differential would include pulmonary edema and pneumonitis. Small bilateral pleural effusions, right greater than left. These appear improved from previous exam as well. Fleischner guidelines were followed. Discharge Plan Discharge Anticipated Discharge Date/Time: 10/27/22 12:00 Patient Disposition: Home Health Service Discharge Diagnosis: acute on chronic CHF aspiration scalp laceration Referrals: [facility] [Outside] - 1 Day (RESUMPTION OF CARE AND [facility] WILL PROVIDE HOME PHYSICAL THERAPY) Steve Barcenas MD [Physician] - 1 Week Dottie Simmons FNP [Primary Care Provider] - 1 Week Discharge Medications: New amlodipine 2.5 mg Tablet 2.5 mg PO DAILY 30 Days Qty: 30 0RF Protocol: Hold for SBP< HOLD for SBP < : 90 Entresto 49-51 mg Tablet 1 tab PO BID 30 Days Qty: 60 0RF Protocol: Hold for SBP< HOLD for SBP < : 90 spironolactone 25 mg Tablet 25 mg PO DAILY 30 Days Qty: 30 0RF Protocol: Hold for SBP< HOLD for SBP < : 90 furosemide 40 mg Tablet 40 mg PO BID@0900,1800 30 Days Qty: 60 0RF Protocol: Hold for SBP< HOLD for SBP < : 90 Jardiance 10 mg Tablet 10 mg PO DAILY 30 Days Qty: 30 0RF amoxicillin-pot clavulanate 875-125 mg tablet 1 tab PO BID 3 Days Qty: 6 0RF Continued atorvastatin 40 mg tablet 1 tab PO BEDTIME isosorbide mononitrate 30 mg tablet extended release 24 hr 1 tab PO QAM metoprolol succinate 100 mg tablet extended release 24 hr 1 tab PO DAILY clopidogrel 75 mg tablet 1 tab PO DAILY levetiracetam 250 mg Tablet 750 mg PO BID Qty: 60 0RF levetiracetam [Keppra] 250 mg Tablet 250 mg PO BID trazodone 50 mg tablet 25 mg PO BEDTIME PRN (Reason: Insomnia) Discontinued furosemide 40 mg tablet 1 tab PO DAILY enalapril maleate 20 mg tablet 1 tab PO BID Discharge Orders: Discharge Order (Routine); Ordered 10/27/22 Ordered By: Stephanie Randle Diet: Low salt diet Activity on Discharge: As tolerated Stand Alone Forms: Patient Portal Discharge page Care Plan Goals: see below Health Concerns: acute on chronic heart failure aspiration scalp laceration Plan of Treatment: multiple changes to medications- dose of Lasix increased to 40 mg twice daily Aldactone started Entresto started, enalapril discontinued jardiance started low dose norvasc started complete course of antibiotics as prescribed call to schedule follow up appointment with PCP and with cardiology for outpatient ischemic work up speech therapy has recommended chopped diet with regular liquids. continue low sodium diet. monitor weight daily. if gain 3 or more pounds in one day call PCP consider outpatient repeat chest imaging to ensure resolution will be discharged home to resume previous [facility] services Assessment: see discharge summary Discharge Date/Time: 10/27/22 15:20
--- NOTE | 2022-10-27 12:24 | MHC.CM.PN ---
PT MEDICALLY CLEARED FOR D/C HOME W/RESUMP OF BIDAILY SCANNING SUPERVISOR, REH FOR SN AND [facility] WILL PROVIDE HOME PTT, DTR PERNELL AND SCANNING SUPERVISOR TO SALESPERSON FURNITURE PT AT APPROX 2PM.
[2022-10-27] MEDS: Acetaminophen 325 MG TABLET 650 MG PO (12:25)
== END 2022-10-27 15:20 | disposition home health service (06) | DRG 291 ==
LOC: HO.ED 22:45 → HO.EDOVER 23:59 → HO.IMC 10-21 00:15
PROVIDERS: Family Medicine; Nurse Practitioner Family; Physician Assistant; Admitting Provider Student in an Organized Health Care Education/Training Program; Emergency Provider Internal Medicine; PCP Registered Nurse; Visit Provider Physician Assistant Medical
DX: I11.0 Hypertensive heart disease with heart failure (principal); I50.43 Acute on chronic combined systolic (congestive) and diastolic (congestive) heart failure; J96.01 Acute respiratory failure with hypoxia; J69.0 Pneumonitis due to inhalation of food and vomit; I47.20 Ventricular tachycardia, unspecified; S01.01XA Laceration without foreign body of scalp, initial encounter; I42.9 Cardiomyopathy, unspecified; I25.10 Atherosclerotic heart disease of native coronary artery without angina pectoris; I27.20 Pulmonary hypertension, unspecified; W19.XXXA Unspecified fall, initial encounter; E78.2 Mixed hyperlipidemia; G40.909 Epilepsy, unspecified, not intractable, without status epilepticus; Z79.02 Long term (current) use of antithrombotics/antiplatelets; Z79.899 Other long term (current) drug therapy
CPT/HCPCS: 36415; 70450; 71045; 71046; 71250; 80048; 83735; 83880; 84145; 84484; 85025; 85379; 85610; 92610; 93005; 93306; 93970; 97110; 97162; 99285; J0295; J1650; J1940; Q9957

== ENCOUNTER 2023-04-10 14:56 | Outpatient (AMB) | payer OTHER, SELFPAY ==
--- NOTE | 2023-04-10 14:57 | MHC.OFFVIS ---
Intake Intake Visit Reasons: ov- OA of right knee last inject 06/23/22 Intake Note: Angelica is an 81 year old right hand dominant Yemeni speaking female who presents today with daughter and SENIOR WINDOWS SYSTEMS ADMINISTRATOR for an evaluation of right knee pain. Patient reports her last injection gave her one month of relief. She states she wants her knee to be checked first before she decides to get another injection. Allergies No Known Allergies Allergy (Verified 04/10/23 15:02) HPI ov- OA of right knee last inject 06/23/22 HPI Details 82-year-old right hand dominant female, who is Yemeni speaking, presents in the office today with her daughter and SENIOR WINDOWS SYSTEMS ADMINISTRATOR for a follow up of right knee osteoarthritis. The patient had a cortisone injection in the right knee on 06/23/2022. She claims the injection gave her one month of relief. She would like for her knee to be checked before she decides if she wants another injection. 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 No ecchymosis, erythema, or joint effusion. No tenderness to palpation to the medial or lateral joint lines. Full knee extension and flexion. Crepitus felt with ROM. NVI. Office Procedures Joint Injection/Drain Joint Injection/Drain Primary Site: right knee Prep: site was prepped using aseptic technique, ethochloride spray was applied and injection warnings given Injected: 80 mg of, DepoMedrol and with 8 mL of (2% plain lido ) Procedure: The patient tolerated the procedure well, but had some pain with the injection and there was some relief with the local anesthesia Coding - Large joint Procedure code (CPT) selection complete Results Reviewed Results Reviewed: 04/10/23 15:04 Lidocaine HCl 2 % MPF [Xylocaine 2 % MPF] 5 ml .ROUTE .STK-MED ONE methylPREDNISolone acetate [DEPO-MedroL] 80 mg .ROUTE .STK-MED ONE Assessment & Plan Assessment & Plan (1) Osteoarthritis of right knee: Code(s): M17.11 - Unilateral primary osteoarthritis, right knee Qualifiers: Osteoarthritis type: unspecified Qualified Code(s): M17.11 - Unilateral primary osteoarthritis, right knee Plan Ms. Villareal is an 82-year-old right hand dominant female, who is Yemeni speaking, presents in the office today with her daughter and SENIOR WINDOWS SYSTEMS ADMINISTRATOR for a follow up of right knee osteoarthritis. The patient had a cortisone injection in the right knee on 06/23/2022. She claims the injection gave her one month of relief. She would like for her knee to be checked before she decides if she wants another injection. The patient was offered a cortisone injection in the right knee with 80 mg of DepoMedrol. The patient was explained the risk, benefits, and alternatives to receiving this injection. After receiving consent for the injection, the patient had the procedure done while in office today. The patient tolerated the procedure well with no complications. Follow up will be PRN, or sooner if needed. Patient Instructions: Scribed for Mona Hutson PA-C by Gely Garza medical library assistant, on 04/10/2023 at 3:07 pm, EST. Coding Level of Care Code Est Pt Level 3 (15838) Diagnoses Osteoarthritis of right knee, unspecified osteoarthritis type M17.11 Osteoarthritis type: unspecified CPT Codes Coding - Large joint: 16594 - Large joint ([id number])
== END 2023-04-10 15:37 | disposition home or self-care (01) ==
PROVIDERS: PCP Registered Nurse; Visit Provider Physician Assistant
DX: M17.11 Unilateral primary osteoarthritis, right knee (principal)
CPT/HCPCS: 20610; 99213

== ENCOUNTER → 2023-04-10 14:56 | Outpatient (BNVA) | payer OTHER, SELFPAY | PROVIDERS: PCP Registered Nurse; Visit Provider Physician Assistant | DX: M17.11 Unilateral primary osteoarthritis, right knee (principal) | CPT/HCPCS: 20610; 99212; J1040 ==

== ENCOUNTER 2023-08-15 11:36 | Outpatient (REF) | payer OTHER, SELFPAY ==
[2023-08-15 13:07] LABS: MANUAL DIFF FLAG NO
[2023-08-15 13:29] LABS: Basophils Percent Auto 0.4 % (0-2); Eosinophils Absolute Auto 0.1 X10*3/uL (0.0-0.4); Eosinophils Percent Auto 2.4 % (0-4); Hematocrit 43.4 % (37.0-47.0); Hemoglobin 13.7 g/dl (12.0-16.0); Imm Gran Abs Auto 0.01 X10*3/uL (0.00-0.03); Imm Gran Pct Auto 0.2 % (0.0-0.4); Lymphocytes Absolute Auto 1.1 X10*3/uL (1.2-4.9); Lymphocytes Percent Auto 22.7 % (20-40); Mean Corpuscular HGB Conc 31.6 g/dl (31.0-35.0); Mean Corpuscular Hemoglobin 29.9 pg (27.0-33.0); Mean Corpuscular Volume 94.8 fL (80.0-98.0); Mean Platelet Volume 10.6 fL (9.4-12.3); Monocytes Absolute Auto 0.4 X10*3/uL (0.1-1.2); Monocytes Percent Auto 8.6 % (2-11); Neutrophils Absolute Auto 3.1 x10*3/uL (2.0-8.3); Neutrophils Percent Auto 65.7 % (45-73); Platelet Count 223 X10*3/uL (160-400); Red Blood Count 4.58 X10*6/uL (4.20-5.50); Red Cell Distribution Width 12.3 % (11.0-16.0); White Blood Count 4.7 X10*3/uL (4.8-10.8)
[2023-08-15 15:09] LABS: Alanine Aminotransferase 156 U/L (0-31); Albumin Level 3.9 g/dL (3.5-5.0); Alkaline Phosphatase 268 U/L (39-117); Anion Gap 11 (12-20); Aspartate Amino Transferase 176 U/L (5-31); Bilirubin Total 0.6 mg/dL (0.0-1.0); Blood Urea Nitrogen 19 mg/dL (9-16); Calcium 10.1 mg/dL (8.4-10.2); Carbon Dioxide 29 mmol/L (22-29); Chloride 103 mmol/L (96-108); Cholesterol 150 mg/dL (<200); Estimated Glomerular Filt Rate 49; Glucose Random 171 mg/dL (60-115); HDL Cholesterol 65 mg/dL (>40); Iron 136 mcg/dL (30-160); LDL Cholesterol Calculated 71 mg/dL (<100); Percent Iron Saturation 43 % (15-50); Potassium 3.3 mmol/L (3.3-5.1); Sodium 140 mmol/L (135-145); Total Iron Binding Capacity 314 mcg/dL (228-428); Total Protein 7.7 g/dL (6.5-8.0); Triglycerides 74 mg/dL (<150); Unsaturated Iron Binding 178 ug/dL
[2023-08-15 15:17] LABS: Ferritin 203 ng/mL (10-250)
== END 2023-08-15 11:37 | disposition home or self-care (01) ==
LOC: HO.HHCL 11:36
PROVIDERS: Visit Provider Registered Nurse
DX: I10 Essential (primary) hypertension (principal); Z86.2 Personal history of diseases of the blood and blood-forming organs and certain disorders involving the immune mechanism
CPT/HCPCS: 36415; 80053; 80061; 82728; 83540; 85025

== ENCOUNTER 2023-09-21 09:23 | Outpatient (REF) | payer OTHER, SELFPAY ==
--- NOTE | ~2023-09-21 | US_ITS ---
EXAMINATION: US ABDOMEN LIMITED CLINICAL INFORMATION: Elevated liver enzymes. COMPARISON: None available. TECHNIQUE: Real-time imaging of the right upper quadrant abdominal viscera. FINDINGS: PANCREAS: Normal. LIVER: Normal. The liver is normal in size. The liver contour is normal. Parenchymal echogenicity is normal. No focal hepatic lesion. There is no intrahepatic biliary duct dilatation seen. GALLBLADDER: Normal. The gallbladder is physiologically distended without evidence of stones, sludge, polyps, wall thickening or pericholecystic fluid. COMMON BILE DUCT: Normal in caliber measuring 0.3 cm in diameter. RIGHT KIDNEY: Normal. No hydronephrosis. No renal calculi or focal parenchymal lesions. The kidney measures 9.9 cm in maximum dimension. FREE FLUID: None. US/US abdomen limited IMPRESSION: Unremarkable examination.
== END 2023-09-21 09:24 | disposition home or self-care (01) ==
LOC: HO.US 09:23
PROVIDERS: PCP Registered Nurse; Visit Provider Registered Nurse
DX: R74.8 Abnormal levels of other serum enzymes (principal)
CPT/HCPCS: 76705

== ENCOUNTER 2023-11-02 09:30 | Outpatient (REF) | payer OTHER, SELFPAY ==
[2023-11-02 11:19] LABS: MANUAL DIFF FLAG NO
[2023-11-02 11:35] LABS: Basophils Percent Auto 0.2 % (0-2); Eosinophils Absolute Auto 0.2 X10*3/uL (0.0-0.4); Eosinophils Percent Auto 3.1 % (0-4); Hemoglobin 13.5 g/dl (12.0-16.0); Imm Gran Abs Auto 0.01 X10*3/uL (0.00-0.03); Imm Gran Pct Auto 0.2 % (0.0-0.4); Lymphocytes Absolute Auto 1.3 X10*3/uL (1.2-4.9); Lymphocytes Percent Auto 25.8 % (20-40); Mean Corpuscular HGB Conc 32.1 g/dl (31.0-35.0); Mean Corpuscular Hemoglobin 30.3 pg (27.0-33.0); Mean Corpuscular Volume 94.4 fL (80.0-98.0); Mean Platelet Volume 11.2 fL (9.4-12.3); Monocytes Absolute Auto 0.5 X10*3/uL (0.1-1.2); Monocytes Percent Auto 9.2 % (2-11); Neutrophils Percent Auto 61.5 % (45-73); Platelet Count 193 X10*3/uL (160-400); Red Blood Count 4.45 X10*6/uL (4.20-5.50); Red Cell Distribution Width 12.5 % (11.0-16.0); White Blood Count 4.9 X10*3/uL (4.8-10.8)
[2023-11-02 11:59] LABS: Alanine Aminotransferase 122 U/L (0-31); Albumin Level 3.8 g/dL (3.5-5.0); Alkaline Phosphatase 246 U/L (39-117); Aspartate Amino Transferase 145 U/L (5-31); Bilirubin Direct 0.3 mg/dL (0.0-0.5); Bilirubin Total 0.6 mg/dL (0.0-1.0); Total Protein 7.8 g/dL (6.5-8.0)
[2023-11-03 05:07] LABS: HBS Num1 0.47 mIU/mL (0-7.99); HBc Num1 0.13 S/CO (0.00-0.79); HBsAGNum1 0.21 S/CO (0.00-0.99); Hepatitis A Antibody IgM 0.82 Index (0-0.79); Hepatitis B Core Antibody Nonreactive (Nonreactive); Hepatitis B Surface Antigen Negative (Negative); ~HepC Num1 0.18 S/CO (0.00-0.79); ~Hepatitis A Antibody IgM GRAYZONE (Nonreactive); ~Hepatitis B Surface Antibody NONREACTIVE (Nonreactive); ~Hepatitis C Antibody Nonreactive (Nonreactive)
== END 2023-11-02 09:31 | disposition home or self-care (01) ==
LOC: HO.HHCL 09:30
PROVIDERS: Visit Provider Registered Nurse
DX: R74.8 Abnormal levels of other serum enzymes (principal)
CPT/HCPCS: 36415; 80076; 85025; 86704; 86706; 86709; 86803; 87340

== ENCOUNTER 2024-01-03 17:40 | Outpatient (REF) | payer OTHER, SELFPAY ==
[2024-01-03 19:00] LABS: Bacterial Vaginosis PCR NEGATIVE (Negative); Candida Group PCR DETECTED (Not Detect); Candida glab krusei PCR NOT DETECTED (Not Detect); Trichomonas vaginalis PCR NOT DETECTED (Not Detect)
== END 2024-01-03 17:41 | disposition home or self-care (01) ==
LOC: HO.LNP 17:40
PROVIDERS: Visit Provider Internal Medicine
DX: N76.1 Subacute and chronic vaginitis (principal)
CPT/HCPCS: 0352U

== ENCOUNTER 2024-01-18 13:04 | Outpatient (AMB) | payer OTHER, SELFPAY ==
--- NOTE | 2024-01-18 13:14 | MHC.OFFVIS ---
Intake Visit Reasons: Inj-OA of right knee last inject 04/10/23 Intake Note: Angelica is an 81 year old right hand dominant Azeri speaking female who presents today with daughter and CLASSIFICATION CASE MANAGER for a repeat of her right knee injection. Last injection was on 04/10/23 and gave her relief up until this past month. Allergies No Known Allergies Allergy (Verified 01/18/24 13:17) HPI HPI Inj-OA of right knee last inject 04/10/23: Details: 83-year-old right hand dominant female, who is?Azeri speaking, presents in the office today for a follow-up of right knee OA. The patient was last seen in the office on 04/10/2023 when she received a cortisone injection. ? ? While in the office today, the patient reports the last cortisone injection gave her relief until a month ago. ? ? Patient is accompanied in the office today by her daughter and CLASSIFICATION CASE MANAGER. ? 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 No ecchymosis, erythema, or joint effusion. No tenderness to palpation to the medial or lateral joint lines. Full knee extension and flexion. Crepitus felt with ROM. NVI. Office Procedures Joint Injection/Aspiration Joint Injection/Aspiration Primary Site: right knee Prep: site was prepped using aseptic technique, ethochloride spray was applied and injection warnings given Injected: 80 mg of, DepoMedrol, with 8 mL of (2% plain lido ) and in the joint Procedure: The patient tolerated the procedure well, but had some pain with the injection and there was some relief with the local anesthesia Coding - Large joint Procedure code (CPT) selection complete Assessment & Plan Assessment & Plan (1) Osteoarthritis of right knee: Code(s): M17.11 - Unilateral primary osteoarthritis, right knee Category: Medical Qualifiers: Osteoarthritis type: unspecified Qualified Code(s): M17.11 - Unilateral primary osteoarthritis, right knee Plan Ms. Mono Villareal is an 83-year-old right hand dominant female, who is?Azeri speaking, presents in the office today for a follow-up of right knee OA. The patient was last seen in the office on 04/10/2023 when she received a cortisone injection. ? ? While in the office today, the patient reports the last cortisone injection gave her relief until a month ago. ? ? Patient is accompanied in the office today by her daughter and CLASSIFICATION CASE MANAGER.? ? The patient was offered a cortisone injection in the right knee with 80 mg of DepoMedrol. The patient was explained the risk, benefits, and alternatives to receiving this injection. After receiving consent for the injection, the patient had the procedure done while in the office today. The patient tolerated the procedure well with no complications. Follow-up will be PRN, or sooner if needed.? Patient Instructions: Scribed by Gely Garza medical assistant instructor, for Mona Hutson PA-C on 01/18/2024 at 1:22 pm, EST.? Coding Level of Care Code Est Pt Level 3 (17544) Diagnoses Osteoarthritis of right knee, unspecified osteoarthritis type M17.11 Osteoarthritis type: unspecified CPT Codes Coding - Large joint: 50508 - Large joint ([id number])
== END 2024-01-18 13:25 | disposition home or self-care (01) ==
PROVIDERS: PCP Registered Nurse; Visit Provider Physician Assistant
DX: M17.11 Unilateral primary osteoarthritis, right knee (principal)
CPT/HCPCS: 20610; 99213

== ENCOUNTER → 2024-01-18 13:04 | Outpatient (BNVA) | payer OTHER, SELFPAY | PROVIDERS: PCP Registered Nurse; Visit Provider Physician Assistant | DX: M17.11 Unilateral primary osteoarthritis, right knee (principal) | CPT/HCPCS: 20610; 99212; J1010 ==

== ENCOUNTER 2024-02-29 14:09 | Outpatient (REF) | payer OTHER, MEDICAID, SELFPAY ==
[2024-02-29 18:00] LABS: Alanine Aminotransferase 37 U/L (0-31); Albumin Level 3.8 g/dL (3.5-5.0); Alkaline Phosphatase 125 U/L (39-117); Aspartate Amino Transferase 46 U/L (5-31); Bilirubin Direct 0.3 mg/dL (0.0-0.5); Bilirubin Total 0.5 mg/dL (0.0-1.0); Total Protein 7.5 g/dL (6.5-8.0)
[2024-03-01 03:07] LABS: CT PCR NOT DETECTED (Not Detect.); NG PCR NOT DETECTED (Not Detect.)
[2024-03-01 08:27] LABS: Bacterial Vaginosis PCR NEGATIVE (Negative); Candida Group PCR DETECTED (Not Detect); Candida glab krusei PCR NOT DETECTED (Not Detect); Trichomonas vaginalis PCR NOT DETECTED (Not Detect)
== END 2024-02-29 14:10 | disposition home or self-care (01) ==
LOC: HO.CHCLDS 14:09
PROVIDERS: Visit Provider Registered Nurse
DX: N94.9 Unspecified condition associated with female genital organs and menstrual cycle (principal); R79.89 Other specified abnormal findings of blood chemistry; Z20.2 Contact with and (suspected) exposure to infections with a predominantly sexual mode of transmission
CPT/HCPCS: 0352U; 80076; 87491; 87591

== ENCOUNTER 2024-03-12 12:52 | Outpatient (REF) | payer OTHER, SELFPAY ==
--- NOTE | ~2024-03-12 | XR_ITS ---
EXAMINATION: XR LUMBAR SPINE 3 VIEWS CLINICAL INFORMATION: Chronic low back pain. Patient states fall and pain in back for a while. COMPARISON: XR Lumbar spine 11/15/2021 TECHNIQUE: AP and lateral views of the lumbar spine and lateral view of the lumbosacral junction. FINDINGS: Right convexity lumbar scoliosis with apex at L3-L4. Severe degenerative disc disease from L3 to S1 with loss of intervertebral disc height and marginal osteophytes, predominantly involving L5-S1 and L4-L5. No acute fracture. Vertebral body heights are maintained. Sagittal alignment is anatomic. Imaged portions of the sacroiliac joints are normal. Paraspinal tissues are unremarkable. Aortoiliac calcifications noted. XR/XR lumbar spine 2-3V IMPRESSION: 1. No acute fracture or malalignment. 2. Severe degenerative disc disease from L3 to S1. Electronically signed by: Letty Sifuentes DO 05/26/2024 09:16 AM [facility]
== END 2024-03-12 12:53 | disposition home or self-care (01) ==
LOC: HO.XRAY 12:52
PROVIDERS: PCP Registered Nurse; Visit Provider Registered Nurse
DX: M54.50 Low back pain, unspecified (principal)
CPT/HCPCS: 72100

== ENCOUNTER 2024-03-26 08:32 | Outpatient (REF) | payer OTHER, SELFPAY ==
--- NOTE | ~2024-03-26 | US_ITS ---
EXAMINATION: US COMPLETE ABDOMEN WITH LIVER ELASTOGRAPHY CLINICAL INFORMATION: 83 y/o F with elevated LFT, check US with elastography COMPARISON: Ultrasound abdomen 09/21/2023, CT chest 10/25/2022 TECHNIQUE: Real-time imaging of the abdominal viscera. Noninvasive ultrasound liver fibrosis assessment is performed using Keisha ElastPQ point quantification shear wave elastography (pSWE) with a C5-2 MHz transducer. Multiple elastography samples are obtained. FINDINGS: PANCREAS: The visualized pancreatic head and body are normal in appearance. The remainder of the pancreas is obscured from visualization by the overlying bowel gas. ABDOMINAL AORTA: The proximal, middle, and distal aortic segments are normal in caliber. INFERIOR VENA CAVA: Visualized portions are normal. LIVER: The liver demonstrates normal size, contour and echogenicity. No focal lesion or intrahepatic biliary duct dilatation. The right lobe measures 13.5 cm in length. The left lobe measures 10.3 cm in length. Portal flow is towards the liver (hepatopetal). Shear wave liver elastography median stiffness is 1.36 m/s (reference: normal median stiffness is 1.3 m/s or less). IQR/median stiffness to assess sampling precision is 0.05 (reference: good quality data set is IQR/median stiffness of 0.15 or less). GALLBLADDER: The gallbladder is physiologically distended without evidence of stones, sludge, polyps, wall thickening or pericholecystic fluid. COMMON BILE DUCT: Normal in caliber measuring 0.3 cm in diameter. RIGHT KIDNEY: No hydronephrosis. No renal calculi or focal parenchymal lesions. The kidney measures 10.3 cm in maximum dimension. LEFT KIDNEY: No hydronephrosis. No renal calculi or focal parenchymal lesions. The kidney measures 11.1 cm in maximum dimension. SPLEEN: Unremarkable. The spleen measures 10.8 cm in maximum dimension. FREE FLUID: None. US/US abdomen comp w elastography IMPRESSION: 1. Normal appearing liver with normal echogenicity 2. Liver elastography: In the absence of other known clinical signs, measurements rule out compensated advanced chronic liver disease. If there are known clinical signs, further testing may be needed for confirmation. REFERENCE: Society of Radiologists in Ultrasound Liver Stiffness Thresholds (2019): LIVER STIFFNESS THRESHOLDS: *Liver Stiffness equal or less than 1.3 m/s: High probability of being normal. *Liver Stiffness less than 1.7 m/s: In the absence of other known clinical signs, rules out compensated advanced chronic liver disease. *Liver Stiffness 1.7-2.1 m/s: Suggestive of compensated advanced chronic liver disease but need further test for confirmation. *Liver Stiffness over 2.1 m/s: Rules in compensated advanced chronic liver disease. *Liver Stiffness over 2.4 m/s: Suggestive of clinically significant portal hypertension. QUALITY OF DATA SET: *IQR/Median value equal or less than 0.15 implies a quality data set. *IQR/Median value over 0.15 implies a poor quality data set. SIGNIFICANT CHANGE FROM PRIOR EXAM: Significant change if liver stiffness measurement is 10% or greater from prior exam. OTHER CONSIDERATIONS: The stage of liver fibrosis may be overestimated in the setting of acute hepatitis, liver inflammation, elevated liver function tests, hepatic vascular congestion, obstructive cholestasis, non-fasting state, and infiltrative diseases such as amyloidosis and lymphoma. In some patients with NAFLD, the liver stiffness thresholds for compensated advanced chronic liver disease may be lower. In causes other than viral hepatitis and NAFLD, liver stiffness thresholds are not well established. Electronically signed by: Brandon Pardo MD 05/24/2024 11:48 AM [facility]
== END 2024-03-26 08:33 | disposition home or self-care (01) ==
LOC: HO.US 08:32
PROVIDERS: PCP Registered Nurse; Visit Provider Registered Nurse
DX: R79.89 Other specified abnormal findings of blood chemistry (principal)
CPT/HCPCS: 76700; 76981

== ENCOUNTER → 2024-07-15 13:27 | Outpatient (BNVA) | payer OTHER, SELFPAY | PROVIDERS: PCP Registered Nurse; Visit Provider Physician Assistant | DX: M17.11 Unilateral primary osteoarthritis, right knee (principal) | CPT/HCPCS: 20610; 99212; J1010; J2003 ==

== ENCOUNTER 2025-05-13 12:48 | Outpatient (AMB) | payer OTHER, SELFPAY ==
--- NOTE | 2025-05-13 12:53 | A.OFFVIS_ITS ---
Intake Visit Reasons: Follow up Pumping Station Supervisor Required: Yes Pumping Station Supervisor Name: #[id number] Accompanied by: Family/Other Allergies No Known Allergies Allergy (Verified 05/13/25 13:29) Medication List - Last Reconciled 05/13/25 by Odalys Lanza CNP amlodipine 2.5 mg See Protocol PO DAILY 30 days amoxicillin-pot clavulanate 875-125 mg 1 tab PO BID 3 days atorvastatin 1 tab PO BEDTIME clopidogrel 1 tab PO DAILY diclofenac sodium 1% grams topical BID-TID PRN empagliflozin (Jardiance) 10 mg PO DAILY 30 days furosemide 40 mg See Protocol PO BID@0900,1800 30 days isosorbide mononitrate ER 1 tab PO QAM levetiracetam 1,000 mg PO metoprolol succinate ER 1 tab PO DAILY quetiapine 25 mg PO BEDTIME 30 days sacubitril-valsartan 49-51 mg (Entresto) 1 tab See Protocol PO BID 30 days sertraline 25 mg PO DAILY 30 days spironolactone 25 mg See Protocol PO DAILY 30 days HPI Comments Details: 84-year-old woman with degenerative plus vascular dementia, and generalized seizure disorder. She was noted to have episodes of attacks causing convulsions. She was here with her granddaughter and PEDIATRIC DENTAL HYGIENIST. She was taking levetiracetam twice a day, no attacks or seizures. She was sometimes seeing things that were not there. She could be agitated at times, becoming verbally aggressive and abusive. Sleep at night was not so good, especially over the last 3 weeks. Motivation was not so good, and she did not want to do much. Most of the time she wanted to lay down and was napping often during the day. Family was asking for formal neuropsych testing. [facility] Medical History (Updated 05/13/25 @ 13:42 by Odalys Lanza CNP) Depression Multifactorial dementia Cardiomyopathy Epilepsy Cerebral infarction Encephalopathy Alzheimer dementia Cardiomyopathy Atherosclerotic cardiovascular disease Dyslipidemia Seizure disorder Essential hypertension Family History Mother Myocardial infarction Social History Household Members: Children Housing: Apartment Do you presently have visiting nurse or other home services: No Alcohol intake: never Patient Tobacco Use Status: Never used Tobacco Advance Directives Date on File: 02/04/22 service: No Current occupational status: retired and disabled 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 Review of Systems Const Denies chills, Denies daytime sleepiness, Reports difficulty sleeping, Denies fatigue, Denies fever(s), Denies frequent falls, Denies headache(s), Denies increased appetite, Denies poor appetite, Denies snoring, Denies weakness, Denies weight gain and Denies weight loss Eyes Denies loss of vision ENT Denies vertigo, Denies dizziness and Denies headache(s) Card Denies chest pain at rest, Denies chest pain with activity, Denies syncope, Denies leg edema and Denies palpitations Resp Denies snoring GI Denies constipation, Denies heartburn, Denies diarrhea and Denies nausea Denies urinary frequency, Denies urinary incontinence and Denies urinary urgency Musc Reports abnormal gait (balance difficulty), Denies numbness and Denies tingling Skin/Breast Denies dry skin and Denies rash Neuro Reports abnormal gait (balance difficulty), Denies vertigo, Denies dizziness, Denies syncope, Denies frequent falls, Denies headache(s), Denies lack of coordination, Denies loss of vision, Reports memory loss, Denies numbness, Denies restless legs, Denies seizure-like activity, Denies tingling, Denies paresthesias, Denies tremor(s) and Denies weakness Psych Reports anxiety, Reports depression, Reports auditory hallucinations, Reports memory loss, Reports visual hallucinations and Denies suicidal ideation Endo Denies fatigue and Denies palpitations Physical Exam Const Other: General Appearance:? normal, in no acute distress. Skin:? no rashes, no significant birthmarks. Heart:? S1, S2 normal, no murmurs. Lungs:? clear anteriorly and posteriorly. Extremities:? no edema. Psych:? alert, cooperative with exam. Neuro Other: Mental Status:?Alert and awake with normal affect. Cranial Nerves:?Pupils are equal, round and reactive to light. External occular muscles are intact. Visual fung are full. Face is symmetrical. Facial sensations are normal. Tongue is midline. Palate elevates symmetrically. Shoulder shrugging is normal. Hearing to bedside conversation is normal. Motor Examination:?DTRs absent. Sensory Exam:?....? Coordination:?No ataxia,?no titubation.? Gait Exam: In wheelchair. Cerebellar Signs:?[id number] is okay. Extrapyramidal System:?No tremor, rigidity with normal facial expressions.? Pronator Drift:?Not present.? Involuntary Movements:?No tremors seen.? Speech:?Normal.? Results Reviewed Results Reviewed: CT brain WO at [facility] in October 2022: mod severe atrophy, chronic right frontal infarct, MVD NICS at [facility] in Jul 2022: [place] MRI brain WO at [facility] in 2021: same as CT Echocardiogram at [facility] in October 2022: EF 20-25%. Assessment & Plan Assessment & Plan (1) Epilepsy: Code(s): G40.909 - Epilepsy, unspecified, not intractable, without status epilepticus Category: Medical Qualifiers: Epilepsy type: unspecified Intractability: not intractable Status epilepticus: without status epilepticus Qualified Code(s): G40.909 - Epilepsy, unspecified, not intractable, without status epilepticus Plan: Continue levetiracetam 1000mg 1 tablet twice a day. (2) Alzheimer dementia: Code(s): G30.9 - Alzheimer's disease, unspecified; F02.80 - Dementia in other diseases classified elsewhere, unspecified severity, without behavioral disturbance, psychotic disturbance, mood disturbance, and anxiety Category: Medical Qualifiers: Alzheimer's disease onset: unspecified onset Dementia behavioral or psychological symptom: with mood disturbance Dementia severity: unspecified severity Qualified Code(s): G30.9 - Alzheimer's disease, unspecified; F02.83 - Dementia in other diseases classified elsewhere, unspecified severity, with mood disturbance Plan: Increase sertraline 50mg 1 tablet daily. Increase quetiapine 25mg 2 tablets at bedtime and 1 tablet daily as needed for agitation. She was advised to avoid napping during the day. Stay physically and socially active. Referral for neuropsych testing placed per family request. Follow up in 3 months or sooner as needed. (3) Multifactorial dementia: Code(s): F03.90 - Unspecified dementia, unspecified severity, without behavioral disturbance, psychotic disturbance, mood disturbance, and anxiety Category: Medical Plan Meds tried: trazodone Orders: Referrals Neuropsychiatry Referral F02.83 - Dementia in other diseases classified elsewhere, unspecified severity, with mood disturbance, F03.90 - Unspecified dementia, unspecified severity, without behavioral disturbance, psychotic disturbance, mood disturbance, and anxiety, F32.A - Depression, unspecified, G30.9 - Alzheimer's disease, unspecified Medications: New quetiapine 25 mg orally 2 tablets at bedtime and 1 tablet daily as needed for agitation; 90 tabs 5RF 30 days levetiracetam 1,000 mg PO BID 180 tabs 1RF 90 days sertraline 50 mg PO DAILY 90 tabs 1RF 90 days Discontinued quetiapine Discontinued Reason: Doctor's Order 25 mg PO BEDTIME 30 days 30 tabs 5RF sertraline Discontinued Reason: Doctor's Order 25 mg PO DAILY 30 days 30 tabs 1RF Coding Level of Care Code Est Pt Level 4 (99275) Diagnoses Nonintractable epilepsy without status epilepticus, unspecified epilepsy type G40.909 Epilepsy type: unspecified Intractability: not intractable Status epilepticus: without status epilepticus Alzheimer's dementia with mood disturbance, unspecified dementia severity, unspecified timing of dementia onset G30.9; F02.83 Alzheimer's disease onset: unspecified onset Dementia behavioral or psychological symptom: with mood disturbance Dementia severity: unspecified severity Multifactorial dementia F03.90
--- OUTSIDE RECORDS SUMMARY | 2025-05-13 15:04 | XMS_ITS | Encounter Summary ---
Author Organization [employer] [facility] Address [address] [place] [address] [address] [address] Care Team Providers Care Special Education Teacher Name Role Phone Dottie Simmons Primary Care Provider [phone] Reason for Visit * Reason Comments Med Refill Encounter Details Date Type Department Care Team (Late Contact Info) Description 03/12/2023 Refill [facility] MEDICINE [address] [place], [place] [phone] Stephanie Bolden MD [address] [place] [address] Other insomnia Social History Tobacco Use Types Packs/Day Years Used Date Smoking Tobacco: Never Smokeless Tobacco: Never Alcohol Use Standard Drinks/Week Comments Never 0 (1 standard drink = 0.6 oz pur e alcohol) Depression Answer Date Recorded Patient Health Questionnaire-9 Score 0 12/29/2022 Depression Answer Date Recorded Patient Health Questionnaire-2 Score 0 12/29/2022 Comments Unknown Sex and Gender Information Value Date Recorded Sex Assigned at Female 04/10/2022 10:40 AM EDT Legal Sex Female 10:40 AM EDT Gender Identity Female 04/10/2022 10:40 AM EDT Sexual Orientation Straight 04/10/2022 10 :40 AM EDT documented as of this encounter Plan of Treatment Upcoming Encounters Date Type Department Care Team (Late Contact Info) Description 05/15/2025 2:45 PM EST Office Visit [facility] CHC MED & PEDS [address] [place], [place] [phone] Dottie Simmons FNP [address] [place], [place] [phone] 07/01/2025 10:00 AM EST Office Visit [facility] OPTOMETRY [address] [place], [place] [phone] Darlene Fofana, OD [address] [place] [address] documented as of this encounter Visit Diagnoses Diagnosis Other insomnia documented in this encounter Additional Health Concerns Assessment Noted Time PHQ-9 Depression Total Score: 0 12/30/19 23 8:52 AM EDT documented as of this encounter Care Teams Special Education Teacher Relationship Specialty Start Date End Date Dottie Simmons FNP [address] [place] [address] PCP - General Family Medicine 11/30/21 documented as of this encounter
--- OUTSIDE RECORDS SUMMARY | 2025-05-13 15:04 | XMS_ITS | Data Portability ---
Author Organization [employer] [facility] Address [address] [place] [address] Care Team Providers Care Special Events Planner Name Role Phone HIM CCA OTHER Assessment Encounter Date Assessment Date Assessment LastModified by Organization Details LastModified Time 04/26/2024 04/26/2024 I have reviewed and agree with the assessment and plan as documented by the salvage diver. I provided real-time medical direction for this encounter and was immediately available to provide additional phone-based assistance as needed. History as noted in EMR and by salvage diver. I would add / emphasize: Patient seen for evaluation after fall yesterday while transferring from bed to commode with strike to left side including arm and chest. No head strike or neck strike or loss of consciousness per report. Fall seems mechanical without preceding lightheadedness or palpitations. Patient on Plavix and baby aspirin. Reporting discomfort at area of contusion to left mid axillary ribs. Able to take deep breath without difficulty or significant worsening of pain, saturating well on room air with unlabored respirations. Low suspicion for respiratory impairing rib fractures given clinical status. Will prescribe lidocaine ointment for discomfort, reviewed red flags that should prompt ED evaluation including worsening respiratory status, and have patient follow-up with primary care. pallfather Not available 04/27/2024 23:17:23 Plan of Treatment Reminders Order Date Submit Date Provider Last Modified By Organization Details Last Modified Time Details Appointments None recorded. Lab None recorded. Referral None recorded. Procedures None recorded. Surgeries None recorded. Imaging None recorded. Medication Orders lidocaine 5 % topical ointment 2023 024 [facility], [address] [place], [place], [phone], 10:30:45 Patient TargetsNo targets recorded. Patient InstructionsNo instructions recorded. Reason for Referral None Reported. Medical Equipment None Reported. Allergies No known drug allergies Medications Name Sig Start Date Stop Date Status Note LastModified by Organization Details LastModified Time medbox status USE DIRECTED active Not Available Not Available No t Available furosemide 40 mg tablet TAKE 1 TABLET BY MOUTH TWICE DAILY IN THE MORNING AND AT BEDTIME active Not Available Not Available No t Available atorvastatin 40 mg tablet TAKE 1 TABLET BY MOUTH AT BEDTIME active Not Available Not Available No t Available trazodone 50 mg tablet TAKE 1 TABLET BY MOUTH AT BEDTIME NEEDED FOR SLEEP active Not Available Not Available No t Available fluconazole 150 mg tablet TAKE 1 TABLET BY MOUTH ONCE. REPEAT IN 72 HOURS IF SYMPTOMS CONTINUE active Not Available Not Available No t Available isosorbide mononitrate ER 30 mg tablet,extend ed release 24 hr TAKE 1 TABLET BY MOUTH EVERY MORNING active Not Available Not Available No t Available metoprolol succinate ER 100 mg tablet,extend ed release 24 hr TAKE 1 TABLET BY MOUTH AT BEDTIME active Not Available Not Available No t Available amlodipine 2.5 mg tablet TAKE 1 TABLET BY MOUTH AT BEDTIME active Not Available Not Available No t Available clopidogrel 75 mg tablet TAKE 1 TABLET BY MOUTH EVERY MORNING active Not Available Not Available No t Available spironolacton e 25 mg tablet TAKE 1 TABLET BY MOUTH EVERY MORNING active Not Available Not Available No t Available amoxicillin 500 mg tablet TAKE 1 TABLET BY MOUTH THREE TIMES DAILY FOR 7 DAYS active Not Available Not Available No t Available benzonatate 100 mg capsule TAKE 1 CAPSULE BY MOUTH THREE TIMES DAILY IN THE MORNING, AT NOON, AND AT BEDTIME NEEDED FOR UP TO 7 DAYS DO NOT BREAK, CRUSH, DISSOLVE OR CHEW active Not Available Not Available No t Available Nyamyc 100,000 unit/gram topical powder APPLY TOPICALLY BETWEEN LEGS TWICE DAILY DIRECTED active Not Available Not Available No t Available levetiracetam 1,000 mg tablet TAKE 1 TABLET BY MOUTH TWICE DAILY IN THE MORNING AND AT BEDTIME active Not Available Not Available No t Available Triple Paste 12.8 % topical ointment APPLY VAGINALLY AFTER URINATION OR AFTER DE LIMPIAR NEEDED active Not Available Not Available No t Available diclofenac 1 % topical gel APPLY 4 GRAMS TOPICALLY 2 OR 3 TIMES DAILY NEEDED FOR JOINT PAIN active Not Available Not Available N ot Available lidocaine 5 % topical ointment APPLY TOPICALLY TO THE AFFECTED AREA(S) 1 TO FOUR TIMES DAILY NEEDED active Not Available Not Available No t Available Jardiance 10 mg tablet TAKE 1 TABLET BY MOUTH EVERY MORNING active Not Available Not Available No t Available Entresto 49 mg-51 mg tablet TAKE 1 TABLET BY MOUTH TWICE DAILY IN THE MORNING AND AT BEDTIME active Not Available Not Available No t Available Vitals Date Recorded Heart rate Oxygen saturation Body temperature Respiratory rate Systolic And Diastolic Provider Name and Address Organization Details Last Updated DateTime 4 58 /min 98 % 98.1 [degF] 14 /min 113/59 mm[Hg] Not Available [employer] - production 4 12:18:26 Social History None recorded. Functional Status None recorded. Mental Status None recorded. Family History Nothing Reported. Medical History No medical history recorded. Gynecological HistoryNo gynecological history recorded. Obstetrics History GPAL:G 0 P 0 0 0 0 Past Encounters Encounter ID Performer Location Encounter Start Date Encounter Closed Date Diagnosis/Indication Diagnosis SNOMED-CT Code Diagnosis ICD10 Code Diagnosis IMO Codes Diagnosis Note [id number] Benjamin Wheat MD Main - [address] [address] 04/26/2024 12:13:33 04/28/2024 16:37:19 Falls [id number] R29.6 Health Concerns Section Related Observation LastModified by Organization Detai ls LastModified Time None Recorded Concern Status LastModified by Organization Details LastModified Time None Recorded Advance Directives Directive None Recorded Payers Insurance Date Sequence Insurance Name Policy Number Policy Aguilar Covered Member ID Aguilar Member ID Guarantor Name 04/26/2024 1 [facility] - DOS ON OR AFTER 2022 - DUAL ELIGIBLE - NURSING HOME OPTIONS AND ONE CARE (MEDICARE REPLACEMENT/ADV ANTAGE - HMO) Angelica Villareal [id number] Angelica Villareal Notes Date Note Type Note Provider Name and Address Organization Details Recorded Time 04/26/2024 text/html [facility] Nurse Triage Notes (Abhishek Khan): Chief Complaints: Falls PMH: Hypertension, Epilepsy/Seizure Disorder, Dementia (e.g., Alzheimer's Disease) Comments: Nuclear Medicine Pet Ct Technologist verified the member's name//address and phone number. Pt & pt's daughter Romanian speaking primarily, sap integration architect# [id number] used for triage assessment. Pt's daughter reports mother fell yesterday, today pt noted to have bruises on left side and states they hurt when touched; daughter reports bruises are between pt's ribs and her back on L side of her body. Pt denies head strike, fell off commode hitting L side on rails of commode. (+) blood thinner use, pt takes Plavix and baby aspirin. Daughter states pt is ambulatory and otherwise at her baseline. Daughter reports pt has heart problems, but she is unable to further relate what kind of heart problems, states the doctor says it is weak due to her age . Education provided on the response time and the member was advised to monitor reported s/s and seek emergency treatment if needed -Mj Khan RN .................... .................... .................... .................... .................... .................... .................... . 3[employer]d Grade Reading Teacher Note From Rodger Louis: This 83-year-old female with a history including but not limited to dementia, hypertension, seizure disorder requested a visit today for pain management and x-rays. Patient states she fell yesterday at home while transferring from bed to commode and landed on the commode handle causing bruising to her left upper arm left rib cage, mid axillary. She denies any associated dizziness or lightheadedness and states she did not hit her head or lose consciousness. She is using Tylenol for pain and is unable to take NSAIDs due to being on a blood thinner. She denies any chest pain, shortness of breath, headache, blurry vision, dizziness.Patient presents awake and alert, in no acute distress. Stable vital signs, afebrile. Nonfocal neurological exam. Normal gait, with walker at baseline. Lungs are clear throughout auscultation. Abdomen is soft, nontender, nondistended. No lower extremity edema. Pictures of the contusion are left mid axillary ribs and left upper arm are uploaded.I explained to the patient and her daughter the limitations of our service. I provided education on the prescription and appropriate Tylenol dosing/frequency. I recommend she follows up with her primary care physician on Sunday to discuss the need for outpatient x-rays. I instructed her to present to the emergency department for any new or worsening symptoms such as chest pain, severe shortness of breath, high fever, altered mental status. Patient and her daughter were given the opportunity to ask questions and are agreeable to this plan. .................... .................... .................... .................... .................... .................... .................... . [facility] Consulted: Benjamin Wheat .................... .................... .................... .................... .................... .................... .................... . Disposition: Fulfilled Benjamin Wheat MD [address] [facility],[address], [place], [address], [employer] 04/27/2024 23:17:32 OBGyn Episode No OBEpisode recorded.
--- OUTSIDE RECORDS SUMMARY | 2025-05-13 15:04 | XMS_ITS | Encounter Summary ---
Author Organization [employer] Address [address] [facility] [address] [place] [address] Care Team Providers Care Windows Application Packager Name Role Phone Dottie Simmons Primary Care Provider [phone] Reason for Visit * Reason Onset Date Comments question 10/19/2022 Encounter Details Date Type Department Care Team ([facility] st Contact Info) Description 10/19/2022 Telephone [facility] MEDICINE [address] [place] [address] Dottie Simmons FNP [address] [place] [address] question Social History Tobacco Use Types Packs/Day Years Used Date Smoking Tobacco: Never Smokeless Tobacco: Never Alcohol Use Standard Drinks/Week Comments Never 0 (1 standard drink = 0.6 oz pur e alcohol) Comments Unknown Sex and Gender Information Value Date Recorded Sex Assigned at Female 04/10/2022 10:40 AM EDT Legal Sex Female 10:40 AM EDT Gender Identity Female 04/10/2022 10:40 AM EDT Sexual Orientation Straight 04/10/2022 10 :40 AM EDT COVID-19 Exposure Response Date Recorded In the last 10 days, have yo u been in contact with someone who was confirmed or suspected to have Coronavirus/COVID-19? No / Unsure 10/16/2022 12:56 PM EDT documented as of this encounter Miscellaneous Notes * Telephone Encounter - Waleska Momin RN - 10/20/2022 3:08 PM EDT Pt sister not on HIPAA. Cannot discuss pt care. * Telephone Encounter - Stalin Lugo - 10/19/2022 4:43 PM EDT Tc from sister requesting to speak to a nurse in regards to some concerns she is having about the pt. Please contact sister at [phone] Israeli Speaker documented in this encounter Plan of Treatment Upcoming Encounters Date Type Department Care Team (Late st Contact Info) Description 05/15/2025 2:45 PM EST Office Visit [facility] CHC MED & PEDS [address] [place] [address] Dottie Simmons FNP [address] [place] [address] 07/01/2025 10:00 AM EST Office Visit [facility] OPTOMETRY [address] [place] [address] Brigido, Darlene, OD [address] [place] [address] documented as of this encounter Visit Diagnoses Not on filedocumented in this encounter Care Teams Windows Application Packager Relationship Specialty Start Date End Date Dottie Simmons FNP [address] [place] [address] PCP - General Family Medicine 11/30/21 documented as of this encounter
--- OUTSIDE RECORDS SUMMARY | 2025-05-13 15:04 | XMS_ITS | Encounter Summary ---
Author Organization [employer] Address [address] 7 [place] [address] Care Team Providers Care Field Interviewer Name Role Phone Dottie Simmons Primary Care Provider [phone] Reason for Visit * Reason Onset Date Comments HDF 08/11/2022 Encounter Details Date Type Department Care Team ([facility] st Contact Info) Description 08/11/2022 Telephone [facility] MEDICINE [address] [place] [address] Dottie Simmons FNP [address] [place] [address] HDF Social History Tobacco Use Types Packs/Day Years [...] was confirmed or suspected to have Coronavirus/COVID-19? Unable to assess 08/08/2022 12:15 PM EST documented as of this encounter Miscellaneous Notes * Telephone Encounter - Stalin Lugo - 08/11/2022 2:34 PM EST HDF F/U (no symptoms) Patient hospitalized at [facility]. Patient was admitted on 08/07/2022 and discharged on 08/08/2022. The patient was diagnosed with Compulsion .Patient advised will forward to [facility] Nurses for follow up and appointment scheduling. Please contact daughter at [phone] documented in this encounter Plan of Treatment Upcoming Encounters Date Type Department Care Team (Late st Contact Info) Description 05/15/2025 2:45 PM EST Office Visit [facility] CHC MED & PEDS [address] [place], [place] [phone] Dottie Simmons FNP [address] [place] [address] 07/01/2025 10:00 AM EST Office Visit [facility] OPTOMETRY [address] [place] [address] Darlene Fofana, OD [address] [place] [address] documented as of this encounter Visit Diagnoses Not on filedocumented in this encounter Care Teams Field Interviewer Relationship Specialty Start Date End Date Dottie Simmons FNP [address] [place] [address] PCP - General Family Medicine 11/30/21 documented as of this encounter
--- OUTSIDE RECORDS SUMMARY | 2025-05-13 15:04 | XMS_ITS | Encounter Summary ---
Author Organization [employer] Address [address] [place] [address] 7 [place] [address] Care Team Providers Care Airport Operations Crew Member Name Role Phone Dottie Simmons Primary Care Provider [phone] Reason for Visit * Reason Onset Date Comments Appointment Request 03/19/2025 Encounter Details Date Type Department Care Team ([facility] Contact Info) Description 03/19/2025 Telephone [facility] CHC MED & PEDS [address] [place], [place] [phone] Dottie Simmons FNP [address] [place] [address] Appointment Request Social History Tobacco Use Types Packs/Day Years Used Date Smoking Tobacco: Never Smokeless Tobacco: Never Alcohol Use Standard Drinks/Week Comments Never 0 (1 standard drink = 0.6 oz pur e alcohol) Depression Answer Date Recorded Patient Health Questionnaire-9 Score 9 02/29/2024 Patient Health Questionnaire-9 Score 9 02/29/2024 Last PHQ-9: Questionnaire Data Not on file 0 02/29/2024 Housing Stability Answer Date Recorded What is your housing situation today? I have chano camara 02/29/[address] you li ve. Do you have problems with any of the following? None of the above 02/29/2024 Food Insecurity Answer Date Recorded Within the past 12 months, y ou worried that your food would run out before you got money to buy more: Never True 02/29/2024 Within the past 12 months,th e food you bought just didn't last and you didn't have enough money to get more: Never True Transportation Answer Date Recorded In the past 12 months, has l ack of transportation kept you from medical appts, meetings, work or from getting things needed for daily living? No 02/29/2024 Utilities Answer Date Recorded In the past 12 months, has t he electric, gas, oil or water company threatened to shut off services in your home? No 02/29/2024 Depression Answer Date Recorded Patient Health Questionnaire-2 Score 2 02/29/2024 Internet Access Answer Date Recorded Internet Access Q1 Yes 02/29/2024 Internet Access Q2 Not on file 02/29/2024 Comments Unknown Sex and Gender Information Value Date Recorded Sex Assigned at Female 04/10/2022 10:40 AM EDT Legal Sex Female 10:40 AM EDT Gender Identity Female 04/10/2022 10:40 AM EDT Sexual Orientation Straight 04/10/2022 10 :40 AM EDT documented as of this encounter Miscellaneous Notes * Telephone Encounter - Chris Marie - 03/19/2025 11:20 AM EDT Tc from pt requesting to schedule apt , pt on recall . Civil Preparedness Coordinator could not find availability , pt requesting a call back Contact pt at [phone] (ecuadorean) documented in this encounter Plan of Treatment Upcoming Encounters Date Type Department Care Team (Late st Contact Info) Description 05/15/2025 2:45 PM EST Office Visit [facility] CHC MED & PEDS [address] [place] [address] Dottie Simmons, PROGRAMMING SPECIALIST [address] [place] [address] 07/01/2025 10:00 AM EST Office Visit [facility] OPTOMETRY [address] [place] [address] Darlene Fofana, OD [address] [place] [address] documented as of this encounter Visit Diagnoses Not on filedocumented in this encounter Additional Health Concerns Assessment Noted Time PHQ-9 Depression Total Score: 9 02/29/20 24 4:55 PM EDT documented as of this encounter Care Teams Airport Operations Crew Member Relationship Specialty Start Date End Date Dottie Simmons FNP [address] [place] [address] PCP - General Family Medicine 11/30/21 documented as of this encounter
--- OUTSIDE RECORDS SUMMARY | 2025-05-13 15:04 | XMS_ITS | Encounter Summary ---
Author Organization [employer] [facility] Address [address] [place] [address] [address], [place] [address] Care Team Providers Care Funeral Director'S Assistant Name Role Phone Dottie Simmons Primary Care Provider [phone] Reason for Visit * Reason Comments Med Refill Encounter Details Date Type Department Care Team (Late Contact Info) Description 03/12/2023 Refill [facility] MEDICINE [address] [place], [place] [phone] MenaTegan FNP [address] [place] [address] Social History Tobacco Use Types Packs/Day Years [...] Description 05/15/2025 2:45 PM EST Office Visit [facility] CHC MED & PEDS [address] [place], [place] [phone] Dottie Simmons FNP [address] [place], [place] [phone] 07/01/2025 10:00 AM EST Office Visit [facility] OPTOMETRY [address] [place] [address] Darlene Fofana, OD [address] [place] [address] documented as of this encounter Visit Diagnoses Not on filedocumented in this encounter Additional Health Concerns Assessment Noted Time PHQ-9 Depression Total Score: 0 12/30/19 23 8:52 AM EDT documented as of this encounter Care Teams Funeral Director'S Assistant Relationship Specialty Start Date End Date Dottie Simmons FNP [address] [place] [address] PCP - General Family Medicine 11/30/21 documented as of this encounter
--- OUTSIDE RECORDS SUMMARY | 2025-05-13 15:04 | XMS_ITS | Encounter Summary ---
Author Organization [facility] Address [address] [place] [address] 7 [place] [address] Care Team Providers Care Soda Worker Name Role Phone Dottie Simmons Primary Care Provider [phone] Encounter Details Date Type Department Care Team ([facility] Contact Info) Description 08/04/2022 Abstract [facility] MEDICINE [address] [place], [place] [phone] Dottie Simmons FNP [address] [place], [place] [phone] Social History Tobacco Use Types Packs/Day Years [...] suspected to have Coronavirus/COVID-19? No / Unsure 07/18/2022 11:08 AM EST documented as of this encounter Plan of Treatment Upcoming Encounters Date Type Department Care Team ([facility] Contact Info) Description 05/15/2025 2:45 PM EST Office Visit [facility] CHC MED & PEDS [address] [place], [place] [phone] Dottie Simmons FNP [address] [place] [address] 07/01/2025 10:00 AM EST Office Visit [facility] OPTOMETRY [address] [place], [place] [phone] Darlene Fofana, OD [address] [place] [address] documented as of this encounter Visit Diagnoses Not on filedocumented in this encounter Care Teams Soda Worker Relationship Specialty Start Date End Date Dottie Simmons FNP [address] [place] [address] PCP - General Family Medicine 11/30/21 documented as of this encounter
--- OUTSIDE RECORDS SUMMARY | 2025-05-13 15:04 | XMS_ITS | Encounter Summary ---
Author Organization [employer] Address [address] [place] [address] [address] [place] [address] Care Team Providers Care Hosiery Pairer Name Role Phone Dottie Simmons Primary Care Provider [phone] Reason for Visit * Reason Onset Date Comments Durable Medical Equipment 08/11/2022 Encounter Details Date Type Department Care Team ([facility] st Contact Info) Description 08/11/2022 Telephone [facility] MEDICINE [address] [place] [address] Dottie Simmons FNP [address] [place] [address] Durable Medical Equipment Social History Tobacco Use Types Packs/Day Years [...] encounter Miscellaneous Notes * Telephone Encounter - Tammy Diego - 08/14/2022 8:52 AM EST Script for raised toilet seat generated for signature * Telephone Encounter - Tammy Diego - 08/11/2022 3:14 PM EST Please advise on DME request, thank you * Telephone Encounter - Stalin Lugo - 08/11/2022 2:41 PM EST Tc from pt daughter requesting status on a toilet seat that was requested. Please contact pt daughter for more information [phone] documented in this encounter Plan of Treatment Upcoming Encounters Date Type Department Care Team (Late st Contact Info) Description 05/15/2025 2:45 PM EST Office Visit [facility] CHC MED & PEDS [address] [place] [address] Dottie Simmons FNP [address] [place] [address] 07/01/2025 10:00 AM EST Office Visit [facility] OPTOMETRY [address] [place] [address] BrigidoDarlene knox, OD [address] [place] [address] documented as of this encounter Visit Diagnoses Not on filedocumented in this encounter Care Teams Hosiery Pairer Relationship Specialty Start Date End Date Dottie Simmons FNP [address] [place] [address] PCP - General Family Medicine 11/30/21 documented as of this encounter
--- OUTSIDE RECORDS SUMMARY | 2025-05-13 15:04 | XMS_ITS | Clinical Summary ---
Author Organization [employer] Address [address] [place] [address] 7 [place] [address] Care Team Providers Care Job Captain Name Role Phone Dottie Simmons Primary Care Provider [phone] Allergies Active Allergy Reactions Criticality Noted Date Comments Shellfish Allergy 06/17/2022 Medications acetaminophen (Tylenol) 325 MG capsule Take 1 tablet by mouth every 8 hours as needed for pain Active Misc. Devices (Pulse Oximeter) misc -Use to check oxygen level as needed 01/14/20 22 Active levETIRAcetam (Keppra) 1000 MG tablet Take 1,000 mg by mouth 2 times daily. 08/31/19 24 Active white petrolatum-corn starch-lanolin (Triple Paste) 12.8 % ointment Apply to vaginal area after urinating or after cleaning from incontinence . Apply as many times a day as needed. 57 g 2 01/03/20 24 Active nystatin (Mycostatin) 843519 UNIT/GM powderIndications :Candidiasis of genitalia Apply topically 2 times daily. Affected area: groin 60 g 3 02/29/20 24 Active atorvastatin (Lipitor) 40 MG tabletIndications :Chronic congestive heart failure, unspecified heart failure type (HCC) TAKE 1 TABLET BY MOUTH AT BEDTIME 90 tablet 3 06/03/20 24 Active clopidogrel (Plavix) 75 MG tabletIndications :Chronic congestive heart failure, unspecified heart failure type (HCC) TAKE 1 TABLET BY MOUTH EVERY MORNING 90 tablet 3 06/03/20 24 Active metoprolol succinate XL (Toprol-XL) 100 MG 24 hr tabletIndications :Chronic congestive heart failure, unspecified heart failure type (HCC) TAKE 1 TABLET BY MOUTH AT BEDTIME 90 tablet 3 06/03/20 24 Active isosorbide mononitrate ER (Imdur) 30 MG 24 hr tabletIndications :Chronic congestive heart failure, unspecified heart failure type (HCC) TAKE 1 TABLET BY MOUTH EVERY MORNING 90 tablet 3 06/03/20 24 Active lidocaine (Lidoderm) 5 % patchIndications: Degeneration of intervertebral disc of lumbar region with discogenic back pain Apply 1 patch topically Once per day. Remove & discard patch within 12 hours or as directed by MD. 30 patch 3 06/27/19 25 Active Diclofenac Sodium (Voltaren) 1 % gelIndications:Ar thritis of both knees,Degeneratio n of intervertebral disc of lumbar region with discogenic back pain Use to apply by topical route for joint pains 2-3 times daily as needed. 100 g 11 06/27/19 25 Active lidocaine-priloca ine (Emla) 2.5-2.5 % creamIndications: Arthritis of both knees,Degeneratio n of intervertebral disc of lumbar region with discogenic back pain Apply topically if needed in the morning, at noon, and at bedtime (pain). 30 g 3 06/27/19 25 026 Active sertraline (Zoloft) 25 MG tablet Take 25 mg by mouth in the morning. 06/18/19 25 Active QUEtiapine (SEROquel) 25 MG tablet 10/28/19 25 Active Jardiance 10 MG TAKE 1 TABLET BY MOUTH EVERY MORNING 90 tablet 3 5 2:02 PM EST 02/11/20 25 Active Entresto 49-51 MG tablet TAKE 1 TABLET BY MOUTH TWICE DAILY IN THE MORNING AND AT BEDTIME 180 tablet 1 02/13/20 25 Active furosemide (Lasix) 40 MG tablet TAKE 1 TABLET BY MOUTH TWICE DAILY IN THE MORNING AND AT BEDTIME 180 tablet 1 02/13/20 25 Active spironolactone (Aldactone) 25 MG tablet TAKE 1 TABLET BY MOUTH EVERY MORNING 90 tablet 1 02/13/20 25 Active amLODIPine (Norvasc) 2.5 MG tablet TAKE 1 TABLET BY MOUTH AT BEDTIME 90 tablet 3 05/13/20 25 Active amLODIPine (Norvasc) 2.5 MG tablet TAKE 1 TABLET BY MOUTH AT BEDTIME 90 tablet 3 05/07/20 025 Discontinued Active Problems Problem Noted Date Diagnosed Date Degenerative disc disease, lumbar 06/30/2024 Overview (06/30/2024): X-ray completed March 2024 demonstrated severe DDD from L3-S1. Referral to physical therapy placed 06/30/2024 Encouraged to continue with symptomatic management Assessment & Plan (11/01/2024 10:59 AM EDT): Symptomatic management at home has included topical analgesics, TENS unit, light stretching and movement Letter for physical therapy generated Assessment & Plan (06/30/2024 6:05 PM EST): Symptomatic management at home has included topical analgesics, TENS unit, light stretching and movement Elevated LFTs 11/13/2023 Assessment & Plan (06/30/2024 6:02 PM EST): Lab Results Component Value Date ALT 37 (H) 02/29/2024 ALT 122 (H) 11/02/2023 ALT 156 (H) 08/15/2023 Lab Results Component Value Date AST 46 (H) 02/29/2024 AST 145 (H) 11/02/2023 AST 176 (H) 08/15/2023 Lab Results Component Value Date ALP 125 (H) 02/29/2024 ALP 246 (H) 11/02/2023 ALP 268 (H) 08/15/2023 Elevated LFTs noted in August 2023, trending downwards US Abdomen WNL September 2023 US Abdomen w/ elastography 03/26/24 - 1.36 m/s, high probability normal On statin, no recent change in dose Iron studies WNL August 2023 Hepatitis panel completed October 2023: Hep C neg, Hep B non-immune Re-started Hep B series November 2023 - Cont to avoid use of alcohol - Follow up/ED precautions Assessment & Plan (03/20/2024 4:00 PM EDT): Lab Results Component Value Date ALT 37 (H) 02/29/2024 ALT 122 (H) 11/02/2023 ALT 156 (H) 08/15/2023 Lab Results Component Value Date AST 46 (H) 02/29/2024 AST 145 (H) 11/02/2023 AST 176 (H) 08/15/2023 Lab Results Component Value Date ALP 125 (H) 02/29/2024 ALP 246 (H) 11/02/2023 ALP 268 (H) 08/15/2023 Elevated LFTs noted in August 2023, with slight improvement on repeat October 2023, significant decrease Feb 2024 US Abdomen WNL September 2023 LFTs noted to be relatively Wnl 02/04/22 On statin, no recent change in dose Iron studies WNL August 2023 Hepatitis panel completed October 2023: Hep C neg, Hep B non-immune Re-started Hep B series November 2023 Repeat liver US with elastography ordered 03/11/24 - Reviewed results, will cont to monitor approx Q 6 months - Cont to avoid use of alcohol - Follow up/ED precautions Assessment & Plan (11/13/2023 11:02 AM EDT): Lab Results Component Value Date ALT 122 (H) 11/02/2023 ALT 156 (H) 08/15/2023 AST 145 (H) 11/02/2023 AST 176 (H) 08/15/2023 ALP 246 (H) 11/02/2023 ALP 268 (H) 08/15/2023 Elevated LFTs noted in August 2023, with slight improvement on repeat October 2023 US Abdomen WNL September 2023 LFTs noted to be relatively Wnl 02/04/22 On statin, no recent change in dose Iron studies WNL August 2023 Hepatitis panel completed October 2023: Hep C neg, Hep B non-immune Re-started Hep B series November 2023 - Reviewed results, will cont to monitor upon return from upcoming trip - Cont to avoid use of alcohol - Follow up/ED precautions 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 Caregiver support reviewed/provided. Protective factors: Living with daughter, BAND LEADER care Prescribed sertraline 25mg daily and seroquel 25mg nightly through Neuro Assessment & Plan (04/21/2023 10:43 AM EST): Encouraged supportive/behaivor interventions, and to follow up with Neuro Protective factors: Living with daughter, BAND LEADER care Routine health maintenance 05/31/2022 Assessment & Plan (05/31/2022 8:13 AM EST): -Colonoscopy: N/A -Pap: N/A -Mammogram: N/A -DEXA: previously ordered -Optometry: referral to [facility] previously placed -Health Care Proxy: encouraged to complete and provide copy to [facility] -iADLs/ADLs: continue working with [facility] and PT Right hand pain 05/30/2022 Assessment & Plan (05/31/2022 8:16 AM EST): -X-ray of right wrist showed possibly ligament tear -Referral to hand specialist and will attempt to request home OT for pt through [facility] Essential hypertension 05/03/2022 Recurrent falls 05/03/2022 Assessment & Plan (04/21/2023 10:49 AM EST): Cont with fall precautions DME request for RW 04/21/23 Patient s clinical findings support the need for a walker given the patient has a mobility limitation that significantly impairs her ability to participate in one or more mobility-related activities of daily living (MRADL). Patient has a minimal need for weight bearing and will benefit from a four-wheel walker (rollator) with a seat and a basket Medical condition: CHF, recurrent falls, arthritis of both knees Weight: Wt Readings from Last 2 Encounters: 04/20/23 162 lb 8 oz (73.7 kg) 12/29/22 140 lb (63.5 kg) Patient needs a walker to perform MRADL s and the functional mobility deficit cannot be sufficiently resolved by use of a cane or crutches, given she will need assistance of both upper extremities for balance. The patient is willing to use a walker and the functional mobility deficit can be improved with the use of this device. Assessment & Plan (10/19/2022 2:05 PM EDT): Previous DME placed for gait/stability belt BAND LEADER has noted decline in fx over the past few weeks. Staying in wheelchair for transportation, request DME for wheelchair Previously worked with PT and [facility] requested in home to assist with fall precautions BAND LEADER inquiring about hospital bed. Advised this may require additional visit/documentation. However, will attempt prescription to sent to [facility] hospice care consultant to determine additional info/eval that would be necessary. Assessment & Plan (05/31/2022 8:16 AM EST): -Established with [facility], fall precautions at home -Will place DME request for gait belt Seizure disorder (CMS/HCC) 05/03/2022 Assessment & Plan (01/07/2023 11:49 AM EDT): -Continues with Keppra 1000mg BID -Following with [facility] Assessment & Plan (05/31/2022 8:11 AM EST): -Continues with Keppra 750mg BID -Upcoming initial consult to establish with [facility] Congestive heart failure 02/08/2022 Assessment & Plan (06/30/2024 6:05 PM EST): -Following with Cards - Dr. Rico. -History of HTN, heart murmur, and diastolic dysfunction -CLAUDIA October 2022 with estimated EF 20-25% -Updated cardiac med regimen below: -Entresto 49-51mg BID -Spironolactone 25mg daily -Isosorbide mononitrate XR 30mg daily -Furosemide 40mg BID -Metoprolol 100mg nightly -Plavix 75mg daily (per cards, may switch to aspirin for dental procedure if strongly desired by dental team) -Jardiance 10mg daily -Amlodipine 2.5mg daily -Imaging results from [facility] that show plaque formation in the proximal area of ICA with 82.3% stenosis. Left ICA with 54.5% stenosis -Continue with low salt diet and Pt/exercise as able -ED precautions reviewed Exacerbations: hospitalized October 2022 Assessment & Plan (03/20/2024 3:53 PM EDT): -Following with Cards - Last consult November [address] Rico. -History of HTN, heart murmur, and diastolic dysfunction -CLAUDIA October 2022 with estimated EF 20-25% -Updated cardiac med regimen below: -Entresto 49-51mg BID -Spironolactone 25mg daily -Isosorbide mononitrate XR 30mg daily -Furosemide 40mg BID -Metoprolol 100mg nightly -Plavix 75mg daily (per cards, may switch to aspirin for dental procedure if strongly desired by dental team) -Jardiance 10mg daily -Amlodipine 2.5mg daily -Imaging results from [facility] that show plaque formation in the proximal area of ICA with 82.3% stenosis. Left ICA with 54.5% stenosis -Continue with low salt diet and Pt/exercise as able -ED precautions reviewed Exacerbations: hospitalized October 2022 Assessment & Plan (11/13/2023 10:50 AM EDT): -Following with Cards - next appt November 2023 -History of HTN, heart murmur, and diastolic dysfunction -CLAUDIA October 2022 with estimated EF 20-25% -Updated cardiac med regimen below: -Entresto 49-51mg BID -Spironolactone 25mg daily -Isosorbide mononitrate XR 30mg daily -Furosemide 40mg BID -Metoprolol 100mg nightly -Plavix 75mg daily -Jardiance 10mg daily -Amlodipine 2.5mg daily -Imaging results from [facility] that show plaque formation in the proximal area of ICA with 82.3% stenosis. Left ICA with 54.5% stenosis -Continue with low salt diet and Pt/exercise as able -ED precautions reviewed Exacerbations: hospitalized October 2022 Assessment & Plan (08/15/2023 5:00 PM EST): -Following with Cards - next appt November 2023 -History of HTN, heart murmur, and diastolic dysfunction -CLAUDIA October 2022 with estimated EF 20-25% -Updated cardiac med regimen below: -Entresto 49-51mg BID -Spironolactone 25mg daily -Isosorbide mononitrate XR 30mg daily -Furosemide 40mg BID -Metoprolol 100mg nightly -Plavix 75mg daily -Jardiance 10mg daily -Amlodipine 2.5mg daily -Imaging results from [facility] that show plaque formation in the proximal area of ICA with 82.3% stenosis. Left ICA with 54.5% stenosis -Continue with low salt diet and Pt/exercise as able -ED precautions reviewed Exacerbations: hospitalized October 2022 Assessment & Plan (04/21/2023 10:41 AM EST): -Following with Cards - next appt November 2023 -History of HTN, heart murmur, and diastolic dysfunction -CLAUDIA October 2022 with estimated EF 20-25% -Updated cardiac med regimen below: -Entresto 49-51mg BID -Spironolactone 25mg daily -Isosorbide mononitrate XR 30mg daily -Furosemide 40mg BID -Metoprolol 100mg nightly -Plavix 75mg daily -Jardiance 10mg daily -Amlodipine 2.5mg daily -Imaging results from [facility] that show plaque formation in the proximal area of ICA with 82.3% stenosis. Left ICA with 54.5% stenosis -Continue with low salt diet and Pt/exercise as able -ED precautions reviewed Exacerbations: hospitalized October 2022 Assessment & Plan (01/07/2023 11:54 AM EDT): -Upcoming appt with outpatient yeast fermentation attendant. Plan to initiate outpatient ischemic workup -History of HTN, heart murmur, and diastolic dysfunction -CLAUDIA October 2022 with estimated EF 20-25% -Updated cardiac med regimen below: -Entresto 49-51mg BID -Spironolactone 25mg daily -Isosorbide mononitrate XR 30mg daily -Furosemide 40mg BID -Metoprolol 100mg nightly -Plavix 75mg daily -Jardiance 10mg daily -Amlodipine 2.5mg daily -Imaging results from [facility] that show plaque formation in the proximal area of ICA with 82.3% stenosis. Left ICA with 54.5% stenosis -Continue with low salt diet and Pt/exercise as able -ED precautions reviewed Assessment & Plan (11/19/2022 10:30 PM EDT): -Appt 11/27/22 with outpatient yeast fermentation attendant. Plan to initiate outpatient ischemic workup -History of HTN, heart murmur, and diastolic dysfunction -CLAUDIA October 2022 with estimated eF 20-25% -Updated cardiac med regimen below: -Entresto 49-51mg BID -Spironolactone 25mg daily -Isosorbide mononitrate XR 30mg daily -Furosemide 40mg daily -Metoprolol 100mg daily -Plavix 75mg daily -Jardiance 10mg daily -Amlodipine 2.5mg daily -Imaging results from [facility] that show plaque formation in the proximal area of ICA with 82.3% stenosis. Left ICA with 54.5% stenosis -Continue with low salt diet and Pt/exercise as able -ED precautions reviewed Assessment & Plan (05/31/2022 8:15 AM EST): -Upcoming evaluation to establish with yeast fermentation attendant -History of HTN, heart murmur, and diastolic dysfunction -Continue with current cardiac med regimen: -Enalapril 40mg daily -Isosorbide mononitrate XR 30mg daily -Furosemide 40mg daily -Metoprolol 100mg daily -Plavix 75mg daily -Imaging results from [facility] that show plaque formation in the proximal area of ICA with 82.3% stenosis. Left ICA with 54.5% stenosis -Continue with low salt diet and Pt/exercise as able -ED precautions reviewed Arthritis of both knees 12/01/2021 Assessment & Plan (11/01/2024 10:58 AM EDT): Cont with home exercises/mobility with BAND LEADER Referral for in home physical therapy sent 03/20/24 Following with [facility] Cortisone injection Jan 2024 & Jul 2024 (right knee) Cont diclofenac gel topical PRN DME request: Rolling walker with 2 wheels (No break or seat) requested 03/20/24 Assessment & Plan (06/30/2024 6:05 PM EST): Cont with home exercises/mobility with BAND LEADER Referral for in home physical therapy sent 03/20/24 Following with [facility] Cortisone injection Jan 2024 Cont diclofenac gel topical PRN DME request: Rolling walker with 2 wheels (No break or seat) requested 03/20/24 Assessment & Plan (03/20/2024 3:59 PM EDT): Cont with home exercises/mobility with BAND LEADER Referral for in home physical therapy sent 03/20/24 Following with [facility] Cortisone injection Jan 2024 Cont diclofenac gel topical PRN DME request: Rolling walker with 2 wheels (No break or seat) requested 03/20/24 Assessment & Plan (04/21/2023 10:51 AM EST): Cont with home physical therapy exercises with BAND LEADER Refill of topical diclofenac gel PRN Urinary incontinence 12/01/2021 Assessment & Plan (11/01/2024 11:04 AM EDT): DME request for large gloves Assessment & Plan (06/30/2024 6:17 PM EST): DME: reusable/washable large incont pads, wipes, and gloves (needs diaper size XL with quantity: 280/month) Request for LARGE reusable/washable incont pads on 03/20/24 UA in office demonstrated glucosuria, otherwise unremarkable. No known history of diabetes. POC A1c 5.9 UA w/ reflex to culture sent to lab for further eval Plan to call and further discuss when results available Assessment & Plan (03/20/2024 3:56 PM EDT): DME: reusable/washable large incont pads, wipes, and gloves (needs diaper size XL with quantity: 280/month) Request for LARGE reusable/washable incont pads on 03/20/24 Assessment & Plan (01/07/2023 11:48 AM EDT): DME request for reusable/washable incont pads, wipes, and gloves (needs diaper size XL with quantity: 280/month) Assessment & Plan (10/19/2022 2:01 PM EDT): DME request for reusable/washable incont pads, wipes, and gloves Assessment & Plan (05/31/2022 8:20 AM EST): -Continues with diapers/pads -Check UA Other hyperlipidemia Encounters Date Type Department Care Team Description 05/13/2025 Refill [facility] MEDICINE [address] [place] [id number] Dottie Simmons FNP 03/19/2025 Telephone [facility] PEDS [address] [place] [address] Dottie Simmons FNP Appointment Request 02/12/2025 Refill [facility] [address] [facility] [place] [address] Dottie Simmons FNP from Last 3 Months Immunizations Immunization Administration Dates Next Due Hep B, adult 11/12/2023 Influenza, seasonal, injectable, preservative fr ee 06/27/2024 Pfizer Covid-19 Vaccine 12+ 06/27/2024, Pneumococcal Conjugate PCV 20 03/21/2022 Tdap 08/16/2022 Zoster, Recombinant 08/16/2022,03/21/2022 Social History Tobacco Use Types Packs/Day Years Used Date Smoking Tobacco: Never Smokeless Tobacco: Never Tobacco Cessation:Counseling Given: Not Answered Alcohol Use Standard Drinks/Week Comments Never 0 [...] Orientation Straight 04/10/2022 10 :40 AM EDT Last Filed Vital Signs Vital Sign Reading Time Taken Comments Blood Pressure 158/78 10/31/2024 3:47 PM EDT Pulse 64 10/31/2024 2:28 PM EDT Temperature 36.3 C (97.4 F) 10/31/2024 2:28 PM EDT Respiratory Rate 14 10/31/2024 2:28 PM EDT Oxygen Saturation 99% 10/31/2024 2:28 PM EDT Inhaled Oxygen Concentration - - Weight 81.2 kg (179 lb) 10/31/2024 2:28 PM EDT Height 157.5 cm (5' 2 ) 10/31/2024 2:28 PM EDT Body Mass Index 32.74 10/31/2024 2:28 PM EDT Plan of Treatment Upcoming Encounters Date Type Department Care Team (Late st Contact Info) Description 05/15/2025 2:45 PM EST Office Visit [facility] MED & PEDS [address] [place] [address] PhalenLeele, SOFTWARE DESIGN ENGINEER [address] [place] [address] 07/01/2025 10:00 AM EST Office Visit [facility] OPTOMETRY [address] [place] [address] Brigido, Darlene, OD [address] [place] [address] Health Maintenance Due Date Last Done Comments RSV Patients and Patients Aged 60 years or older (1 - 1-dose 75+ series) 2016 Hepatitis B Vaccines (2 of 3 - 19+ 3-dose series) 12/10/2023 11/12/2023 Depression Monitoring 08/28/2024 02/29/2024 , 02/29/2024 COVID-19 Vaccine (4 - 2024-2 6 season) 2025 06/27/2024, 08/15/2023, 05/03/2022 Influenza Vaccine (#1) 2025 06/27/2024 SDOH Screening 02/28/2025 02/29/2024 Alcohol/Substance Use Screening 06/27/2025 06/27/2024 Diabetes: Hemoglobin A1C 06/27/2025 025, 07/10/2022, 12/15/2021 Tobacco Screening 06/27/2025 06/27/2024 Lipid Panel 08/14/2028 08/15/2023, 12/15/2021 DTaP/Tdap/Td Vaccines (2 - T d or Tdap) 08/16/2032 08/16/2022 Pneumococcal Vaccine: 50+ Years Completed 03/21/2022 Zoster Vaccines Completed 08/16/2022, 03/21/2022 HIB Vaccines Aged Out No longer eligi ble based on patient's age to complete this topic HPV Vaccines Aged Out No longer eligi ble based on patient's age to complete this topic Hepatitis A Vaccines Aged Out No long er eligible based on patient's age to complete this topic IPV Vaccines Aged Out No longer eligi ble based on patient's age to complete this topic Meningococcal B Vaccine Aged Out No l onger eligible based on patient's age to complete this topic Meningococcal Vaccine Aged Out No mark uli eligible based on patient's age to complete this topic RSV under 20 months Aged Out No longe r eligible based on patient's age to complete this topic Rotavirus Vaccines Aged Out No longer eligible based on patient's age to complete this topic Procedures Procedure Name Priority Date/Time Associated Diagnosis Comments POCT GLYCATED HEMOGLOBIN, TOTAL Routine 06/27/2024 2:22 PM EST Mixed stress and urge urinary incontinence LIPID PANEL, STANDARD Routine 08/15/2023 11:37 AM EST Essential hypertension from Last 3 Months or Most Recently Relevant to Health Maintenance Results * POCT HGB A1C (06/27/2024 2:22 PM EST) Hemoglobin A1C 5.9 4.0 - 6.0 % QC Media Lot # [id number] Lot# Expiration Date [id number] Blood 06/27/2024 2:22 PM EST Dottie Simmons [facility] POINT OF CARE TEST ENTER/EDIT ORDERABLES Final Result * Lipid Panel, Standard (08/15/2023 11:37 AM EST) Triglycerides 74 <150 mg/dL [facility] Comment:Desirable Triglyceri de: less than 150 mg/dLBorderline High Triglyceride 150-199 mg/dLHigh Triglyceride: 200-499 mg/dLVery High Triglyceride: greater than or equal to 5OO mg/dL Cholesterol 150 <200 mg/dL [facility] Comment:Desirable Cholestero l: less than 200 mg/dLBorderline High Cholesterol: 200-239 mg/dLHigh Cholesterol: greater than 239 mg/dL LDL Cholesterol Calculated 71 <100 mg/dL [facility] Comment:Desirable LDL: less than 100 mg/dLNear Optimal/Above Optimal LDL: 110- 129 mg/dLBorderline High LDL: 130-159 mg/dLHigh LDL: 160-189 mg/dLVery High LDL: greater than or equal to 190 mg/dL HDL Cholesterol 65 >40 mg/dL [facility] Comment:Desirable HDL: great er than 40 mg/dL Note: This HDL assay may give artificially low results in patients with liver disease. Blood Venous blood specimen / Unknown 08/15/2023 11:37 AM EST 08/15/2023 1:03 PM EST Dottie Simmons [facility] BLOOD ORDERABLES Final Res ult [facility] [address] [place] [phone] from Last 3 Months or Most Recently Relevant to Health Maintenance Insurance [facility] [employer] (HMO D-SNP) [employer]BE PENG [id number] Care Teams Job Captain Relationship Specialty Start Date End Date Dottie Simmons FNP [address] [place] [address] PCP - General Family Medicine 11/30/21
--- OUTSIDE RECORDS SUMMARY | 2025-05-13 15:04 | XMS_ITS | Encounter Summary ---
Author Organization [employer] Address [address] [facility] 7t [place] [address] Care Team Providers Care Nutrient Management Specialist Name Role Phone Dottie Simmons Primary Care Provider [phone] Encounter Details Date Type Department Care Team ([facility] st Contact Info) Description 04/10/2024 Telephone [facility] MEDICINE [address] [place] [address] Dottie Simmons FNP [address] [place] [address] Social History Tobacco Use Types Packs/Day Years [...] encounter Miscellaneous Notes * Telephone Encounter - Katie Viera MA - 04/10/2024 4:06 PM EDT A letter was mailed to the patient, regarding an application for guardianship, that was dropped offat [facility] on 02/27/24. It was addressed to her daughter Kiley Briceño??ones' attention. documented in this encounter Plan of Treatment Upcoming Encounters Date Type Department Care Team (Late st Contact Info) Description 05/15/2025 2:45 PM EST Office Visit [facility] CHC MED & PEDS [address] [place] [address] Dottie Simmons, PEDIATRIC HOSPITALIST [address] [place] [address] 07/01/2025 10:00 AM EST Office Visit [facility] OPTOMETRY [address] [place] [address] Darlene Fofana, OD [address] [place] [address] documented as of this encounter Visit Diagnoses Not on filedocumented in this encounter Additional Health Concerns Assessment Noted Time PHQ-9 Depression Total Score: 9 02/29/20 4:55 PM EDT documented as of this encounter Care Teams Nutrient Management Specialist Relationship Specialty Start Date End Date Dottie Simmons FNP [address] [place] [address] PCP - General Family Medicine 11/30/21 documented as of this encounter
--- OUTSIDE RECORDS SUMMARY | 2025-05-13 15:04 | XMS_ITS | Encounter Summary ---
Author Organization [employer] Address [address] [place] [address] 7 [place] [address] Care Team Providers Care Neon Glass Bender Name Role Phone Dottie Simmons Primary Care Provider [phone] Reason for Visit * Reason Onset Date Comments Durable Medical Equipment 10/31/2022 Encounter Details Date Type Department Care Team ([facility] st Contact Info) Description 10/31/2022 Telephone [facility] MEDICINE [address] [place] [address] Dottie Simmons FNP [address] [place] [address] Durable Medical Equipment Social History Tobacco Use [...] * Telephone Encounter - Tammy Diego - 10/31/2022 4:01 PM EDT Scripts for scale and shower chair generated for signature * Telephone Encounter - Brissa Metzger - 10/31/2022 10:05 AM EDT Tc from pt daughter requesting a body weight scale and shower chair . Please fax [facility] [phone] documented in this encounter Plan of Treatment Upcoming Encounters Date Type Department Care Team (Late st Contact Info) Description 05/15/2025 2:45 PM EST Office Visit [facility] CHC MED & PEDS [address] [place] [address] Dottie Simmons FNP [address] [place] [address] 07/01/2025 10:00 AM EST Office Visit [facility] OPTOMETRY [address] [place] [address] Darlene Fofana, OD [address] [place] [address] documented as of this encounter Visit Diagnoses Not on filedocumented in this encounter Care Teams Neon Glass Bender Relationship Specialty Start Date End Date Dottie Simmons FNP [address] [place] [address] PCP - General Family Medicine 11/30/21 documented as of this encounter
--- OUTSIDE RECORDS SUMMARY | 2025-05-13 15:04 | XMS_ITS | Encounter Summary ---
Author Organization [employer] Address [address] [facility] 7t [place] [address] Care Team Providers Care Leach Cell Operator Name Role Phone Dottie Simmons Primary Care Provider [phone] Reason for Visit * Reason Comments Med Refill Encounter Details Date Type Department Care Team ([facility] st Contact Info) Description 05/13/2025 Refill [facility] MEDICINE [address] [place] [address] Dottie Simmons FNP [address] [place] [address] Social History Tobacco Use Types Packs/Day Years [...] Description 05/15/2025 2:45 PM EST Office Visit [facility] CHC MED & PEDS [address] [place] [address] Dottie Simmons FNP [address] [place] [address] 07/01/2025 10:00 AM EST Office Visit [facility] OPTOMETRY [address] [place] [address] Brigido, Darlene, OD [address] [place] [address] documented as of this encounter Visit Diagnoses Not on filedocumented in this encounter Additional Health Concerns Assessment Noted Time PHQ-9 Depression Total Score: 9 02/29/20 24 4:55 PM EDT documented as of this encounter Care Teams Leach Cell Operator Relationship Specialty Start Date End Date Dottie Simmons FNP [address] [place] [address] PCP - General Family Medicine 11/30/21 documented as of this encounter
--- OUTSIDE RECORDS SUMMARY | 2025-05-13 15:04 | XMS_ITS | Encounter Summary ---
Author Organization [employer] Address [address] [place] [address] 7 [place] [address] Care Team Providers Care Install And Repair Technician Name Role Phone Dottie Simmons Primary Care Provider [phone] Reason for Visit * Reason Onset Date Comments Med Refill 07/14/2022 Encounter Details Date Type Department Care Team ([facility] st Contact Info) Description 07/14/2022 Telephone [facility] MEDICINE [address] [place] [address] Dottie Simmons FNP [address] [place] [address] Med Refill Social History Tobacco Use Types Packs/Day Years [...] suspected to have Coronavirus/COVID-19? No / Unsure 06/14/2022 2:00 PM EST documented as of this encounter Miscellaneous Notes * Telephone Encounter - Camelia Grigsby LPN - 07/14/2022 11:06 AM EST Meds have been queued to provider awaiting approval. * Telephone Encounter - Soila Romero - 07/14/2022 9:03 AM EST TC from Kiley daughter of pt requesting med refill for all meds ( Furosemide 40mg, Atorvastatin 40mg, Clopidogrel 75mg, Isosorbide mononit ER 30mg, Enalapril maleate 20mg, Metoprolol Succ ER 100mg, levetiracetam 750mg. Pt without meds. PCP Iris documented in this encounter Plan of Treatment Upcoming Encounters Date Type Department Care Team (Late st Contact Info) Description 05/15/2025 2:45 PM EST Office Visit [facility] CHC MED & PEDS [address] [place] [address] Dottie Simmons FNP [address] [place] [address] 07/01/2025 10:00 AM EST Office Visit [facility] OPTOMETRY [address] [place] [address] Darlene Fofana, OD [address] [place] [address] documented as of this encounter Visit Diagnoses Not on filedocumented in this encounter Care Teams Install And Repair Technician Relationship Specialty Start Date End Date Dottie Simmons FNP [address] [place] [address] PCP - General Family Medicine 11/30/21 documented as of this encounter
--- OUTSIDE RECORDS SUMMARY | 2025-05-13 15:04 | XMS_ITS | Encounter Summary ---
Author Organization [employer] [facility] Address [address] [place] [address] [address], [place] [address] Care Team Providers Care Personal Counselor Name Role Phone Dottie iSmmons Primary Care Provider [phone] Reason for Visit * Reason Comments Med Refill Encounter Details Date Type Department Care Team (Late Contact Info) Description 01/13/2023 Refill [facility] MEDICINE [address] [place] [address] Dottie Simmons FNP [address] [place] [address] Social History Tobacco Use Types Packs/Day Years [...] Description 05/15/2025 2:45 PM EST Office Visit [facility] CHC MED & PEDS [address] [place], [place] [phone] Dottie Simmons FNP [address] [place], [place] [phone] 07/01/2025 10:00 AM EST Office Visit [facility] OPTOMETRY [address] [place] [address] Darlene Fofana, OD [address] [place] [address] documented as of this encounter Visit Diagnoses Not on filedocumented in this encounter Additional Health Concerns Assessment Noted Time PHQ-9 Depression Total Score: 0 12/30/19 23 8:52 AM EDT documented as of this encounter Care Teams Personal Counselor Relationship Specialty Start Date End Date Dottie Simmons FNP [address] [place] [address] PCP - General Family Medicine 11/30/21 documented as of this encounter
--- OUTSIDE RECORDS SUMMARY | 2025-05-13 15:04 | XMS_ITS | Encounter Summary ---
Author Organization [facility] Address [address] [place] [address] [address] [place] [address] Care Team Providers Care Voucher Examiner Name Role Phone Dottie Simmons Primary Care Provider Reason for Visit * Reason Comments Med Refill Encounter Details Date Type Department Care Team (Late Contact Info) Description 03/12/2023 Refill [facility] MEDICINE [address] [place] [address] Dottie Simmons FNP [address] [place] [address] Other insomnia Social History Tobacco Use Types [...] Upcoming Encounters Date Type Department Care Team ([facility] Contact Info) Description 05/15/2025 2:45 PM EST Office Visit [facility] CHC MED & PEDS [address] [place], [place] [phone] Dottie Simmons FNP [address] [place], [place] [phone] 07/01/2025 10:00 AM EST Office Visit [facility] OPTOMETRY [address] [place] [address] Darlene Fofana, OD [address] [place] [address] documented as of this encounter Visit Diagnoses Diagnosis Other insomnia documented in this encounter Additional Health Concerns Assessment Noted Time PHQ-9 Depression Total Score: 0 12/30/19 23 8:52 AM EDT documented as of this encounter Care Teams Voucher Examiner Relationship Specialty Start Date End Date Dottie Simmons FNP [address] [place] [address] PCP - General Family Medicine 11/30/21 documented as of this encounter
--- OUTSIDE RECORDS SUMMARY | 2025-05-13 15:04 | XMS_ITS | Encounter Summary ---
Author Organization [employer] Address [address] [facility] 7t [place] [address] Care Team Providers Care Professional Soccer Player Name Role Phone Dottie Simmons SHARLENE Primary Care Provider [phone] Reason for Visit * Reason Comments Med Refill Encounter Details Date Type Department Care Team ([facility] st Contact Info) Description 09/18/2024 Refill [facility] CHC MED & PEDS [address] [place], [place] [phone] Isabel Delgadillo MD [address] [place] [address] Social History Tobacco Use Types Packs/Day Years [...] Description 05/15/2025 2:45 PM EST Office Visit [facility] CHC MED & PEDS [address] [place] [address] Dottie Simmons FNP [address] [place] [address] 07/01/2025 10:00 AM EST Office Visit [facility] OPTOMETRY [address] [place] [address] Brigido, Darlene, OD [address] [place] [address] documented as of this encounter Visit Diagnoses Not on filedocumented in this encounter Additional Health Concerns Assessment Noted Time PHQ-9 Depression Total Score: 9 02/29/20 24 4:55 PM EDT documented as of this encounter Care Teams Professional Soccer Player Relationship Specialty Start Date End Date Dottie Simmons FNP [address] [place] [address] PCP - General Family Medicine 11/30/21 documented as of this encounter
--- OUTSIDE RECORDS SUMMARY | 2025-05-13 15:04 | XMS_ITS | Encounter Summary ---
Author Organization [employer] Address [address] [facility] 7t [place] [address] Care Team Providers Care Front Sight Attacher Name Role Phone Dottie Simmons Primary Care Provider [phone] Encounter Details Date Type Department Care Team ([facility] st Contact Info) Description 08/31/2023 Telephone [facility] MEDICINE [address] [place] [address] Dottie Simmons FNP [address] [place] [address] Social History Tobacco Use Types Packs/Day Years Used Date Smoking Tobacco: Never Smokeless Tobacco: Never Alcohol Use Standard Drinks/Week Comments Never 0 (1 standard drink = 0.6 oz pur e alcohol) Depression Answer Date Recorded Patient Health Questionnaire-9 Score 0 12/29/2022 Housing Stability Answer Date Recorded What is your housing situation today? I have chano camara 03/26/[address] you li ve. Do you have problems with any of the following? None of the above 03/26/2023 Food Insecurity Answer Date Recorded Within the past 12 months, y ou worried that your food would run out before you got money to buy more: Never True 03/26/2023 Within the past 12 months,th e food you bought just didn't last and you didn't have enough money to get more: Never True Transportation Answer Date Recorded In the past 12 months, has l ack of transportation kept you from medical appts, meetings, work or from getting things needed for daily living? No 03/26/2023 Utilities Answer Date Recorded In the past 12 months, has t he electric, gas, oil or water company threatened to shut off services in your home? No 03/26/2023 Depression Answer Date Recorded Patient Health Questionnaire-2 [...] Description 05/15/2025 2:45 PM EST Office Visit [facility] CHC MED & PEDS [address] [place] [address] Dottie Simmons FNP [address] [place] [address] 07/01/2025 10:00 AM EST Office Visit [facility] OPTOMETRY [address] [place] [address] Brigido, Darlene, OD [address] [place] [address] documented as of this encounter Visit Diagnoses Not on filedocumented in this encounter Additional Health Concerns Assessment Noted Time PHQ-9 Depression Total Score: 0 12/30/19 23 8:52 AM EDT documented as of this encounter Care Teams Front Sight Attacher Relationship Specialty Start Date End Date Dottie Simmons FNP [address] [place] [address] PCP - General Family Medicine 11/30/21 documented as of this encounter
== END 2025-05-13 13:48 | disposition home or self-care (01) ==
LOC: HO.HSM 12:49
PROVIDERS: PCP Registered Nurse; Visit Provider Registered Nurse
DX: G40.909 Epilepsy, unspecified, not intractable, without status epilepticus (principal); G30.9 Alzheimer's disease, unspecified; F02.83 Dementia in other diseases classified elsewhere, unspecified severity, with mood disturbance; F03.90 Unspecified dementia, unspecified severity, without behavioral disturbance, psychotic disturbance, mood disturbance, and anxiety
CPT/HCPCS: 99214

== ENCOUNTER → 2025-05-13 12:48 | Outpatient (BNVA) | payer OTHER, SELFPAY | PROVIDERS: PCP Registered Nurse; Visit Provider Registered Nurse | DX: G40.909 Epilepsy, unspecified, not intractable, without status epilepticus (principal); G30.9 Alzheimer's disease, unspecified; F02.83 Dementia in other diseases classified elsewhere, unspecified severity, with mood disturbance; F32.A Depression, unspecified; Z79.899 Other long term (current) drug therapy | CPT/HCPCS: 99212 ==